=== PATIENT | female | born 1945 | race Caucasian/White ===

== ENCOUNTER → 2016-12-11 | Outpatient (REF) | payer MEDICARE, OTHER ==
[2016-12-11 13:14] LABS: ALBUMIN 3.5 GM/DL (3.2-5.2); ALBUMIN/GLOBULIN RATIO 1.06 (1.00-1.93); ALKALINE PHOSPHATASE 87 U/L (45-117); ALT/SGPT 26 U/L (12-78); ANION GAP 10 MEQ/L (8-16); AST/SGOT 15 U/L (15-37); BILIRUBIN,TOTAL 0.3 MG/DL (0.2-1.0); BLOOD UREA NITROGEN 19 MG/DL (7-18); CALCIUM LEVEL 8.6 MG/DL (8.8-10.2); CARBON DIOXIDE LEVEL 30 MEQ/L (21-32); CHLORIDE LEVEL 100 MEQ/L (98-107); CHOLESTEROL LEVEL 183 MG/DL (<200); CREATININE FOR GFR 0.97 MG/DL (0.55-1.02); GLOMERULAR FILTRATION RATE > 60.0 (>45); GLUCOSE, FASTING 174 MG/DL (80-110); POTASSIUM SERUM 4.8 MEQ/L (3.5-5.1); SODIUM LEVEL 140 MEQ/L (136-145); TOTAL PROTEIN 6.8 GM/DL (6.4-8.2); TRIGLYCERIDES LEVEL 174 MG/DL (<150)
== END ==
LOC: M SFHCPLAZ 08:06
PROVIDERS: ATTEND Nurse Practitioner Family
DX: E11.8 Type 2 diabetes mellitus with unspecified complications (principal); M35.3 Polymyalgia rheumatica; E78.2 Mixed hyperlipidemia; E55.9 Vitamin D deficiency, unspecified

== ENCOUNTER → 2017-03-16 | Outpatient (REF) | payer MEDICARE, OTHER ==
[2017-03-16 13:48] LABS: ALBUMIN 3.5 GM/DL (3.2-5.2); ALBUMIN/GLOBULIN RATIO 1.06 (1.00-1.93); BILIRUBIN,TOTAL 0.4 MG/DL (0.2-1.0); CALCIUM LEVEL 9.4 MG/DL (8.8-10.2); CREATININE FOR GFR 1.12 MG/DL (0.55-1.02); GLOMERULAR FILTRATION RATE 51.3 (>45); POTASSIUM SERUM 5.1 MEQ/L (3.5-5.1); TOTAL PROTEIN 6.8 GM/DL (6.4-8.2)
== END ==
LOC: M SFHCADAM 09:26
PROVIDERS: ATTEND Nurse Practitioner Family
DX: E11.8 Type 2 diabetes mellitus with unspecified complications (principal)

== ENCOUNTER → 2017-07-25 | Outpatient (REF) | payer MEDICARE, OTHER ==
[2017-07-25 14:35] LABS: ALBUMIN 3.5 GM/DL (3.2-5.2); ALBUMIN/GLOBULIN RATIO 1.17 (1.00-1.93); BILIRUBIN,TOTAL 0.3 MG/DL (0.2-1.0); CALCIUM LEVEL 8.8 MG/DL (8.8-10.2); CREATININE FOR GFR 1.04 MG/DL (0.55-1.02); GLOMERULAR FILTRATION RATE 55.8 (>39); POTASSIUM SERUM 4.9 MEQ/L (3.5-5.1); TOTAL PROTEIN 6.5 GM/DL (6.4-8.2)
== END ==
LOC: M SFHCADAM 07:25
PROVIDERS: ATTEND Family Medicine
DX: E11.8 Type 2 diabetes mellitus with unspecified complications (principal); E55.9 Vitamin D deficiency, unspecified

== ENCOUNTER → 2017-10-23 | Outpatient (REF) | payer MEDICARE, OTHER ==
[2017-10-23 12:35] LABS: ESTIMATED AVERAGE GLUCOSE 140 MG/DL (60-110); HEMOGLOBIN A1c 6.5 %
[2017-10-23 12:38] LABS: ALBUMIN 3.6 GM/DL (3.2-5.2); ALBUMIN/GLOBULIN RATIO 1.06 (1.00-1.93); ALKALINE PHOSPHATASE 74 U/L (45-117); ALT/SGPT 22 U/L (12-78); ANION GAP 5 MEQ/L (8-16); AST/SGOT 11 U/L (7-37); BILIRUBIN,TOTAL 0.3 MG/DL (0.2-1.0); BLOOD UREA NITROGEN 37 MG/DL (7-18); CALCIUM LEVEL 9.1 MG/DL (8.8-10.2); CARBON DIOXIDE LEVEL 32 MEQ/L (21-32); CHLORIDE LEVEL 102 MEQ/L (98-107); CHOLESTEROL LEVEL 227 MG/DL (<200); CHOLESTEROL RISK RATIO 3.783 (<5); CREATININE FOR GFR 1.33 MG/DL (0.55-1.02); GLUCOSE, FASTING 100 MG/DL (83-110); HDL CHOLESTEROL 60 MG/DL (>40); LDL CHOLESTEROL 123.2 MG/DL (<100); NON-HDL-C 167 MG/DL; POTASSIUM SERUM 5.1 MEQ/L (3.5-5.1); SODIUM LEVEL 139 MEQ/L (136-145); TRIGLYCERIDES LEVEL 219 MG/DL (<150)
== END ==
LOC: M SFHCADAM 09:05
DX: E11.8 Type 2 diabetes mellitus with unspecified complications (principal); E78.2 Mixed hyperlipidemia
CPT/HCPCS: 80053

== ENCOUNTER → 2017-10-31 | Outpatient (CLI) | payer MEDICARE, OTHER | LOC: M WHC 08:53 | DX: Z12.31 Encounter for screening mammogram for malignant neoplasm of breast (principal); N95.1 Menopausal and female climacteric states; Z80.0 Family history of malignant neoplasm of digestive organs; Z80.3 Family history of malignant neoplasm of breast; M81.0 Age-related osteoporosis without current pathological fracture | CPT/HCPCS: 77067 ==

== ENCOUNTER → 2017-11-07 | Outpatient (REF) | payer MEDICARE, OTHER ==
[2017-11-07 13:49] LABS: CREATININE FOR GFR 1.22 MG/DL (0.55-1.02); GLOMERULAR FILTRATION RATE 46.4 (>39)
[2017-11-07 13:49] LABS: BLOOD UREA NITROGEN 41 MG/DL (7-18)
== END ==
LOC: M LAB REF 12:58
DX: R94.4 Abnormal results of kidney function studies (principal)
CPT/HCPCS: 82565

== ENCOUNTER → 2018-01-01 | Outpatient (REF) | payer MEDICARE, OTHER ==
[2018-01-01 16:09] LABS: BASO # 0.1 10^3/uL (0.0-0.2); BASO % 1.2 % (0.0-1.0); EOS # 0.1 10^3/uL (0.0-0.50); EOS % 1.9 % (0.0-3.0); HEMATOCRIT 34.8 % (36.0-47.0); HEMOGLOBIN 11.2 g/dl (12.0-16.0); IMMATURE GRANULOCYTE % 0.7 % (0-3.0); LYMPH # 2.3 10^3/uL (1.5-4.5); LYMPH % 33.3 % (24.0-44.0); MEAN CORPUSCULAR HEMOGLOBIN 28.9 pg (27.0-33.0); MEAN CORPUSCULAR HGB CONC 32.2 g/dl (32.0-36.5); MEAN CORPUSCULAR VOLUME 89.7 fl (80.0-96.0); MONO # 0.7 10^3/uL (0.0-0.8); MONO % 10.7 % (0.0-5.0); NEUTROPHILS # 3.6 10^3/uL (1.8-7.7); NEUTROPHILS % 52.2 % (36.0-66.0); PLATELET COUNT, AUTOMATED 287 10^3/uL (150-450); RED BLOOD COUNT 3.88 10^6/uL (4.00-5.40); RED CELL DISTRIBUTION WIDTH 15.6 % (11.5-14.5); WHITE BLOOD COUNT 6.8 10^3/uL (4.0-10.0)
[2018-01-01 16:23] LABS: ALBUMIN 3.9 GM/DL (3.2-5.2); ALBUMIN/GLOBULIN RATIO 1.11 (1.00-1.93); ALKALINE PHOSPHATASE 81 U/L (45-117); ALT/SGPT 23 U/L (12-78); ANION GAP 5 MEQ/L (8-16); AST/SGOT 16 U/L (7-37); BILIRUBIN,TOTAL 0.4 MG/DL (0.2-1.0); BLOOD UREA NITROGEN 30 MG/DL (7-18); CALCIUM LEVEL 9.4 MG/DL (8.8-10.2); CARBON DIOXIDE LEVEL 32 MEQ/L (21-32); CHLORIDE LEVEL 100 MEQ/L (98-107); CREATININE FOR GFR 1.08 MG/DL (0.55-1.30); GLOMERULAR FILTRATION RATE 53.4 (>39); GLUCOSE, FASTING 104 MG/DL (70-100); POTASSIUM SERUM 4.8 MEQ/L (3.5-5.1); SODIUM LEVEL 137 MEQ/L (136-145); TOTAL PROTEIN 7.4 GM/DL (6.4-8.2)
[2018-01-01 16:28] LABS: ESTIMATED AVERAGE GLUCOSE 134 MG/DL (60-110); HEMOGLOBIN A1c 6.3 %
[2018-01-01 17:18] LABS: ERYTHROCYTE SEDIMENTATION RATE 55 mm/hr (0-30)
== END ==
LOC: M SFHCPLAZ 12:24
DX: R19.7 Diarrhea, unspecified (principal); E11.9 Type 2 diabetes mellitus without complications
CPT/HCPCS: 80053

== ENCOUNTER → 2018-01-02 | Outpatient (REF) | payer MEDICARE, OTHER | LOC: M SFHCPLAZ 09:36 | DX: R19.7 Diarrhea, unspecified (principal) | CPT/HCPCS: 87507 ==

== ENCOUNTER → 2018-01-17 | Outpatient (REF) | payer MEDICARE, OTHER ==
[2018-01-17 13:23] LABS: CREATININE FOR GFR 1.19 MG/DL (0.55-1.30); GLOMERULAR FILTRATION RATE 47.7 (>39)
== END ==
LOC: M LABDRWAD 12:46
DX: R94.4 Abnormal results of kidney function studies (principal)
CPT/HCPCS: 82565

== ENCOUNTER → 2018-03-14 | Outpatient (REF) | payer MEDICARE, OTHER ==
[2018-03-14 13:56] LABS: ALBUMIN 3.5 GM/DL (3.2-5.2); ALBUMIN/GLOBULIN RATIO 1.13 (1.00-1.93); ALKALINE PHOSPHATASE 77 U/L (45-117); ALT/SGPT 25 U/L (12-78); ANION GAP 6 MEQ/L (8-16); AST/SGOT 15 U/L (7-37); BILIRUBIN,TOTAL 0.4 MG/DL (0.2-1.0); BLOOD UREA NITROGEN 35 MG/DL (7-18); CALCIUM LEVEL 8.7 MG/DL (8.8-10.2); CARBON DIOXIDE LEVEL 29 MEQ/L (21-32); CHLORIDE LEVEL 104 MEQ/L (98-107); CHOLESTEROL LEVEL 173 MG/DL (<200); CREATININE FOR GFR 1.09 MG/DL (0.55-1.30); GLOMERULAR FILTRATION RATE 52.8 (>39); GLUCOSE, FASTING 189 MG/DL (70-100); HDL CHOLESTEROL 50 MG/DL (>40); LDL CHOLESTEROL 85.2 MG/DL (<100); NON-HDL-C 123 MG/DL; SODIUM LEVEL 139 MEQ/L (136-145); TOTAL PROTEIN 6.6 GM/DL (6.4-8.2); TRIGLYCERIDES LEVEL 189 MG/DL (<150)
[2018-03-14 13:58] LABS: POTASSIUM SERUM 5.3 MEQ/L (3.5-5.1)
[2018-03-14 14:31] LABS: MALB URINE SIEMENS 33.3 MG/L; MAU/CREAT RATIO 58.4 MCG/MG (0.0-30.0)
[2018-03-14 14:38] LABS: ESTIMATED AVERAGE GLUCOSE 160 MG/DL (60-110); HEMOGLOBIN A1c 7.2 %
== END ==
LOC: M SFHCADAM 07:46
DX: E11.8 Type 2 diabetes mellitus with unspecified complications (principal); E78.2 Mixed hyperlipidemia
CPT/HCPCS: 80053

== ENCOUNTER → 2018-03-26 | Day surgery (SDC) | payer MEDICARE, OTHER ==
[~2018-03-26] MED LIST: LIDOCAINE 2% INJ 100 MG/5 ML SDV (FOR ANES.) As Ordered; PROPOFOL 200 MG/20 ML VIAL As Ordered
[2018-03-26] MEDS: NS 1,000 ML IV (06:30)
== END | disposition home or self-care (01) ==
LOC: M OPP 06:41
DX: Z12.11 Encounter for screening for malignant neoplasm of colon (principal); K64.0 First degree hemorrhoids; E11.9 Type 2 diabetes mellitus without complications; I10 Essential (primary) hypertension; D64.9 Anemia, unspecified; N32.9 Bladder disorder, unspecified; M35.3 Polymyalgia rheumatica; F32.9 Major depressive disorder, single episode, unspecified; Z79.82 Long term (current) use of aspirin; Z79.84 Long term (current) use of oral hypoglycemic drugs; Z79.899 Other long term (current) drug therapy; Z88.0 Allergy status to penicillin; Z88.8 Allergy status to other drugs, medicaments and biological substances; Z78.0 Asymptomatic menopausal state; Z87.891 Personal history of nicotine dependence
CPT/HCPCS: G0121

== ENCOUNTER → 2018-04-16 | Outpatient (REF) | payer MEDICARE, OTHER ==
[2018-04-16 12:34] LABS: HEMOGLOBIN 10.7 g/dl (12.0-15.5); MEAN CORPUSCULAR HEMOGLOBIN 29.5 pg (27.0-33.0); MEAN CORPUSCULAR HGB CONC 31.5 g/dl (32.0-36.5); MEAN CORPUSCULAR VOLUME 93.7 fl (80.0-96.0); PLATELET COUNT, AUTOMATED 328 10^3/uL (150-450); RED BLOOD COUNT 3.63 10^6/uL (4.00-5.40); RED CELL DISTRIBUTION WIDTH 15.2 % (11.5-14.5)
[2018-04-16 13:06] LABS: ANION GAP 8 MEQ/L (8-16); BLOOD UREA NITROGEN 35 MG/DL (7-18); CARBON DIOXIDE LEVEL 29 MEQ/L (21-32); CHLORIDE LEVEL 103 MEQ/L (98-107); CREATININE FOR GFR 1.13 MG/DL (0.55-1.30); FERRITIN 23 NG/ML (8-252); GLOMERULAR FILTRATION RATE 50.7 (>39); GLUCOSE, FASTING 147 MG/DL (70-100); SODIUM LEVEL 140 MEQ/L (136-145)
[2018-04-16 13:09] LABS: POTASSIUM SERUM 5.2 MEQ/L (3.5-5.1)
== END ==
LOC: M SFHCADAM 08:58
DX: E87.5 Hyperkalemia (principal)
CPT/HCPCS: 82728

== ENCOUNTER 2018-04-30 19:55 | Emergency (ER) | payer MEDICARE, OTHER ==
[2018-04-30 20:45] LABS: BASO # 0.1 10^3/uL (0.0-0.2); BASO % 0.6 % (0.0-1.0); EOS # 0.2 10^3/uL (0.0-0.50); EOS % 1.4 % (0.0-3.0); HEMATOCRIT 33.6 % (36.0-47.0); HEMOGLOBIN 10.8 g/dl (12.0-15.5); IMMATURE GRANULOCYTE % 0.7 % (0-3.0); LYMPH # 2.2 10^3/uL (1.5-4.5); LYMPH % 19.8 % (24.0-44.0); MEAN CORPUSCULAR HEMOGLOBIN 29.6 pg (27.0-33.0); MEAN CORPUSCULAR HGB CONC 32.1 g/dl (32.0-36.5); MEAN CORPUSCULAR VOLUME 92.1 fl (80.0-96.0); MONO % 9.3 % (0.0-5.0); NEUTROPHILS # 7.5 10^3/uL (1.8-7.7); NEUTROPHILS % 68.2 % (36.0-66.0); PLATELET COUNT, AUTOMATED 305 10^3/uL (150-450); RED BLOOD COUNT 3.65 10^6/uL (4.00-5.40); WHITE BLOOD COUNT 11.1 10^3/uL (4.0-10.0)
[2018-04-30 20:49] LABS: INR 0.95; PROTHROMBIN TIME 12.7 SECONDS (12.1-14.4)
[2018-04-30 20:50] LABS: PARTIAL THROMBOPLASTIN TIME 36.5 SECONDS (25.4-37.6)
[2018-04-30 21:01] LABS: ANION GAP 6 MEQ/L (8-16); BLOOD UREA NITROGEN 29 MG/DL (7-18); CALCIUM LEVEL 8.9 MG/DL (8.8-10.2); CARBON DIOXIDE LEVEL 33 MEQ/L (21-32); CHLORIDE LEVEL 100 MEQ/L (98-107); CK-MB VALUE MASS 3.8 NG/ML (<3.6); CPK CREATINE PHOSPHOKINASE 172 U/L (26-192); CREATININE FOR GFR 1.38 MG/DL (0.55-1.30); GLOMERULAR FILTRATION RATE 40.1 (>39); GLUCOSE, FASTING 153 MG/DL (70-100); POTASSIUM SERUM 4.5 MEQ/L (3.5-5.1); SODIUM LEVEL 139 MEQ/L (136-145); TROPONIN I < 0.02 NG/ML (< 0.10)
[2018-04-30] MEDS: NS 500 ML IV (21:15)
[2018-04-30] MEDS ORDERED: ISOVUE-370 76% 100ML VIAL (Q9967) As Ordered (21:44)
[2018-04-30 23:22] LABS: CK-MB VALUE MASS 3.6 NG/ML (<3.6); CPK CREATINE PHOSPHOKINASE 152 U/L (26-192); MB/CK RELATIVE INDEX 2.36 (< OR =4); TROPONIN I < 0.02 NG/ML (< 0.10)
== END 2018-05-01 00:27 | disposition home or self-care (01) ==
LOC: M ED 05-01 00:27
DX: R07.89 Other chest pain (principal); K21.0 Gastro-esophageal reflux disease with esophagitis; E11.9 Type 2 diabetes mellitus without complications; I10 Essential (primary) hypertension; E78.5 Hyperlipidemia, unspecified; F32.9 Major depressive disorder, single episode, unspecified; F41.9 Anxiety disorder, unspecified; M19.90 Unspecified osteoarthritis, unspecified site; M35.3 Polymyalgia rheumatica; Z88.0 Allergy status to penicillin; Z88.1 Allergy status to other antibiotic agents; Z79.899 Other long term (current) drug therapy; Z79.82 Long term (current) use of aspirin
CPT/HCPCS: Q9967

== ENCOUNTER → 2018-05-14 | Outpatient (REF) | payer MEDICARE, OTHER ==
[2018-05-14 14:22] LABS: FERRITIN 28 NG/ML (8-252); IRON (FE) 58 UG/DL (50-170); TOTAL IRON BINDING CAPACITY 341 UG/DL (250-450)
== END ==
LOC: M LAB REF 13:23
DX: D50.9 Iron deficiency anemia, unspecified (principal)
CPT/HCPCS: 83550

== ENCOUNTER → 2018-05-23 | Outpatient (CLI) | payer MEDICARE, OTHER | LOC: M RAD 09:52 | DX: N18.3 Chronic kidney disease, stage 3 (moderate) (principal); I15.0 Renovascular hypertension; N28.1 Cyst of kidney, acquired | CPT/HCPCS: 78707 ==

== ENCOUNTER → 2018-07-23 | Outpatient (REF) | payer MEDICARE, OTHER ==
[2018-07-23 13:02] LABS: ALBUMIN 3.6 GM/DL (3.2-5.2); ALBUMIN/GLOBULIN RATIO 1.06 (1.00-1.93); ALKALINE PHOSPHATASE 80 U/L (45-117); ALT/SGPT 23 U/L (12-78); ANION GAP 5 MEQ/L (8-16); AST/SGOT 14 U/L (7-37); BILIRUBIN,TOTAL 0.4 MG/DL (0.2-1.0); BLOOD UREA NITROGEN 32 MG/DL (7-18); CALCIUM LEVEL 9.4 MG/DL (8.8-10.2); CARBON DIOXIDE LEVEL 32 MEQ/L (21-32); CHLORIDE LEVEL 100 MEQ/L (98-107); CHOLESTEROL LEVEL 187 MG/DL (<200); CREATININE FOR GFR 1.14 MG/DL (0.55-1.30); GLUCOSE, FASTING 200 MG/DL (70-100); HDL CHOLESTEROL 55 MG/DL (>40); LDL CHOLESTEROL 87 MG/DL (<100); NON-HDL-C 132 MG/DL; POTASSIUM SERUM 5.2 MEQ/L (3.5-5.1); SODIUM LEVEL 137 MEQ/L (136-145); TRIGLYCERIDES LEVEL 225 MG/DL (<150)
[2018-07-23 13:57] LABS: TOTAL 25(OH) VITAMIN D 50.3 NG/ML (30.0-100.0)
[2018-07-23 23:30] LABS: ESTIMATED AVERAGE GLUCOSE 151 MG/DL (60-110); HEMOGLOBIN A1c 6.9 %
== END ==
LOC: M SFHCADAM 08:06
DX: E11.8 Type 2 diabetes mellitus with unspecified complications (principal); E78.2 Mixed hyperlipidemia; E55.9 Vitamin D deficiency, unspecified
CPT/HCPCS: 80053

== ENCOUNTER → 2018-09-12 | Outpatient (REF) | payer MEDICARE, OTHER ==
[2018-09-12 18:23] LABS: ALBUMIN/GLOBULIN RATIO 1.18 (1.00-1.93); ALKALINE PHOSPHATASE 83 U/L (45-117); ALT/SGPT 37 U/L (12-78); ANION GAP 7 MEQ/L (8-16); AST/SGOT 20 U/L (7-37); BILIRUBIN,TOTAL 0.3 MG/DL (0.2-1.0); BLOOD UREA NITROGEN 50 MG/DL (7-18); CALCIUM LEVEL 9.5 MG/DL (8.8-10.2); CARBON DIOXIDE LEVEL 30 MEQ/L (21-32); CHLORIDE LEVEL 101 MEQ/L (98-107); CREATININE FOR GFR 1.37 MG/DL (0.55-1.30); GLOMERULAR FILTRATION RATE 40.5 (>39); GLUCOSE, FASTING 143 MG/DL (70-100); POTASSIUM SERUM 4.9 MEQ/L (3.5-5.1); SODIUM LEVEL 138 MEQ/L (136-145); TOTAL PROTEIN 7.4 GM/DL (6.4-8.2)
[2018-09-12 18:47] LABS: ESTIMATED AVERAGE GLUCOSE 160 MG/DL (60-110); HEMOGLOBIN A1c 7.2 %
== END ==
LOC: M SFHCPLAZ 14:58
DX: E11.8 Type 2 diabetes mellitus with unspecified complications (principal)
CPT/HCPCS: 80053

== ENCOUNTER → 2018-10-22 | Outpatient (CLI) | payer MEDICARE, OTHER ==
[~2018-10-22] MED LIST changes: +ASPI1TAB PO; +CO Q400C2 PO; +FOLI1TAB11; +GLIP2.5T6; +JANU100T; -LIDOCAINE 2% INJ 100 MG/5 ML SDV (FOR ANES.) As Ordered; +LORA-243; +LOSA100T8 PO; +MAGN400C2 PO; +METH2.5T48; +PRAV20TA2; +PREG25CA; -PROPOFOL 200 MG/20 ML VIAL As Ordered; +PROT1TAB2 PO; +REST0.05 OU; +VENL37.52; +VITA1CAP7 PO; +VITA500064 PO; +VITA500T PO
--- NOTE | 2018-10-22 12:26 | REP ---
Chest two views HISTORY: Hypertension Comparison: 02/10/2011 The lungs are clear. The heart is normal in size. The pulmonary vasculature is normal in appearance. Degenerative change is present in the thoracic spine. IMPRESSION: No acute disease. Electronically Signed by Mannie Pimentel MD 10/22/2018 12:18 P
== END ==
LOC: M SMT 10:51
PROVIDERS: ATTEND Nurse Practitioner Family
DX: I15.0 Renovascular hypertension (principal)
CPT/HCPCS: 71046; G0463

== ENCOUNTER → 2018-11-04 | Outpatient (CLI) | payer MEDICARE, OTHER ==
[~2018-11-04] MED LIST changes: +GASTROGRAFIN SOLUTION 30ML (Q9963) As Ordered ONE; +ISOVUE-370 76% 100ML VIAL (Q9967) As Ordered ONE
--- NOTE | 2018-11-04 11:58 | REP ---
CT ABDOMEN WITH ORAL CONTRAST WITH AND WITHOUT IV CONTRAST: TECHNIQUE: Axial noncontrast images through the abdomen followed by contrast-enhanced images through the abdomen using 100 mL Isovue 370 intravenous contrast material, with coronal and sagittal reformations. COMPARISON: CT angiogram chest 04/30/2018. Visualized lung bases demonstrate no significant abnormality on either side. The liver, spleen and right adrenal gland appear unremarkable. Left adrenal gland again demonstrates a small oval low density nodule consistent with an adenoma, unchanged since the prior exam . This measures about 14 x 11 mm. The pancreas is unremarkable as is the left kidney. Right kidney demonstrates two small cysts. The largest is inferiorly located and measures approximately 1.4 cm in maximum diameter. There is atherosclerotic calcification of the abdominal aorta without aneurysm. There is no adenopathy. There is no free air or free fluid. No bowel wall thickening is seen. There are mild degenerative changes of the spine. IMPRESSION: Stable left adrenal adenoma. Two small cysts right kidney. No other acute abnormality. Electronically Signed by Eduardo Barker MD 11/04/2018 12:59 P
== END ==
LOC: M RAD 09:26
PROVIDERS: ATTEND Nurse Practitioner Family
DX: D35.02 Benign neoplasm of left adrenal gland (principal)
CPT/HCPCS: 74170; Q9963; Q9967

== ENCOUNTER → 2018-12-03 | Outpatient (REF) | payer MEDICARE, OTHER ==
[~2018-12-03] MED LIST changes: -GASTROGRAFIN SOLUTION 30ML (Q9963) As Ordered ONE; -ISOVUE-370 76% 100ML VIAL (Q9967) As Ordered ONE
[2018-12-03 13:51] LABS: HEMOGLOBIN A1c 7.5 %
[2018-12-03 14:04] LABS: ALBUMIN 3.6 GM/DL (3.2-5.2); BILIRUBIN,TOTAL 0.3 MG/DL (0.2-1.0); CALCIUM LEVEL 8.6 MG/DL (8.8-10.2); CREATININE FOR GFR 1.16 MG/DL (0.55-1.30); FREE T4 1.11 NG/DL (0.76-1.46); POTASSIUM SERUM 5.6 MEQ/L (3.5-5.1); THYROID STIMULATING HORMONE 1.09 uIU/ML (0.358-3.740); TOTAL PROTEIN 6.8 GM/DL (6.4-8.2)
[2018-12-03 14:24] LABS: MALB URINE SIEMENS 91.2 MG/L
== END ==
LOC: M SFHCADAM 08:18
PROVIDERS: ATTEND Nurse Practitioner Family
DX: E11.8 Type 2 diabetes mellitus with unspecified complications (principal); R53.83 Other fatigue

== ENCOUNTER → 2018-12-05 | Outpatient (REF) | payer MEDICARE, OTHER ==
[2018-12-05 17:15] LABS: CALCIUM LEVEL 9.5 MG/DL (8.8-10.2); CREATININE FOR GFR 1.06 MG/DL (0.55-1.30); GLOMERULAR FILTRATION RATE 54.4 (>39); POTASSIUM SERUM 4.5 MEQ/L (3.5-5.1)
== END ==
LOC: M SFHCPLAZ 15:33
PROVIDERS: ATTEND Nurse Practitioner Family
DX: E87.5 Hyperkalemia (principal)

== ENCOUNTER → 2019-01-15 | Outpatient (CLI) | payer MEDICARE, OTHER ==
[~2019-01-15] MED LIST changes: -ASPI1TAB PO; +ASPI81TA26 PO; +D-3-50003 PO; -VITA1CAP7 PO
== END ==
LOC: M LAB 10:48
DX: R06.02 Shortness of breath (principal)

== ENCOUNTER → 2019-02-25 | Outpatient (REF) | payer MEDICARE, OTHER ==
[2019-02-25 13:10] LABS: CALCIUM LEVEL 9.1 MG/DL (8.8-10.2); CREATININE FOR GFR 1.32 MG/DL (0.55-1.30); GLOMERULAR FILTRATION RATE 42.2 (>39); POTASSIUM SERUM 4.7 MEQ/L (3.5-5.1)
== END ==
LOC: M LABDRAW1 11:42
PROVIDERS: ATTEND Internal Medicine Endocrinology, Diabetes & Metabolism
DX: E11.65 Type 2 diabetes mellitus with hyperglycemia (principal)

== ENCOUNTER → 2019-03-18 | Outpatient (REF) | payer MEDICARE, OTHER ==
[2019-03-18 11:49] LABS: CREATININE, URINE 83.4 MG/DL; MAU/CREAT RATIO 230.2 MCG/MG (0.0-30.0)
[2019-03-18 12:19] LABS: ALBUMIN 3.7 GM/DL (3.2-5.2); BILIRUBIN,TOTAL 0.3 MG/DL (0.2-1.0); CALCIUM LEVEL 9.5 MG/DL (8.8-10.2); CREATININE FOR GFR 1.18 MG/DL (0.55-1.30); GLOMERULAR FILTRATION RATE 48.1 (>39); POTASSIUM SERUM 5.3 MEQ/L (3.5-5.1); TOTAL PROTEIN 6.8 GM/DL (6.4-8.2)
[2019-03-18 13:51] LABS: HEMOGLOBIN A1c 7.7 %
== END ==
LOC: M SFHCPLAZ 08:31
PROVIDERS: ATTEND Nurse Practitioner Family
DX: R80.9 Proteinuria, unspecified (principal); E11.65 Type 2 diabetes mellitus with hyperglycemia

== ENCOUNTER → 2019-04-25 | Outpatient (REF) | payer MEDICARE, OTHER ==
[2019-04-25 10:17] LABS: CALCIUM LEVEL 8.3 MG/DL (8.8-10.2); CREATININE FOR GFR 1.3 MG/DL (0.55-1.30); GLOMERULAR FILTRATION RATE 42.9 (>39); POTASSIUM SERUM 5.3 MEQ/L (3.5-5.1)
== END ==
LOC: M SFHCPLAZ 08:46
PROVIDERS: ATTEND Nurse Practitioner Family
DX: I15.0 Renovascular hypertension (principal)

== ENCOUNTER 2019-07-31 08:22 | Emergency (ER) | payer MEDICARE, OTHER ==
[~2019-07-31] VITALS: Ht 162.6 cm; Wt 90.9 kg
[~2019-07-31 08:22] MED LIST changes: -GLIP2.5T6; +GLIP2.5T6 PO
[2019-07-31] MEDS ORDERED: ONDANSETRON 4MG/2ML VIAL (J2405) IV ONE (08:45)
[2019-07-31] MEDS ORDERED: ASPIRIN 81 MG CHEW TABLET PO ONE (08:45)
[2019-07-31] MEDS ORDERED: ISOVUE-370 76% 100ML VIAL (Q9967) As Ordered ONE (08:47)
[2019-07-31] MEDS: fentaNYL 100 MCG/2 ML INJECTION (J3010) IV PRN ×2 (08:50→09:31)
[2019-07-31 08:56] LABS: BASO # 0.1 10^3/uL (0.0-0.2); BASO % 0.4 % (0.0-1.0); EOS # 0.1 10^3/uL (0.0-0.5); EOS % 0.6 % (0.0-3.0); HEMATOCRIT 35.2 % (36.0-47.0); HEMOGLOBIN 11.2 g/dl (12.0-15.5); LYMPH # 0.8 10^3/uL (1.5-5.0); LYMPH % 5.7 % (24.0-44.0); MEAN CORPUSCULAR HEMOGLOBIN 29.3 pg (27.0-33.0); MEAN CORPUSCULAR HGB CONC 31.8 g/dl (32.0-36.5); MEAN CORPUSCULAR VOLUME 92.1 fl (80.0-96.0); MONO # 0.6 10^3/uL (0.0-0.8); MONO % 4.2 % (0.0-5.0); NEUTROPHILS # 12.1 10^3/uL (1.5-8.5); NEUTROPHILS % 88.1 % (36.0-66.0); PLATELET COUNT, AUTOMATED 320 10^3/uL (150-450); RED BLOOD COUNT 3.82 10^6/uL (4.00-5.40); WHITE BLOOD COUNT 13.7 10^3/uL (4.0-10.0)
--- NOTE | 2019-07-31 09:00 | REP ---
Portable chest x-ray: Semi-erect AP view. History: Chest pain. Comparison study: October 2018. Findings: The lungs are exposed at a slightly lesser inspiratory level. Oxygen delivery tubing and monitoring electrodes are seen. No infiltrate is seen. Pleural angles are sharp. Cardiomediastinal silhouette is unremarkable. Vascular calcifications again noted. Impression: No acute disease. Lesser level of inspiration. Electronically Signed by Mandeep Curiel MD 07/31/2019 08:51 A
[2019-07-31] MEDS ORDERED: DULO1CAP6 PO (09:23)
[2019-07-31 09:25] LABS: ALBUMIN 3.3 GM/DL (3.2-5.2); ALT/SGPT 19 U/L (12-78); BILIRUBIN,DIRECT < 0.1 MG/DL (0.0-0.2); BILIRUBIN,TOTAL 0.5 MG/DL (0.2-1.0); BLOOD UREA NITROGEN 31 MG/DL (7-18); CARBON DIOXIDE LEVEL 28 MEQ/L (21-32); CHLORIDE LEVEL 102 MEQ/L (98-107); CK-MB VALUE MASS 1.1 NG/ML (<3.6); CPK CREATINE PHOSPHOKINASE 74 U/L (26-192); CREATININE FOR GFR 1.39 MG/DL (0.55-1.30); FREE T4 1.24 NG/DL (0.76-1.46); GLOMERULAR FILTRATION RATE 39.7 (>39); GLUCOSE, FASTING 321 MG/DL (70-100); LIPASE 954 U/L (73-393); MB/CK RELATIVE INDEX 1.49 (< OR =4); NT-PRO BNP 260 PG/ML (<125); SODIUM LEVEL 136 MEQ/L (136-145); TOTAL PROTEIN 7.3 GM/DL (6.4-8.2); TROPONIN I < 0.02 NG/ML (< 0.10)
[2019-07-31] MEDS ORDERED: IPRATROPIUM 0.5MG/ALBUTEROL 2.5MG INH SOL UD 3ML (DUONEB)(J7620) NEB ONE (09:30)
[2019-07-31] MEDS ORDERED: methylPREDNISolone INJ 125 MG/2 ML VIAL (J2930) IV ONE (09:30)
[2019-07-31 09:46] LABS: INR 0.97; PARTIAL THROMBOPLASTIN TIME 34.7 SECONDS (25.0-38.4); PROTHROMBIN TIME 12.6 SECONDS (11.8-14.0)
--- NOTE | 2019-07-31 10:08 | REP ---
CT THORACIC AORTIC ANGIOGRAM: With IV contrast. HISTORY: Rule out dissection. COMPARISON STUDIES: Comparison CT angiogram April 30, 2018. CONTRAST DOSE: 75 mL of Isovue [address] technique: Helical scanning is acquired and overlapping 1.5 mm and contiguous 3 mm axial images are reformatted. In addition, maximum intensity projection and multiplanar re-formation images are generated in sagittal and coronal imaging projections. CT ANGIOGRAPHIC FINDINGS: There is good opacification of the thoracic aorta. There is no evidence of aortic aneurysm or dissection. Vascular calcification is noted. Great vessel origins are unremarkable except for some mild atherosclerotic vascular calcification. There is no CT evidence of pulmonary embolus. There is minimal discoid atelectasis in the lingular segment left upper lobe. No infiltrate is seen. No pulmonary mass lesion or significant pulmonary nodule is appreciated. Maximal intensity projection images and 3D surface rendered aortic images show atherosclerotic change but no other finding. No bony lesion is appreciated. There is mild stable thickening of the left adrenal gland unchanged. There is new pericardial thickening or pericardial fluid anteriorly and posteriorly around the heart. This is a change from April 30, 2018. Question pericarditis. IMPRESSION: There is new pericardial thickening/fluid question pericarditis. No CT evidence of thoracic aneurysm or dissection. No CT evidence of pulmonary embolus. No acute disease. Electronically Signed by Mandeep Curiel MD 07/31/2019 06:20 P
[2019-07-31 10:12] LABS: C REACTIVE PROTEIN QUANTITATIV 0.87 MG/DL (0.00-0.30)
[2019-07-31] MEDS ORDERED: COLCHICINE 0.6 MG TAB PO ONE (10:15)
[2019-07-31 10:45] LABS: ERYTHROCYTE SEDIMENTATION RATE 67 mm/hr (0-30)
[2019-07-31 13:56] LABS: CK-MB VALUE MASS 1.1 NG/ML (<3.6); CPK CREATINE PHOSPHOKINASE 47 U/L (26-192); MB/CK RELATIVE INDEX 2.34 (< OR =4); TROPONIN I < 0.02 NG/ML (< 0.10)
[2019-07-31] MEDS ORDERED: MOXI1TAB PO (14:10)
[2019-07-31] MEDS ORDERED: COLC1TAB13 PO (14:11)
[2019-07-31] MEDS ORDERED: MOXIFLOXACIN 400 MG TAB PO ONE (14:15)
[2019-07-31 14:56] VITALS: BP 131/62
--- NOTE | 2019-07-31 15:39 | ECGEPIP ---
[facility] - ED Test Date: 2019-07-31 Pat Name: LULA CEJA Department: Room: - Gender: Female Depilatory Painter: marcelino : 1945 Requested By: Darin Bazzi Order Number: [id number] Reading MD: Desire Murrell Measurements Intervals [place] Rate: 80 P: 56 MO: 144 QRS: 37 QRSD: 81 T: 58 QT: 363 QTc: 419 Interpretive Statements SINUS RHYTHM DELAYED R PROGRESSION INCREASED RATE 04/30/18 Electronically Signed on 07-31-2019 15:39:28 EDT by Desire Murrell
--- NOTE | 2019-07-31 15:40 | ECGEPIP ---
[facility] - ED Test Date: 2019-07-31 Pat Name: LULA CEJA Department: Room: - Gender: Female Waiter: : 1945 Requested By: Darin Bazzi Order Number: [id number] Reading MD: Desire Murrell Measurements Intervals [place] Rate: 81 P: 59 MS: 158 QRS: 41 QRSD: 77 T: 56 QT: 372 QTc: 433 Interpretive Statements SINUS RHYTHM WITH OCCASIONAL SUPRAVENTRICULAR PREMATURE COMPLEXES SEPTAL MYOCARDIAL INFARCTION, PROBABLY OLD baseline artifact may affect interpretation SIMILAR 07/31/19 8:32 Electronically Signed on 07-31-2019 15:39:56 EDT by Desire Murrell
--- NOTE | 2019-07-31 15:45 | ECGEPIP ---
[facility] - ED Test Date: 2019-07-31 Pat Name: LULA CEJA Department: Room: - Gender: Female Fireproof Door Maker: : 1945 Requested By: Darin Bazzi Order Number: [id number] Reading MD: Desire Murrell Measurements Intervals [place] Rate: 78 P: 50 [place]: 143 QRS: 25 QRSD: 67 T: 49 QT: 363 QTc: 413 Interpretive Statements SINUS RHYTHM SEPTAL MYOCARDIAL INFARCTION, OF INDETERMINATE AGE DECREASED ECTOPY 07/31/19 9:19 Electronically Signed on 07-31-2019 15:45:09 EDT by Desire Murrell
--- NOTE | 2019-08-01 20:45 | ED PDOC ---
Post-Departure Follow-Up andre das and dr viramontes faxed formal report of ct chest for fu Darin Phillips MD Aug 01, 2019 20:45
== END 2019-07-31 14:58 | disposition home or self-care (01) ==
LOC: M ED 08:22
DX: I31.9 Disease of pericardium, unspecified (principal); J40 Bronchitis, not specified as acute or chronic; E11.9 Type 2 diabetes mellitus without complications; I10 Essential (primary) hypertension; J45.909 Unspecified asthma, uncomplicated; E78.5 Hyperlipidemia, unspecified; F33.9 Major depressive disorder, recurrent, unspecified; F41.9 Anxiety disorder, unspecified; K21.9 Gastro-esophageal reflux disease without esophagitis; Z79.899 Other long term (current) drug therapy; Z79.84 Long term (current) use of oral hypoglycemic drugs; Z79.82 Long term (current) use of aspirin; Z88.0 Allergy status to penicillin; Z88.8 Allergy status to other drugs, medicaments and biological substances; Z87.891 Personal history of nicotine dependence
CPT/HCPCS: 36415; 71045; 71275; 80047; 80048; 80076; 82550; 82553; 83690; 83880; 84439; 84443; 84484; 85025; 85610; 85652; 85730; 86140; 86850; 86900; 86901; 93005; 93041; 94640; 94760; 96374; 96375; 96376; 99285; J2405; J2930; J3010; Q9967

== ENCOUNTER 2019-08-07 10:57 | Emergency (ER) | payer MEDICARE, OTHER ==
[~2019-08-07] VITALS: Ht 162.6 cm; Wt 92.2 kg
[~2019-08-07 10:57] MED LIST changes: +COLC1TAB13 PO; +DULO1CAP6 PO; +MOXI1TAB PO
[2019-08-07 12:17] LABS: BASO % 0.3 % (0.0-1.0); EOS % 0.3 % (0.0-3.0); HEMATOCRIT 30.6 % (36.0-47.0); HEMOGLOBIN 9.7 g/dl (12.0-15.5); LYMPH # 1.1 10^3/uL (1.5-5.0); LYMPH % 9.7 % (24.0-44.0); MEAN CORPUSCULAR HEMOGLOBIN 28.8 pg (27.0-33.0); MEAN CORPUSCULAR HGB CONC 31.7 g/dl (32.0-36.5); MEAN CORPUSCULAR VOLUME 90.8 fl (80.0-96.0); MONO # 0.7 10^3/uL (0.0-0.8); MONO % 6.6 % (0.0-5.0); NEUTROPHILS % 82.5 % (36.0-66.0); PLATELET COUNT, AUTOMATED 331 10^3/uL (150-450); RED BLOOD COUNT 3.37 10^6/uL (4.00-5.40); WHITE BLOOD COUNT 10.9 10^3/uL (4.0-10.0)
--- NOTE | 2019-08-07 12:33 | REP ---
Single view chest: 08/07/2019 Indication: Chest pain. Comparison: CT chest from 1 week earlier. Findings: Mild cardiomegaly is present. The lungs are clear. There is no pleural effusion or pneumothorax. Impression: No acute cardiopulmonary process. Electronically Signed by Jorge Mcclellan DO 08/07/2019 12:25 P
[2019-08-07 12:39] LABS: ERYTHROCYTE SEDIMENTATION RATE 73 mm/hr (0-30)
[2019-08-07 12:51] LABS: ALBUMIN 3.1 GM/DL (3.2-5.2); BILIRUBIN,DIRECT 0.1 MG/DL (0.0-0.2); BILIRUBIN,TOTAL 0.6 MG/DL (0.2-1.0); BLOOD UREA NITROGEN 34 MG/DL (7-18); C REACTIVE PROTEIN QUANTITATIV 9.01 MG/DL (0.00-0.30); CALCIUM LEVEL 9.2 MG/DL (8.8-10.2); CARBON DIOXIDE LEVEL 24 MEQ/L (21-32); CHLORIDE LEVEL 100 MEQ/L (98-107); CK-MB VALUE MASS < 1.0 NG/ML (<3.6); CPK CREATINE PHOSPHOKINASE 61 U/L (26-192); CREATININE FOR GFR 1.29 MG/DL (0.55-1.30); GLOMERULAR FILTRATION RATE 43.2 (>39); GLUCOSE, FASTING 222 MG/DL (70-100); MB/CK RELATIVE INDEX 1.64 (< OR =4); POTASSIUM SERUM 5.1 MEQ/L (3.5-5.1); SODIUM LEVEL 131 MEQ/L (136-145); TOTAL PROTEIN 6.9 GM/DL (6.4-8.2); TROPONIN I < 0.02 NG/ML (< 0.10)
[2019-08-07] MEDS ORDERED: IBUP-1114 PO (13:38)
[2019-08-07] MEDS ORDERED: PROT1TAB2 PO (13:38)
[2019-08-07 13:45] VITALS: BP 129/62
[2019-08-07] MEDS ORDERED: IBUPROFEN 800 MG TAB PO ONE (13:45)
[2019-08-07] MEDS ORDERED: COLCHICINE 0.6 MG TAB PO ONE (13:45)
[2019-08-07] MEDS ORDERED: PANTOPRAZOLE 40MG INJ (PROTONIX) (C9113) IV ONE (13:45)
--- NOTE | 2019-08-07 14:31 | ECGEPIP ---
[facility] - ED Test Date: 2019-08-07 Pat Name: LULA CEJA Department: Room: - Gender: Female Medical Office Technician: Lino RAYGOZA : 1945 Requested By: THALIA Butt Order Number: [id number] Reading MD: Desire Murrell Measurements Intervals [place] Rate: 96 P: 35 ND: 141 QRS: 43 QRSD: 69 T: 85 QT: 311 QTc: 394 Interpretive Statements SINUS RHYTHM NONSPECIFIC ST & T-WAVE ABNORMALITY INCREASED RATE 07/31/19 Electronically Signed on 08-07-2019 14:31:16 EDT by Desire Murrell
[2019-08-14] MEDS ORDERED: NOVOINJ3 (09:26)
== END 2019-08-07 14:17 | disposition home or self-care (01) ==
LOC: M ED 10:57
DX: I31.3 Pericardial effusion (noninflammatory) (principal); E11.9 Type 2 diabetes mellitus without complications; I10 Essential (primary) hypertension; K21.9 Gastro-esophageal reflux disease without esophagitis; F33.9 Major depressive disorder, recurrent, unspecified; F41.9 Anxiety disorder, unspecified; Z79.899 Other long term (current) drug therapy; Z79.84 Long term (current) use of oral hypoglycemic drugs; Z79.82 Long term (current) use of aspirin; Z88.0 Allergy status to penicillin; Z88.8 Allergy status to other drugs, medicaments and biological substances; Z87.891 Personal history of nicotine dependence
CPT/HCPCS: 36415; 71045; 80048; 80076; 82550; 82553; 83690; 84484; 85025; 85652; 86140; 93005; 93041; 94760; 96374; 99285; C9113; G0463

== ENCOUNTER 2019-08-14 09:18 | Emergency (ER) | payer MEDICARE, OTHER ==
[~2019-08-14] VITALS: Ht 162.6 cm; Wt 92.9 kg
[~2019-08-14 09:18] MED LIST changes: -FOLI1TAB11; +FOLI1TAB11 PO; +IBUP-1114 PO; -JANU100T; +JANU100T PO; -METH2.5T48; +METH2.5T48 PO; -PRAV20TA2; +PRAV20TA2 PO
[2019-08-14] MEDS ORDERED: NOVOINJ3 SQ (09:26)
[2019-08-14] MEDS ORDERED: LANTINJ4 (09:26)
--- NOTE | 2019-08-14 10:04 | REP ---
Clinical: Chest pain. Arrhythmia. Comparison: 08/07/2019. Findings: Stable cardiomegaly. Subtle linear left basilar atelectasis cannot be excluded. No focal consolidation. No obvious effusion. No pneumothorax. Impression: Stable cardiomegaly. Subtle linear left basilar atelectasis cannot be excluded. Electronically Signed by Luis A Moulton MD 08/14/2019 09:56 A
[2019-08-14] MEDS: METOPROLOL 5 MG/5 ML VIAL IV SCH ×3 (10:11→10:42)
[2019-08-14 10:22] LABS: BASO % 0.1 % (0.0-1.0); EOS % 0.1 % (0.0-3.0); HEMATOCRIT 29.3 % (36.0-47.0); HEMOGLOBIN 9.2 g/dl (12.0-15.5); LYMPH # 0.5 10^3/uL (1.5-5.0); LYMPH % 3.7 % (24.0-44.0); MEAN CORPUSCULAR HEMOGLOBIN 28.5 pg (27.0-33.0); MEAN CORPUSCULAR HGB CONC 31.4 g/dl (32.0-36.5); MEAN CORPUSCULAR VOLUME 90.7 fl (80.0-96.0); MONO # 0.4 10^3/uL (0.0-0.8); MONO % 2.8 % (0.0-5.0); NEUTROPHILS # 13.3 10^3/uL (1.5-8.5); NEUTROPHILS % 92.2 % (36.0-66.0); PLATELET COUNT, AUTOMATED 500 10^3/uL (150-450); RED BLOOD COUNT 3.23 10^6/uL (4.00-5.40); WHITE BLOOD COUNT 14.5 10^3/uL (4.0-10.0)
[2019-08-14 10:54] LABS: CPK CREATINE PHOSPHOKINASE 97 U/L (26-192); MB/CK RELATIVE INDEX 1.03 (< OR =4); TROPONIN I < 0.02 NG/ML (< 0.10)
[2019-08-14 11:02] LABS: CALCIUM LEVEL 8.4 MG/DL (8.8-10.2); CREATININE FOR GFR 1.28 MG/DL (0.55-1.30); FREE THYROXINE INDEX 3.9 % (1.3-4.8); GLOMERULAR FILTRATION RATE 43.6 (>39); MAGNESIUM LEVEL 2.1 MG/DL (1.8-2.4); POTASSIUM SERUM 5.6 MEQ/L (3.5-5.1); THYROID STIMULATING HORMONE 0.542 uIU/ML (0.358-3.740); THYROXINE (T4) 9.5 UG/DL (4.5-12.0)
[2019-08-14] MEDS ORDERED: METOPROLOL TART 25 MG TABLET PO ONE (12:00)
[2019-08-14] MEDS ORDERED: FLECAINIDE 50MG TABLET PO ONE (12:00)
[2019-08-14] MEDS ORDERED: HumaLOG INSULIN (NovoLOG) PER UNIT SC ONE (13:00)
[2019-08-14] MEDS ORDERED: SOD POLYSTYRENE SULFONATE SUSP 15 GM/60 ML UD PO ONE (16:30)
[2019-08-14] MEDS ORDERED: ATENOLOL 25 MG TAB PO ONE (17:00)
[2019-08-14 17:49] VITALS: BP 144/67
[2019-08-14] MEDS ORDERED: ATEN25TA PO (17:49)
[2019-08-14] MEDS ORDERED: FLEC50HA PO (17:49)
--- NOTE | 2019-08-14 21:39 | ECGEPIP ---
[facility] - ED Test Date: 2019-08-14 Pat Name: LULA CEJA Department: Room: - Gender: Female Accountant Auditor: marcelino : 1945 Requested By: LEVI GILMAN PA-C. Order Number: [id number] Reading MD: Oswaldo Thayer Measurements Intervals [place] Rate: 119 P: [place]: 0 QRS: 23 QRSD: 75 T: 161 QT: 284 QTc: 400 Interpretive Statements ATRIAL FLUTTER WITH RAPID VENTRICULAR RESPONSE POSSIBLE ANTERIOR MYOCARDIAL INFARCTION, PROBABLY OLD RHYTHM/RATE CHANGE COMPARED TO 08/07/19 Electronically Signed on 08-14-2019 21:39:05 EDT by Oswaldo Thayer
== END 2019-08-14 18:03 | disposition home or self-care (01) ==
LOC: M ED 09:18
DX: I48.91 Unspecified atrial fibrillation (principal); I51.7 Cardiomegaly; E87.5 Hyperkalemia; I11.9 Hypertensive heart disease without heart failure; E11.9 Type 2 diabetes mellitus without complications; K21.9 Gastro-esophageal reflux disease without esophagitis; Z79.899 Other long term (current) drug therapy; Z79.82 Long term (current) use of aspirin; Z79.4 Long term (current) use of insulin; Z88.0 Allergy status to penicillin; Z88.8 Allergy status to other drugs, medicaments and biological substances

== ENCOUNTER → 2019-08-20 | Outpatient (REF) | payer MEDICARE, OTHER ==
[~2019-08-20] MED LIST changes: +ATEN25TA PO; +ELIQ2.5T PO; +FLEC50HA PO; +GLIP-162 PO; +LANTINJ4; +NOVOINJ3 SQ; +PANT-23 PO; +PRED20TA PO; +SPIR-10 PO; +TORS10TA3 PO
== END ==
LOC: M LABDRWAD 19:10
PROVIDERS: ATTEND Internal Medicine Cardiovascular Disease
DX: I48.19 Other persistent atrial fibrillation (principal)

== ENCOUNTER → 2019-08-20 | Outpatient (CLI) | payer MEDICARE, OTHER ==
[2019-08-20 10:33] LABS: HEMATOCRIT 29.9 % (36.0-47.0); HEMOGLOBIN 9.2 g/dl (12.0-15.5); MEAN CORPUSCULAR HEMOGLOBIN 28.9 pg (27.0-33.0); MEAN CORPUSCULAR HGB CONC 30.8 g/dl (32.0-36.5); PLATELET COUNT, AUTOMATED 540 10^3/uL (150-450); RED BLOOD COUNT 3.18 10^6/uL (4.00-5.40)
[2019-08-20 11:03] LABS: ALBUMIN 2.9 GM/DL (3.2-5.2); C REACTIVE PROTEIN QUANTITATIV 0.96 MG/DL (0.00-0.30); CALCIUM LEVEL 8.6 MG/DL (8.8-10.2); CREATININE FOR GFR 1.43 MG/DL (0.55-1.30); GLOMERULAR FILTRATION RATE 38.4 (>39); PHOSPHORUS LEVEL 3.2 MG/DL (2.5-4.9); POTASSIUM SERUM 5.2 MEQ/L (3.5-5.1)
== END ==
LOC: M LAB 08:43
PROVIDERS: ATTEND Internal Medicine Cardiovascular Disease
DX: I50.32 Chronic diastolic (congestive) heart failure (principal); I32 Pericarditis in diseases classified elsewhere

== ENCOUNTER 2019-08-21 10:46 | Inpatient (IN) | payer MEDICARE, OTHER ==
[~2019-08-21] VITALS: Ht 163.8 cm; Wt 89.0 kg
[~2019-08-21 10:46] MED LIST changes: -ELIQ2.5T PO; -GLIP-162 PO; -PANT-23 PO; -PRED20TA PO; -SPIR-10 PO; -TORS10TA3 PO
[2019-08-21] MEDS ORDERED: GLUCOSE 4 GM CHEW TABLET PO PRN (11:30)
[2019-08-21] MEDS ORDERED: GLUCAGON FOR INJ 1 MG VIAL (J1610) SC PRN (11:30)
[2019-08-21] MEDS ORDERED: DEXTROSE 50% 50 ML SYRINGE IV PRN (11:30)
[2019-08-21 12:00] VITALS: BP 166/82
[2019-08-21] MEDS ORDERED: METOPROLOL TART 50 MG TAB PO SCH (12:00)
[2019-08-21 12:22] LABS: HEMATOCRIT 29.7 % (36.0-47.0); HEMOGLOBIN 9.1 g/dl (12.0-15.5); MEAN CORPUSCULAR HEMOGLOBIN 28.4 pg (27.0-33.0); MEAN CORPUSCULAR HGB CONC 30.6 g/dl (32.0-36.5); MEAN CORPUSCULAR VOLUME 92.8 fl (80.0-96.0); PLATELET COUNT, AUTOMATED 506 10^3/uL (150-450); WHITE BLOOD COUNT 15.8 10^3/uL (4.0-10.0)
[2019-08-21] MEDS ORDERED: ATEN25TA PO (12:46)
[2019-08-21] MEDS ORDERED: SPIR-10 PO (12:46)
[2019-08-21] MEDS ORDERED: TORS10TA3 PO (12:46)
[2019-08-21] MEDS ORDERED: COLC1TAB13 PO (12:46)
[2019-08-21] MEDS ORDERED: FLEC50HA PO (12:46)
[2019-08-21] MEDS ORDERED: PANT-23 PO (12:46)
[2019-08-21] MEDS ORDERED: GLIP-162 PO (12:46)
[2019-08-21] MEDS ORDERED: ELIQ2.5T PO (12:47)
[2019-08-21] MEDS ORDERED: PRED20TA PO (12:47)
[2019-08-21 12:51] LABS: ALT/SGPT 118 U/L (12-78); BILIRUBIN,TOTAL 0.6 MG/DL (0.2-1.0); BLOOD UREA NITROGEN 36 MG/DL (7-18); CALCIUM LEVEL 9.4 MG/DL (8.8-10.2); CARBON DIOXIDE LEVEL 32 MEQ/L (21-32); CHLORIDE LEVEL 100 MEQ/L (98-107); GLOMERULAR FILTRATION RATE 42.9 (>39); GLUCOSE, FASTING 257 MG/DL (70-100); NT-PRO BNP 8595 PG/ML (<125); POTASSIUM SERUM 5.3 MEQ/L (3.5-5.1); SODIUM LEVEL 136 MEQ/L (136-145); TROPONIN I < 0.02 NG/ML (< 0.10)
[2019-08-21] MEDS: HumaLOG INSULIN (NovoLOG) PER UNIT SC SCH ×3 (13:31→21:00)
[2019-08-21] MEDS ORDERED: PILL CUTTER 1 EACH XX PRN (14:15)
[2019-08-21 15:08] VITALS: BP 128/78
--- NOTE | 2019-08-21 15:39 | ECGEPIP ---
[facility] Test Date: 2019-08-21 Pat Name: LULA CEJA Department: Room: [place] [address] Gender: Female Clock Maker: GLORIA : 1945 Requested By: Edgar Ghosh Order Number: [id number] Reading MD: Pilo Hays Measurements Intervals [place] Rate: 104 P: [place]: 0 QRS: 45 QRSD: 110 T: 156 QT: 382 QTc: 503 Interpretive Statements Atrial fibrillation with rapid ventricular response Anterior NV, age indeterminate Nonspecific ST-T wave abnormalities No significant change when compared to prior tracing of 08/14/2019 Electronically Signed on 08-21-2019 15:38:46 EST by Pilo Hays
[2019-08-21 16:00] VITALS: BP 124/76
--- NOTE | 2019-08-21 17:02 | REP ---
PA and lateral chest: Comparison is 10/22/2018. Cardiac size appears enlarged and has slightly increased from the prior study. The lung gibson are clear. The neftali, mediastinum, and bony thorax are unremarkable. Impression: Cardiomegaly as an interval change. A metallic density is seen at the left film margin and may represent internal fixation of the left humerus. Electronically Signed by Eduardo Guzman MD 08/21/2019 04:53 P
[2019-08-21] MEDS: BISOPROLOL FUMARATE 5 MG TAB PO SCH (18:18)
[2019-08-21] MEDS: FUROSEMIDE 40 MG/4 ML VIAL (J1940) IV SCH (18:24)
[2019-08-21 18:25] VITALS: BP 146/72
[2019-08-21] MEDS: ONDANSETRON 4 MG TAB (S0181) PO PRN (19:12)
[2019-08-21] MEDS ORDERED: OMEPRAZOLE 20 MG CAP PO ONE (19:15)
[2019-08-21 20:00] VITALS: BP 132/63
[2019-08-21] MEDS: LOPERAMIDE 2 MG CAPLET PO PRN (20:40)
--- NOTE | 2019-08-21 21:01 | HPE ---
DATE OF ADMISSION: 08/21/2019 ADMISSION HISTORY AND PHYSICAL ATTENDING PHYSICIAN: Dr. Edgar Ghosh PRIMARY CARE PROVIDER: Tana Teague, Nurse Practitioner DIGITIZER: Dr. Chary Martinez AUTHORIZATION COORDINATOR: Dr. Anisha Max RHEUMAOLOGIST: Dr. Bossman Prajapati, [place], [place] CHIEF COMPLAINT: Profound weakness with diarrhea, shortness of breath, and ongoing dependent edema. HISTORY: This 74-year-old mother of grown children, resident of [place], is known to my cardiology practice with multiple problems including hypertensive heart disease, heart failure (diastolic dysfunction), abnormal EKG, recent onset atrial fibrillation (August 14, 2019) and percarditis/pericardial effusion (July 31, 2019). She had been started on combination prednisone and colchicine with relief of her pleuritic chest pain and followup echocardiogram August 19, 2019 showing resolution of her pericardial effusion. However, with her steroid therapy and weight gain, she had echocardiographic features of decompensation with estimated left atrial pressure of 23 mmHg, pulmonary arterial pressure of systolic 53 mmHg and dilated inferior vena cava (IVC) with reduced respiratory collapse in keeping with right heart failure. She was started on torsemide 10 mg daily with spironolactone 12.5 mg daily, and to have close office followup. In light of difficult control of her diabetes mellitus and relief of her pericardial effusion, her steroid dosage was cut in half to 20 mg daily. We had been using a combination of atenolol and flecainide for control of her heart rate in hopes of converting her to a sinus mechanism. She was initially on no more than low-dose aspirin until her pericardial effusion resolved. We only just recently started her on dose adjusted Eliquis (renal insufficiency) 2.5 mg twice a day. Her dosage of flecainide was decreased from 100 mg twice a day to 75 mg daily, skipping one dose yesterday evening, in light of increased QRS duration. This morning she contacted our office with onset of diarrhea and weakness, suspected to be triggered by her colchicine therapy. In light of her complicated situation with recent onset atrial fibrillation, decompensated heart failure, suboptimal diabetic control, chronic renal insufficiency, and now diarrhea, we directly admitted the patient to a telemetry unit for close observation and management. At this point, she denied any chest discomfort. Continued to have dyspnea and some orthopnea. With her atrial fibrillation, she is only aware of her heart action with activity. Denies actual faintness. No evidence of gastrointestinal (GI) bleeding or melena. No lateralizing neurological deficits, flank pain or blue toe syndrome. KNOWN PAST CARDIAC DISEASE/EVENTS/TESTS: February 09, 2011: EKG showed sinus rhythm at 77 beats per minute (bpm) and was within normal limits. November 05, 2018: Treadmill Cardiolite heart scan was performed because of shortness of breath and risk factors. She completed only for 4-1/2 minutes of Timothy protocol with peak heart rate 149, blood pressure 210/55, stopping with dyspnea and leg fatigue but no chest pain. She had slowly upsloping ST depression inferiorly at peak exercise only. No arrhythmia. Normal pulmonary uptake. Normal left ventricular (LV) size and hyperkinetic wall motion with left ventricular ejection fraction (LVEF) 75%. There was no reversible stress SPECT myocardial perfusion defect. January 08, 2019: Echocardiogram showed normal to borderline left ventricle hypertrophy with mild left atrial enlargement, impairment of LV diastolic function and slightly elevated left atrial pressure. Right heart chambers were also slightly dilated with pulmonary arterial pressure at that time within normal limits. Inferior vena cava was of normal size with normal collapse. She had aortic valvular sclerosis without functional abnormality with moderate mitral annular calcification and very mild insufficiency but no pericardial effusion. July 31, 2019: Chest CT angiogram was performed because of chest pain and shortness of breath showing a new pericardial effusion. August 06, 2019: Echocardiogram showed again borderline left ventricle hypertrophy with preserved systolic function, mildly dilated left atrium with estimated left atrial pressure that was significantly elevated but still normal pulmonary arterial pressure and IVC size and collapse. She had a small size, 0.9 cm over the inferolateral basilar segment of the left ventricle, without evidence of cardiac chamber compression. Clinically, however, she had elevated neck veins, dependent edema and at least a 10 mm pulsus paradoxus. Her blood pressure was also soft, so her antihypertensive therapy was discontinued and she was started on combination colchicine and prednisone 40 mg daily. August 14, 2019: Developed new onset atrial fibrillation with rapid ventricular response, started on atenolol and flecainide antiarrhythmic therapy. Not started on oral anticoagulation in light of her sizeable pericardial effusion and compensated cardiac tamponade. August 19, 2019: Echocardiogram showed resolution of her pericardial effusion with elevated mean left atrial pressure, moderate pulmonary hypertension and increased IVC size with reduced respiratory collapse. She was started on torsemide and spironolactone. CORONARY RISK FACTORS: Age, obesity, hypertension, diabetes, hypercholesterolemia, prior heavy smoking history, and family history of premature coronary artery disease. Negative for symptomatic carotid disease. OTHER PAST MEDICAL/SURGICAL HISTORY: Tonsillectomy. Excision of polyp from her larynx. Shoulder surgery. Normal vaginal deliveries. Renal insufficiency, followed by Dr. Martinez with renal nuclear scan May 23, 2018 showing moderately compromised renal function with smaller right than left kidney but symmetrical excretion bilaterally, slightly greater left than right renal perfusion. Renal ultrasound the same day showed evidence to suggest renal vascular hypertension with two simple cysts right kidney. Follows with Dr. Martinez. REVIEW OF SYSTEMS: At this point, she has been free of any fevers, chills and only slight weight loss on her diuretic therapy overnight. Wears corrective lenses. Continues to have shortness of breath but no cough or sputum production. Continues to have orthopnea. Some nausea and intermittent reflux and heartburn. Gas cramps and loose motions as mentioned above, but no GI bleeding or melena. No dysuria or hematuria. History of polymyalgia rheumatica with degenerative joint disease involving multiple joints. Glaucoma. Depression. Smoking- induced obstructive lung disease. Seasonal allergies. MEDICATIONS: Atenolol 25 mg by mouth every 12 hours, hold for heart rate less than 90 bpm, flecainide 75 mg twice a day, aspirin was discontinued yesterday, and she was started on Eliquis 2.5 mg twice a day, Protonix 40 mg daily, colchicine 0.6 mg twice a day, prednisone 20 mg daily, pravastatin 20 mg nightly, glipizide 5 mg three times a day, Januvia 100 mg daily, Lantus 26 units subcu nightly with NovoLog insulin before meals and bedtime according to sliding scale, duloxetine 60 mg daily, vitamin C 1 gram daily, methotrexate 5 mg once weekly, Tylenol arthritic strength 650 mg by mouth twice a day as needed, folic acid 1 mg daily, vitamin B12 1000 mcg daily, calcium 600 mg by mouth twice a day, Astelin nasal spray two sprays each nostril twice daily. ALLERGIES: PENICILLIN (rash). ATORVASTATIN (leg cramps). PHYSICAL EXAMINATION: Constitutional: Stocky overweight elderly lady appearing somewhat lethargic. She lay comfortably with the head of the bed elevated 45 degrees. Medium height. Vital signs: Heart rate 96 beats per minute and irregular, blood pressure 130/68 lying with the head of the bed elevated. Heart rate 18 per minute, oxygen (O2) saturation 96% on room air. Afebrile. Weight 209 pounds (unchanged from yesterday), height 64-1/2 inches, body mass index (BMI) 35.4. Eyes: Slightly pale but no icterus. No xanthelasma. ENT/mouth: Dentition in good repair. Normal palate, normal oral moisture. No central cyanosis. Neck: Trachea midline. Thyroid normal in size. Jugular veins appear to be visible 12 cm above the sternal angle. Respiratory: Increased anteroposterior chest diameter with slightly decreased chest expansion bilaterally. Good air entry over both lung gibson with a few bibasilar inspiratory rales. Slight prolongation of expiration but no audible wheeze. Cardiovascular: Apical impulse not palpable. Heart sounds were variable and slightly distant related to her chest configuration and her atrial fibrillation. No audible gallop or murmur. Carotid upstroke was normal but variable volume related to her and her arrhythmia. No bruits. Abdominal aorta and femoral arteries not palpable because of her obesity. Pedal pulses were challenging in light of her dependent edema. Continues to have 1 mm pitting three-quarters up both lower legs and 1 mm over her sacrum and lower lumbar spine. A few dilated superficial venules both lower legs. Extremities: No clubbing, peripheral cyanosis or splinter hemorrhages. Abdomen: Obese, soft, nontender, somewhat protuberant and tympanic. No hepatosplenomegaly. Rectal examination not indicated but stool will be collected for occult blood. Musculoskeletal: No obvious joint deformities. Gait appeared to be normal to the bathroom and back. Muscular strength and tone appear to be normal. Normal spine curvature. Skin: Slight pallor but no icterus or ecchymotic lesions. Neuro/psych: Bright, alert and oriented, gave a lucid history. Affect was somewhat flat or depressed. INVESTIGATIONS: Chest x-ray: PA and left lateral study reviewed independently shows cardiomegaly with CT ratio 17.3:30.4, slightly unfolded thoracic aorta with some calcification of the aortic arch. Pulmonary vasculature appeared to be slightly congested with increased interstitial markings but no obvious pleural effusion. Bony structures showed degenerative change of her thoracic spine. EKG: Reviewed independently showed underlying atrial fibrillation with slightly rapid ventricular response averaging 104 bpm. Slightly small QRS voltages but no change from yesterday when her echocardiogram showed no pericardial effusion. QRS duration is slightly shorter with a reduced dose of flecainide, now measuring 110 milliseconds instead of [address]/T-wave abnormalities, which did not appear changed from yesterday. Blood work: Hemoglobin today 9.1, unchanged with slightly reduced MCHC but normal MCV. White blood cell count was elevated at 15.8 thousand on steroid therapy. Platelet count was also slightly increased at 506,000. Slight hyperkalemia, potassium 5.3. Other electrolytes were normal. BUN was 35, which is actually down from 44 yesterday, creatinine was 1.3 which is actually improved from 1.4 yesterday. Random glucose was elevated at 257. Serum albumin was stable at 3.0. Normal total bilirubin and SGOT with slightly elevated SGPT and alkaline phosphatase. Troponin I level was negative. Her pro-BNP level was 8595. Ultrasensitive TSH August 14, 2019 was normal at 0.54 with free T4 index of 3.9. A trough flecainide level was drawn yesterday before her evening dosage and is pending. IMPRESSION/PLAN: 1. Diarrhea: Likely induced by her colchicine therapy, which has been placed on hold. Has been given Imodium and will be continued to be received after each loose motion - up to six tablets daily. Stool for occult blood is pending but stool color is yellow. 2. Heart failure (diastolic dysfunction/acute on chronic): Certainly she is not dehydrated with her new onset diarrhea. She is, in fact, quite decompensated as reflected by her elevated BNP level. She will be kept on a modest salt and fluid intake restriction and receive Lasix 40 mg every 6 hours in order to achieve a net negative fluid balance of 1500 mL daily. Her chemistry will be monitored closely along with her fluid status. Her spironolactone therapy will not be continued at this time. 3. Persistent atrial fibrillation: Ventricular response at rest is borderline controlled on her current beta reena therapy. We have elected to switch this to bisoprolol 5 mg by mouth every 6 hours, hold for heart rate less than 90 bpm. Her flecainide has been maintained at 75 mg twice a day to help with rate control, but hopefully facilitate ultimate conversion to sinus mechanism once her congested state has resolved now that her pericardial effusion has resolved. 4. Abnormal EKG: Reduced voltage, believed to be related to obesity, COPD, as well as the previous pericardial fluid. QRS duration yesterday was slightly increased because of flecainide, but has improved with reduction in flecainide dosage. Her trough flecainide level is pending at this time. Recent stress study confirmed a favorable coronary prognosis. Brooks protection against ischemia would be optimal heart rate control. Remains on Eliquis and pravastatin. Troponin I level was negative as mentioned. 5. Hypertensive heart disease (benign with heart failure). Current blood pressure would be considered adequately controlled. Chronic renal insufficiency as mentioned. We will monitor her renal function closely with her diuretic therapy. 6. Pericarditis/pericardial effusion: Pericarditis suspected to be related to her autoimmune phenomenon. Could not rule out an acute viral process. However, her pericardial inflammation and effusion have responded well to steroid therapy. Her C-reactive protein, which was 67 on August 13, 2019, was only 0.96 yesterday. 7. Mitral and aortic valve disorder (nonrheumatic): Echocardiographic studies have shown degenerative changes of both mitral and aortic valvular structures with no functional aortic abnormality but with her decompensated state, her mitral insufficiency, which was reported as being no more than very mild December 2018 and August 06, 2019, with her decompensated state, is recorded as being moderate severity August 19, 2019. Fortunately, no symptoms or signs of endocarditis. Her elevated white blood cell count is believed to be related to her steroid therapy. 8. Diabetes mellitus (insulin dependent): As mentioned, this had become poorly controlled with the introduction of steroid therapy. Her dosage was cut in half yesterday. She will continue on a low-carbohydrate diet along with her Januvia 100 mg daily, Lantus insulin 26 units subcu nightly, and sliding scale according to fingerstick regular insulin before meals and bedtime. I am cautiously optimistic her condition will improve over the course of the next few days in hospital with the above measures. This has been discussed with the patient and her daughter who appear to understand and agree. JARROD
[2019-08-21] MEDS: PRAVASTATIN 20 MG TAB PO SCH (21:53)
[2019-08-21] MEDS: FLECAINIDE 50MG TABLET PO SCH (21:53)
[2019-08-21] MEDS: APIXABAN 2.5 MG TAB (ELIQUIS) PO SCH (21:53)
[2019-08-21] MEDS: LEVEMIR (INSULIN DETEMIR) 1 UNITS/0.01ML SC SCH (21:54)
[2019-08-22] VITALS: BP 118/68
[2019-08-22] MEDS: BISOPROLOL FUMARATE 5 MG TAB PO SCH ×5 (00:24→23:48)
[2019-08-22] MEDS: FUROSEMIDE 40 MG/4 ML VIAL (J1940) IV SCH ×5 (00:25→23:47)
[2019-08-22] MEDS: LOPERAMIDE 2 MG CAPLET PO PRN ×3 (00:39→09:08)
[2019-08-22 04:00] VITALS: BP 122/72
[2019-08-22] MEDS: ONDANSETRON 4 MG TAB (S0181) PO PRN ×2 (04:10→21:17)
[2019-08-22 05:45] LABS: CHOLESTEROL RISK RATIO 2.551 (<5); MAGNESIUM LEVEL 1.5 MG/DL (1.8-2.4)
[2019-08-22 08:00] VITALS: BP 111/56
[2019-08-22] MEDS: FLECAINIDE 50MG TABLET PO SCH ×2 (09:08→20:57)
[2019-08-22] MEDS: OMEPRAZOLE 20 MG CAP PO SCH (09:09)
[2019-08-22] MEDS: ASCORBIC ACID 500 MG TAB PO SCH (09:09)
[2019-08-22] MEDS: DULoxetine 30 MG CAP (CYMBALTA) PO SCH (09:10)
[2019-08-22] MEDS: SITagliptin 50 MG TAB (JANUVIA) PO SCH (09:10)
[2019-08-22] MEDS: CYANOCOBALAMIN 500 MCG TAB PO SCH (09:11)
[2019-08-22] MEDS: FOLIC ACID 1 MG TAB PO SCH (09:11)
[2019-08-22] MEDS: APIXABAN 2.5 MG TAB (ELIQUIS) PO SCH ×2 (09:11→20:57)
[2019-08-22] MEDS: predniSONE 20 MG TAB PO SCH (09:14)
[2019-08-22] MEDS: HumaLOG INSULIN (NovoLOG) PER UNIT SC SCH ×4 (09:15→20:57)
[2019-08-22 12:00] VITALS: BP 119/61
[2019-08-22 12:47] LABS: ALBUMIN 3.1 GM/DL (3.2-5.2); CALCIUM LEVEL 9.2 MG/DL (8.8-10.2); CREATININE FOR GFR 1.4 MG/DL (0.55-1.30); GLOMERULAR FILTRATION RATE 39.4 (>39); POTASSIUM SERUM 4.4 MEQ/L (3.5-5.1)
[2019-08-22] MEDS ORDERED: MAG SULF 1GM/100ML (MAG RUN) 1 GM in IV 1 EA IV ONE (15:15)
--- NOTE | 2019-08-22 15:38 | IPN ---
CARDIOLOGY PROGRESS NOTE: DATE: 08/22/2019 AT 02:45 PM SUBJECTIVE: Patient reports she has ongoing diarrhea which has slowed down a little bit. She reports her breathing has improved, but she remains shortness of breath with low level of activity, just ambulating in the room. No chest pain or chest discomfort. No paroxysmal nocturnal dyspnea (PND) or orthopnea. She reports her leg swelling has gone down but has not resolved completely. She is occasionally aware of rapid palpitations when she does activity. No presyncope or syncope. PHYSICAL EXAMINATION: Pleasant, obese lady who appears her chronological age with no any respiratory or psychological distress. Height 64.5 inches, weight 91.8 kg, BMI 34.2. Temperature 96.9, pulse 92 (irregularly irregular), blood pressure 119/61, oxygen saturation 95% on room air. Jugular venous pulsations were too angled at the jaw with the patient sitting up at 90 degrees (at least 20 mmHg). First and second heart sounds were variable intensity. No murmurs or gallops appreciated. Carotids were normal in volume and contour. Respiratory expansion effort was fair. No crackles or wheezes. No pericardial friction rubs appreciated. Abdomen was obese, soft, nontender with normal bowel sounds. No hepatosplenomegaly or other organomegaly. Liver span difficult to assess due to abdominal obesity. Alert and oriented times three. Normal mood and affect. 2 mm of pitting edema was present at mid and distal tibia level bilaterally. No clubbing, nail bed cyanosis or splinter hemorrhages. Gross motor strength and tone were normal. No fasciculations or tremors. LABORATORY WORK: 08/22/2019 was reviewed: Sodium 136, potassium 4.4, chloride 98, CO2 31, BUN 32, creatinine 1.40. Estimated GFR 39.4, glucose 143. Magnesium 1.5, albumin 3.1. Triglycerides 199, total cholesterol 125. LDL 36, HDL 49. ASSESSMENT AND PLAN: 1. Diarrhea. Colchicine has been placed on hold. The patient reports that diarrhea is ongoing. Continue with Imodium. Her magnesium level was low and I will order some oral magnesium for her. I will order stool culture. 2. Diastolic heart failure (acute on chronic). Patient remains decompensated on examination. NYHA functional class III. She has done very well with input/outputs on IV furosemide. She was net negative 1160 mL for the time that she was in hospital 08/21/2019 and so far today she is generating a net negative fluid balance. Spironolactone is on hold. Continue IV furosemide at the current dosage. She will receive magnesium oral supplements. Continue bisoprolol. 3. Persistent atrial fibrillation. Patient continues to be in atrial fibrillation. Continue flecainide as ordered by Dr. Ghosh. Continue bisoprolol as ordered by Dr. Ghosh. Continue reduced dose Eliquis. 4. Abnormal ECG. Stable. 5. Hypertensive heart disease with heart failure. Blood pressure controlled. Management of heart failure was discussed above. Continue IV furosemide and bisoprolol. 6. Acute pericarditis with pericardial effusion. Pericardial effusion has decreased on the most recent echocardiogram. No pericardial friction rub on examination today. She is not reporting any chest pain. She has been taken off of colchicine because of diarrhea. Continue prednisone as ordered by Dr. Ghosh. 7. Nonrheumatic mitral regurgitation with mitral annular calcification and moderately-severe mitral regurgitation. Hopefully the degree of mitral regurgitation will lessen as the patient is diuresed. 8. Type 2 diabetes, uncontrolled. Continue Levemir insulin and Humalog insulin and Januvia.
[2019-08-22 16:00] VITALS: BP 136/82
[2019-08-22 20:00] VITALS: BP 106/54
[2019-08-22] MEDS: MAGNESIUM CHLORIDE 64 MG TABCR (SLO MAG) PO SCH (20:57)
[2019-08-22] MEDS: LEVEMIR (INSULIN DETEMIR) 1 UNITS/0.01ML SC SCH (20:57)
[2019-08-22] MEDS: PRAVASTATIN 20 MG TAB PO SCH (20:57)
[2019-08-23] VITALS: BP 143/72
[2019-08-23 04:00] VITALS: BP 130/62
[2019-08-23] MEDS: BISOPROLOL FUMARATE 5 MG TAB PO SCH ×4 (06:17→23:47)
[2019-08-23] MEDS: FUROSEMIDE 40 MG/4 ML VIAL (J1940) IV SCH (06:18)
[2019-08-23 06:29] LABS: CALCIUM LEVEL 8.6 MG/DL (8.8-10.2); CREATININE FOR GFR 1.76 MG/DL (0.55-1.30); GLOMERULAR FILTRATION RATE 30.2 (>39); PHOSPHORUS LEVEL 3.3 MG/DL (2.5-4.9)
[2019-08-23] MEDS: HumaLOG INSULIN (NovoLOG) PER UNIT SC SCH ×4 (07:30→20:16)
[2019-08-23 07:37] VITALS: BP 131/63
--- NOTE | 2019-08-23 09:03 | ECGEPIP ---
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
--- NOTE | 2019-08-23 09:05 | ECGEPIP ---
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
[2019-08-23] MEDS: APIXABAN 2.5 MG TAB (ELIQUIS) PO SCH ×2 (09:43→20:15)
[2019-08-23] MEDS: CYANOCOBALAMIN 500 MCG TAB PO SCH (09:44)
[2019-08-23] MEDS: DULoxetine 30 MG CAP (CYMBALTA) PO SCH (09:44)
[2019-08-23] MEDS: FOLIC ACID 1 MG TAB PO SCH (09:44)
[2019-08-23] MEDS: SITagliptin 50 MG TAB (JANUVIA) PO SCH (09:44)
[2019-08-23] MEDS: ASCORBIC ACID 500 MG TAB PO SCH (09:44)
[2019-08-23] MEDS: OMEPRAZOLE 20 MG CAP PO SCH (09:44)
[2019-08-23] MEDS: FLECAINIDE 50MG TABLET PO SCH ×2 (09:44→20:21)
[2019-08-23] MEDS: predniSONE 20 MG TAB PO SCH (09:45)
[2019-08-23] MEDS: MAGNESIUM CHLORIDE 64 MG TABCR (SLO MAG) PO SCH (09:45)
[2019-08-23] MEDS ORDERED: KCL 10MEQ/100ML SWI (KRUN) 10 MEQ in IV 1 EA IV ONE ×2 (11:00→14:00)
[2019-08-23 12:00] VITALS: BP 134/63
[2019-08-23] MEDS ORDERED: MAG SULF 1GM/100ML (MAG RUN) 1 GM in IV 1 EA IV ONE (12:00)
--- NOTE | 2019-08-23 13:28 | IPN ---
DATE OF SERVICE: 08/23/2019 Mrs. Jerica Kline was seen earlier this morning. She was sitting in a chair in the room in no acute distress and two family members were at bedside including her nurse. She stated she feels better and has been having less diarrhea. She is getting slightly stronger. She had tried to eat a little bit more earlier today. There is no report of fever or chills. She denies any chest pain or palpitations. Her pedal edema has improved significantly. She was admitted by Dr. Ghosh on 08/21/2019, she is under his service. She was admitted with a diagnostic of diarrhea related to colchicine and she has acute on chronic diastolic heart failure. She also has been having paroxysmal atrial fibrillation that has started this fall and she was recently treated for pericardial effusion with the colchicine. She has a history of hypertension, hyperlipidemia, diabetes mellitus, chronic obstructive pulmonary artery disease (COPD) and obesity. She denies any headaches. She has no nausea or vomiting. She has not been coughing. She has no focal manifestation. There is no report of bleeding. BMP done earlier today revealed some worsening kidney function and hypokalemia. PHYSICAL EXAMINATION: The patient is alert and oriented, in no acute distress, and her most recent vital signs revealed a blood pressure of 131/63 with a pulse of 83, respiration 18 and a maximum temperature is 97.6 degrees Fahrenheit with a oxygen saturation of 91-93% on room air. She has a negative fluid balance of 760 mL for 08/22/2019 and on 08/21/2019, the fluid balance was reported to be negative 1.1. The weight and change from 95 kg on admission on 08/21/2019 to 88 kg today 08/23/2019. Examination of the head: Atraumatic. Neck: Neck is supple and no jugular venous distention (JVD) appreciated. No carotid bruits. Lungs: Did not reveal any wheezing or crackles. Heart examination: Revealed a regular heart sound without gallops. I could not appreciate any murmurs. Abdomen is soft. Extremities: Revealed trace bilateral lower leg and upper edema. Neurologic examination: Grossly is negative for focal deficit. LABORATORY DATA: BMP done today revealed a sodium of 135, potassium 3.0, chloride 94, CO2 33, BUN 34, creatinine 1.70, GFR 30.2, fasting glucose 79 and calcium 8.6. Chest x-ray on admission revealed cardiomegaly. IMPRESSION: 74-year-old woman who was admitted on 08/21/2019 with diarrhea related to colchicine and also has been on prednisone for pericardial effusion which has resolved. She is on prednisone, it has been difficult to control her blood sugar and she has been retaining fluids. She is feeling better since in the hospital and based on the blood work, I am going to hold the furosemide/Lasix and we will monitor closely her BUN and creatinine. Her hypokalemia will be corrected with IV potassium. The serum magnesium is low and she will be given dose of IV magnesium. I will hold for now the by mouth magnesium because of the diarrhea. The prednisone starting tomorrow will be decreased to 10 mg by mouth daily. She is on Eliquis 2.5 mg by mouth twice a day, she will need a higher dose because of her weight and her age even the creatinine today is 1.76. I am expecting it to improve. After discussing with and her daughter, she has agreed to try physical therapy and this was ordered for her. It was a pleasure to participate the care of Mrs. Jerica Kline for her underlying for her condition, she is a very pleasant woman. I will monitor along with you over the weekend, Dr. Tamayo will we back on Sunday08/25/2019. The plan was discussed with the patient as well as her daughter present in the room and her nurse.
[2019-08-23 15:41] VITALS: BP 111/57
[2019-08-23 19:11] LABS: BILIRUBIN,TOTAL 0.7 MG/DL (0.2-1.0); CALCIUM LEVEL 8.2 MG/DL (8.8-10.2); CREATININE FOR GFR 2.51 MG/DL (0.55-1.30); GLOMERULAR FILTRATION RATE 20.1 (>39); TOTAL PROTEIN 6.4 GM/DL (6.4-8.2)
[2019-08-23 20:00] VITALS: BP 139/65
[2019-08-23] MEDS: ONDANSETRON 4 MG TAB (S0181) PO PRN (20:15)
[2019-08-23] MEDS: PRAVASTATIN 20 MG TAB PO SCH (20:15)
[2019-08-23] MEDS: LEVEMIR (INSULIN DETEMIR) 1 UNITS/0.01ML SC SCH (20:16)
[2019-08-24] VITALS (7 sets, daily range): BP systolic 118–146; BP diastolic 54–68
[2019-08-24] MEDS: LOPERAMIDE 2 MG CAPLET PO PRN (02:32)
[2019-08-24 05:46] LABS: HEMATOCRIT 30.4 % (36.0-47.0); HEMOGLOBIN 9.2 g/dl (12.0-15.5); MEAN CORPUSCULAR HGB CONC 30.3 g/dl (32.0-36.5); MEAN CORPUSCULAR VOLUME 92.4 fl (80.0-96.0); PLATELET COUNT, AUTOMATED 469 10^3/uL (150-450); RED BLOOD COUNT 3.29 10^6/uL (4.00-5.40); WHITE BLOOD COUNT 14.1 10^3/uL (4.0-10.0)
[2019-08-24 06:18] LABS: ALBUMIN 2.9 GM/DL (3.2-5.2); CALCIUM LEVEL 8.5 MG/DL (8.8-10.2); CREATININE FOR GFR 2.4 MG/DL (0.55-1.30); GLOMERULAR FILTRATION RATE 21.1 (>39); MAGNESIUM LEVEL 2.1 MG/DL (1.8-2.4); PHOSPHORUS LEVEL 3.3 MG/DL (2.5-4.9); POTASSIUM SERUM 3.5 MEQ/L (3.5-5.1)
[2019-08-24] MEDS: BISOPROLOL FUMARATE 5 MG TAB PO SCH ×4 (06:46→23:58)
[2019-08-24] MEDS: HumaLOG INSULIN (NovoLOG) PER UNIT SC SCH ×4 (07:30→20:06)
[2019-08-24] MEDS: CYANOCOBALAMIN 500 MCG TAB PO SCH (08:34)
[2019-08-24] MEDS: FOLIC ACID 1 MG TAB PO SCH (08:35)
[2019-08-24] MEDS: OMEPRAZOLE 20 MG CAP PO SCH (08:35)
[2019-08-24] MEDS: SITagliptin 50 MG TAB (JANUVIA) PO SCH (08:35)
[2019-08-24] MEDS: predniSONE 10 MG TAB PO SCH (08:35)
[2019-08-24] MEDS: DULoxetine 30 MG CAP (CYMBALTA) PO SCH (08:35)
[2019-08-24] MEDS: ASCORBIC ACID 500 MG TAB PO SCH (08:35)
[2019-08-24] MEDS: FLECAINIDE 50MG TABLET PO SCH ×2 (08:35→20:34)
[2019-08-24] MEDS: APIXABAN 2.5 MG TAB (ELIQUIS) PO SCH ×2 (08:35→20:34)
[2019-08-24] MEDS: VANCOMYCIN ORAL SOL 250MG/5ML ORAL SYRINGE PO SCH (09:20)
[2019-08-24] MEDS ORDERED: KCL 10MEQ/100ML SWI (KRUN) 10 MEQ in IV 1 EA IV ONE (12:00)
--- NOTE | 2019-08-24 12:22 | ECGEPIP ---
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
--- NOTE | 2019-08-24 12:58 | IPN ---
DATE OF PROCEDURE: 08/24/2019 Mrs. Jerica Kline was seen earlier this morning, she was in bed in no acute distress at rest and her daughter was at bedside. She is under Dr. Ghosh service and initially she was admitted with diarrhea that was thought to be related to colchicine. It turned out that the stool workup revealed enteropathogenic E-coli. She was started today on by mouth vancomycin. Mrs. Jerica Kline otherwise has been stable from a cardiac point of view. Yesterday, we discontinued the furosemide because of kidney function and today she is taking a lower dose of the of the prednisone. Her electrolytes were being corrected. She denies any chest pain, palpitations, pedal edema. She denies any dizziness. There is no orthopnea. There is no report of bleeding. She denies any abdominal pain. Last evening, she had a couple watery stools and the last one was earlier this morning. PHYSICAL EXAMINATION: The patient is alert and oriented, in no acute distress and very pleasant. Her vitals signs most recent reveal a blood pressure of 127/60 with a pulse of 69, respiration 18 and a maximum temperature is 97 degrees with Oxygen saturation of 91-94% on room air. Next examination of the head: Atraumatic. Neck is supple and no JVD appreciated. Lungs are clear bilaterally without any wheezing or crackles. Heart exam revealed irregular sound without gallops. The PMI is not displaced. There is no rub. Abdomen is soft and bowel sounds seen. Extremities revealed trace lower leg edema. Neurologic exam, negative for focal deficit. LABORATORY DATA: CBC done today 08/24/2019 revealed a WBC of 14.1, hemoglobin 9.2, hematocrit 30.4 and platelets 469,000. BMP revealed a sodium of 134, potassium 3.5, chloride 94, CO2 35, BUN 39, creatinine 2.40, GFR 21.1 fasting glucose was 123 and calcium 8.5. Serum magnesium is 2.1. Telemetry revealed normal sinus rhythm. IMPRESSION: 1. Status post decompensated congestive failure, acute on chronic and diastolic in nature. She is well compensated on current meds and will continue same. The IV furosemide was discontinued yesterday because of deterioration and acute infection and we will continue to more because she continues to have diarrhea. Will need to monitor closely her BUN and creatinine and serum potassium. The spirolactone also has been on hold. 2. Atrial fibrillation paroxysmal in nature, currently in normal sinus rhythm. She is on Apixaban for prevention of thromboembolic events, but on the low-dose. She will benefit from a higher dose and this will be discussed on tomorrow with Dr. Tamayo. She is on AV blocking agent, a beta reena and also on antiarrhythmic with Flecainide. 3. Diarrhea that was probably related to colitis but me the colchicine. She is now on the vanco starting today and I will try to get infectious disease input from Dr. Silva. 4. Electrolyte abnormalities with hypokalemia, being addressed, on supplement. 5. History of hypertension and under control. 6. History of diabetes mellitus and being addressed. 7. Valvular heart disease, she was found by echocardiogram in the past to have moderately severe mitral regurgitation. LVEF is normal. 8. Status post recent pericarditis and pericardial effusion and seen to have responded to colchicine and prednisone. 9. Acute kidney injury: Related to a combination of factors such as gastroenteritis and the diuretics. The diuretics were discontinued yesterday, 08/23/2019 and her kidney function seems to have improved slightly. She is being monitored. It was a pleasure to participate the care of Mrs. Jerica Kline for her underlying cardiac condition. The above was discussed the patient as well as her daughter. Dr. Tamayo will be seeing her tomorrow 08/25/2019.
[2019-08-24] MEDS: LEVEMIR (INSULIN DETEMIR) 1 UNITS/0.01ML SC SCH (20:33)
[2019-08-24] MEDS: PRAVASTATIN 20 MG TAB PO SCH (20:34)
[2019-08-25 04:00] VITALS: BP 118/64
[2019-08-25] MEDS: BISOPROLOL FUMARATE 5 MG TAB PO SCH ×3 (06:17→20:35)
[2019-08-25 06:18] LABS: ALBUMIN 2.8 GM/DL (3.2-5.2); CALCIUM LEVEL 8.4 MG/DL (8.8-10.2); CREATININE FOR GFR 1.92 MG/DL (0.55-1.30); GLOMERULAR FILTRATION RATE 27.3 (>39); PHOSPHORUS LEVEL 3.1 MG/DL (2.5-4.9); POTASSIUM SERUM 3.7 MEQ/L (3.5-5.1)
[2019-08-25] MEDS: HumaLOG INSULIN (NovoLOG) PER UNIT SC SCH ×4 (07:30→20:28)
[2019-08-25 08:00] VITALS: BP 118/42
[2019-08-25] MEDS: DULoxetine 30 MG CAP (CYMBALTA) PO SCH (09:15)
[2019-08-25] MEDS: SITagliptin 50 MG TAB (JANUVIA) PO SCH (09:15)
[2019-08-25] MEDS: APIXABAN 2.5 MG TAB (ELIQUIS) PO SCH ×2 (09:15→20:34)
[2019-08-25] MEDS: predniSONE 10 MG TAB PO SCH (09:15)
[2019-08-25] MEDS: FOLIC ACID 1 MG TAB PO SCH (09:15)
[2019-08-25] MEDS: OMEPRAZOLE 20 MG CAP PO SCH (09:15)
[2019-08-25] MEDS: CYANOCOBALAMIN 500 MCG TAB PO SCH (09:15)
[2019-08-25] MEDS: ASCORBIC ACID 500 MG TAB PO SCH (09:15)
[2019-08-25] MEDS: FLECAINIDE 50MG TABLET PO SCH ×2 (09:16→20:34)
[2019-08-25] MEDS: VANCOMYCIN ORAL SOL 250MG/5ML ORAL SYRINGE PO SCH ×2 (09:16→17:51)
[2019-08-25 12:00] VITALS: BP 134/63
--- NOTE | 2019-08-25 14:57 | IPN ---
CARDIOLOGY PROGRESS NOTE DATE: 08/25/2019 TIME: 2:26 p.m. SUBJECTIVE: The patient reports that she is still having loose bowel movements, but the diarrhea has slowed down considerably. She reports that the stools are soft and poorly formed. Overall, she is feeling better. She reports exertional dyspnea with walking the hallways. She is aware that she still has some leg edema, but feels it is better than what it was a few days ago at the end of last week. No chest pain or chest discomfort. PHYSICAL EXAMINATION: Jugular venous pulsations were at 15 cm. Respiratory expansion effort was good. No crackles or wheezes. First and second heart sounds normal. No S3 or murmurs appreciated. Abdomen was soft, nontender. 3-4 mm of pitting edema was present at mid-tibial level bilaterally. Temperature 97.0, pulse 67 (regular), blood pressure 134/63, oxygen saturation 96% on room air. Weight today 91 kg. She was net negative 440 mL for the 24 hours of 08/24/2019. ASSESSMENT/PLAN: 1. Diarrhea. Stool culture came back positive for clostridium difficile. She was started on vancomycin over the weekend. I will increase the dose of vancomycin to 250 mg by mouth every 6 hours times 10 days. Colchicine has been already stopped on admission. Continue Imodium as needed. 2. Diastolic heart failure (acute on chronic). NYHA functional class II. She remains decompensated on examination. I will restart torsemide 10 mg daily which is what her home dose was. Continue to place spironolactone on hold. 3. Persistent atrial fibrillation. The patient flipped back to sinus rhythm on the weekend. I will decrease flecainide back to her home dose of 50 mg every 12 hours. Continue Eliquis. 4. Abnormal ECG. Stable. 5. Hypertensive heart disease with heart failure. Blood pressure controlled. Management of diastolic heart failure as discussed above. 6. Acute pericarditis. The patient is not having any chest pain. Her most recent echocardiogram as an outpatient showed quite significant decrease in the pericardial effusion. No pericardial friction rub. I will decrease prednisone down to 5 mg daily with the hope of being able to taper it off. 7. Nonrheumatic mitral valve regurgitation with mitral annular calcification and moderately-severe mitral regurgitation. Hopefully this will improve as the heart failure becomes more compensated. 8. Type 2 diabetes. Continue Levemir insulin and Humalog insulin per sliding scale and Januvia. LABORATORY DATA: Laboratory work 08/25/2019 was reviewed: Sodium 138, potassium 3.7, chloride 98, CO2 33, BUN 39, creatinine 1.92, estimated GFR 27.3, glucose 96, albumin 2.8.
[2019-08-25 16:00] VITALS: BP 136/60
[2019-08-25] MEDS: TORSEMIDE 10 MG TABLET PO SCH (16:08)
[2019-08-25 19:28] VITALS: BP 144/65
[2019-08-25] MEDS: PRAVASTATIN 20 MG TAB PO SCH (20:34)
[2019-08-25] MEDS: FAMOTIDINE 20 MG TAB PO SCH (20:34)
[2019-08-25] MEDS: LEVEMIR (INSULIN DETEMIR) 1 UNITS/0.01ML SC SCH (20:35)
[2019-08-26] VITALS: BP 130/64
[2019-08-26] MEDS: VANCOMYCIN ORAL SOL 250MG/5ML ORAL SYRINGE PO SCH ×4 (00:11→18:28)
[2019-08-26 04:00] VITALS: BP 126/64
[2019-08-26] MEDS: HumaLOG INSULIN (NovoLOG) PER UNIT SC SCH ×4 (07:30→21:00)
[2019-08-26 08:00] VITALS: BP 159/70
[2019-08-26] MEDS ORDERED: predniSONE 5 MG TAB PO SCH (09:00)
[2019-08-26] MEDS: APIXABAN 2.5 MG TAB (ELIQUIS) PO SCH ×2 (09:13→21:50)
[2019-08-26] MEDS: DULoxetine 30 MG CAP (CYMBALTA) PO SCH (09:13)
[2019-08-26] MEDS: TORSEMIDE 10 MG TABLET PO SCH (09:13)
[2019-08-26] MEDS: CYANOCOBALAMIN 500 MCG TAB PO SCH (09:13)
[2019-08-26] MEDS: BISOPROLOL FUMARATE 5 MG TAB PO SCH ×2 (09:14→21:50)
[2019-08-26] MEDS: SITagliptin 50 MG TAB (JANUVIA) PO SCH (09:14)
[2019-08-26] MEDS: ASCORBIC ACID 500 MG TAB PO SCH (09:14)
[2019-08-26] MEDS: FOLIC ACID 1 MG TAB PO SCH (09:15)
[2019-08-26] MEDS: FLECAINIDE 50MG TABLET PO SCH ×2 (09:20→21:59)
[2019-08-26 12:00] VITALS: BP 133/63
[2019-08-26 16:00] VITALS: BP 124/60
--- NOTE | 2019-08-26 17:45 | IPN ---
DATE: 08/26/2019 at 04:30 p.m. SUBJECTIVE: The patient reports that her diarrhea has resolved but her stools remain very soft formed. She reports that she has been able to ambulate in the hallways today without any shortness of breath. She notes that she has very little edema in her legs. No chest pain or chest discomfort. No palpitations. Overall, she reports feeling well. PHYSICAL EXAMINATION: Temperature 97.2, pulse 70 (regular), respiratory rate 20, blood pressure 124/60, oxygen saturation 96% on room air. Weight today 90.6 kg. She was net negative 764 mL for the 24 hours of 08/25/2019. So far, she is generating a net negative fluid balance. Jugular venous pulsations were at 10 cm. Lungs gibson were clear. First and second heart sounds were normal. No murmurs. Abdomen was obese, soft, nontender with normal bowel sounds. 1 mm of pitting edema was present at the mid tibial level bilaterally. Laboratory work (renal panel) for 08/26/2019 has been ordered (results pending). ASSESSMENT AND PLAN: 1. Clostridium difficile diarrhea. The patient is improving and reports that she is having soft bowel movements but no longer having liquid diarrhea. Continue oral vancomycin for a total of 10 days. 2. Diastolic heart failure (acute on chronic). Improving. She is still a bit decompensated but getting better. The plan will be to continue metoprolol, torsemide at the current dosages. 3. Persistent atrial fibrillation. The patient is remaining back in sinus rhythm on flecainide 50 mg twice a day. Continue flecainide, bisoprolol, and Eliquis at the current dosages. 4. Abnormal ECG. Stable. 5. Hypertensive heart disease with heart failure. Blood pressure controlled. Continue bisoprolol and torsemide at the current dosages. 6. Acute pericarditis and pericardial effusion. The patient is remaining free of chest pain. No pericardial friction rub. I will discontinue prednisone. Continue to leave off colchicine in view of recent diarrhea. 7. Nonrheumatic mitral valve disease with moderately-severe mitral regurgitation. Stable. 8. Type 2 diabetes, uncontrolled. Continue present therapy.
[2019-08-26 20:00] VITALS: BP 152/67
[2019-08-26] MEDS: LEVEMIR (INSULIN DETEMIR) 1 UNITS/0.01ML SC SCH (21:50)
[2019-08-26] MEDS: PRAVASTATIN 20 MG TAB PO SCH (21:50)
[2019-08-26] MEDS: FAMOTIDINE 20 MG TAB PO SCH (21:50)
[2019-08-27] VITALS: BP 134/63
[2019-08-27] MEDS: VANCOMYCIN ORAL SOL 250MG/5ML ORAL SYRINGE PO SCH ×3 (00:43→12:45)
[2019-08-27 04:00] VITALS: BP 142/58
[2019-08-27 06:14] LABS: ALBUMIN 2.8 GM/DL (3.2-5.2); CALCIUM LEVEL 8.5 MG/DL (8.8-10.2); CREATININE FOR GFR 1.69 MG/DL (0.55-1.30); GLOMERULAR FILTRATION RATE 31.7 (>39); PHOSPHORUS LEVEL 3.9 MG/DL (2.5-4.9); POTASSIUM SERUM 3.7 MEQ/L (3.5-5.1)
[2019-08-27] MEDS: HumaLOG INSULIN (NovoLOG) PER UNIT SC SCH ×2 (07:30→12:46)
[2019-08-27 08:00] VITALS: BP 156/68
[2019-08-27 09:13] VITALS: BP 156/68
[2019-08-27] MEDS: DULoxetine 30 MG CAP (CYMBALTA) PO SCH (09:13)
[2019-08-27] MEDS: BISOPROLOL FUMARATE 5 MG TAB PO SCH (09:13)
[2019-08-27] MEDS: FOLIC ACID 1 MG TAB PO SCH (09:13)
[2019-08-27] MEDS: CYANOCOBALAMIN 500 MCG TAB PO SCH (09:14)
[2019-08-27] MEDS: APIXABAN 2.5 MG TAB (ELIQUIS) PO SCH (09:14)
[2019-08-27] MEDS: SITagliptin 50 MG TAB (JANUVIA) PO SCH (09:14)
[2019-08-27] MEDS: FLECAINIDE 50MG TABLET PO SCH (09:14)
[2019-08-27] MEDS: ASCORBIC ACID 500 MG TAB PO SCH (09:14)
[2019-08-27] MEDS: TORSEMIDE 10 MG TABLET PO SCH (09:25)
[2019-08-27 12:00] VITALS: BP 156/60
[2019-08-27] MEDS ORDERED: FAMO20TA PO (16:31)
[2019-08-27] MEDS ORDERED: BISO5TAB9 PO (16:31)
[2019-08-27] MEDS ORDERED: FIRV50SO PO (16:31)
--- NOTE | 2019-08-27 18:25 | DSES ---
DATE OF ADMISSION: 08/21/2019 DATE OF DISCHARGE: 08/27/2019 CLINICAL SUMMARY AND COURSE IN HOSPITAL: Jerica Kline is a 74-year-old woman who was hospitalized by Dr. Ghosh 08/21/2019 from our office because of profound weakness and diarrhea, shortness of breath, and ongoing peripheral edema. She had acute on chronic diastolic heart failure. She has had recent onset of persistent atrial fibrillation for which she was in atrial fibrillation with rapid ventricular response despite recent addition of flecainide. She has got a history of abnormal ECG, uncontrolled type 2 diabetes, obesity, hypertensive heart disease, chronic diastolic heart failure, recent acute pericarditis with pericardial effusion for which she has been on a course of colchicine and mitral annular calcification with moderately severe mitral regurgitation on most recent echocardiogram Doppler. Please refer to Dr. Ghosh' complete history and physical examination on admission for additional details. She has also got chronic kidney disease, COPD, and obesity. She was taken off of colchicine because of diarrhea. She was on a course of prednisone which was tapered off while she was in hospital. She eventually converted to sinus rhythm with continuation of flecainide at higher dose of 75 mg twice a day. Following conversion to sinus rhythm, she was subsequently decreased back to her usual home dose of flecainide 50 mg every 12 hours. She was switched by Dr. Ghosh from atenolol to bisoprolol. She is continued on apixaban with dosage adjusted for chronic kidney disease. She received a course of IV furosemide and was subsequently switched over to her usual dose of torsemide 10 mg daily. Spironolactone was held while she was in the hospital. Stool culture came back positive for C. difficile and she was placed on a 10 day course of oral vancomycin. She diuresed well. She was kept on insulin and Januvia for her diabetes. At the time of discharge she appeared compensated. Her vital signs were stable. FINAL DIAGNOSES: 1. Clostridium difficile diarrhea. 2. Acute on chronic diastolic heart failure, now chronic. 3. Persistent atrial fibrillation. Back to sinus rhythm on flecainide. 4. Abnormal ECG. Stable. 5. Hypertensive heart disease with congestive heart failure. Compensated. Blood pressure controlled. 6. Recent acute pericarditis and pericardial effusion. Resolved. Patient is now off prednisone and colchicine. 7. Nonrheumatic mitral valve disease (mitral annular calcification) with moderate-severe mitral regurgitation. Stable. 8. Type 2 diabetes. Uncontrolled. 9. Followup. The patient has an appointment to see Dr. Ghosh on 09/03/2019. DISCHARGE MEDICATIONS: - Eliquis 2.5 mg twice a day - aspirin 1000 mg daily - vitamin D 5000 units daily - vitamin B12 5000 mcg daily - Restasis 1 drop both eyes twice a day - duloxetine 60 mg daily - flecainide 50 mg twice a day - folic acid 1 mg daily - glipizide 5 mg twice a day - NovoLog flex pen per sliding scale - Lantus SoloStar insulin 26 units at bedtime - methotrexate 12.5 mg once a week on Tuesdays - pravastatin 20 mg daily - Januvia 100 mg daily - spironolactone 12.5 mg daily - torsemide 10 mg daily as needed for weight above 203 pounds - bisoprolol 7.5 mg twice a day - famotidine 40 mg at bedtime - vancomycin 125 mg by mouth every 6 hours times 8 days Of note is that the patient has been taken off of pantoprazole because she is on vancomycin and she has been taken off colchicine and prednisone. She has been taken off of atenolol because of a switch to bisoprolol. Total time for this discharge preparation including speaking with the patient, reviewing the patient's chart and preparing the discharge summary and discharge orders and this portion of the discharge summary was 35 minutes (discharge level 1). [facility]
== END 2019-08-27 18:05 | disposition home or self-care (01) | DRG 371 ==
LOC: M PCU 11:46
PROVIDERS: ADMIT Internal Medicine Cardiovascular Disease; ATTEND Internal Medicine Cardiovascular Disease
DX: A04.72 Enterocolitis due to Clostridium difficile, not specified as recurrent (principal); I50.33 Acute on chronic diastolic (congestive) heart failure; I32 Pericarditis in diseases classified elsewhere; I13.0 Hypertensive heart and chronic kidney disease with heart failure and stage 1 through stage 4 chronic kidney disease, or unspecified chronic kidney disease; I48.19 Other persistent atrial fibrillation; N17.9 Acute kidney failure, unspecified; R53.1 Weakness; I35.1 Nonrheumatic aortic (valve) insufficiency; E11.65 Type 2 diabetes mellitus with hyperglycemia; A04.4 Other intestinal Escherichia coli infections; I34.0 Nonrheumatic mitral (valve) insufficiency; J44.9 Chronic obstructive pulmonary disease, unspecified; E11.22 Type 2 diabetes mellitus with diabetic chronic kidney disease; E66.9 Obesity, unspecified; N18.9 Chronic kidney disease, unspecified; T50.4X5A Adverse effect of drugs affecting uric acid metabolism, initial encounter; Z79.01 Long term (current) use of anticoagulants; Z79.52 Long term (current) use of systemic steroids; Z79.899 Other long term (current) drug therapy; Z79.4 Long term (current) use of insulin; Z88.0 Allergy status to penicillin; Z88.8 Allergy status to other drugs, medicaments and biological substances; Z68.35 Body mass index [BMI] 35.0-35.9, adult

== ENCOUNTER → 2019-09-02 | Outpatient (REF) | payer MEDICARE, OTHER ==
[~2019-09-02] MED LIST changes: +BISO5TAB9 PO; +ELIQ2.5T PO; +FAMO20TA PO; +FIRV50SO PO; +GLIP-162 PO; +PANT-23 PO; +PRED20TA PO; +SPIR-10 PO; +TORS10TA3 PO
[2019-09-02 20:41] LABS: ALBUMIN 3.1 GM/DL (3.2-5.2); CALCIUM LEVEL 9.1 MG/DL (8.8-10.2); CREATININE FOR GFR 1.75 MG/DL (0.55-1.30); GLOMERULAR FILTRATION RATE 30.4 (>39); PHOSPHORUS LEVEL 4.7 MG/DL (2.5-4.9); POTASSIUM SERUM 6.3 MEQ/L (3.5-5.1)
== END ==
LOC: M LABDRWAD 19:15
PROVIDERS: ATTEND Internal Medicine Cardiovascular Disease
DX: I50.33 Acute on chronic diastolic (congestive) heart failure (principal)
CPT/HCPCS: 36415; 80069; 83735; 83880; 90682; 99496; G0008; G0463

== ENCOUNTER → 2019-09-03 | Outpatient (CLI) | payer MEDICARE, OTHER ==
[2019-09-03 10:14] LABS: ALBUMIN 2.9 GM/DL (3.2-5.2); CALCIUM LEVEL 8.9 MG/DL (8.8-10.2); CREATININE FOR GFR 1.6 MG/DL (0.55-1.30); GLOMERULAR FILTRATION RATE 33.7 (>39); POTASSIUM SERUM 4.6 MEQ/L (3.5-5.1)
== END ==
LOC: M LAB 09:20
PROVIDERS: ATTEND Internal Medicine Cardiovascular Disease
DX: N19 Unspecified kidney failure (principal); E87.5 Hyperkalemia

== ENCOUNTER → 2019-09-16 | Outpatient (CLI) | payer MEDICARE, OTHER ==
[2019-09-16 12:59] LABS: ALBUMIN 2.9 GM/DL (3.2-5.2); CALCIUM LEVEL 9.8 MG/DL (8.8-10.2); CREATININE FOR GFR 1.87 MG/DL (0.55-1.30); GLOMERULAR FILTRATION RATE 28.2 (>39); PHOSPHORUS LEVEL 6.9 MG/DL (2.5-4.9); POTASSIUM SERUM 5.6 MEQ/L (3.5-5.1)
== END ==
LOC: M LAB 10:58
PROVIDERS: ATTEND Internal Medicine Cardiovascular Disease
DX: I50.32 Chronic diastolic (congestive) heart failure (principal); I11.0 Hypertensive heart disease with heart failure; N19 Unspecified kidney failure

== ENCOUNTER → 2019-10-24 | Outpatient (REF) | payer MEDICARE, OTHER ==
[~2019-10-24] MED LIST changes: +BISO5TAB14 PO; -BISO5TAB9 PO
[2019-10-24 14:44] LABS: FERRITIN 78 NG/ML (8-252); IRON (FE) 31 UG/DL (50-170); PERCENT SATURATION 8.6 % (13.2-45.0); TOTAL IRON BINDING CAPACITY 361 UG/DL (250-450)
[2019-10-24 16:44] LABS: VITAMIN B12 LEVEL 1537 PG/ML
[2019-10-24 16:46] LABS: FOLATE > 24.0 NG/ML
== END ==
LOC: M LAB REF 14:08
PROVIDERS: ATTEND Internal Medicine Nephrology
DX: D50.9 Iron deficiency anemia, unspecified (principal); N18.3 Chronic kidney disease, stage 3 (moderate); E83.42 Hypomagnesemia; I50.32 Chronic diastolic (congestive) heart failure

== ENCOUNTER → 2019-10-24 | Outpatient (REF) | payer MEDICARE, OTHER ==
[2019-10-24 14:48] LABS: ALBUMIN 3.6 GM/DL (3.2-5.2); CALCIUM LEVEL 9.3 MG/DL (8.8-10.2); CREATININE FOR GFR 1.18 MG/DL (0.55-1.30); GLOMERULAR FILTRATION RATE 47.9 (>39); PHOSPHORUS LEVEL 5.5 MG/DL (2.5-4.9); POTASSIUM SERUM 4.9 MEQ/L (3.5-5.1)
== END ==
LOC: M LAB REF 14:07
PROVIDERS: ATTEND Internal Medicine Cardiovascular Disease
DX: I50.32 Chronic diastolic (congestive) heart failure (principal)

== ENCOUNTER → 2020-03-17 | Outpatient (CLI) | payer MEDICARE, OTHER ==
[~2020-03-17] MED LIST changes: +VITA-243 PO; -VITA500T PO
[2020-03-17 16:55] LABS: VITAMIN B12 LEVEL 1447 PG/ML
[2020-03-17 16:56] LABS: FOLATE > 24.0 NG/ML
[2020-03-23 10:07] LABS: VITAMIN B6,PYRIDOXAL PHOSPHATE 14.8 ug/L (2.0-32.8); VITAMIN E(ALPHA TOCOPHEROL) 14.3 mg/L (9.0-29.0)
== END ==
LOC: M WUC 11:25
PROVIDERS: ATTEND Psychiatry & Neurology Neurology
DX: E03.9 Hypothyroidism, unspecified (principal); E53.9 Vitamin B deficiency, unspecified

== ENCOUNTER → 2020-04-16 | Outpatient (REF) | payer MEDICARE, OTHER ==
[2020-04-16 17:00] LABS: HEMATOCRIT 36.7 % (36.0-47.0); HEMOGLOBIN 11.8 g/dl (12.0-15.5); MEAN CORPUSCULAR HGB CONC 32.2 g/dl (32.0-36.5); MEAN CORPUSCULAR VOLUME 93.4 fl (80.0-96.0); PLATELET COUNT, AUTOMATED 342 10^3/uL (150-450); RED BLOOD COUNT 3.93 10^6/uL (4.00-5.40); WHITE BLOOD COUNT 7.6 10^3/uL (4.0-10.0)
[2020-04-16 17:03] LABS: ALBUMIN 3.7 GM/DL (3.2-5.2); BILIRUBIN,TOTAL 0.4 MG/DL (0.2-1.0); CALCIUM LEVEL 9.4 MG/DL (8.8-10.2); CREATININE FOR GFR 1.46 MG/DL (0.55-1.30); GLOMERULAR FILTRATION RATE 37.5 (>39); MAGNESIUM LEVEL 2.3 MG/DL (1.8-2.4); POTASSIUM SERUM 4.6 MEQ/L (3.5-5.1)
== END ==
LOC: M LABDRWAD 04-15 16:41
PROVIDERS: ATTEND Internal Medicine Cardiovascular Disease
DX: I50.32 Chronic diastolic (congestive) heart failure (principal)

== ENCOUNTER → 2020-06-03 | Outpatient (CLI) | payer MEDICARE, OTHER ==
[2020-06-03 18:53] LABS: CALCIUM LEVEL 9.4 MG/DL (8.8-10.2); CREATININE FOR GFR 1.35 MG/DL (0.55-1.30); GLOMERULAR FILTRATION RATE 40.9 (>39); POTASSIUM SERUM 5.1 MEQ/L (3.5-5.1)
== END ==
LOC: M WUC 14:01
PROVIDERS: ATTEND Internal Medicine Endocrinology, Diabetes & Metabolism
DX: N18.3 Chronic kidney disease, stage 3 (moderate) (principal)

== ENCOUNTER → 2020-07-24 | Outpatient (CLI) | payer MEDICARE, OTHER ==
[2020-07-24 12:58] LABS: BASO # 0.1 10^3/uL (0.0-0.2); BASO % 1.2 % (0.0-1.0); EOS # 0.1 10^3/uL (0.0-0.5); EOS % 2.1 % (0.0-3.0); HEMATOCRIT 36.9 % (36.0-47.0); HEMOGLOBIN 11.3 g/dl (12.0-15.5); LYMPH # 1.6 10^3/uL (1.5-5.0); LYMPH % 23.7 % (24.0-44.0); MEAN CORPUSCULAR HEMOGLOBIN 28.5 pg (27.0-33.0); MEAN CORPUSCULAR HGB CONC 30.6 g/dl (32.0-36.5); MEAN CORPUSCULAR VOLUME 92.9 fl (80.0-96.0); MONO # 0.6 10^3/uL (0.0-0.8); MONO % 8.5 % (0.0-5.0); NEUTROPHILS # 4.3 10^3/uL (1.5-8.5); NEUTROPHILS % 63.6 % (36.0-66.0); PLATELET COUNT, AUTOMATED 308 10^3/uL (150-450); RED BLOOD COUNT 3.97 10^6/uL (4.00-5.40); WHITE BLOOD COUNT 6.8 10^3/uL (4.0-10.0)
[2020-07-24 13:30] LABS: ALBUMIN 3.5 GM/DL (3.2-5.2); CALCIUM LEVEL 8.9 MG/DL (8.8-10.2); CREATININE FOR GFR 1.33 MG/DL (0.55-1.30); GLOMERULAR FILTRATION RATE 41.6 (>39); POTASSIUM SERUM 4.8 MEQ/L (3.5-5.1)
== END ==
LOC: M WUC 10:58
PROVIDERS: ATTEND Internal Medicine Cardiovascular Disease
DX: I48.0 Paroxysmal atrial fibrillation (principal); I11.0 Hypertensive heart disease with heart failure; I50.32 Chronic diastolic (congestive) heart failure

== ENCOUNTER → 2020-10-01 | Outpatient (REF) | payer MEDICARE, OTHER ==
[~2020-10-01] MED LIST changes: +COLC0.6T47 PO; -COLC1TAB13 PO
[2020-10-01 13:27] LABS: HEMOGLOBIN A1c 6.2 %
[2020-10-01 13:47] LABS: CHOLESTEROL RISK RATIO 3.685 (<5)
== END ==
LOC: M SFHCADAM 08:40
PROVIDERS: ATTEND Family Medicine
DX: E11.8 Type 2 diabetes mellitus with unspecified complications (principal); E78.2 Mixed hyperlipidemia

== ENCOUNTER → 2020-11-03 | Outpatient (CLI) | payer MEDICARE, OTHER ==
[~2020-11-03] MED LIST changes: +AMMO12LO TOP; +D31000TA2 PO; +FERR32TA PO; +SITA50TAB PO; +TRET0.0212 TOP; +TYLE650T38 PO
== END ==
LOC: M LABSMTC 13:14
PROVIDERS: ATTEND Family Medicine
DX: Z20.822 Contact with and (suspected) exposure to COVID-19 (principal)

== ENCOUNTER 2020-11-05 10:22 | Emergency (ER) | payer MEDICARE, OTHER ==
[~2020-11-05 10:22] MED LIST changes: -AMMO12LO TOP; -D31000TA2 PO; -FERR32TA PO; -SITA50TAB PO; -TRET0.0212 TOP; -TYLE650T38 PO
--- OUTSIDE RECORDS SUMMARY | 2020-11-05 10:29 | CCD ---
Author Author [facility] Sy[facility] ems Organization [facility] ems Address Unknown Phone Unavailable Care Team Providers Care Plant Biology Professor Name Role Phone Tana Teague Unavailable PROBLEMS Type Condition ICD9-CM Code [id number] Code Onset Dates Condition S tatus SNOMED Code Notes Problem Other seborrheic keratosis L82.1 Active 09373 8000 Problem Melanocytic nevus of right upper extremity D22.61 Active 447693935 Problem Melanocytic nevi of trunk D22.5 Active 118616 002 scattered nevi, no changes noted Problem Generalized osteoarthrosis, involving multiple sites M15.9 Active 514346421 Problem Melanocytic nevi of lower extremity or hip, left D 22.72 Active 005635679 Problem 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 Active 25 6832450 Problem Menopausal and female climacteric states N95.1 Active 198620554 Problem Other allergic rhinitis J30.89 Active 67052405 Problem Mixed hyperlipidemia E78.2 Active 653980924 Problem Intention tremor G25.2 Active 22858648 Problem Type II or unspecified type diabetes mellitus without mention of complication, not stated as uncontrolled E11.9 Active 14037060 Problem Diabetes mellitus with multiple complications E11.8 Active 99120213 Problem Diabetic polyneuropathy associated with type 2 d iabetes mellitus E11.42 Active 64229641 Problem Stage 3 chronic kidney disease N18.3 Active 4 15585442 Problem Polymyalgia rheumatica M35.3 Active 24644644 Problem Renovascular hypertension I15.0 Active 075346 005 Problem Encounter for immunization Z23 Active 41680 8001 Problem Microalbuminuria R80.9 Active 877373980 Problem Pericardial effusion I31.3 Active 813051935 Problem Essential hypertension I10 Active 91440191 Problem Chronic diastolic (congestive) heart failure I50.3 2 Active 168637540 Problem Anxiety state F41.1 Active 823177893 Problem Vitamin D deficiency E55.9 Active 04768156 Problem Chronic diastolic heart failure I50.32 Active 172779646 Problem Hypertensive heart disease with heart failure I11.0 Active 2332857 Problem Other chronic pain G89.29 Active 17239211 Problem Atrial fibrillation, unspecified type I48.91 Ac tive 16668485 ALLERGIES Allergen (clinical drug ingredient) Drug/Non Drug Allergy do cumented on EMR Reaction Allergy Type Onset Date Status Victoza Nausea/Vomiting Drug Allergy Active Penicillin (For Allergies Use Only) rash Drug Allerg y Active terbinafine Terbinafine pruritis Drug Allergy Active Bydureon lumps Drug Allergy Active Pravastatin leg pains - mild Drug Allergy Activ e Ozempic nausea Drug Allergy Active metformin Metformin HCl([facility] Code:[address]-76) diarrhea Drug Brent rgy Active atorvastatin Lipitor(ND Code:[address]-33) myalgias Drug Allergy Active Lamisil itch Drug Allergy Active rosuvastatin Crestor(ND Code:[address]-20) leg pains - severe Drug Allergy Active ENCOUNTERS from 1945 to 2020-09-18 Encounter Location Date Provider Diagnosis [address] [address] Sep, 020 [facility] IMMUNIZATIONS Vaccine Route Administration Date Status Influenza (High Dose 65 & up) IM Intramuscular Sep 19, 2016 A dministered Influenza (High Dose 65 & up) IM Intramuscular Jul 01, 2015 A dministered Pneumococcal Adult 0.5mL (Pneumovax 23) Unknown Jul 01, 2015 Pending Pneumococcal 0.5mL (Prevnar 13) IM Intramuscular March 21, 2017 Administered Influenza (6mo & up) Fluzone IM Intramuscular Jun 26, 2014 Ad ministered Influenza (6mo & up) Fluzone IM Intramuscular Aug 19, 2013 Ad ministered Influenza (High Dose 65 & up) IM Intramuscular Jul 26, 2017 A dministered Influenza (6mo & up) Fluzone IM Intramuscular Aug 07, 2012 Ad ministered Influenza (18 yrs & older) Flublok IM Intramuscular Jul 26, 2018 Administered Influenza (6mo & up) Fluzone IM Intramuscular Aug 08, 2011 Ad ministered Influenza (18 yrs & older) Flublok IM Intramuscular Sep 02, 2019 Administered Influenza (6mo & up) Fluzone IM Intramuscular Aug 16, 2010 Ad ministered SOCIAL HISTORY Tobacco Use: Social History Observation Description Date Details (start date - stop date) Never Smoker Sex Assigned At : Social History Observation Description Sex Assigned At Unknown Education: Question Answer Notes Level of Education: Not Finished College Audit Question Answer Notes Total Score: 0 Interpretation: Alcohol Education Language: Question Answer Notes Languages spoken: Australian Gnosticist: Question Answer Notes Gnosticist 06 Tenriism Sexual Hx: Question Answer Notes Had sex in the last 12 months (vaginal, oral, or anal)? No Drug and Alcohol Question Answer Notes Total Score: 0 Interpretation: No problems reported Alcohol Screening: Question Answer Notes Did you have a drink containing alcohol in the past year? No Points 0 Interpretation Negative BMI Care Goal Follow-Up Question Answer Notes Above Normal BMI Follow-Up Giving encouragement to exercise Tobacco Use: Question Answer Notes Are you a: never smoker REASON FOR REFERRAL No Information VITAL SIGNS No information MEDICATIONS Medication SIG (Take, Route, Frequency, Duration) Notes Start Da te End Date Status Duloxetine HCl 60 MG 1 capsule Orally Once a day for 90 Active Pravastatin Sodium 20 MG 1 tablet Orally Once a day for 90 Active GlipiZIDE ER 5 MG 1 tablet with food Orally twice daily for 90 d ay(s) Oct, Active Diprolene AF 0.05 % 1 application to affected ar ea Externally to hands Once a day for 30 days Active Januvia 50 MG 1 tablet Orally Once a day for 90 day(s) Oct, Active PROCEDURES No Information RESULTS No Results REASON FOR VISIT TRANSFER OF CARE MEDICAL (GENERAL) HISTORY Type Description Date Medical History hyperlipidemia Medical History morbid obesity Medical History type II diabetes Medical History COPD Medical History menopause Medical History incontinence Medical History Arthritis Medical History glaucoma Medical History depression/anxiety Medical History allergic rhinitis Medical History vitamin D deficiency Medical History Hx of toxoplasmosis Medical History Polymyalgia rheumatica Medical History chronic kidney disease stage 3 - nephrol ogy Medical History HTN - neg NST 10/2018, Dr Ghosh Medical History Hypertensive heart disease w ith chronic diastolic CHF 0 echo 12/31 - Dr Ghosh Surgical History tonsillectomy Surgical History vocal cord polyps Surgical History colonoscopy - [facility] 7-04,11-, 04/01 Surgical History carpal tunnel release R & L 1-05 Surgical History vaginal polyps Surgical History L arm fx repair 02/22 Hospitalization History C-Diff 08/21/19-08/27/19 Goals Section No Information Health Concerns No Information MEDICAL EQUIPMENT No Information MENTAL STATUS No Information FUNCTIONAL STATUS No Information ASSESSMENTS No Information PLAN OF TREATMENT Medication Medication Name Sig Start Date Stop Date Pravastatin Sodium 20 MG 1 tablet Orally Once a day for 90 Duloxetine HCl 60 MG 1 capsule Orally Once a day for 90 Next Appt Details Provider Name:Elaine Parker, 2020-10-20 02:30:00 PM, [address], [place], [address], Insurance Providers Payer Name Payer Address Payer Phone Insured Name Patient Relati onship to Insured Coverage Start Date Coverage End Date [facility] [address] [facility] [phone] [phone] LULA KLINE MEDICARE Part A and B [address] [facility] [phone] [phone] LULA KLINE
--- OUTSIDE RECORDS SUMMARY | 2020-11-05 10:29 | CCD ---
Continuity of Care Document (CCD) Created on: 09/23/2020 Jerica Kline External Reference #: [id number] : 1945 Sex: Female Author Jerica Chauhan M.D. Organization Unknown Address [address] [place] [address] Phone [phone] Care Team Providers Care Ic Designer Custom Name Role Phone Tana Teague AUTM [phone] Desire Carreno MD AUTM Problems Active Problems Provider Date Essential tremor Dominga Hoffman M.D. Onset: 03/17/2020 Low back pain Dominga Hoffman M.D. 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 Onset: 0 Neurogenic claudication Dominga Hoffman M.D. Onset: 0 Type 2 diabetes mellitus with diabetic polyneuropathy Dominga Hoffman M.D. Onset: 04/22/2020 Social History Type Date Description Comments Sex Unknown Tobacco Use Start: Unknown End: Unknown Patient is a former smoker Allergies, Adverse Reactions, Alerts Active Allergies Reaction Severity Comments Date Penicillin V 03/17/2020 Medications Active Medications SIG Qnty Indications Ordering Provide r Date Primidone 50mg Tablets 1 p o bid. 180omayra Hoffman M.D. 03/24/2020 Alprazolam 0.5mg Tablets 1 tab by mouth half an hour before mri scan. may repeat once if needed. 2omayra Hoffman M.D. 03/17/2020 Immunizations Description No Information Available Vital Signs Date Vital Result Comment 03/17/2020 8:49am BP Systolic 120 mmHg BP Diastolic 60 mmHg Heart Rate 64 /min Respiratory Rate 14 /min Height 64 inches 5'4" Weight 208.00 lb BMI (Body Mass Index) 35.7 kg/m2 [place] Body Weight 120 lb Results Test Acquired Date Facility Test Result H/L Range Note Renal Profile 07/24/2020 [facility] Glucose, Fasting 160 mg/dL High 70-100 Blood Urea Nitrogen 39 mg/dL High 7-18 Creatinine For GFR 1.33 mg/dL High 0.55-1.30 Glomerular Filtration Rate 41.6 Normal >39 1 Sodium Level 137 mEq/L Normal 136-145 Potassium Serum 4.8 mEq/L Normal 3.5-5.1 Chloride Level 98 mEq/L Normal 98-107 Carbon Dioxide Level 32 mEq/L Normal 21-32 Anion Gap 7 mEq/L Low 8-16 Calcium Level 8.9 mg/dL Normal 8.8-10.2 Phosphorus Level 4.0 mg/dL Normal 2.5-4.9 Albumin 3.5 GM/DL Normal 3.2-5.2 Laboratory test finding 07/24/2020 [facility] NT-Pro BNP 260 pg/mL High <125 Complete Blood Count 04/16/2020 [facility] White Blood Count 7.6 10 Normal 4.0-10.0 Red Blood Count 3.93 10 Low 4.00-5.40 Hemoglobin 11.8 g/dL Low 12.0-15.5 Hematocrit 36.7 % Normal 36.0-47.0 Mean Corpuscular Volume 93.4 fl Normal 80.0-96.0 Mean Corpuscular Hemoglobin 30.0 pg Normal 27.0-33.0 Mean Corpuscular HGB Conc 32.2 g/dL Normal 32.0-36.5 Red Cell Distribution Width 14.2 % Normal 11.5-14.5 Platelet Count, Automated 342 10 Normal 150-450 Nucleated Red Blood Cell % 0.0 % Normal 0-0 Comprehensive Metabolic Profil 04/16/2020 [facility] Glucose, Fasting 147 mg/dL High 70-100 Blood Urea Nitrogen 46 mg/dL High 7-18 Creatinine For GFR 1.46 mg/dL High 0.55-1.30 Glomerular Filtration Rate 37.5 Low >39 2 Sodium Level 136 mEq/L Normal 136-145 Potassium Serum 4.6 mEq/L Normal 3.5-5.1 Chloride Level 100 mEq/L Normal 98-107 Carbon Dioxide Level 29 mEq/L Normal 21-32 Anion Gap 7 mEq/L Low 8-16 Calcium Level 9.4 mg/dL Normal 8.8-10.2 Ast/Sgot 17 U/L Normal 7-37 Alt/SGPT 24 U/L Normal 12-78 Alkaline Phosphatase 101 U/L Normal 45-117 Bilirubin,Total 0.4 mg/dL Normal 0.2-1.0 Total Protein 7.0 GM/DL Normal 6.4-8.2 Albumin 3.7 GM/DL Normal 3.2-5.2 Albumin/Globulin Ratio 1.1 Low 1.2-2.2 Laboratory test finding 04/16/2020 [facility] Magnesium Level 2.3 mg/dL Normal 1.8-2.4 NT-Pro BNP 476 pg/mL High <125 1 Units are mL/min/1.73 m2 Chronic Kidney Disease Staging per NKF: Stage I & II GFR >=60 Normal to Mildly Decreased Stage III GFR 30-59 Moderately Decreased Stage IV GFR 15-29 Severely Decreased Stage V GFR <15 Very Little GFR Left ESRD GFR <15 on LAC[employer]ER 2 Units are mL/min/1.73 m2 Chronic Kidney Disease Staging per NKF: Stage I & II GFR >=60 Normal to Mildly Decreased Stage III GFR 30-59 Moderately Decreased Stage IV GFR 15-29 Severely Decreased Stage V GFR <15 Very Little GFR Left ESRD GFR <15 on LACQUER [employer]ER Procedures Date Code Description Status 03/29/2020 78953 Nerve Conduction 11-12 Studies C ompleted 03/29/2020 40307 Needle Electromyography Complete , Five Or More Muscles Studied Completed 03/29/2020 64450 Needle Electromyography Complete , Five Or More Muscles Studied Completed Medical Devices Description No Information Available Encounters Type Date Location Provider Dx Diagnosis Office Visit 04/22/2020 1:30p Main office - [place] Ivette Oneill G25.0 Essential tremor G31.84 Mild cognitive impairment, s o stated M54.5 Low back pain M48.062 Spinal stenosis, lumbar laith on with neurogenic claudication E11.42 Type 2 diabetes mellitus wit h diabetic polyneuropathy Assessments Date Code Description Provider 09/23/2020 G25.0 Essential tremor Sushma Oneill 09/23/2020 G31.84 Mild cognitive impairment, so st ated Dominga Hoffman M.D. 09/23/2020 M54.5 Low back pain Dominga Hoffman M.D. 09/23/2020 M48.062 Spinal stenosis, lumbar region w ith neurogenic claudication Dominga Hoffman M.D. 09/23/2020 E11.42 Type 2 diabetes mellitus with di abetic polyneuropathy Dominga Hoffman M.D. 04/22/2020 G25.0 Essential tremor Sushma Oneill 04/22/2020 G31.84 Mild cognitive impairment, so st ated Dominga Hoffman M.D. 04/22/2020 M54.5 Low back pain Dominga Hoffman M.D. 04/22/2020 M48.062 Spinal stenosis, lumbar region w ith neurogenic claudication Dominga Hoffman M.D. 04/22/2020 E11.42 Type 2 diabetes mellitus with di abetic polyneuropathy Dominga Hoffman M.D. 03/29/2020 G60.9 Hereditary and idiopathic neurop athy, unspecified Dominga Hoffman M.D. 03/29/2020 M54.16 Radiculopathy, lumbar region Gennaro Hoffman M.D. Plan of Treatment No Information Available Functional Status Description No Information Available Mental Status Description No Information Available Referrals Refer to Reason for Referral Status Appt Date Tino Coello M.D. SEVERE LUMBAR SPINE STENOSIS - [facility] PEND ING Created [address] [place] [address], [place] [address] [phone]
--- OUTSIDE RECORDS SUMMARY | 2020-11-05 10:29 | CCD ---
Author Author [facility] ems Organization [facility] ems Address Unknown Phone Unavailable Care Team Providers Care Environmental Services Coordinator Name Role Phone Elaine Parker Unavailable PROBLEMS Type Condition ICD9-CM Code [id number] Code Onset Dates Condition S tatus SNOMED Code Notes Problem Other seborrheic keratosis L82.1 Active 93225 8000 Problem Melanocytic nevus of right upper extremity D22.61 Active 114708789 Problem Melanocytic nevi of trunk D22.5 Active 535264 002 scattered nevi, no changes noted Problem Generalized osteoarthrosis, involving multiple sites M15.9 Active 549337962 Problem Melanocytic nevi of lower extremity or hip, left D 22.72 Active 078313884 Problem 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 Active 25 6183513 Problem Menopausal and female climacteric states N95.1 Active 209767340 Problem Other allergic rhinitis J30.89 Active 04258688 Problem Mixed hyperlipidemia E78.2 Active 414847651 Problem Intention tremor G25.2 Active 85475812 Problem Type II or unspecified type diabetes mellitus without mention of complication, not stated as uncontrolled E11.9 Active 51643953 Problem Diabetes mellitus with multiple complications E11.8 Active 01314309 Problem Diabetic polyneuropathy associated with type 2 d iabetes mellitus E11.42 Active 57496820 Problem Stage 3 chronic kidney disease N18.3 Active 4 37019784 Problem Polymyalgia rheumatica M35.3 Active 49888871 Problem Renovascular hypertension I15.0 Active 698743 005 Problem Encounter for immunization Z23 Active 48993 8001 Problem Microalbuminuria R80.9 Active 299315579 Problem Pericardial effusion I31.3 Active 288083973 Problem Essential hypertension I10 Active 48818469 Problem Chronic diastolic (congestive) heart failure I50.3 2 Active 165155833 Problem Anxiety state F41.1 Active 656812576 Problem Vitamin D deficiency E55.9 Active 03222626 Problem Chronic diastolic heart failure I50.32 Active 638315902 Problem Hypertensive heart disease with heart failure I11.0 Active 9981616 Problem Other chronic pain G89.29 Active 45216015 Problem Atrial fibrillation, unspecified type I48.91 Ac tive 29797156 ALLERGIES Allergen (clinical drug ingredient) Drug/Non Drug Allergy do cumented on EMR Reaction Allergy Type Onset Date Status Victoza Nausea/Vomiting Drug Allergy Active Penicillin (For Allergies Use Only) rash Drug Allerg y Active terbinafine Terbinafine pruritis Drug Allergy Active Bydureon lumps Drug Allergy Active Pravastatin leg pains - mild Drug Allergy Activ e Ozempic nausea Drug Allergy Active metformin Metformin HCl([facility] Code:[address]-38) diarrhea Drug Brent rgy Active atorvastatin Lipitor(ND Code:[address]-59) myalgias Drug Allergy Active Lamisil itch Drug Allergy Active rosuvastatin Crestor(ND Code:[address]-78) leg pains - severe Drug Allergy Active ENCOUNTERS from 1945 to 2020-09-23 Encounter Location Date Provider Diagnosis [facility] [address] [place] [address] Sep, 20 Elaine Terry-Tartell Diabetes mellitus with multiple complica tions E11.8 and Mixed hyperlipidemia E78.2 IMMUNIZATIONS Vaccine Route Administration Date Status Pneumococcal 0.5mL (Prevnar 13) IM Intramuscular March 21, 2017 Administered Influenza (High Dose 65 & up) IM Intramuscular Sep 19, 2016 A dministered Influenza (High Dose 65 & up) IM Intramuscular Jul 01, 2015 A dministered Influenza (6mo & up) Fluzone IM Intramuscular Jun 26, 2014 Ad ministered Pneumococcal Adult 0.5mL (Pneumovax 23) Unknown Jul 01, 2015 Pending Influenza (6mo & up) Fluzone IM Intramuscular [...] Education Language: Question Answer Notes Languages spoken: Turkmen Amish: Question Answer Notes Amish 06 Jainism Sexual Hx: Question Answer Notes Had sex [...] Information RESULTS No Results REASON FOR VISIT No Information MEDICAL (GENERAL) HISTORY Type Description Date Medical [...] cord polyps Surgical History colonoscopy - [facility] 7-,08-23, 04/01 Surgical History carpal tunnel release R & L 1-05 Surgical History vaginal polyps Surgical History L arm fx repair 02/22 Hospitalization History C-Diff 08/21/19-08/27/19 Goals Section No Information Health Concerns No Information MEDICAL EQUIPMENT No Information MENTAL STATUS No Information FUNCTIONAL STATUS No Information ASSESSMENTS Encounter Date Diagnosis Assessment Notes Treatment Notes Treatm ent Clinical Notes Sep, Diabetes mellitus with multiple complications (I CD-10 - E11.8) Sep, Mixed hyperlipidemia (ICD-10 - E78.2) PLAN OF TREATMENT Medication Medication Name Sig Start Date Stop Date Pravastatin Sodium 20 MG 1 tablet Orally Once a day for 90 Duloxetine HCl 60 MG 1 capsule Orally Once a day for 90 Future Test Test Name Order Date LIPID PANEL (CARDIAC RISK) 20200917 HEMOGLOBIN A1c [id number] Next Appt Details Provider Name:Elaine Parker, 2020-10-20 02:30:00 PM, [address], [place], [address], Insurance Providers Payer Name Payer Address Payer Phone Insured Name Patient Relati onship to Insured Coverage Start Date Coverage End Date [facility] [address] [id number] [facility] [address] LULA KLINE MEDICARE Part A and B [address] [facility] [id number] [phone] LULA KLINE
--- OUTSIDE RECORDS SUMMARY | 2020-11-05 10:29 | CCD | Continuity of Care Document ---
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 Name Role Phone Fabiola Whaley Unavailable Unavailable Allergies, Adverse Reactions, Alerts Substance Reaction Status Criticality Penicillins Active No Information Penicillins Active No Information Medications Medication Instructions Dosage Effective Dates (start - stop) Sta tus Comments methotrexate sodium 2.5 mg tablet TAKE 3 TABLETS BY [facility] ONCE A WEEK AFTER SUPPER IN THE EVENING - Active folic acid 1 mg tablet take 1 tablet by oral route every day 1 MG - Active ferrous sulfate 325 mg (65 mg iron) tablet take 1 Tabl et by Oral route once every other day - Active Eliquis 2.5 mg tablet take 1 tablet by oral route 2 times every day 2.5 MG - Active duloxetine 60 mg capsule,delayed release take 1 capsul e by oral route every day 60 MG - Active torsemide 10 mg tablet take 1 tablet by oral route every day if weight greater than 180 lbs - Active flecainide 50 mg tablet take 1 tablet by oral route every 12 hours 50 MG - Active pravastatin 10 mg tablet take 1 tablet by oral route every day 10 MG - Active Novolin R Regular U-100 Insulin 100 unit/mL injection solution if sugar greater than 200 - Active Lantus Solostar U-100 Insulin 100 unit/mL (3 mL) subcu taneous pen inject by subcutaneous route as per insulin protocol 0.00 - Activ e Januvia 50 mg tablet take 1 tablet by oral route every day 50 MG - Active glipizide ER 5 mg tablet, extended release 24 hr take 1 tablet by oral route 2 times every day with breakfast 5 MG - Active Vitamin B-12 500 mcg tablet - Active Tylenol Arthritis Pain 650 mg tablet,extended release take 2 tablet by oral route 2 times every day as needed 1300 MG - Active Calcium 600 600 mg calcium (1,500 mg) tablet take 1 by Oral route 2 times every day 1 - Active Vitamin D3 5,000 unit tablet take 1 by Oral route once 1 - Active Methotrexate Sodium 2.5 MG Oral Tablet TAKE 3 TABLETS BY MOUTH ONCE A WEEK AFTER SUPPER IN THE EVENING - No Longer Active bisoprolol 5 mg-hydrochlorothiazide 6.25 mg tablet elijah e 1 tablet by oral route every day 1.00 tablet - No Longer Active OTC SUPPLEMENTS HEMP AMIE - No Longer Active Problems Condition Type Effective Dates (start - stop) Clinical S tatus Comments Polymyalgia rheumatica Diagnosis interpretation (observable entity) 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 Diagnosis inter pretation (observable entity) Polymyalgia rheumatica Diagnosis interpretation (observable entity) Polyosteoarthritis, unspecified Diagnosis interpretation (observ able entity) Other longterm (current) drug therapy Diagnosis inter pretation (observable entity) Abnormal results of kidney function studies Diagnosis interpretation (observable entity) Polymyalgia rheumatica Diagnosis interpretation (observable entity) Other longterm drug therapy Diagnosis interpretation (observable e ntity) Abnormal renal function test Diagnosis interpretation (observable e ntity) Polymyalgia rheumatica Diagnosis interpretation (observable entity) Other longterm drug therapy Diagnosis interpretation (observable e ntity) Polymyalgia rheumatica Diagnosis interpretation (observable entity) 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 Diagnosis inter pretation (observable entity) Polymyalgia rheumatica Diagnosis interpretation (observable entity) 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 Diagnosis interpretation (observable e ntity) Cervicalgia Diagnosis interpretation (observable entity) Polymyalgia rheumatica Diagnosis interpretation (observable entity) Other longterm drug therapy Diagnosis interpretation (observable e ntity) Polymyalgia rheumatica Diagnosis interpretation (observable entity) 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 Diagnosis interpretation (observable e ntity) Fatigue Diagnosis interpretation (observable entity) Polymyalgia rheumatica Diagnosis interpretation (observable entity) Other longterm drug therapy Diagnosis interpretation (observable e ntity) Polymyalgia rheumatica Diagnosis interpretation (observable entity) 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 Diagnosis interpretation (observable e ntity) Polymyalgia rheumatica Diagnosis interpretation (observable entity) 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 Diagnosis interpretation (observable e ntity) Generalized osteoarthritis Diagnosis interpretation (observable ent ity) Abnormal renal function test Diagnosis interpretation (observable e ntity) Polymyalgia rheumatica Diagnosis interpretation (observable entity) Other longterm drug therapy Diagnosis interpretation (observable e ntity) Abnormal renal function test Diagnosis interpretation (observable e ntity) Polymyalgia rheumatica Diagnosis interpretation (observable entity) Other longterm drug therapy Diagnosis interpretation (observable e ntity) Pain in joint of rt foot Diagnosis interpretation (observable entit y) Polymyalgia rheumatica Diagnosis interpretation (observable entity) Other longterm drug therapy Diagnosis interpretation (observable e ntity) Polymyalgia rheumatica Diagnosis interpretation (observable entity) 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 Diagnosis interpretation (observable e ntity) Pain in left hand Diagnosis interpretation (observable entity) Pain in right hand Diagnosis interpretation (observable entity) Pain in rt hip Diagnosis interpretation (observable entity) Pain in lt hip Diagnosis interpretation (observable entity) Polymyalgia rheumatica Diagnosis interpretation (observable entity) 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 Diagnosis interpretation (observable e ntity) Generalized osteoarthritis Diagnosis interpretation (observable ent ity) Polymyalgia rheumatica Diagnosis interpretation (observable entity) 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 Diagnosis interpretation (observable e ntity) Generalized osteoarthritis Diagnosis interpretation (observable ent ity) Polymyalgia rheumatica Diagnosis interpretation (observable entity) Other longterm drug therapy Diagnosis interpretation (observable e ntity) Generalized osteoarthritis Diagnosis interpretation (observable ent ity) Polymyalgia rheumatica Diagnosis interpretation (observable entity) Generalized osteoarthritis Diagnosis interpretation (observable ent ity) 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 The mapped diagnosis code was Diabetes Mellitus Type 2, Uncomplicated, 250.00, added by Margaret Dave, with responsible provider Margaret BUITRAGO. Onset date 04/22/2012. Degenerative joint disease involving multiple joints Problem (finding) - Active Mapped from [facility] Chronic Cond itions table on 12/22/2014 by the ICD9 to SNOMED Bulk Mapping Utility. The mapped diagnosis code was Osteoarthritis - multiple sites, 715.09, added by Margaret Dave, with responsible provider Margaret BUITRAGO. Onset date 04/22/2012. Colon Polyps Problem (finding) Active Glaucoma Problem (finding) Active High Blood Pressure Problem (finding) Active High Cholesterol Problem (finding) Active Pneumonia Problem (finding) Active Anemia Problem (finding) Active Procedures Procedure Date ROUTINE VENIPUNCTURE COMPLETE CBC W/AUTO DIFF WBC TRANSFERASE (AST) (SGOT) ALANINE AMINO (ALT) (SGPT) ASSAY OF SERUM ALBUMIN ASSAY OF CREATININE C-REACTIVE PROTEIN RBC SED RATE, AUTOMATED OFFICE/OUTPATIENT VISIT, EST Results Test Name Date and Time Measure Units Reference Range Abnormal Flag St atus Comments Panel Description: CBC Final WBC 11:20:00 7.5 10*3/uL 3.7-10.1 Final RBC 11:20:00 4.22 10*6/uL 3.50-5.50 Final HGB 11:20:00 12.2 g/dL 12.0-16.0 Final HCT 11:20:00 38.4 % 36.0-48.0 Final MCV 11:20:00 91.0 fL 80.0-100.0 Final MCH 11:20:00 28.8 pg 26.0-34.0 Final MCHC 11:20:00 31.7 g/dL 31.0-37.0 Final RDW 11:20:00 14.6 % 10.0-15.0 Final PLATELETS 11:20:00 316 10*3/uL 150-500 Final MPV 11:20:00 6.2 fL 6.0-10.0 Final GRIS# 11:20:00 5.09 10*3/uL 2.10-8.00 Final LYM# 11:20:00 1.54 10*3/uL 1.00-5.00 Final MONO# 11:20:00 0.71 10*3/uL 0.10-1.00 Final EOS# 11:20:00 0.1 10*3/uL 0.0-0.5 Final BASO# 11:20:00 0.1 10*3/uL 0.0-0.2 Final GRIS% 11:20:00 67.6 % 50.0-80.0 Final LYM% 11:20:00 20.5 % 25.0-50.0 L Final MONO% 11:20:00 9.5 % 2.0-10.0 Final EOS% 11:20:00 1.6 % 0.0-5.0 Final BASO% 11:20:00 0.9 % 0.0-4.0 Final Panel Description: ESR Final ESR 11:20:00 51 mm/Hr 0-20 H Final Panel Description: ALBUMIN Final ALB 11:20:00 3.7 g/dL 3.4-4.4 Final Panel Description: ALT Final ALT 11:20:00 25 U/L 30-65 L Final Panel Description: AST Final AST 11:20:00 13 U/L 15-37 L Final Panel Description: CREATININE Final CREATININE 11:20:00 1.4 mg/dL 0.6-1.2 H Final eGFR Non- 11:20:00 36.9 mL/min/1.73m Final eGFR 11:20:00 44.7 mL/min/1.73 Final Panel Description: CRP Final CRP 11:20:00 0.4 mg/dL 0.0-0.5 Final Advance Directives Directive Yes / No Effective Date File Name No Information Encounters Encounter Description Practice Location Reason(s) For Visit Diagnose s Date Provider Providers Copied on Encounter OFFICE/OUTPATIENT VISIT, EST [facility], [address] [place], [place], [id number], [place] tel:[phone] [facility] Polymyalgia Rheumatica (chief complaint) Polymyalgia rheumaticaOther longterm (current) drug therapy Didi Hicks. [address] [place], [place], [id number], [place]. tel:[phone] Specialist: Chary Martinez MD, [address], [place], [address]. tel:[phone]: Anisha Max, [address] [facility] [address], [place], [address]. tel:[phone]: Edgar Ghosh MD, [facility] [address] [facility] [address], [place], [address]. tel:[phone] Provider: Dominga Hoffman MD, [address] [place], [place], [id number]. tel:[phone] Provider: Tana Teague NP, [address] [place], [place], [id number]. tel:[phone] [facility], [address] [place] [address], [id number], [place] tel:[phone] [facility] No Information Mtajoshuadouglas Nuñez. [address] [place], [place], [id number], [place]. tel:[phone] [facility], [address] [place] [address], [id number], [place] tel:[phone] [facility] Polymyalgia rheumaticaPolyosteoarthritis, unspecifiedOther longterm (current) drug therapyAbnormal results of kidney function studies Mta lakeisha Nuñez. [address] [place] [address], [id number], [place]. tel:[phone] Specialist: Chary Martinez MD, [address], [place], [address]. tel:[phone]: Anisha Max, [address] [facility] [address], [place], [address]. tel:[phone]: Edgar Ghosh MD, [facility] [address] [place] [address], [address]. tel:[phone] Provider: Dominga Hoffman MD, [address] [place], [place], [id number]. tel:[phone] Provider: Tana Teague NP, [address] [facility], [place], [place], [id number]. tel:[phone] [facility], [address] [place] [address], [id number], [place] tel:[phone] [facility] Polymyalgia rheumaticaOther longterm drug therapyAbnormal renal function test Geronimo Wick. [address] [place] [address], [id number], [place]. tel:[phone] Specialist: Chary Martinez MD, [place] [address] [place], [address]. tel:[phone]: Anisha Max, [address], [address]. tel:[phone]: Edgar Ghosh MD, [facility] [address], [address]. tel:[phone] Provider: Tana Teague NP, [address] [facility], [place], [place], [id number]. tel:[phone] [facility], [address] [place] [address], [id number], [place] tel:[phone] [facility] Polymyalgia rheumaticaOther longterm drug therapy Geronimo Wick. [address] [place] [address], [id number], [place]. tel:[phone] Specialist: [place], [address] [place] [address], [place], [address]. tel:[phone]: Anisha Max, [address] [place] [address], [address]. tel:[phone]: Edgar Ghosh MD, [facility] [address], [address]. tel:[phone] Provider: Tana Teague EPIDEMIOLOGIST, [address] [place] [address], [id number]. 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 [address] [place] [address], [id number], [place]. tel:[phone] Specialist: Chary Martinez MD, [place] [address] [place], [address]. tel:[phone]: Anisha Max, [address] [place] [address], [address]. tel:[phone]: Edgar Ghosh MD, [facility] [address], [address]. tel:[phone] Provider: Tana Teague NP, [address] [place] [address], [id number]. tel:[phone] [facility], [address] [place] [address], [id number], [place] tel:[phone] [facility] Polymyalgia rheumaticaOther longterm drug therapyCervicalgia Rylie Wick. [address] [place] [address], [id number], [place]. tel:[phone] Specialist: Chary Martinez MD, [place] [address] [place], [address]. tel:[phone]: Anisha Max, [address], [address]. tel:[phone] Provider: Tana Teague NP, [address] [place] [address], [place], [place], [id number]. tel:[phone] [facility], [address] [place] [address], [id number], [place] tel:[phone] [facility] Polymyalgia rheumaticaOther longterm drug therapy Geronimo Wick. [address] [place] [address], [id number], [place]. tel:[phone] Specialist: Chary Martinez MD, [address], [place], [address]. tel:[phone]: Anisha Max, [address] [place] [address], [address]. tel:[phone] Provider: Tana Teague NP, [address] [place] [address], [place], [place], [id number]. tel:[phone] [facility], [address] [place] [address], [id number], [place] tel:[phone] [facility] Polymyalgia rheumatica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Fatigue Geornimo Wick. [address] [place] [address], [id number], [place]. tel:[phone] Specialist: Chary Martinez MD, [address], [place], [address]. tel:[phone] Provider: Tana Teague NP, [address] [place] [address], [id number]. tel:[phone] [facility], [address] [place] [address], [id number], [place] tel:[phone] [facility] Polymyalgia rheumaticaOther longterm drug therapy Geronimo Wick. [address] [place] [address], [id number], [place]. tel:[phone] Referring Provider: Tana Teague EPIDEMIOLOGIST, [address] [place] [address], [place], [place], [id number]. tel:[phone] [facility], [address] [place] [address], [id number], [place] tel:[phone] [facility] Polymyalgia rheumaticaOther longterm drug therapy Geronimo Wick. [address] [place] [address], [id number], [place]. tel:[phone] Referring Provider: Tana Teague NP, [address] [place] [address], [place], [place], [id number]. tel:[phone] [facility], [address] [place] [address], [id number], [place] tel:[phone] [facility] Polymyalgia rheumaticaOther longterm drug therapyGeneralized osteoarthritis Connie Hicks. [address] [place] [address], [id number], [place]. tel:[phone] Referring Provider: Tana Teague NP, [address] [place] [address], [place], [place], [id number]. tel:[phone] [facility], [address] [place] [address], [id number], [place] tel:[phone] [facility] Abnormal renal function test Geronimo Wick. [address] [place] [address], [id number], [place]. 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 [address] [place] [address], [id number], [place]. tel:[phone] Referring Provider: Tana Teague EPIDEMIOLOGIST, [address] [place] [address], [place], [place], [id number]. tel:[phone] [facility], [address] [place] [address], [id number], [place] tel:[phone] [facility] Abnormal renal function test Geronimo Delano. [address] [place] [address], [id number], [place]. tel:[phone] [facility], [address] [place] [address], [id number], [place] tel:[phone] [facility] Polymyalgia rheumatica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Pain in joint of rt foot Geronimo Delano. [address] [place] [address], [id number], [place]. tel:[phone] Referring Provider: Tana Teague EPIDEMIOLOGIST, [address] [place] [address], [place], [place], [id number]. 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 [address] [place] [address], [id number], [place]. tel:[phone] Referring Provider: Tana Teague EPIDEMIOLOGIST, [address] [place] [address], [place], [place], [id number]. tel:[phone] [facility], [address] [place] [address], [id number], [place] tel:[phone] [facility] Polymyalgia rheumatica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Pain in left handPain in right handPain in rt hipPain in lt hip Geronimo Delano. [address] [place] [address], [id number], [place]. tel:[phone] Referring Provider: Tana Teague EPIDEMIOLOGIST, [address] [place] [address], [place], [place], [id number]. tel:[phone] [facility], [address] [place] [address], [id number], [place] tel:[phone] [facility] Polymyalgia rheumatica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Generalized osteoarthritis No Information Referring Provider: Tana Teague NP, [address] [place] [address], [id number]. tel:[phone] [facility], [address] [place] [address], [id number], [place] tel:[phone] [facility] Polymyalgia rheumaticaOther longterm drug therapyGeneralized osteoarthritis No Information Referring Provider: Tana Teague EPIDEMIOLOGIST, [address] [place] [address], [place], [place], [id number]. tel:[phone] [facility], [address] [place] [address], [id number], [place] tel:[phone] [facility] Polymyalgia rheumatica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Generalized osteoarthritis Feliciano Kaufman. [address] [place] [address], [id number], [place]. tel:[phone] Referring Provider: Tana Teague NP, [address] [place] [address], [place], [place], [id number]. tel:[phone] [facility], [address] [place] [address], [id number], [place] tel:[phone] [facility] Polymyalgia rheumaticaGeneralized osteoarthritis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 Feliciano Kaufman. [address] [place] [address], [id number], [place]. tel:[phone] Referring Provider: Tana Teague NP, [address] [place] [address], [place], [place], [id number]. tel:[phone] [facility], [address] [place] [address], [id number], [place] tel:[phone] [facility] Polymyalgia rheumatica No Information Referring Provider: Tana Teague NP, [address] [place] [address], [place], [place], [id number]. tel:[phone] [facility], [address] [place] [address], [id number], [place] tel:[phone] [facility] Polymyalgia rheumaticaGeneralized osteoarthritis No Information Ref erring Provider: Tana Teague NP, [address] [place] [address], [place], [place], [id number]. tel:[phone] [facility], [address] [place] [address], [id number], [place] tel:[phone] [facility] No Information Maame Robles. Yolande S Jordin Reynoso, [place], [place], [id number], [place]. tel:[phone] Referring Provider: Tana Teague NP, [address] [place] [address], [id number]. tel:[phone] [facility], [address] [place] [address], [id number], [place] tel:[phone] [facility] No Information No Information Referring Provider: Tana Teague NP, [address] [place] [address], [id number]. tel:[phone] Family History Family Member Type Diagnosis Age At Onset No Information Immunizations Vaccine Date Status Comments Flucelvax administered Note: approx ; Source: Other Provider Influenza, injectable, MDCK, preservativ e free, 0.5 mL dosage, Flucelvax Quad administered Source: Other Provid er Influenza, injectable, quadrivalent, spl it virus, 18 years or older Afluria Quad administered Note: approx ; Sourc e: Other Provider Influenza, injectable, trivalent, split virus, 4 years and older, Fluvirin administered Note: Invalid docume nted admin date was . ; Source: Other Provider pneumo (2 yrs or older) (PPV23) administered Source: New Immunization Record Payers Payer name Insurance type Covered constitution party ID Authorization(s ) Medicare MB [id number] [facility] [id number] Social History Type Description Quantity Date Captured Comments Alcohol Use Details No Caffeine Use Details coffee 2 cups per day Tobacco Use Status Never smoked tobacco Smoking Status Never smoker Non-Smoking Tobacco Use Details : No Details Available : No Details Available Sex Female Vital Signs Date / Time: Height Weight BMI Pulse Rate Blood Pressure Temperatu re Respiratory Rate Body Surface Area Head Circumference BMI percentile Pulse Ox In haled Ox 11:00 AM 63.00 in 212.00 lbs 37.55 kg/meter(2) 150/6 0 mm[Hg] Chief Complaint And Reason For Visit From encounter dated '10/25/2020 11:00'. Polymyalgia Rheumatica (chief complaint). Description: The pain severity is 0/10 . Patient is experiencing generalized morning stiffness for 15 Minutes. Patien t denies having abdominal pain, infection, loss of appetite, fever, temporal hea dache, rash, oral ulcers (mouth sores), weight loss, shortness of breath, jaw cl audication and scalp tenderness. Reason For Referral Reason For Referral No Information Plan Of Treatment Date Type Action Status Referral Referred To: Michelle DE JESUS, Chary [address] [place] [address] [place], [phone] Ordered: Referrals: Chary Martinez MD. Evaluate and treat ordered Referral Ordered: *CERVICAL SPINE X-RAY, 4 VIEWS ordered Referral Ordered: *FOOT X-RAY, 2 VIEWS Right foot ordered Referral Ordered: *HAND X-RAY, 2 VIEWS Right hand ordered Referral Ordered: *HIP, XRAY BILATERAL PELVIS, 5 VIEW hip ordered Referral Ordered: *HAND X-RAY, 2 VIEWS Left hand ordered Appointment Jerica Kline BOOKED History Of Present Illness Encounter Date Complaint History Of Present I llness Polymyalgia Rheumatica The pain severity is 0/10. Patient is experiencing generalized morning stiffness for 15 Minutes. Patient denies having abdominal pain, infection, loss of appetite, fever, temporal headache, rash, oral ulcers (mouth sores), weight loss, shortness of breath, jaw claudication and scalp tenderness. Functional Status Date Functional Assessment No Information Medications Administered Medication Instructions Dosage Effective Dates (start - stop) Sta tus Comments No Information Instructions Date Instruction Additional Informati on Reviewed importance of compl iance/adherence to medications prescribed Diet: avoid alcohol Avoid live vaccines Discussed / Reviewed Labs call if symptoms worsen maintain adequate water intake every day Weight reduction urged. Risks/benefits of medications reviewed Avoid sun and use high SPF sunblock Labs ordered to check disease activity. Labs ordered to check blood counts, liver and kidney functions to monitor safety of medication. Reviewed importance of compl iance/adherence to medications prescribed Diet: avoid alcohol Avoid live vaccines Weight reduction urged. Risks/benefits of medications reviewed Avoid sun and use high SPF sunblock Discussed importance of hold ing DMARDs/ biologics if patient develops an infection and to notify the treating physician Labs ordered to check disease activity. Labs ordered to check blood counts, liver and kidney functions to monitor safety of medication. Discussed / Reviewed Labs call if symptoms worsen maintain adequate water intake every day Risks/benefits of medications reviewed Avoid sun and use high SPF sunblock Discussed importance of hold ing DMARDs/ biologics if patient develops an infection and to notify the treating physician Labs ordered to check disease activity. Labs ordered to check blood counts, liver and kidney functions to monitor safety of medication. Discussed / Reviewed Labs call if symptoms worsen maintain adequate water intake every day Reviewed importance of compl iance/adherence to medications prescribed Avoid live vaccines Weight reduction urged. call if symptoms worsen maintain adequate water intake every day Reviewed importance of compl iance/adherence to medications prescribed Diet: avoid alcohol Avoid live vaccines Weight reduction urged. Risks/benefits of medications reviewed Avoid sun and use high SPF sunblock Discussed importance of hold ing DMARDs/ biologics if patient develops an infection and to notify the treating physician Labs ordered to check disease activity. Labs ordered to check blood counts, liver and kidney functions to monitor safety of medication. Discussed / Reviewed Labs Reviewed importance of compl iance/adherence to medications prescribed Diet: avoid alcohol Avoid live vaccines Weight reduction urged. Risks/benefits of medications reviewed Avoid sun and use high SPF sunblock Discussed importance of hold ing DMARDs/ biologics if patient develops an infection and to notify the treating physician Recommended further diagnost ic tests ordered to clarify diagnostic and treatment plan. Labs ordered to check disease activity. Labs ordered to check blood counts, liver and kidney functions to monitor safety of medication. Discussed / Reviewed Labs call if symptoms worsen maintain adequate water intake every day Discussed importance of hold ing DMARDs/ biologics if patient develops an infection and to notify the treating physician Labs ordered to check disease activity. Labs ordered to check blood counts, liver and kidney functions to monitor safety of medication. Discussed / Reviewed Labs call if symptoms worsen maintain adequate water intake every day Reviewed importance of compl iance/adherence to medications prescribed Diet: avoid alcohol Avoid live vaccines Weight reduction urged. Risks/benefits of medications reviewed Avoid sun and use high SPF sunblock Reviewed importance of compl iance/adherence to medications prescribed Diet: avoid alcohol Avoid live vaccines Weight reduction urged. Risks/benefits of medications reviewed Avoid sun and use high SPF sunblock Discussed importance of hold ing DMARDs/ biologics if patient develops an infection and to notify the treating physician Labs ordered to check disease activity. Labs ordered to check blood counts, liver and kidney functions to monitor safety of medication. Discussed / Reviewed Labs call if symptoms worsen maintain adequate water intake every day Diet: avoid alcohol Avoid live vaccines Weight reduction urged. Risks/benefits of medications reviewed Discussed importance of hold ing DMARDs/ biologics if patient develops an infection and to notify the treating physician Labs ordered to check disease activity. Labs ordered to check blood counts, liver and kidney functions to monitor safety of medication. Discussed / Reviewed Labs call if symptoms worsen maintain adequate water intake every day Reviewed importance of compl iance/adherence to medications prescribed Diet: avoid alcohol Avoid live vaccines Risks/benefits of medications reviewed Discussed importance of hold ing DMARDs/ biologics if patient develops an infection and to notify the treating physician Labs ordered to check disease activity. Discussed / Reviewed Labs Patient plan printed and given along wit h recommendations call if symptoms worsen maintain adequate water intake every day Labs ordered to check blood counts, liver and kidney functions to monitor safety of medication. Discussed / Reviewed Labs Patient plan printed and given along wit h recommendations call if symptoms worsen maintain adequate water intake every day Reviewed importance of compl iance/adherence to medications prescribed Diet: avoid alcohol Avoid live vaccines Risks/benefits of medications reviewed Discussed importance of hold ing DMARDs/ biologics if patient develops an infection and to notify the treating physician Labs ordered to check disease activity. Reviewed importance of compl iance/adherence to medications prescribed Diet: avoid alcohol Avoid live vaccines Weight reduction urged. Risks/benefits of medications reviewed Labs ordered to check disease activity. Labs ordered to check blood counts, liver and kidney functions to monitor safety of medication. Discussed / Reviewed Labs Patient plan printed and given along wit h recommendations call if symptoms worsen maintain adequate water intake every day Risks/benefits of medications reviewed Labs ordered to check disease activity. Labs ordered to check blood counts, liver and kidney functions to monitor safety of medication. Patient plan printed and given along wit h recommendations continue same medication plan call if symptoms worsen finish up prednisone and stop Risks/benefits of medications reviewed Labs ordered to check disease activity. Labs ordered to check blood counts, liver and kidney functions to monitor safety of medication. Discussed / Reviewed Labs Patient plan printed and given along wit h recommendations call if symptoms worsen lower prednisone to 3mg day. Risks/benefits of medications reviewed Labs ordered to check disease activity. Labs ordered to check blood counts, liver and kidney functions to monitor safety of medication. Discussed / Reviewed Labs call if symptoms worsen Risks/benefits of medications reviewed Diet: Instructed on appropriate calcium and vitamin D intake. Labs ordered to check disease activity. Call if symptoms return Labs ordered to check blood counts, liver and kidney functions to monitor safety of medication. Discussed / Reviewed Labs call if symptoms worsen Risks/benefits of medications reviewed reduce prednisone to 5mg daily. Labs ordered to check disease activity. Call if symptoms return Patient plan printed and given along wit h recommendations Educated regarding diagnosis and treatme nt options. Discussed / Reviewed Labs Patient plan printed and given along wit h recommendations call if symptoms worsen prednisone 5mg after bfast and dinner. [employer] handout provided and discussed on Polymyalgia Rheumatica Risks/benefits of medications reviewed Physical Examination Exam Findings Details Head/Face Normal Skull - Normal. Hair and scalp - Normal. Eyes Normal Conjunctiva - Right: Normal, Left: Normal. Neck Exam Normal Inspection - Normal. Respiratory Normal Auscultation - Na l. Effort - Normal. Extremity Normal No edema. Musculoskeletal Normal Shoulders - No tende rness, swelling, effusion, or limitation to range of motion. Elbows - No tenderness, swelling, effusion, or limitation to range of motion. Musculoskeletal * Gait - full weight b earing, no assistive device. Knee - Left: crepitus, Right: crepitus. Psychiatric Normal Orientation - [place] ed to time, place, person & situation. Appropriate mood and affect. Cardiovascular Normal Heart rate - Regular rate. Rhythm - Regular. Murmurs - None. General Exam Comments Patient is wearing a mask. Joint Exam (detail) Comments Moderate osteoarthri tic changes noted over the hands bilaterally. No tenderness to palpation over the temples bilaterally. No tenderness to palpation proximal muscles of the upper or lower extremities. 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
--- OUTSIDE RECORDS SUMMARY | 2020-11-05 10:29 | CCD | Continuity of Care Document ---
Author Jerica Chauhan M.D. Organization Unknown Address [address] [place] [id number] Phone [phone] Care Team Providers Care Profile Trimmer Name Role Phone Tana Teague AUTM [phone] Desire Carreno MD AUTM Problems Active Problems [...] lb BMI (Body Mass Index) 35.7 kg/m2 [place] Body Weight 120 lb Results Test Acquired Date Facility Test Result H/L Range Note Renal Profile 07/24/2020 [facility] Glucose, Fasting 160 mg/dL High 70-100 Blood [...] GM/DL Normal 3.2-5.2 Laboratory test finding 07/24/2020 [facility] NT-Pro BNP 260 pg/mL High <125 Complete Blood Count 04/16/2020 [facility] White Blood Count 7.6 10 Normal 4.0-10.0 [...] % Normal 0-0 Comprehensive Metabolic Profil 04/16/2020 [facility] Glucose, Fasting 147 mg/dL High 70-100 Blood [...] 1.1 Low 1.2-2.2 Laboratory test finding 04/16/2020 [facility] Magnesium Level 2.3 mg/dL Normal 1.8-2.4 NT-Pro BNP 476 pg/mL High <125 1 Units are mL/min/1.73 m2 Chronic Kidney Disease Staging per NKF: Stage I & II GFR >=60 Normal to Mildly Decreased Stage III GFR 30-59 Moderately Decreased Stage IV GFR 15-29 Severely Decreased Stage V GFR <15 Very Little GFR Left ESRD GFR <15 on HEEL BUILDER MACHINE 2 Units are mL/min/1.73 m2 Chronic Kidney Disease Staging per NKF: Stage I & II GFR >=60 Normal to Mildly Decreased Stage III GFR 30-59 Moderately Decreased Stage IV GFR 15-29 Severely Decreased Stage V GFR <15 Very Little GFR Left ESRD GFR <15 on HEEL BUILDER MACHINE Procedures Description No Information Available Medical Devices Description No Information Available Encounters Type Date Location Provider Dx Diagnosis Office Visit 09/23/2020 12:45p Main office - Ivette Wong G25.0 Essential tremor G31.84 Mild cognitive impairment, s o stated M54.5 Low back pain M48.062 Spinal stenosis, lumbar 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 Plan of Treatment No Information Available Functional Status Description No Information Available Mental Status Description No Information Available Referrals Description No Information Available
--- OUTSIDE RECORDS SUMMARY | 2020-11-05 10:29 | CCD ---
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 [employer] Name Role Phone AlexiamuraliElaine Unavailable PROBLEMS Type Condition ICD9-CM Code [id number] Code Onset Dates Condition S tatus SNOMED Code Notes Problem Other seborrheic keratosis L82.1 Active 34069 8000 Problem Melanocytic nevus of right upper extremity D22.61 Active 410323664 Problem Melanocytic nevi of trunk D22.5 Active 628408 002 scattered nevi, no changes noted Problem Generalized osteoarthrosis, involving multiple sites M15.9 Active 559390541 Problem Melanocytic nevi of lower extremity or hip, left D 22.72 Active 960397043 Problem 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 Active 25 1511126 Problem Menopausal and female climacteric states N95.1 Active 289911753 Problem Other allergic rhinitis J30.89 Active 26172845 Problem Mixed hyperlipidemia E78.2 Active 484129896 Problem Intention tremor G25.2 Active 32967316 Problem Type II or unspecified type diabetes mellitus without mention of complication, not stated as uncontrolled E11.9 Active 58966459 Problem Diabetes mellitus with multiple complications E11.8 Active 08097056 Problem Diabetic polyneuropathy associated with type 2 d iabetes mellitus E11.42 Active 88821738 Problem Stage 3 chronic kidney disease N18.3 Active 4 63284992 Problem Polymyalgia rheumatica M35.3 Active 83295527 Problem Renovascular hypertension I15.0 Active 921207 005 Problem Encounter for immunization Z23 Active 67530 8001 Problem Microalbuminuria R80.9 Active 047391550 Problem Pericardial effusion I31.3 Active 357987983 Problem Essential hypertension I10 Active 13359340 Problem Chronic diastolic (congestive) heart failure I50.3 2 Active 895842491 Problem Anxiety state F41.1 Active 890624908 Problem Vitamin D deficiency E55.9 Active 32479669 Problem Chronic diastolic heart failure I50.32 Active 744038863 Problem Hypertensive heart disease with heart failure I11.0 Active 7745331 Problem Other chronic pain G89.29 Active 11755233 Problem Atrial fibrillation, unspecified type I48.91 Ac tive 92784992 ALLERGIES Allergen (clinical drug ingredient) Drug/Non Drug Allergy do cumented on EMR Reaction Allergy Type Onset Date Status Victoza Nausea/Vomiting Drug Allergy Active Penicillin (For Allergies Use Only) rash Drug Allerg y Active terbinafine Terbinafine pruritis Drug Allergy Active Bydureon lumps Drug Allergy Active Pravastatin leg pains - mild Drug Allergy Activ e Ozempic nausea Drug Allergy Active metformin Metformin HCl([facility] Code:[address]-00) diarrhea Drug Brent rgy Active atorvastatin Lipitor(ND Code:[address]-53) myalgias Drug Allergy Active Lamisil itch Drug Allergy Active rosuvastatin Crestor(ND Code:[address]-12) leg pains - severe Drug Allergy Active ENCOUNTERS from 1945 to 2020-10-22 Encounter Location Date Provider Diagnosis [facility] [address] [place] [address] Oct, 21 Elaine Mariegan-Tartell IMMUNIZATIONS Vaccine Route Administration Date Status Influenza [...] Date Details (start date - stop date) Former Smoker Sex Assigned At : Social History Observation Description Sex Assigned At Unknown Education: Question Answer Notes Level of Education: Not Finished College Audit Question Answer Notes Total Score: 0 Interpretation: Alcohol Education Language: Question Answer Notes Languages spoken: Polish Scientology: Question Answer Notes Scientology 06 Roman [employer] Sexual Hx: Question Answer Notes Had sex [...] Use: Question Answer Notes Are you a: former smoker quit 1996; 2 ppd for 15 years, 1 ppd for 15 years How long has it been since you last smoked? > 10 years REASON FOR REFERRAL No Information VITAL SIGNS No information MEDICATIONS Medication SIG (Take, Route, Frequency, Duration) Notes Start Da te End Date Status Lantus SoloStar 100 UNIT/ML as directed Subcutaneous Active Folic Acid 1 MG 1 tablet Orally Once a day for 30 day(s) Active Duloxetine HCl 60 MG 1 capsule Orally Once a day for 90 Active GlipiZIDE ER 5 MG 1 tablet with food Orally twice daily for 90 d ay(s) Oct, Active Januvia 50 MG as directed Orally Act franklin Flecainide Acetate 50 MG as directed Orally Active Torsemide 10 MG 1 tablet Orally Once a day for 30 day(s) Active Methotrexate 2.5 MG as directed Orally 3 tabs on sunday Active Ammonium Lactate 12 % 1 application Externally Twice a day Active NovoLog 100 UNIT/ML as directed Subcutaneous Active Ferrous Gluconate 324 (38 Fe) MG 1 tablet with water o r juice between meals Orally Once a day for 30 day(s) Active Eliquis 2.5 MG as directed Orally Ac tive Januvia 50 MG 1 tablet Orally Once a day for 90 day(s) Oct, Active Pravastatin Sodium 20 MG 1 tablet Orally Once a day for 90 Active Diprolene AF 0.05 % 1 application to affected ar ea Externally to hands Once a day for 30 days Active PROCEDURES No Information RESULTS No Results REASON FOR VISIT No Information MEDICAL (GENERAL) HISTORY Type Description Date Medical History hyperlipidemia Medical History morbid obesity Medical History type II diabetes, follows with Dr. Max Medical History COPD Medical History menopause Medical History incontinence Medical History Arthritis Medical History glaucoma Medical History depression/anxiety Medical History allergic rhinitis Medical History vitamin D deficiency Medical History Hx of toxoplasmosis Medical History Polymyalgia rheumatica Medical History chronic kidney disease stage 3 - nephrol ogy (Aliyah Salas) Medical History HTN - neg NST 10/2018, [...] Information ASSESSMENTS No Information PLAN OF TREATMENT No Information Insurance Providers Payer Name Payer Address Payer Phone Insured Name Patient Relati onship to Insured Coverage Start Date Coverage End Date MEDICARE Part A and B [address] [facility] [phone] LULA KLINE [facility] [address] [id number] [facility] [phone] LULA KLINE
--- OUTSIDE RECORDS SUMMARY | 2020-11-05 10:29 | CCD | Continuity of Care Document ---
Author Author Jerica NARANJO MD Organization Unknown Address [address] [place] [address], [address] [address] Phone [phone] Care Team Providers Care Sec Reporting Consultant Name Role Phone Tana Teague IFTIKHAR AUTM [phone] Edgar Ghosh MD AUTM [phone] Aliyah Millan DOORPERSON OR LUGGAGE PORTER AUTM [phone] Problems Active Problems Provider Date Adrenal adenoma Onset: 08/01/2018 Anxiety state Onset: 09/24/2015 Diabetes mellitus Onset: 06/20/2016 Polyneuropathy due to diabetes mellitus Onset: 06/20/2016 Patient encounter status Onset: 07/26/20 18 Essential hypertension Onset: 09/24/2015 Mixed hyperlipidemia Onset: 09/24/2015 Allergic rhinitis Onset: 09/24/2015 Chronic kidney disease stage 3 Onset: Diabetes mellitus Onset: 09/24/2015 Vitamin D deficiency Onset: 09/24/2015 Pure hypercholesterolemia Onset: 019 Type II diabetes mellitus uncontrolled Anisha Naranjo MD O nset: 01/27/2019 Type 2 diabetes mellitus Anisha Naranjo MD Onset: 01/28/20 19 Social History Type Date Description Comments Sex Unknown Cigarette Use Former Cigarette Smoker 2 Packs Daily quit 22 years ago ETOH Use Never used alcohol Tobacco Use Start: Unknown Patient has never smoked Smoking Status Reviewed: 05/24/20 Patient has never smoked Allergies, Adverse Reactions, Alerts Active Allergies Reaction Severity Comments Date Lamisil 01/22/2019 Lipitor 01/22/2019 Terbinafine 01/22/2019 Penicillin 01/22/2019 Victoza 01/22/2019 Crestor 01/22/2019 Metformin 01/22/2019 Bydureon 01/22/2019 Ozempic 01/22/2019 Medications Active Medications SIG Qnty Indications Ordering Provide r Date Careone Unifine Pentips Plus Pen [place] [id number] 32G X 4 mm Misc use as directed 4 times daily C katherine Naranjo MD 08/26/2020 Glipizide ER 5mg Tablets ER 24HR Take 1 Tablet By Mouth Twice Daily . DO Not Exceed 2 Per 24 Hours 180tabs Anisha Naranjo MD 04/11/2020 Insulin Aspart Flexpen 100Unit/ML Solution Pen-Inject Use as Directed 6 Units AT Breakfast, 8 Units AT Lunch And 10 Units AT Dinner. Maximum Daily Dose 24 Units/Day 15units E11.65 Augie Roach NP 03/18/2020 Januvia 50mg Tablets Take 1 Tablet By Mouth Once Daily . DO Not Exceed 1 Per 24 Hours 90tabs Anisha Naranjo MD 09/09/2019 Novolog Flexpen 100U nit/ML Solution Pen-Inject use as directed 6 units at breakfast 8 u nits at lunch and 10 units at dinner. 15ml E11.65 Shantal Roach NP 08/08/2019 Lantus Solostar 100U nit/ML Solution Pen-Inject inject 20 units subq at bedtime , 15ml E11.65 Anisha Naranjo MD 08/08/2019 Primidone 50mg Tablets 1 PO b id Unknown KP Ferrous Sulfate 325(65Fe) mg Ta blets 1 po every other day Unknown Torsemide 10mg Tablets 1 po every other day Unknown Flecainide Acetate 50mg Tablets Take 1 one daily Unknown Bisoprolol Fumarate 5mg Tablets take 1 ans 1/2 po bid Unknown Eliquis 2.5mg Tablets 1 by mouth twice a day Unknown Duloxetine HCL 60mg Caps DR Part 1 po qd Unknown Vitamin D3 125mcg (5000 Ut) Capsul es 1 by mouth every day Unknown Vitamin B12 1000mcg Tablets ER 1 by mouth every day Unknown Folic Acid 1mg Tablets 1 po q d Unknown Azelastine HCL (Nasal) 0.1% Soluti on 2 sprays each nostril Unknown Pravastatin Sodium 20mg Tablets 1 po qd Unknown Methotrexate 2.5mg Tablets 4 po every sunday Unknown Immunizations Description No Information Available Vital Signs Date Vital Result Comment 08/26/2020 11:29am BP Systolic 128 mmHg BP Diastolic 70 mmHg Heart Rate 61 /min Body Temperature 97.1 F Height 63.5 inches 5'3.50" Weight 214.50 lb BMI (Body Mass Index) 37.4 kg/m2 O2 % BldC Oximetry 96 % 05/24/2020 10:45am BP Systolic 136 mmHg BP Diastolic 74 mmHg Heart Rate 60 /min Height 63.5 inches 5'3.50" Weight 211.50 lb BMI (Body Mass Index) 36.9 kg/m2 O2 % BldC Oximetry 97 % Results Test Acquired Date Facility Test Result H/L Range Note Laboratory test finding 08/26/2020 In House Glucose 99 Hemoglobin A1c 6.2 CBC With Differential 07/24/2020 [facility] [address] [place] [address] [phone])- - White Blood Count 6.8 10 Normal 4.0-10.0 Red Blood Count 3.97 10 Low 4.00-5.40 Hemoglobin 11.3 g/dL Low 12.0-15.5 Hematocrit 36.9 % Normal 36.0-47.0 Mean Corpuscular Volume 92.9 fl Normal 80.0-96.0 Mean Corpuscular Hemoglobin 28.5 pg Normal 27.0-33.0 Mean Corpuscular HGB Conc 30.6 g/dL Low 32.0-36.5 Red Cell Distribution Width 14.1 % Normal 11.5-14.5 Platelet Count, Automated 308 10 Normal 150-450 Neutrophils % 63.6 % Normal 36.0-66.0 Lymph % 23.7 % Low 24.0-44.0 [place] % 8.5 % High 0.0-5.0 Eos % 2.1 % Normal 0.0-3.0 Baso % 1.2 % High 0.0-1.0 Immature Granulocyte % 0.9 % Normal 0-3.0 Nucleated Red Blood Cell % 0.0 % Normal 0-0 Neutrophils # 4.3 10 Normal 1.5-8.5 Lymph # 1.6 10 Normal 1.5-5.0 [place] # 0.6 10 Normal 0.0-0.8 Eos # 0.1 10 Normal 0.0-0.5 Baso # 0.1 10 Normal 0.0-0.2 Renal Profile 07/24/2020 [facility] [address] [place] [address] [phone] - Glucose, Fasting 160 mg/dL High 70-100 Blood [...] GM/DL Normal 3.2-5.2 Laboratory test finding 07/24/2020 [facility] [address] [place] [address] (315)- - NT-Pro BNP 260 pg/mL High <125 Basic Metabolic Profile 06/03/2020 [facility] [address] [place] [address] (315)- - Glucose, Fasting 151 mg/dL High 70-100 Blood Urea Nitrogen 38 mg/dL High 7-18 Creatinine For GFR 1.35 mg/dL High 0.55-1.30 Glomerular Filtration Rate 40.9 Normal >39 2 Sodium Level 137 mEq/L Normal 136-145 Potassium Serum 5.1 mEq/L Normal 3.5-5.1 Chloride Level 100 mEq/L Normal 98-107 Carbon Dioxide Level 37 mEq/L High 21-32 Anion Gap 0 mEq/L Low 8-16 Calcium Level 9.4 mg/dL Normal 8.8-10.2 Laboratory test finding 05/24/2020 In House Hemoglobin A1c 6.2 Glucose 113 Complete Blood Count 04/16/2020 [facility] entr [address] [place] [address] (315)- - White Blood Count 7.6 10 Normal 4.0-10.0 [...] % Normal 0-0 Comprehensive Metabolic Profil 04/16/2020 [facility] [address] [place] [address] (315)- - Glucose, Fasting 147 mg/dL High 70-100 Blood Urea Nitrogen 46 mg/dL High 7-18 Creatinine For GFR 1.46 mg/dL High 0.55-1.30 Glomerular Filtration Rate 37.5 Low >39 3 Sodium Level 136 mEq/L Normal 136-145 Potassium [...] 1.1 Low 1.2-2.2 Laboratory test finding 04/16/2020 [facility] [address] [place] [address] [phone])- - Magnesium Level 2.3 mg/dL Normal 1.8-2.4 NT-Pro BNP 476 pg/mL High <125 1 Units are mL/min/1.73 m2 Chronic Kidney Disease Staging per NKF: Stage I & II GFR >=60 Normal to Mildly Decreased Stage III GFR 30-59 Moderately Decreased Stage IV GFR 15-29 Severely Decreased Stage V GFR <15 Very Little GFR Left ESRD GFR <15 on OUTSEWER 2 Units are mL/min/1.73 m2 Chronic Kidney Disease Staging per NKF: Stage I & II GFR >=60 Normal to Mildly Decreased Stage III GFR 30-59 Moderately Decreased Stage IV GFR 15-29 Severely Decreased Stage V GFR <15 Very Little GFR Left ESRD GFR <15 on OUTSEWER 3 Units are mL/min/1.73 m2 Chronic Kidney Disease Staging per NKF: Stage I & II GFR >=60 Normal to Mildly Decreased Stage III GFR 30-59 Moderately Decreased Stage IV GFR 15-29 Severely Decreased Stage V GFR <15 Very Little GFR Left ESRD GFR <15 on OUTSEWER Procedures Date Code Description Status 08/26/2020 51437 Amb Glucose Monitoring Interpret ation And Report Completed 05/24/2020 23810 Amb Glucose Monitoring Interpret ation And Report Completed 01/20/2020 [id number] Diabetic Foot Exam Completed Medical Devices Description No Information Available Encounters Type Date Location Provider Dx Diagnosis Office Visit 08/26/2020 11:30a DR. Anisha Naranjo MD E 11.65 Type 2 diabetes mellitus with hyperglycemia N18.30 Chronic kidney disease, stag e 3 unspecified Z01.89 Encounter for other specifie d special examinations Office Visit 05/24/2020 10:30a DR. Anisha Naranjo MD E 11.65 Type 2 diabetes mellitus with hyperglycemia N18.3 Chronic kidney disease, stag e 3 (moderate) Z01.89 Encounter for other specifie d special examinations Assessments Date Code Description Provider 08/26/2020 E11.65 Type 2 diabetes mellitus with hy perglycemia Anisha Naranjo MD 08/26/2020 N18.30 Chronic kidney disease, stage 3 unspecified Anisha Naranjo MD 08/26/2020 Z01.89 Encounter for other specified sp ecial examinations Anisha Naranjo MD 05/24/2020 E11.65 Type 2 diabetes mellitus with hy perglycemia Anisha Naranjo MD 05/24/2020 N18.3 Chronic kidney disease, stage 3 (moderate) Anisha Naranjo MD 05/24/2020 Z01.89 Encounter for other specified sp ecial examinations Anisha Naranjo MD Plan of Treatment Future Appointment(s):* 12/28/2020 11:15 am - Anisha Naranjo MD at DR. Anisha Naranjo 08/26/2020 - Anisha Naranjo MD* E11.65 Type 2 diabetes mellitus with hyperglycemia* Comments:* 08/26/2020: in office A1c= 6.2%BS= 99prior (6.2%, 6% 7.2%, 7.8% 7.5%, 6.9%) Today, patient reports she has been feeling well. She check blood sugar 4x daily. Has some lows (which she can feel) and she has been taking her SSI and long acting insulin as prescribed. She has been careful about avoiding carbohydrates in her diet.Freestyle Neri reviewed.In target range 84%Low 1%High 14%Day-to-day data shows overall consistent blood sugars but some lows after dinner and highs mid-day. Current medication: Januvia 50 mg daily, Glipizide ER 5 mg 1 tab by mouth BID current insulin: Lantus 20 u qhs, Novolog- breakfast-4 L: 3-4, Dinner 3-4 Recommendations:- Patient reports she is switching locations within [facility], will need lipid panel drawn at next lab draw as one has not been done this year-No changes to medication regimen at this time-She is advised to be better about taking insulin at dinnertime and do not overtreat at bedtime. RTO 4 months arthritis and cards notes reviewed- ESR= 56. on blood thinner , elevated BNP ,can not use SGLT-2 due to low gfr. * Follow up:* 4 months lab- jany/cbf * N18.30 Chronic kidney disease, stage 3 unspecified* Comments:* Nephrology notes reviewed 04/202012/25/2019- Scr= 1.26, GFR= 42 07/24/2020: BUN 38, Cr 1.35, GFR 40GFR appears to be stable, somewhat improved from prior. Will c ontinue to follow. * Z01.89 Encounter for other specified special examinations* Comments:* Foot Exam performed 01/20/2020 . Normal light touch and monofilament testing and vibration. * All * New Medication:* Careone Unifine Pentips Plus Pen [place] [id number] 32 G X 4 mm - use as directed 4 times daily Functional Status Description No Information Available Mental Status Description No Information Available Referrals Description No Information Available
--- OUTSIDE RECORDS SUMMARY | 2020-11-05 10:31 | CCD ---
Author Author [facility] Organization [facility] Address Unknown Phone Unavailable Care Team Providers Care [facility] Program Director Name Role Phone Shireen FLORES MD Unavailable Unavailable Shireen FLORES MD Unavailable Unavailable Shireen FLORES MD Unavailable Unavailable Shireen FLORES MD Unavailable Unavailable Shireen FLORES MD Unavailable Unavailable Shireen FLORES MD Unavailable Unavailable Shireen FLORES MD Unavailable Unavailable Shireen FLORES MD Unavailable Unavailable Shireen FLORES MD Unavailable Unavailable Shireen FLORES MD Unavailable Unavailable Shireen FLORES MD Unavailable Unavailable Shireen FLORES MD Unavailable Unavailable Shireen FLORES MD Unavailable Unavailable Shireen FLORES MD Unavailable Unavailable Shireen FLORES MD Unavailable Unavailable Shireen FLORES MD Unavailable Unavailable Shireen FLORES MD Unavailable Unavailable Shireen FLORES MD Unavailable Unavailable Shireen FLORES MD Unavailable Unavailable Shireen FLORES MD Unavailable Unavailable Shireen FLORES MD Unavailable Unavailable Shireen FLORES MD Unavailable Unavailable Shireen FLORES MD Unavailable Unavailable Shireen FLORES MD Unavailable Unavailable Shireen FLORES MD Unavailable Unavailable Shireen FLORES MD Unavailable Unavailable Shireen FLORES MD Unavailable Unavailable Shireen FLORES MD Unavailable Unavailable Shireen FLORES MD Unavailable Unavailable Shireen FLORES MD Unavailable Unavailable Shireen FLORES MD Unavailable Unavailable Shireen FLORES MD Unavailable Unavailable Shireen FLORES MD Unavailable Unavailable Shireen FLORES MD Unavailable Unavailable Shireen FLORES MD Unavailable Unavailable FLORESShireen Cole MD Unavailable Unavailable FLORESShireen Cole MD Unavailable Unavailable FLORES, Shireen COLLADO MD Unavailable Unavailable FLORES, Shireen COLLADO MD Unavailable Unavailable FLORES, E TOBIAS DE JESUS Unavailable Unavailable FLORES, E TOBIAS DE JESUS Unavailable Unavailable FLORES, Shireen COLLADO MD Unavailable Unavailable FLORES, Shireen COLLADO MD Unavailable Unavailable FLORES, Shireen COLLADO MD Unavailable Unavailable FLORES, Shireen COLLADO MD Unavailable Unavailable FLORES, Shireen COLLADO MD Unavailable Unavailable FLORES, Shireen COLLADO MD Unavailable Unavailable FLORES, Shireen COLLADO MD Unavailable Unavailable FLORES, Shireen COLLADO MD Unavailable Unavailable FLORES, Shireen COLLADO MD Unavailable Unavailable FLORES, Shireen COLLADO MD Unavailable Unavailable FLORES, Shireen COLLADO MD Unavailable Unavailable FLORES, Shireen COLLADO MD Unavailable Unavailable FLORES, Shireen COLLADO MD Unavailable Unavailable FLORES, Shireen COLLADO MD Unavailable Unavailable FLORES, E TOBIAS DE JESUS Unavailable Unavailable FLORES, E TOBIAS DE JESUS Unavailable Unavailable COOK, B MAIA ASTROPHYSICS PROFESSOR Unavailable Unavailable COOK, B MAIA ASTROPHYSICS PROFESSOR Unavailable Unavailable COOK, B MAIA ASTROPHYSICS PROFESSOR Unavailable Unavailable COOK, B MAIA ASTROPHYSICS PROFESSOR Unavailable Unavailable COOK, B MAIA ASTROPHYSICS PROFESSOR Unavailable Unavailable COOK, B MAIA ASTROPHYSICS PROFESSOR Unavailable Unavailable COOK, B MAIA ASTROPHYSICS PROFESSOR Unavailable Unavailable COOK, B MAIA ASTROPHYSICS PROFESSOR Unavailable Unavailable COOK, B MAIA ASTROPHYSICS PROFESSOR Unavailable Unavailable COOK, B MAIA ASTROPHYSICS PROFESSOR Unavailable Unavailable COOK, B MAIA ASTROPHYSICS PROFESSOR Unavailable Unavailable COOK, B MAIA ASTROPHYSICS PROFESSOR Unavailable Unavailable COOK, B MAIA ASTROPHYSICS PROFESSOR Unavailable Unavailable COOK, B MAIA ASTROPHYSICS PROFESSOR Unavailable Unavailable COOK, B MAIA ASTROPHYSICS PROFESSOR Unavailable Unavailable COOK, B MAIA ASTROPHYSICS PROFESSOR Unavailable Unavailable COOK, B MAIA ASTROPHYSICS PROFESSOR Unavailable Unavailable COOK, B MAIA ASTROPHYSICS PROFESSOR Unavailable Unavailable COOK, B MAIA ASTROPHYSICS PROFESSOR Unavailable Unavailable COOK, B MAIA ASTROPHYSICS PROFESSOR Unavailable Unavailable COOK, B MAIA ASTROPHYSICS PROFESSOR Unavailable Unavailable COOK, B MAIA ASTROPHYSICS PROFESSOR Unavailable Unavailable COOK, B MAIA ASTROPHYSICS PROFESSOR Unavailable Unavailable COOK, B MAIA ASTROPHYSICS PROFESSOR Unavailable Unavailable COOK, B MAIA ASTROPHYSICS PROFESSOR Unavailable Unavailable COOK, B MAIA ASTROPHYSICS PROFESSOR Unavailable Unavailable COOK, B MAIA ASTROPHYSICS PROFESSOR Unavailable Unavailable COOK, B MAIA ASTROPHYSICS PROFESSOR Unavailable Unavailable COOK, B MAIA ASTROPHYSICS PROFESSOR Unavailable Unavailable COOK, B MAIA ASTROPHYSICS PROFESSOR Unavailable Unavailable COOK, B MAIA ASTROPHYSICS PROFESSOR Unavailable Unavailable COOK, B MAIA ASTROPHYSICS PROFESSOR Unavailable Unavailable COOK, B MAIA ASTROPHYSICS PROFESSOR Unavailable Unavailable COOK, B MAIA ASTROPHYSICS PROFESSOR Unavailable Unavailable COOK, B MAIA ASTROPHYSICS PROFESSOR Unavailable Unavailable COOK, B MAIA ASTROPHYSICS PROFESSOR Unavailable Unavailable COOK, B MAIA ASTROPHYSICS PROFESSOR Unavailable Unavailable COOK, B AMIA ASTROPHYSICS PROFESSOR Unavailable Unavailable COOK, B MAIA ASTROPHYSICS PROFESSOR Unavailable Unavailable COOK, B MAIA ASTROPHYSICS PROFESSOR Unavailable Unavailable COOK, B MAIA ASTROPHYSICS PROFESSOR Unavailable Unavailable COOK, B MAIA ASTROPHYSICS PROFESSOR Unavailable Unavailable COOK, B MAIA ASTROPHYSICS PROFESSOR Unavailable Unavailable COOK, B MAIA ASTROPHYSICS PROFESSOR Unavailable Unavailable COOK, B MAIA ASTROPHYSICS PROFESSOR Unavailable Unavailable COOK, B MAIA ASTROPHYSICS PROFESSOR Unavailable Unavailable COOK, B MAIA ASTROPHYSICS PROFESSOR Unavailable Unavailable COOK, B MAIA ASTROPHYSICS PROFESSOR Unavailable Unavailable COOK, B MAIA ASTROPHYSICS PROFESSOR Unavailable Unavailable COOK, B MAIA ASTROPHYSICS PROFESSOR Unavailable Unavailable COOK, B MAIA ASTROPHYSICS PROFESSOR Unavailable Unavailable COOK, B MAIA ASTROPHYSICS PROFESSOR Unavailable Unavailable COOK, B MAIA ASTROPHYSICS PROFESSOR Unavailable Unavailable COOK, B MAIA ASTROPHYSICS PROFESSOR Unavailable Unavailable COOK, B MAIA ASTROPHYSICS PROFESSOR Unavailable Unavailable COOK, B MAIA ASTROPHYSICS PROFESSOR Unavailable Unavailable COOK, B MAIA ASTROPHYSICS PROFESSOR Unavailable Unavailable COOK, B MAIA ASTROPHYSICS PROFESSOR Unavailable Unavailable COOK, B MAIA ASTROPHYSICS PROFESSOR Unavailable Unavailable COOK, B MAIA ASTROPHYSICS PROFESSOR Unavailable Unavailable COOK, B MAIA ASTROPHYSICS PROFESSOR Unavailable Unavailable COOK, B MAIA ASTROPHYSICS PROFESSOR Unavailable Unavailable COOK, B MAIA ASTROPHYSICS PROFESSOR Unavailable Unavailable COOK, B MAIA ASTROPHYSICS PROFESSOR Unavailable Unavailable TEAGUE, H MARIANA ASTROPHYSICS PROFESSOR Unavailable Unavailable TEAGUE, H MARIANA ASTROPHYSICS PROFESSOR Unavailable Unavailable TEAGUE, H MARIANA ASTROPHYSICS PROFESSOR Unavailable Unavailable TEAGUE, H MARIANA ASTROPHYSICS PROFESSOR Unavailable Unavailable TEAGUE, H MARIANA ASTROPHYSICS PROFESSOR Unavailable Unavailable TEAGUE, H MARIANA ASTROPHYSICS PROFESSOR Unavailable Unavailable TEAGUE, H MARIANA ASTROPHYSICS PROFESSOR Unavailable Unavailable TEAGUE, H MARIANA ASTROPHYSICS PROFESSOR Unavailable Unavailable TEAGUE, H MARIANA ASTROPHYSICS PROFESSOR Unavailable Unavailable TEAGUE, H MARIANA ASTROPHYSICS PROFESSOR Unavailable Unavailable TEAGUE, H MARIANA ASTROPHYSICS PROFESSOR Unavailable Unavailable TEAGUE, H MARIANA ASTROPHYSICS PROFESSOR Unavailable Unavailable TEAGUE, H MARIANA ASTROPHYSICS PROFESSOR Unavailable Unavailable TEAGUE, H MARIANA ASTROPHYSICS PROFESSOR Unavailable Unavailable TEAGUE, H MARIANA ASTROPHYSICS PROFESSOR Unavailable Unavailable TEAGUE, H MARIANA ASTROPHYSICS PROFESSOR Unavailable Unavailable TEAGUE, H MARIANA ASTROPHYSICS PROFESSOR Unavailable Unavailable TEAGUE, H MARIANA ASTROPHYSICS PROFESSOR Unavailable Unavailable TEAGUE, H MARIANA ASTROPHYSICS PROFESSOR Unavailable Unavailable TEAGUE, H MARIANA ASTROPHYSICS PROFESSOR Unavailable Unavailable TEAGUE, H MARIANA ASTROPHYSICS PROFESSOR Unavailable Unavailable TEAGUE, H MARIANA ASTROPHYSICS PROFESSOR Unavailable Unavailable TEAGUE, H MARIANA ASTROPHYSICS PROFESSOR Unavailable Unavailable TEAGUE, H MARIANA ASTROPHYSICS PROFESSOR Unavailable Unavailable TEAGUE, H MARIANA ASTROPHYSICS PROFESSOR Unavailable Unavailable TEAGUE, H MARIANA ASTROPHYSICS PROFESSOR Unavailable Unavailable TEAGUE, H MARIANA ASTROPHYSICS PROFESSOR Unavailable Unavailable TEAGUE, H MARIANA ASTROPHYSICS PROFESSOR Unavailable Unavailable TEAGUE, H MARIANA ASTROPHYSICS PROFESSOR Unavailable Unavailable TEAGUE, H MARIANA ASTROPHYSICS PROFESSOR Unavailable Unavailable TEAGUE, H MARIANA ASTROPHYSICS PROFESSOR Unavailable Unavailable TEGAUE, H MARIANA ASTROPHYSICS PROFESSOR Unavailable Unavailable TEAGUE, H MARIANA ASTROPHYSICS PROFESSOR Unavailable Unavailable TEAGUE, H MARIANA ASTROPHYSICS PROFESSOR Unavailable Unavailable TEAGUE, H MARIANA ASTROPHYSICS PROFESSOR Unavailable Unavailable TEAGUE, H MARIANA ASTROPHYSICS PROFESSOR Unavailable Unavailable TEAGUE, H MARIANA ASTROPHYSICS PROFESSOR Unavailable Unavailable TEAGUE, H MARIANA ASTROPHYSICS PROFESSOR Unavailable Unavailable TEAGUE, H MARIANA ASTROPHYSICS PROFESSOR Unavailable Unavailable TEAGUE, H MARIANA ASTROPHYSICS PROFESSOR Unavailable Unavailable TEAGUE, H MARIANA ASTROPHYSICS PROFESSOR Unavailable Unavailable TEAGUE, H MARIANA ASTROPHYSICS PROFESSOR Unavailable Unavailable TEAGUE, H MARIANA ASTROPHYSICS PROFESSOR Unavailable Unavailable TEAGUE, H MARIANA ASTROPHYSICS PROFESSOR Unavailable Unavailable TEAGUE, H MARIANA ASTROPHYSICS PROFESSOR Unavailable Unavailable TEAGUE, H MARIANA ASTROPHYSICS PROFESSOR Unavailable Unavailable TEAGUE, H MARIANA ASTROPHYSICS PROFESSOR Unavailable Unavailable TEAGUE, H MARIANA ASTROPHYSICS PROFESSOR Unavailable Unavailable TEAGUE, H MARIANA ASTROPHYSICS PROFESSOR Unavailable Unavailable TEAGUE, H MARIANA ASTROPHYSICS PROFESSOR Unavailable Unavailable TEAGUE, H MARIANA ASTROPHYSICS PROFESSOR Unavailable Unavailable TEAGUE, H MARIANA ASTROPHYSICS PROFESSOR Unavailable Unavailable TEAGUE, H MARIANA ASTROPHYSICS PROFESSOR Unavailable Unavailable TEAGUE, H MARIANA ASTROPHYSICS PROFESSOR Unavailable Unavailable TEAGUE, H MARIANA ASTROPHYSICS PROFESSOR Unavailable Unavailable Rob, Mariela Rawls ASTROPHYSICS PROFESSOR-C Unavailable Unavailabl e Rob, Mariela Wongnifer ASTROPHYSICS PROFESSOR-C Unavailable Unavailabl e Rob, Mariela Oseifer ASTROPHYSICS PROFESSOR-C Unavailable Unavailabl e Rob, Mariela Wongnifer ASTROPHYSICS PROFESSOR-C Unavailable Unavailabl e Rob, Mariela Oseifer ASTROPHYSICS PROFESSOR-C Unavailable Unavailabl e Rob, Mariela Oseifer ASTROPHYSICS PROFESSOR-C Unavailable Unavailabl e Rob, Mariela Rawls ASTROPHYSICS PROFESSOR-C Unavailable Unavailabl e Rob, Mariela Oseifer ASTROPHYSICS PROFESSOR-C Unavailable Unavailabl e Rob, Mariela Oseifer ASTROPHYSICS PROFESSOR-C Unavailable Unavailabl e Rob, Mariela Wongnifer ASTROPHYSICS PROFESSOR-C Unavailable Unavailabl e Rob, Mariela Oseifer ASTROPHYSICS PROFESSOR-C Unavailable Unavailabl e Rob, Mariela Wongnifer ASTROPHYSICS PROFESSOR-C Unavailable Unavailabl e Rob, Mariela Sinai ASTROPHYSICS PROFESSOR-C Unavailable Unavailabl e Rob, Mariela Sinai ASTROPHYSICS PROFESSOR-C Unavailable Unavailabl e Rob, Mariela Sinai ASTROPHYSICS PROFESSOR-C Unavailable Unavailabl e Rob, Mariela Sinai ASTROPHYSICS PROFESSOR-C Unavailable Unavailabl e Rob, Mariela Wongnifer ASTROPHYSICS PROFESSOR-C Unavailable Unavailabl e Rob, Mariela Wongnifer ASTROPHYSICS PROFESSOR-C Unavailable Unavailabl e Rob, Mariela Sinai ASTROPHYSICS PROFESSOR-C Unavailable Unavailabl e Rob, Mariela Oseifer ASTROPHYSICS PROFESSOR-C Unavailable Unavailabl e Rob, Marielaana WongSinai ASTROPHYSICS PROFESSOR-C Unavailable Unavailabl e Rob, Mariela Sinai ASTROPHYSICS PROFESSOR-C Unavailable Unavailabl e Rob, Mariela Sinai ASTROPHYSICS PROFESSOR-C Unavailable Unavailabl e Rob, Mariela Sinai ASTROPHYSICS PROFESSOR-C Unavailable Unavailabl e Rob, Mariela Sinai ASTROPHYSICS PROFESSOR-C Unavailable Unavailabl e Rob, Mariela Sinai ASTROPHYSICS PROFESSOR-C Unavailable Unavailabl e Rob, Mariela Sinai ASTROPHYSICS PROFESSOR-C Unavailable Unavailabl e Rob, Mariela Sinai ASTROPHYSICS PROFESSOR-C Unavailable Unavailabl e Rob, Mariela Sinai ASTROPHYSICS PROFESSOR-C Unavailable Unavailabl e Rob, Mariela Sinai ASTROPHYSICS PROFESSOR-C Unavailable Unavailabl e Rob, Mariela Sinai ASTROPHYSICS PROFESSOR-C Unavailable Unavailabl e Rob, Mariela Sinai ASTROPHYSICS PROFESSOR-C Unavailable Unavailabl e Rob, Mariela Sinai ASTROPHYSICS PROFESSOR-C Unavailable Unavailabl e Rob, Mariela Sinai ASTROPHYSICS PROFESSOR-C Unavailable Unavailabl e Rob, Mariela Sinai ASTROPHYSICS PROFESSOR-C Unavailable Unavailabl e Rob, Mariela Sinai ASTROPHYSICS PROFESSOR-C Unavailable Unavailabl e Rob, Mariela Sinai ASTROPHYSICS PROFESSOR-C Unavailable Unavailabl e Rob, Mariela Sinai ASTROPHYSICS PROFESSOR-C Unavailable Unavailabl e Rob, Mariela Sinai ASTROPHYSICS PROFESSOR-C Unavailable Unavailabl e Rob, Mariela Sinai ASTROPHYSICS PROFESSOR-C Unavailable Unavailabl e Rob, Mariela Sinai ASTROPHYSICS PROFESSOR-C Unavailable Unavailabl e Rob, Mariela Sinai ASTROPHYSICS PROFESSOR-C Unavailable Unavailabl e Rob, Mariela Sinai ASTROPHYSICS PROFESSOR-C Unavailable Unavailabl e Rob, Mariela Sinai ASTROPHYSICS PROFESSOR-C Unavailable Unavailabl e Rob, Mariela Sinai ASTROPHYSICS PROFESSOR-C Unavailable Unavailabl e Rob, Mariela Sinai ASTROPHYSICS PROFESSOR-C Unavailable Unavailabl e Al Pete Prater MD Unavailable Unavailable Pete Olivera MD Unavailable Unavailable Pete Olivera MD Unavailable Unavailable Pete Olivera MD Unavailable Unavailable Pete Olivera MD Unavailable Unavailable Pete Olivera MD Unavailable Unavailable Pete Olivera MD Unavailable Unavailable Pete Olivera MD Unavailable Unavailable Pete Olivera MD Unavailable Unavailable Pete Olivera MD Unavailable Unavailable Al Mudamgha, A Ali MD Unavailable Unavailable Al Mudamgha, A Ali MD Unavailable Unavailable Al Mudamgha, A Ali MD Unavailable Unavailable Al Mudamgha, A Ali MD Unavailable Unavailable Al Mudamgha, A Ali MD Unavailable Unavailable Al Mudamgha, A Ali MD Unavailable Unavailable Al Mudamgha, A Ali MD Unavailable Unavailable Al Mudamgha, A Ali MD Unavailable Unavailable Al Mudamgha, A Ali MD Unavailable Unavailable Al Mudamgha, A Ali MD Unavailable Unavailable Al Mudamgha, A Ali MD Unavailable Unavailable Al Mudamgha, A Ali MD Unavailable Unavailable Al Mudamgha, A Ali MD Unavailable Unavailable Al Mudamgha, A Ali MD Unavailable Unavailable Al Mudamgha, A Ali MD Unavailable Unavailable Al Mudamgha, A Ali MD Unavailable Unavailable Al Mudamgha, A Ali MD Unavailable Unavailable Al Mudamgha, A Ali MD Unavailable Unavailable Al Mudamgha, A Ali MD Unavailable Unavailable Al Mudamgha, A Ali MD Unavailable Unavailable Al Mudamgha, A Ali MD Unavailable Unavailable Al Mudamgha, A Ali MD Unavailable Unavailable Al Mudamgha, A Ali MD Unavailable Unavailable Al Mudamgha, A Ali MD Unavailable Unavailable Al Mudamgha, A Ali MD Unavailable Unavailable Al Mudamgha, A Ali MD Unavailable Unavailable Al Mudamgha, A Ali MD Unavailable Unavailable Al Mudamgha, A Ali MD Unavailable Unavailable Al Mudamgha, A Ali MD Unavailable Unavailable Al Mudamgha, A Ali MD Unavailable Unavailable Al Mudamgha, A Ali MD Unavailable Unavailable Al Mudamgha, A Ali MD Unavailable Unavailable Al Mudamgha, A Ali MD Unavailable Unavailable Al Mudamgha, A Ali MD Unavailable Unavailable Al Mudamgha, A Ali MD Unavailable Unavailable Al Mudamgha, A Ali MD Unavailable Unavailable Al Mudamgha, A Ali MD Unavailable Unavailable Al Mudamgha, A Ali MD Unavailable Unavailable Al Mudamgha, A Ali MD Unavailable Unavailable Al Mudamgha, A Ali MD Unavailable Unavailable Al Mudamgha, A Ali MD Unavailable Unavailable Al Mudamgha, A Ali MD Unavailable Unavailable Al Mudamgha, A Ali MD Unavailable Unavailable Al Mudamgha, A Ali MD Unavailable Unavailable Al Mudamgha, A Ali MD Unavailable Unavailable Al Mudamgha, A Ali MD Unavailable Unavailable Al Mudamgha, A Ali MD Unavailable Unavailable Al Mudamgha, Pete Hoffman MD Unavailable Unavailable Al Mudamgha, Pete Hoffman MD Unavailable Unavailable Al Mudamgha, Pete Hoffman MD Unavailable Unavailable Al Mudamgha, Pete Hoffman MD Unavailable Unavailable Al Mudamgha, Pete Hoffman MD Unavailable Unavailable Al Mudamgha, Pete Hoffman MD Unavailable Unavailable Al Mudamgha, Pete Hoffman MD Unavailable Unavailable Al Mudamgha, Pete Hoffman MD Unavailable Unavailable Al Mudamgha, Pete Hoffman MD Unavailable Unavailable Al Mudamgha, Pete Hoffman MD Unavailable Unavailable Al Mudamgha, Pete Hoffman MD Unavailable Unavailable Al Mudamgha, Pete Hoffman MD Unavailable Unavailable Al Mudamgha, Pete Hoffman MD Unavailable Unavailable Al Mudamgha, Pete Hoffman MD Unavailable Unavailable Al Mudamgha, Pete Hoffman MD Unavailable Unavailable Al Mudamgha, Pete Hoffman MD Unavailable Unavailable Al Mudamgha, Pete Hoffman MD Unavailable Unavailable Al Mudamgha, Pete Hoffman MD Unavailable Unavailable Al Mudamgha, Pete Hoffman MD Unavailable Unavailable Al Mudamgha, Pete Hoffman MD Unavailable Unavailable Al Mudamgha, Pete Hoffman MD Unavailable Unavailable Al Mudamgha, Pete Hoffman MD Unavailable Unavailable Al Mudamgha, Pete Hoffman MD Unavailable Unavailable Ruiz Gomez, Pete Valencia MD, FACS Unavailable Unavailable Ruiz Gomez, Pete Valencia MD, FACS Unavailable Unavailable Ruiz Gomez, Pete Valencia MD, FACS Unavailable Unavailable Ruiz Gomez, Pete Valencia MD, FACS Unavailable Unavailable Ruiz Gomez, Pete Valencia MD, FACS Unavailable Unavailable Ruiz Gomez, Pete Valencia MD, FACS Unavailable Unavailable Ruiz Gomez, Pete Valencia MD, FACS Unavailable Unavailable Ruiz Gomez, Pete Valencia MD, FACS Unavailable Unavailable Ruiz Gomez, Pete Valencia MD, FACS Unavailable Unavailable Ruiz Gomez, Pete Valencia MD, FACS Unavailable Unavailable Ruiz Gomez, Pete Valencia MD, FACS Unavailable Unavailable Ruiz Gomez, Pete Valencia MD, FACS Unavailable Unavailable Ruiz Gomez, Pete Valencia MD, FACS Unavailable Unavailable Ruiz Gomez, Pete Valencia MD, FACS Unavailable Unavailable Ruiz Gomez, Pete Valencia MD, FACS Unavailable Unavailable Ruiz Gomez, Pete Valencia MD, FACS Unavailable Unavailable Ruiz Gomez, Pete Valencia MD, FACS Unavailable Unavailable Ruiz Gomez, Pete Valencia MD, FACS Unavailable Unavailable Ruiz Gomez, Pete Valencia MD, FACS Unavailable Unavailable Ruiz Gomez, Pete Valencia MD, FACS Unavailable Unavailable Ruiz Gomez, Pete Valencia MD, FACS Unavailable Unavailable Ruiz Gomez, Pete Valencia MD, FACS Unavailable Unavailable Ruiz Gomez, Pete Valencia MD, FACS Unavailable Unavailable Ruiz Gomez, Pete Valencia MD, FACS Unavailable Unavailable Ruiz Gomez, Pete Valencia MD, FACS Unavailable Unavailable Sara Gomez, Pete Valencia MD, FACS Unavailable Unavailable Sara Gomez, Pete Valencia MD, FACS Unavailable Unavailable Sara Gomez, Pete Valencia MD, FACS Unavailable Unavailable Sara Gomez, Pete Valencia MD, FACS Unavailable Unavailable Sara Gomez, Pete Valencia MD, FACS Unavailable Unavailable Sara Gomez, Pete Valencia MD, FACS Unavailable Unavailable Sara Gomez, Pete Valencia MD, FACS Unavailable Unavailable Sara Gomez, Pete Valencia MD, FACS Unavailable Unavailable Sara Gomez, Pete Valencia MD, FACS Unavailable Unavailable RYBINSKI, FELICIA PA Unavailable Unavailable RYBINSKI, FELICIA PA Unavailable Unavailable RYBINSKI, FELICIA PA Unavailable Unavailable RYBINSKI, FELICIA PA Unavailable Unavailable RYBINSKI, FELICIA PA Unavailable Unavailable RYBINSKI, FELICIA PA Unavailable Unavailable RYBINSKI, FELICIA PA Unavailable Unavailable RYBINSKI, FELICIA PA Unavailable Unavailable RYBINSKI, FELICIA PA Unavailable Unavailable RYBINSKI, FELICIA PA Unavailable Unavailable RYBINSKI, FELICIA PA Unavailable Unavailable RYBINSKI, FELICIA PA Unavailable Unavailable RYBINSKI, FELICIA PA Unavailable Unavailable RYBINSKI, FELICIA PA Unavailable Unavailable RYBINSKI, FELICIA PA Unavailable Unavailable RYBINSKI, FELICIA PA Unavailable Unavailable RYBINSKI, FELICIA PA Unavailable Unavailable RYBINSKI, FELICIA PA Unavailable Unavailable RYBINSKI, FELICIA PA Unavailable Unavailable RYBINSKI, FELICIA PA Unavailable Unavailable RYBINSKI, FELICIA PA Unavailable Unavailable RYBINSKI, FELICIA PA Unavailable Unavailable RYBINSKI, FELICIA PA Unavailable Unavailable RYBINSKI, FELICAI PA Unavailable Unavailable RYBINSKI, FELICIA PA Unavailable Unavailable RYBINSKI, FELICIA PA Unavailable Unavailable RYBINSKI, FELICIA PA Unavailable Unavailable RYBINSKI, FELICIA PA Unavailable Unavailable RYBINSKI, FELICIA PA Unavailable Unavailable RYBINSKI, FELICIA PA Unavailable Unavailable RYBINSKI, FELICIA PA Unavailable Unavailable RYBINSKI, FELICIA PA Unavailable Unavailable RYBINSKI, FELICIA PA Unavailable Unavailable RYBINSKI, FELICIA PA Unavailable Unavailable RYBINSKI, FELICIA PA Unavailable Unavailable RYBINSKI, FELICIA PA Unavailable Unavailable RYBINSKI, FELICIA PA Unavailable Unavailable RYBINSKI, FELICIA PA Unavailable Unavailable RYBINSKI, FELICIA PA Unavailable Unavailable RYBINSKI, FELICIA PA Unavailable Unavailable RYBINSKI, FELICIA PA Unavailable Unavailable RYBINSKI, FELICIA PA Unavailable Unavailable RYBINSKI, FELICIA PA Unavailable Unavailable RYBINSKI, FELICIA PA Unavailable Unavailable RYBINSKI, FELICIA PA Unavailable Unavailable RYBINSKI, FELICIA PA Unavailable Unavailable RYBINSKI, FELICIA PA Unavailable Unavailable RYBINSKI, FELICIA PA Unavailable Unavailable RYBINSKI, FELICIA PA Unavailable Unavailable RYBINSKI, FELICIA PA Unavailable Unavailable RYBINSKI, FELICIA PA Unavailable Unavailable RYBINSKI, FELICIA PA Unavailable Unavailable RYBINSKI, FELICIA PA Unavailable Unavailable Fish, B Anisha DE JESUS Unavailable Unavailable Fish, Doyle Lancaster MD Unavailable Unavailable Fish, Doyle Lancaster MD Unavailable Unavailable Fish, Doyle Lancaster MD Unavailable Unavailable Fish, Doyle Lancaster MD Unavailable Unavailable Fish, Doyle Lancaster MD Unavailable Unavailable Fish, Doyle Lancaster MD Unavailable Unavailable Fish, Doyle Lancaster MD Unavailable Unavailable Fish, Doyle Lancaster MD Unavailable Unavailable Fish, Doyle Lancaster MD Unavailable Unavailable Fish, Doyle Lancaster MD Unavailable Unavailable Fish, Doyle Lancaster MD Unavailable Unavailable Fish, Doyle Lancaster MD Unavailable Unavailable Fish, Doyle Lancaster MD Unavailable Unavailable Fish, Doyle Lancaster MD Unavailable Unavailable FishDoyle MD Unavailable Unavailable FishDoyle MD Unavailable Unavailable FishDoyle MD Unavailable Unavailable FishDoyle MD Unavailable Unavailable Fish, Doyle Lancaster MD Unavailable Unavailable Fish, Doyle Lancaster MD Unavailable Unavailable Fish, Doyle Lancaster MD Unavailable Unavailable Fish, Doyle Lancaster MD Unavailable Unavailable Fish, Doyle Lancaster MD Unavailable Unavailable Fish, Doyle Lancaster MD Unavailable Unavailable FishDoyle MD Unavailable Unavailable Fish, Doyle Lancaster MD Unavailable Unavailable Fish, Doyle Lancaster MD Unavailable Unavailable Fish, Doyle Lancaster MD Unavailable Unavailable Fish, Doyle Lancaster MD Unavailable Unavailable Fish, Doyel Lancaster MD Unavailable Unavailable FishDoyle MD Unavailable Unavailable FishDoyle MD Unavailable Unavailable FishDoyle MD Unavailable Unavailable FishDoyle MD Unavailable Unavailable Fish, Doyle Lancaster MD Unavailable Unavailable Fish, Doyle Lancaster MD Unavailable Unavailable Fish, Doyle Lancaster MD Unavailable Unavailable Fish, Doyle Lancaster MD Unavailable Unavailable Fish, Doyle Lancaster MD Unavailable Unavailable Fish, Doyle Lancaster MD Unavailable Unavailable Fish, Doyle Lancaster MD Unavailable Unavailable Fish, Doyle Lancaster MD Unavailable Unavailable Fish, Doyle Lancaster MD Unavailable Unavailable Fish, Doyle Lancaster MD Unavailable Unavailable Fish, Doyle Lancaster MD Unavailable Unavailable Fish, Doyle Lancaster MD Unavailable Unavailable FishDoyle MD Unavailable Unavailable FishDoyle MD Unavailable Unavailable Fish, Doyle Lancaster MD Unavailable Unavailable Fish, Doyle Lancaster MD Unavailable Unavailable Fish, Doyle Lancaster MD Unavailable Unavailable Fish, Doyle Lancaster MD Unavailable Unavailable Fish, Doyle Lancaster MD Unavailable Unavailable Fish, Doyle Lancaster MD Unavailable Unavailable Fish, Doyle Lancaster MD Unavailable Unavailable Fish, Doyle Lancaster MD Unavailable Unavailable Fish, Doyle Lancaster MD Unavailable Unavailable Fish, Doyle Lancaster MD Unavailable Unavailable Fish, Doyle Lancaster MD Unavailable Unavailable Fish, Doyle Lancaster MD Unavailable Unavailable Fish, Doyle Lancaster MD Unavailable Unavailable Fish, Doyle Lancaster MD Unavailable Unavailable Fish, Doyle Lancaster MD Unavailable Unavailable MtanoJoaquin cole MD Unavailable Unavailable MtanosJoaquin MD Unavailable Unavailable MtanosJoaquin MD Unavailable Unavailable MtanosJoaquin MD Unavailable Unavailable MtanoJoaquin cole MD Unavailable Unavailable MtanoJoaquin cole MD Unavailable Unavailable MtanoJoaquin cole MD Unavailable Unavailable MtanoJoaquin cole MD Unavailable Unavailable MtanoJoaquin cole MD Unavailable Unavailable MtanoJoaquin cole MD Unavailable Unavailable MtanoJoaquin cole MD Unavailable Unavailable MtanoJoaquin cole MD Unavailable Unavailable MtanoJoaquin cole MD Unavailable Unavailable MtanoJoaquin cole MD Unavailable Unavailable MtanoJoaquin cole MD Unavailable Unavailable MtanoJoaquin cole MD Unavailable Unavailable MtaJoaquin suazo MD Unavailable Unavailable MtaJoaquin suazo MD Unavailable Unavailable MtaJoaquin suazo MD Unavailable Unavailable MtaJoaquin suazo MD Unavailable Unavailable MtaJoaquin suazo MD Unavailable Unavailable MtaJoaquin suazo MD Unavailable Unavailable MtaJoaquin suazo MD Unavailable Unavailable MtaJoaquin suazo MD Unavailable Unavailable MtaJoaquin suazo MD Unavailable Unavailable MtaJoaquin suazo MD Unavailable Unavailable MtanoJoaquin cole MD Unavailable Unavailable MtanoJoaquin cole MD Unavailable Unavailable MtanoJoaquin cole MD Unavailable Unavailable MtanoJoaquin cole MD Unavailable Unavailable MtanoJoaquin cole MD Unavailable Unavailable MtanoJoaquin cole MD Unavailable Unavailable MtanosJoaquin MD Unavailable Unavailable MtanoJoaquin cole MD Unavailable Unavailable MtanosJoaquin MD Unavailable Unavailable MtanosJoaquin MD Unavailable Unavailable MtanosJoaquin MD Unavailable Unavailable MtanoJoaquin cole MD Unavailable Unavailable MtanoJoaquin cole MD Unavailable Unavailable MtanoJoaquin cole MD Unavailable Unavailable MtanoJoaquin cole MD Unavailable Unavailable MtanoJoaquin cole MD Unavailable Unavailable MtanoJoaquin cole MD Unavailable Unavailable MtanosJoaquin MD Unavailable Unavailable MtanosJoaquin MD Unavailable Unavailable MtanosJoaquin MD Unavailable Unavailable MtanosJoaquin MD Unavailable Unavailable MtanosJoaquin MD Unavailable Unavailable MtanosJoaquin MD Unavailable Unavailable MtanosJoaquin MD Unavailable Unavailable MtanosJoaquin MD Unavailable Unavailable MtanosJoaquin MD Unavailable Unavailable MtanosJoaquin MD Unavailable Unavailable MtanosJoaquin MD Unavailable Unavailable MtanosJoaquin MD Unavailable Unavailable MtanosJoaquin MD Unavailable Unavailable MtanosJoaquin MD Unavailable Unavailable MtanosJoaquin MD Unavailable Unavailable MtanosJoaquin MD Unavailable Unavailable MtanosJoaquin MD Unavailable Unavailable MtanosJoaquin MD Unavailable Unavailable MtanosJoaquin MD Unavailable Unavailable MtanosJoaquin MD Unavailable Unavailable MtanosJoaquin MD Unavailable Unavailable MtanosJoaquin MD Unavailable Unavailable MtanosJoaquin MD Unavailable Unavailable MtanosJoaquin MD Unavailable Unavailable MtanosJoaquin MD Unavailable Unavailable MtanosJoaquin MD Unavailable Unavailable MtanoJoaquin cole MD Unavailable Unavailable MtanoJoaquin cole MD Unavailable Unavailable MtanosJoaquin MD Unavailable Unavailable MtanosJoaquin MD Unavailable Unavailable MtanosJoaquin MD Unavailable Unavailable MtanosJoaquin MD Unavailable Unavailable MtanosJoaquin MD Unavailable Unavailable MtanosJoaquin MD Unavailable Unavailable MtanosJoaquin MD Unavailable Unavailable MtanosJoaquin MD Unavailable Unavailable MtanosJoaquin MD Unavailable Unavailable MtanosJoaquin MD Unavailable Unavailable MtanosJoaquin MD Unavailable Unavailable MtanosJoaquin MD Unavailable Unavailable MtanosJoaquin MD Unavailable Unavailable MtanoJoaquin cole MD Unavailable Unavailable MtanoJoaquin cole MD Unavailable Unavailable MtanosJoaquin MD Unavailable Unavailable MtanosJoaquin MD Unavailable Unavailable MtanosJoaquin MD Unavailable Unavailable MtanosJoaquin MD Unavailable Unavailable MtanosJoaquin MD Unavailable Unavailable MtanosJoaquin MD Unavailable Unavailable MtanosJoaquin MD Unavailable Unavailable MtanosJoaquin MD Unavailable Unavailable MtanosJoaquin MD Unavailable Unavailable MtanosJoaquin MD Unavailable Unavailable MtanosJoaquin MD Unavailable Unavailable MtanosJoaquin MD Unavailable Unavailable MtanosJoaquin MD Unavailable Unavailable RING, K FLETCHER PA Unavailable Unavailable RING, K FLETCHER PA Unavailable Unavailable RING, K FLETCHER PA Unavailable Unavailable RING, K FLETCHER PA Unavailable Unavailable RING, K FLETCHER PA Unavailable Unavailable RING, K FLETCHER PA Unavailable Unavailable RING, K FLETCHER PA Unavailable Unavailable RING, K FLETCHER PA Unavailable Unavailable RING, K FLETCHER PA Unavailable Unavailable RING, K FLETCHER PA Unavailable Unavailable RING, K FLETCHER PA Unavailable Unavailable RING, K FLETCHER PA Unavailable Unavailable RING, K FLETCHER PA Unavailable Unavailable RING, K FLETCHER PA Unavailable Unavailable RING, K FLETCHER PA Unavailable Unavailable RING, K FLETCHER PA Unavailable Unavailable RING, K FLETCHER PA Unavailable Unavailable RING, K FLETCHER PA Unavailable Unavailable RING, K FLETCHER PA Unavailable Unavailable RING, K FLETCHER PA Unavailable Unavailable AliDominga MD Unavailable Unavailable Ali, Dominga DE JESUS Unavailable Unavailable Ali, Dominga DE JESUS Unavailable Unavailable Ali, Dominga DE JESUS Unavailable Unavailable Ali, Dominga DE JESUS Unavailable Unavailable Ali, Dominga DE JESUS Unavailable Unavailable Ali, Dominga DE JESUS Unavailable Unavailable Ali, Dominga DE JESUS Unavailable Unavailable Ali, Dominga DE JESUS Unavailable Unavailable Ali, Dominga DE JESUS Unavailable Unavailable Ali, Dominga DE JESUS Unavailable Unavailable Ali, Dominga DE JESUS Unavailable Unavailable Ali, Dominga DE JESUS Unavailable Unavailable Ali, Dominga DE JESUS Unavailable Unavailable Ali, Dominga DE JESUS Unavailable Unavailable Ali, Dominga DE JESUS Unavailable Unavailable Ali, Dominga DE JESUS Unavailable Unavailable Ali, Dominga DE JESUS Unavailable Unavailable Ali, Dominga DE JESUS Unavailable Unavailable Ali, Dominag DE JESUS Unavailable Unavailable Ali, Dominga DE JESUS Unavailable Unavailable Ali, Dominga DE JESUS Unavailable Unavailable Ali, Dominga DE JESUS Unavailable Unavailable Ali, Dominga DE JESUS Unavailable Unavailable Ali, Dominga DE JESUS Unavailable Unavailable Ali, Dominga DE JESUS Unavailable Unavailable Ali, Dominga DE JESUS Unavailable Unavailable Ali, Dominga DE JESUS Unavailable Unavailable Ali, Dominga DE JESUS Unavailable Unavailable AliDominga MD Unavailable Unavailable Ali, Dominga DE JESUS Unavailable Unavailable AliDominga MD Unavailable Unavailable AliDominga MD Unavailable Unavailable AliDominga MD Unavailable Unavailable AliDominga MD Unavailable Unavailable AliDominga MD Unavailable Unavailable AliDominga MD Unavailable Unavailable AliDominga MD Unavailable Unavailable AliDominga MD Unavailable Unavailable AliDominga MD Unavailable Unavailable AliDominga MD Unavailable Unavailable AliDominga MD Unavailable Unavailable AliDominga MD Unavailable Unavailable AliDominga MD Unavailable Unavailable AliDominga MD Unavailable Unavailable AliDominga MD Unavailable Unavailable Ali, Dominga DE JESUS Unavailable Unavailable Ali, Dominga DE JESUS Unavailable Unavailable AliDominga MD Unavailable Unavailable Nowata Dianne, A Fabiola PA Unavailable Unavailable Nowata Dianne, A Fabiola PA Unavailable Unavailable Nowata Dianne, A Fabiola PA Unavailable Unavailable Nowata Dianne, A Fabiola PA Unavailable Unavailable Nowata Dianne, A Fabiola PA Unavailable Unavailable Nowata Dianne, A Fabiola PA Unavailable Unavailable Nowata Dianne, A Fabiola PA Unavailable Unavailable Nowata Dianne, A Fabiola PA Unavailable Unavailable Nowata Dianne, A Fabiola PA Unavailable Unavailable Nowata Dianne, A Fabiola PA Unavailable Unavailable Nowata Dianne, A Fabiola PA Unavailable Unavailable Nowata Dianne, A Fabiola PA Unavailable Unavailable Nowata Dianne, A Fabiola PA Unavailable Unavailable Nowata Dianne, A Fabiola PA Unavailable Unavailable Nowata Dianne, A Fabiola PA Unavailable Unavailable Nowata Dianne, A Fabiola PA Unavailable Unavailable Nowata Dianne, A Fabiola PA Unavailable Unavailable Nowata Dianne, A Fabiola PA Unavailable Unavailable Nowata Dianne, A Fabiola PA Unavailable Unavailable Nowata Dianne, A Fabiola PA Unavailable Unavailable Nowata Dianne, A Fabiola PA Unavailable Unavailable Nowata Dianne, A Fabiola PA Unavailable Unavailable Nowata Dianne, A Fabiola PA Unavailable Unavailable Nowata Dianne, A Fabiola PA Unavailable Unavailable Nowata Dianne, A Fabiola PA Unavailable Unavailable Nowata Dianne, A Fabiola PA Unavailable Unavailable Nowata Dianne, A Fabiola PA Unavailable Unavailable Nowata Dianne, A Fabiola PA Unavailable Unavailable Nowata Dianne, A Fabiola PA Unavailable Unavailable Nowata Dianne, A Fabiola PA Unavailable Unavailable Nowata Dianne, A Fabiola PA Unavailable Unavailable Nowata Dianne, A Fabiola PA Unavailable Unavailable Nowata Dianne, A Fabiola PA Unavailable Unavailable Nowata Dianne, A Fabiola PA Unavailable Unavailable Nowata Dianne, A Fabiola PA Unavailable Unavailable Nowata Dianne, A Fabiola PA Unavailable Unavailable Nowata Dianne, A Fabiola PA Unavailable Unavailable Nowata Dianne, A Fabiola PA Unavailable Unavailable Nowata Dianne, A Fabiola PA Unavailable Unavailable Nowata Dianne, A Fabiola PA Unavailable Unavailable Nowata Dianne, A Fabiola PA Unavailable Unavailable Nowata Dianne, A Fabiola PA Unavailable Unavailable Nowata Dianne, A Fabiola PA Unavailable Unavailable Nowata Dianne, A Fabiola PA Unavailable Unavailable Nowata Dianne, A Fabiola PA Unavailable Unavailable Nowata Dianne, A Fabiola PA Unavailable Unavailable Nowata Dianne, A Fabiola PA Unavailable Unavailable Nowata Dianne, A Fabiola PA Unavailable Unavailable Machovec, B Tonja PA-C Unavailable Unavailable Machovec, B Tonja PA-C Unavailable Unavailable Machovec, B Tonja PA-C Unavailable Unavailable Machovec, B Tonja PA-C Unavailable Unavailable Machovec, B Tonja PA-C Unavailable Unavailable Machovec, B Tonja PA-C Unavailable Unavailable Machovec, B Tonja PA-C Unavailable Unavailable Machovec, B Tonja PA-C Unavailable Unavailable Machovec, B Tonja PA-C Unavailable Unavailable Machovec, B Tonja PA-C Unavailable Unavailable Machovec, B Tonja PA-C Unavailable Unavailable Machovec, B Tonja PA-C Unavailable Unavailable Machovec, B Tonja PA-C Unavailable Unavailable Machovec, B Tonja PA-C Unavailable Unavailable Machovec, B Tonja PA-C Unavailable Unavailable Machovec, B Tonja PA-C Unavailable Unavailable Machovec, B Tonja PA-C Unavailable Unavailable Machovec, B Tonja PA-C Unavailable Unavailable Machovec, B Tonja PA-C Unavailable Unavailable Machovec, B Tonja PA-C Unavailable Unavailable Machovec, B Tonja PA-C Unavailable Unavailable Machovec, B Tonja PA-C Unavailable Unavailable Machovec, B Tonja PA-C Unavailable Unavailable Machovec, B Tonja PA-C Unavailable Unavailable Machovec, B Tonja PA-C Unavailable Unavailable Machovec, B Tonja PA-C Unavailable Unavailable Machovec, B Tonja PA-C Unavailable Unavailable Machovec, B Tonja PA-C Unavailable Unavailable Machovec, B Tonja PA-C Unavailable Unavailable Machovec, B Tonja PA-C Unavailable Unavailable Machovec, B Tonja PA-C Unavailable Unavailable Machovec, B Tonja PA-C Unavailable Unavailable Machovec, B Tonja PA-C Unavailable Unavailable Machovec, B Tonja PA-C Unavailable Unavailable Machovec, B Tonja PA-C Unavailable Unavailable Machovec, B Tonja PA-C Unavailable Unavailable Machovec, B Tonja PA-C Unavailable Unavailable Machovec, B Tonja PA-C Unavailable Unavailable Machovec, B Tonja PA-C Unavailable Unavailable Machovec, B Tonja PA-C Unavailable Unavailable Machovec, B Tonja PA-C Unavailable Unavailable Machovec, B Tonja PA-C Unavailable Unavailable Machovec, B Tonja PA-C Unavailable Unavailable Machovec, B Tonja PA-C Unavailable Unavailable Machovec, B Tonja PA-C Unavailable Unavailable Machovec, B Tonja PA-C Unavailable Unavailable Machovec, B Tonja PA-C Unavailable Unavailable Machovec, B Tonja PA-C Unavailable Unavailable Machovec, B Tonja PA-C Unavailable Unavailable Machovec, B Tonja PA-C Unavailable Unavailable Machovec, B Tonja PA-C Unavailable Unavailable Indira, M Sarahi PA Unavailable Unavailable Indira, M Sarahi PA Unavailable Unavailable Indira, M Sarahi PA Unavailable Unavailable Indira, M Sarahi PA Unavailable Unavailable Indira, M Sarahi PA Unavailable Unavailable Indira, M Sarahi PA Unavailable Unavailable Indira, M Sarahi PA Unavailable Unavailable Indira, M Sarahi PA Unavailable Unavailable Indira, M Sarahi PA Unavailable Unavailable Indira, M Sarahi PA Unavailable Unavailable Indira, M Sarahi PA Unavailable Unavailable Indira, M Sarahi PA Unavailable Unavailable Indira, M Sarahi PA Unavailable Unavailable Indira, M Sarahi PA Unavailable Unavailable Indira, M Sarahi PA Unavailable Unavailable Indira, M Sarahi PA Unavailable Unavailable Indira, M Sarahi PA Unavailable Unavailable Indira, M Sarahi PA Unavailable Unavailable Indira, M Sarahi PA Unavailable Unavailable Indira, M Sarahi PA Unavailable Unavailable Indira, M Sarahi PA Unavailable Unavailable Indira, M Sarahi PA Unavailable Unavailable Indira, M Sarahi PA Unavailable Unavailable Indira, M Sarahi PA Unavailable Unavailable Indira, M Sarahi PA Unavailable Unavailable Indira, M Sarahi PA Unavailable Unavailable Indira, M Sarahi PA Unavailable Unavailable Indira, M Sarahi PA Unavailable Unavailable Indira, M Sarahi PA Unavailable Unavailable Indira, M Sarahi PA Unavailable Unavailable Indira, M Sarahi PA Unavailable Unavailable Indira, M Sarahi PA Unavailable Unavailable Indira, M Sarahi PA Unavailable Unavailable Indira, M Sarahi PA Unavailable Unavailable Indira, M Sarahi PA Unavailable Unavailable Indira, M Sarahi PA Unavailable Unavailable Indira, M Sarahi PA Unavailable Unavailable Indira, M Sarahi PA Unavailable Unavailable Indira, M Sarahi PA Unavailable Unavailable Indira, M Sarahi PA Unavailable Unavailable Indira, M Sarahi PA Unavailable Unavailable Indira, M Sarahi PA Unavailable Unavailable Indira, M Sarahi PA Unavailable Unavailable Indira, M Sarahi PA Unavailable Unavailable Re-disclosure Warning The records that you are about to access may contain information from federally-assisted alcohol or drug abuse programs. If such information is present, then the following federally mandated warning applies: This information has been disclosed to you from records protected by federal confidentiality rules (42 CFR part 2). The federal rules prohibit you from making any further disclosure of this information unless further disclosure is expressly permitted by the written consent of the person to whom it pertains or as otherwise permitted by 42 CFR part 2. A general authorization for the release of medical or other information is NOT sufficient for this purpose. The Federal rules restrict any use of the information to criminally investigate or prosecute any alcohol or drug abuse patient.The records that you are about to access may contain highly sensitive health information, the redisclosure of which is protected by Article 27-F of the [facility] Public Health law. If you continue you may have access to information: Regarding HIV / AIDS; Provided by facilities licensed or operated by the [facility] Office of Mental Health; or Provided by the [facility] Office for People With Developmental Disabilities. If such information is present, then the following [facility] mandated warning applies: This information has been disclosed to you from confidential records which are protected by state law. State law prohibits you from making any further disclosure of this information without the specific written consent of the person to whom it pertains, or as otherwise permitted by law. Any unauthorized further disclosure in violation of state law may result in a fine or penitentiary sentence or both. A general authorization for the release of medical or other information is NOT sufficient authorization for further disc losure. Family History Family Member Name Family Member Gender Family Member Status Date o f Status Description Data Source(s) Unknown Female Problem [facility] ([facility]) Unknown Male Problem [facility] Unknown Female Problem [facility] ([facility]) Unknown Female Problem [facility] ([facility]) Unknown Unknown Problem [facility] Encounters Encounter Providers Location Date Indications Data Source(s ) Outpatient Attender: Sarahi DIOR 11/03/2020 12:00:[address] 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 Polymyalgia rheumatica [place] [address] [address] 10/20/2020 12:00:00 AM EST [facility] [place] [address] [address] 10/20/2020 12:00:00 AM EST eCW1 ([facility]) Office Visit Attender: Dominga Hoffman MD Main office - [place] 09/23/2020 11:45:00 AM EST [facility] ([facility] ) [place] [address] [address] 09/17/2020 12:00:00 AM EST eCW1 ([facility]) [place] [address] [address] 09/14/2020 12:00:00 AM EST eCW1 ([facility]) Attender: [facility]30[facility] 03:33:00 PM EST - 08/30/2020 03:33:00 PM EST [facility] ( [facility]) Outpatient Attender: Anisha Max MD Physical Therapy 08/26 10:30:00 AM EST [facility] ([facility] ) Outpatient Attender: TOBIAS FLORES MD Main Office 07/27/2020 11:15:00 AM EDT MED[facility] ([facility]) Outpatient<td ID="encounterTypeDescripti onID0">10 Month Follow-Up</td><td>Erik Moody MD, FACS</td><td>Erik Moody MD [facility]</td><td>07/02/2020</td><td>8:32AM</td><td>9:26AM</td><td><content ID="encounterDiagnosisID0-0">Borderline Glaucoma Anatomical Narrow Angle Both Eyes</content>, <content ID="encounterDiagnosisID0-1">Cataract Senile Cortical Bilateral</content>, <content ID="encounterDiagnosisID0-2">Cataract Senile Nuclear</content>, <content ID="encounterDiagnosisID0-3">Diabetes Mellitus Type 2 - Uncomplicated, Controlled</content>, <content ID="encounterDiagnosisID0- 4">Assessment of Taking Medication For Diabetes Long-term Use of Insulin</content>, <content ID="encounterDiagnosisID0-5">Adhesions of Iris Posterior Synechiae</content></td> Attender: Erik Gomez MD, FACS Erik Moody MD [facility] 07/02/2020 08:32:00 AM EDT - 07/02/2020 09:26:00 AM ED T Adhesions of Iris Posterior SynechiaeAssessment of Taking Medication For Diabetes Long-term Use of InsulinCataract Senile Cortical BilateralDiabetes Mellitus Type 2 - Uncomplicated, ControlledCataract Senile NuclearBorderline Glaucoma Anatomical Narrow Angle Both Eyes [facility] (Erik Gomez MD [facility]) Adhesions of Iris Posterior Synechiae Assessment of Taking Medication For Diab etes Long-term Use of Insulin Cataract Senile Cortical Bilateral Diabetes Mellitus Type 2 - Uncomplicated , Controlled Cataract Senile Nuclear Borderline Glaucoma Anatomical Narrow An gle Both Eyes OutpatientOFFICE/OUTPATIENT VISIT, EST Attender: Joaquin gómez MD [facility] 06/23/2020 10:00:00 AM EDT - 06/23/2020 10:00:00 AM ED T Abnormal results of kidney function studiesOther exterminator helper (current) drug therapyPolyosteoarthritis, unspecifiedPolymyalgia rheumatica [facility]) Abnormal results of kidney function stud ies Other fdc (current) drug therapy Polyosteoarthritis, unspecified Polymyalgia rheumatica Attender: FELICIA DIOR [facility] 06/22/2020 08:40:00 AM EDT - 06/22/2020 08:40:00 AM EDT [facility] Attender: FELICIA DIOR [facility] 06/14/2020 10:57:00 AM EDT - 06/14/2020 10:57:00 AM EDT [facility] Outpatient Attender: Anisha Max MD Physical Therapy 05/24 10:30:00 AM EDT MED[facility] ([facility]) Outpatient Attender: Sarahi Jacobson PAReferrer: Dominga Hoffman MD [id number] 04/30/2020 12:00:00 AM EDT - 04/30/2020 12:14:09 PM EDT Pain in right hip [facility] Pain in right hip Outpatient Referrer: Sarahi Jacobson PA 04/30/2020 12 :00:00 AM EDT Low back pain [facility] Low back pain Outpatient Referrer: Sarahi Jacobson PA 04/30/2020 12 :00:00 AM EDT Low back pain [facility] Low back pain Outpatient Referrer: Sarahi Jacobson PA 04/30/2020 12 :00:00 AM EDT Pain in right hip [facility] Pain in right hip Outpatient Attender: Dominga Hoffman MD Main office - [place] 04/22/2020 01:30:00 PM EDT [facility] ([facility]) Outpatient Attender: TOBIAS FLORES MD Main Office 04/15/2020 10:00:00 AM EDT [facility] ([facility]) Attender: Sinai HARRISON [facility] 03/18/2020 01:08:00 PM EDT - 03/18/2020 01:08:00 PM EDT [facility] ( [facility]) Attender: FELICIA DIOR [facility] 03/02/2020 03:46:00 PM EDT - 03/02/2020 03:46:00 PM EDT [facility] ( [facility]) Attender: Tonja Briceño PA-C [facility] 02/26/2020 04:39:00 PM EDT - 02/26/2020 04:39:00 PM EDT [facility] ( [facility]) Attender: FELICIA DIOR [facility] 02/24/2020 04:21:00 PM EDT - 02/24/2020 04:21:00 PM EDT [facility] ( [facility]) OutpatientOFFICE/OUTPATIENT VISIT, EST Attender: FELICIA DIOR [facility] 02/23/2020 10:40:00 AM EDT - 02/23/2020 10:40:00 AM ED T Abnormal renal function testOther fdc drug therapyPolymyalgia rheumatica [facility] ([facility]) Abnormal renal function test 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 exterminator helper drug 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 Polymyalgia rheumatica Outpatient Attender: MAIA KO NP Physical Therapy 01/20/2020 1 0:45:00 AM EDT [facility] ([facility] ) Outpatient Attender: FLETCHER Vela Primary 01/10/2020 09:45:00 AM EDT MED[facility] ([facility]) Outpatient Attender: TOBIAS FLORES MD Main Office 12/29/2019 12:15:00 PM EDT MED[facility] ([facility]) OutpatientOFFICE/OUTPATIENT VISIT, EST Attender: FELICIA DIOR [facility] 11/25/2019 10:40:00 AM EST - 11/25/2019 10:40:00 AM ES T Other exterminator helper drug therapyPolymyalgia rheumatica [facility] ([facility]) Other exterminator helper drug therapy Polymyalgia rheumatica Outpatient Attender: TOBIAS FLORES MD Main Office 10/28/2019 11:15:00 AM EST MEDENT ([facility]) Outpatient<td ID="encounterTypeDescripti onID1">7 Month Follow-Up</td><td>Erik Moody MD, FACS</td><td>Erik Moody MD [facility]</td><td>10/21/2019</td><td>9:15AM</td><td>10:17AM</td><td><content ID="encounterDiagnosisID1-0">Cataract Senile Cortical</content>, <content ID="encounterDiagnosisID1-1">Cataract Senile Nuclear</content>, <content ID="encounterDiagnosisID1-2">Diabetes Mellitus Type 2 - Uncomplicated, Controlled</content>, <content ID="encounterDiagnosisID1-3">Borderline Glaucoma Anatomical Narrow Angle Both Eyes</content>, <content ID="encounterDiagnosisID 1-4">Taking Medication For Diabetes Long-term Use of Insulin</content></td> Attender: Erik Gomez MD, FACS Erik Moody MD [facility] 10/21/2019 09:15:0 0 AM EST - 10/21/2019 10:17:00 AM EST Taking Medication For Diabetes Long-term Use of InsulinTaking Medication For Diabetes Long-term Use of InsulinCataract Senile CorticalCataract Senile CorticalBorderline Glaucoma Anatomical Narrow Angle Both EyesDiabetes Mellitus Type 2 - Uncomplicated, ControlledCataract Senile NuclearBorderline Glaucoma Anatomical Narrow Angle Both EyesDiabetes Mellitus Type 2 - Uncomplicated, ControlledCataract Senile Nuclear GINI (Erik Gomez MD [facility]) Taking Medication For Diabetes Long-term Use of Insulin Taking Medication For Diabetes Long-term Use of Insulin Cataract Senile Cortical Cataract Senile Cortical Borderline Glaucoma Anatomical Narrow An gle Both Eyes Diabetes Mellitus Type 2 - Uncomplicated , Controlled Cataract Senile Nuclear Borderline Glaucoma Anatomical Narrow An gle Both Eyes Diabetes Mellitus Type 2 - Uncomplicated , Controlled Cataract Senile Nuclear Outpatient Attender: Anisha Max MD Physical Therapy 10/17 01:00:00 PM EST MEDENT ([facility]) [facility] [address] [place] [address], [facility] [id number] 10/16/2019 12:00:00 AM EST eCW1 ([facility]) OutpatientOFFICE/OUTPATIENT VISIT, EST Attender: Sinai Torres ASTROPHYSICS PROFESSORRoniC [facility] 09/23/2019 09:40:00 AM EST - 09/23/2019 09:40:00 AM EST Other exterminator helper (current) drug therapyPolymyalgia rheu matica [facility] ([facility]) Other fdc (current) drug therapy Polymyalgia rheumatica Outpatient Attender: TOBIAS FLORES MD Main Office 09/17/2019 09:30:00 AM EST MEDENT ([facility]) [facility] [address] [facility] [address] 09/16/2019 12:00:00 AM EST eCW1 ([facility]) Outpatient Attender: Yasmin Olivera MDAdmitter: Yasmin Borjas MD [email or web address] 09/09/2019 04:53:09 PM EST [facility] Outpatient Attender: MAIA KO NP Physical Therapy 09/09/2019 0 9:45:00 AM EST MEDENT ([facility]) [facility] [address] [place] [phone] 09/09/2019 12:00:00 AM EST eCW1 ([facility]) Outpatient Attender: Yasmin Olivera MDReferrer: MARIANA TEAGUE NP [email or web address] 09/03/2019 02:00:38 PM EST - 09/03/2019 03:06:55 PM EST [facility] Immunizations Vaccine Date Status Description Data Source(s) Influenza, injectable, MDCK, preservative free, dylan valent 09/14/2020 12:00:00 AM EST completed Flucelvax [facility] ([facility]) Note: approx ; Source: Other Provider INFLUENZA VACCINE QUADRIVALENT 2019- (65 YR UP)/MF59 C.1/PF 08/25/2020 12:00:00 AM EST completed [facility] Influenza, injectable, MDCK, preservative free, dylan valent 09/15/2019 12:00:00 AM EST completed Influenza, injectable, MDCK, preservative free, 0.5 mL dosage, Flucelvax Quad [facility] ([facility]) Source: Other Provider Medications Medication Brand Name Start Date Product Form Dose Route Admi nistrative Instructions Pharmacy Instructions Status Indications Reaction Description Data Source(s) Methotrexate 2.5 MG Oral Tablet methotrexate sodium 2. 5 mg tablet methotrexate sodium 2.5 mg tablet 10/25/2020 12:00:00 AM EST active TAKE 3 TABLETS BY MOUTH ONCE A WEEK AFTER SUPPER IN THE EVENING [facility] ([facility]) Methotrexate 2.5 MG Oral Tablet Methotrexate Sodium 2. 5 MG Oral Tablet Methotrexate Sodium 2.5 MG Oral Tablet 08/30/2020 12:00:00 AM EST completed TAKE 3 TABLETS BY MOUTH ONCE A W ANVIK AFTER SUPPER IN THE EVENING [facility] ([facility]) Careone Unifine Pentips Plus Pen Saragosa [id number] 08/26 12:00:00 AM EST active MEDENT ([facility]) . UNIT 08/25/2020 12:00:00 AM EST Injectable 1 DIRECTED DIRECTED SOLD: 08/25/2020 [facility] Bisoprolol Fumarate 5 MG Oral Tablet Bisoprolol Fumarate 5 M G Oral Tablet 07/02/2020 12:00:00 AM EDT 1 active bisoprolol fumarate 5 MG Oral Tablet GINI (Erik Gomez MD [facility]) Primidone 50 MG Oral Tablet Primidone 50 MG Oral Tablet 06/15 12:00:00 AM EDT 1 active primidone 50 MG O ral Tablet GINI (Erik Gomez MD [facility]) Methotrexate 2.5 MG Oral Tablet methotrexate sodium 2. 5 mg tablet methotrexate sodium 2.5 mg tablet 06/23/2020 12:00:00 AM EDT active TAKE 3 TABLETS BY MOUTH ONCE A WEEK AFTER SUPPER IN THE EVENING [facility] ([facility]) Folic Acid 1 MG Oral Tablet folic acid 1 mg tablet folic aci d 1 mg tablet 06/23/2020 12:00:00 AM EDT 1.00 {tbl} ORAL active take 1 tablet by oral route every day [facility] ([facility]) gabapentin 300 MG Oral Capsule Gabapentin 300 MG Oral Capsule (NEURONTIN) Gabapentin 300 MG Oral Capsule (NEURONTIN) 04/30/2020 12:00:00 AM EDT 300 mg Oral active Take 1 capsule by mo [facility] every evening [facility] Fluorouracil 50 MG/ML Topical Cream Fluorouracil 5 % E xternal Cream (EFUDEX) Fluorouracil 5 % External Cream (EFUDEX) 04/28/2020 12:00:00 AM EDT active APPLY TO NOSE SPARINGLY TWICE DA JENNIFER FOR 2 WEEKS [facility] duloxetine 60 MG Delayed Release Oral Ca psule DULoxetine HCl 60 MG Oral Capsule Delayed Release Particles (CYMBALTA) DULoxetine HCl 60 MG Oral Capsule Delaye d Release Particles (CYMBALTA) 04/26/2020 12:00:00 AM EDT 60 mg Oral active Take 60 mg by mouth daily [facility] Primidone 50 MG Oral Tablet Primidone 50 MG Oral Table t (MYSOLINE) Primidone 50 MG Oral Tablet (MYSOLINE) 04/14/2020 12:00:00 AM EDT Oral active Take by mouth [facility] Bisoprolol Fumarate 5 MG Oral Tablet Bis oprolol Fumarate 5 MG Oral Tablet (ZEBETA) Bisoprolol Fumarate 5 MG Oral Tablet (ZEBETA) 04/14/20 12:00:00 AM EDT Oral active Take by mouth [facility] Flecainide Acetate 50 MG Oral Tablet Flecainide Acetate 10/2019 12:00:00 AM EDT ORAL active [facility] ([facility] Bisoprolol Fumarate 5 MG Oral Tablet Bisoprolol Fumarate 10/2019 12:00:00 AM EDT ORAL active [facility] ([facility]) Primidone 50 MG Oral Tablet Primidone 04/14/2020 12:00:00 AM EDT ORAL active [facility] ([facility]) 24 HR Glipizide 5 MG Extended Release Oral Tablet Glipizide ER 04/11/2020 12:00:00 AM EDT active M EDENT ([facility] sitagliptin 50 MG Oral Tablet [Januvia] Januvia 50 MG Oral Tablet Januvia 50 MG Oral Tablet 04/11/2020 12:00:00 AM EDT active TAKE 1 TABLET BY MOUTH ONCE DAILY . DO NOT EXCEED 1 PER 24 HOURS [facility] Clindamycin 150 MG Oral Capsule CLINDAMYCIN HCL 03/31/2020 12:00 :00 AM EDT capsule 42 TAKE TWO CAPSULES BY MOUTH EVERY 8 HOURS UNTIL GONE TAKE TWO CAPSULES BY MOUTH EVERY 8 HOURS UNTIL GONE SOLD: 03/31/2020 [facility] Primidone 50 MG Oral Tablet Primidone 03/29/2020 12:00:00 AM EDT ORAL completed [facility] ([facility] Flecainide Acetate 50 MG Oral Tablet Fle cainide Acetate 50 MG Oral Tablet (TAMBOCOR) Flecainide Acetate 50 MG Oral Tablet (TAMBOCOR) 2019 12:00:00 AM EDT active TAKE 1 & 1 2 (ONE & ONE HALF) TABLETS BY MOUTH TWICE DAILY [facility] Primidone 50 MG Oral Tablet Primidone 03/24/2020 12:00:00 AM EDT ORAL active MEDENT ([facility]) Methotrexate 2.5 MG Oral Tablet methotrexate sodium 2. 5 mg tablet methotrexate sodium 2.5 mg tablet 03/18/2020 12:00:00 AM EDT completed TAKE 3 TABLETS BY MOUTH ONCE A WEEK AFTER SUPPER IN THE EVENING [facility] ([facility]) Dose decreased by nephrology 03/02/2020 JR 3 ML Insulin, Aspart, Human 100 UNT/ML Pen Injector Insulin Aspart Flexpen 03/18/2020 12:00:00 AM EDT active MEDENT ([facility]) 3 ML Insulin, Aspart, Human 100 UNT/ML P en Injector Insulin Aspart FlexPen 100 UNIT/ML Subcutaneous Solution Pen-injector Insulin Aspart FlexPen 100 UNIT/ML Subcutaneous Solution Pen-injector 03/18/2020 12:00:00 AM EDT active USE DIRECTED 6 UNITS SUBQ AT BREAKFAST 8 UNITS SUBQ AT LUNCH AND 10 UNITS AT DINNER. MAX OF 24 UNITS PER DAY [facility] 3 ML Insulin Glargine 100 UNT/ML Pen Inj joe [Lantus] Lantus SoloStar 100 UNIT/ML Subcutaneous Solution Pen-injector Lantus SoloStar 100 UNIT/ML Subcutaneous Solution Pen-injector 03/18/2020 12:00:00 AM EDT active INJECT 20 UNITS SUBCUTANEOUSLY AT BEDTIM E . DO NOT EXCEED 20 PER 24 HOURS [facility] Methotrexate 2.5 MG Oral Tablet Methotrexate Sodium 2. 5 MG Oral Tablet Methotrexate Sodium 2.5 MG Oral Tablet 03/18/2020 12:00:00 AM EDT active TAKE 3 TABLETS BY MOUTH ONCE A W ANVIK AFTER SUPPER IN THE EVENING [facility] Alprazolam 0.5 MG Oral Tablet Alprazolam 03/17/2020 12:00:00 AM EDT ORAL active MED[facility] ([facility]) Methotrexate 2.5 MG Oral Tablet methotrexate sodium 2. 5 mg tablet methotrexate sodium 2.5 mg tablet 03/02/2020 12:00:00 AM EDT completed TAKE 3 TABLETS BY MOUTH ONCE A WEEK AFTER SUPPER IN THE EVENING [facility] ([facility]) Dose decreased by nephrology 03/02/2020 JR Methotrexate 2.5 MG Oral Tablet methotrexate sodium 2. 5 mg tablet methotrexate sodium 2.5 mg tablet 02/23/2020 12:00:00 AM EDT completed TAKE 4 TABLETS BY MOUTH ONCE A WEEK AFTER SUPPER IN THE EVENING [facility] ([facility]) Folic Acid 1 MG Oral Tablet Folic Acid 1 MG Oral Table t (FOLVITE) Folic Acid 1 MG Oral Tablet (FOLVITE) 02/20/2020 12:00:00 AM EDT 1 mg Oral active Take 1 mg by mouth daily [facility] ReliOn Pen [place] 31G X 8 [id number] 01/19/2020 12:00:00 AM EDT active USE DIRECTED [address] [facility] 100 mg 01/10/2020 12:00:00 AM EDT capsule 28 TAKE ONE CAPSULE BY MOUTH TWICE A DAY FOR 14 DAYS TAKE ONE CAPSULE BY MOUTH TWICE A DAY FOR 14 DAYS SOLD : 01/10/2020 [facility] 90 mcg/actuation 01/10/2020 12:00:00 AM EDT HFA aerosol inha ler 8 INHALE TWO PUFFS BY MOUTH EVERY 4 TO 6 HOURS NEEDED FOR COUGH INHALE TWO PUFFS BY MOUTH EVERY 4 TO 6 HOURS NEEDED FOR COUGH SOLD: 01/10/2020 [facility] Doxycycline Monohydrate 100 MG Oral Capsule Doxycycline Nance hydrate 01/10/2020 12:00:00 AM EDT ORAL active M EDENT ([facility]) 200 ACTUAT Albuterol 0.09 MG/ACTUAT Metered Dose Inhaler [Pr oAir] Proair HFA 01/10/2020 12:00:00 AM EDT ORAL active MEDENT ([facility]) Flecainide Acetate 50 MG Oral Tablet Flecainide Acetate 12:00:00 AM EDT completed MEDENT ([facility]) Ascorbic Acid 500 MG Extended Release Oral Capsule Vitamin C ER 12/28/2019 12:00:00 AM EDT ORAL active M EDENT ([facility]) Folic Acid 1 MG Oral Tablet folic acid 1 mg tablet folic aci d 1 mg tablet 11/25/2019 12:00:00 AM EST 1.00 {tbl} ORAL completed take 1 tablet by oral route every day [facility] ([facility]) Methotrexate 2.5 MG Oral Tablet methotrexate sodium 2. 5 mg tablet methotrexate sodium 2.5 mg tablet 11/25/2019 12:00:00 AM EST completed TAKE 5 TABLETS BY MOUTH ONCE A WEEK AFTER SUPPER IN THE EVENING [facility] ([facility]) Folic Acid 1 MG Oral Tablet folic acid 1 mg tablet folic aci d 1 mg tablet 11/25/2019 12:00:00 AM EST 1.00 {tbl} ORAL completed take 1 tablet by oral route every day [facility] ([facility]) Methotrexate 2.5 MG Oral Tablet methotrexate sodium 2. 5 mg tablet methotrexate sodium 2.5 mg tablet 11/25/2019 12:00:00 AM EST completed TAKE 4 TABLETS BY MOUTH ONCE A WEEK AFTER SUPPER IN THE EVENING [facility] ([facility]) ferrous sulfate 325 MG Oral Tablet ferrous sulfate 325 mg (65 mg iron) tablet ferrous sulfate 325 mg (65 mg iron) tablet 11/25/2019 12:00:00 AM EST completed take 1 Tablet by Oral route once every other day [facility] ([facility]) ferrous sulfate 325 MG Oral Tablet Iron 325 (65 Fe) MG Oral Tablet Iron 325 (65 Fe) MG Oral Tablet 10/27/2019 12:00:00 AM EST Oral active Take by [facility] ferrous sulfate 325 MG Oral Tablet Iron 10/27/2019 12:00:00 AM EST ORAL active [facility] ([facility] Insulin, Aspart, Human 100 UNT/ML Inject able Solution [NovoLog] NovoLOG 100 UNIT/ML Subcutaneous Solution NovoLOG 100 UNIT/ML Subcutaneous Solution 10/21/2019 12:00:00 AM EST active insulin aspart, human 100 UNT/ML Injectable Solution [NovoLog] GINI (Erik Gomez MD [facility]) 3 ML Insulin Glargine 100 UNT/ML Pen Inj joe [Lantus] Lantus SoloStar 100 UNIT/ML Subcutaneous Solution Pen-injector Lantus SoloStar 100 UNIT/ML Subcutaneous Solution Pen-injector 10/21/2019 12:00:00 AM EST 1 active 3 ML insulin glargine 100 UNT/ML Pen Inj joe [Lantus] GINI (Erik Gomez MD [facility]) Flecainide Acetate 50 MG Oral Tablet Flecainide Acetate 50 M G Oral Tablet 10/21/2019 12:00:00 AM EST 1 active flecainide acetate 50 MG Oral Tablet GINI (Erik Gomez MD [facility]) Vitamin B 12 1 MG Oral Capsule B-12 1000 MCG Oral Caps ule B-12 1000 MCG Oral Capsule 10/21/2019 12:00:00 AM EST 1 active vitamin B12 1 MG Oral Capsule GINI (Erik Gomez MD [facility]) Vitamin C 1000 mg Oral Tablet Vitamin C 1000 mg Oral Tablet 10/21/2019 12:00:00 AM EST 1 active Vitamin C AV Vazquez (Erik Gomez MD [facility]) apixaban 2.5 MG Oral Tablet [Eliquis] Eliquis 2.5 MG O ral Tablet Eliquis 2.5 MG Oral Tablet 10/21/2019 12:00:00 AM EST 1 active apixaban 2.5 MG Oral Tablet [Eliquis] GINI (Erik Gomez MD [facility]) Bisoprolol Fumarate 5 MG Oral Tablet Bisoprolol Fumarate 5 M G Oral Tablet 10/21/2019 12:00:00 AM EST 1 aborted bisoprolol fumarate 5 MG Oral Tablet GINI (Erik Gomez MD [facility]) torsemide 10 MG Oral Tablet Torsemide 10 MG Oral Table t (DEMADEX) Torsemide 10 MG Oral Tablet (DEMADEX) 10/21/2019 12:00:00 AM EST Oral active Take by [facility] torsemide 10 MG Oral Tablet Torsemide 10/21/2019 12:00:00 AM EST ORAL active [facility] ([facility]) duloxetine 60 MG Delayed Release Oral Ca psule DULoxetine HCl 60 MG Oral Capsule Delayed Release Particles DULoxetine HCl 60 MG Oral Capsule Delaye d Release Particles 10/21/2019 12:00:00 AM EST 1 active duloxetine 60 MG Delayed Release Oral Capsule GINI (Erik Gomez MD [facility]) torsemide 10 MG Oral Tablet Torsemide 10 MG Oral Table t Torsemide 10 MG Oral Tablet 10/21/2019 12:00:00 AM EST active torsemide 10 MG Oral Tablet GINI (Erik Gomez MD [facility]) Azelastine HCl 0.1% Nasal Solution Azelastine HCl 0.1% Nasal Solution 10/21/2019 12:00:00 AM EST 1 active azelastine hydrochloride 0.137 MG/ACTUAT Metered Dose Nasal [place] GINI (Erik Gomez MD [facility]) sitagliptin 50 MG Oral Tablet [Januvia] Januvia 50 MG Januvi a 50 MG 10/16/2019 12:00:00 AM EST 1.0 {tablet} active Ja adam 50 MG eCW1 ([facility]) 24 HR Glipizide 5 MG Extended Release Oral Tablet Glip iZIDE ER 5 MG GlipiZIDE ER 5 MG 10/16/2019 12:00:00 AM EST 1.0 {tablet_with_food} active GlipiZIDE ER 5 MG eCW1 ([facility]) sitagliptin 50 MG Oral Tablet [Januvia] Januvia 50 MG Januvi a 50 MG 10/16/2019 12:00:00 AM EST 1.0 {tablet} active Ja adam 50 MG eCW1 ([facility]) sitagliptin 50 MG Oral Tablet [Januvia] Januvia 50 MG Januvi a 50 MG 10/16/2019 12:00:00 AM EST active 1 tablet eCW1 ([facility]) sitagliptin 50 MG Oral Tablet [Januvia] Januvia 50 MG Januvi a 50 MG 10/16/2019 12:00:00 AM EST 1.0 {tablet} active Ja adam 50 MG eCW1 ([facility]) 24 HR Glipizide 5 MG Extended Release Oral Tablet Glip iZIDE ER 5 MG GlipiZIDE ER 5 MG 10/16/2019 12:00:00 AM EST 1.0 {tablet_with_food} active GlipiZIDE ER 5 MG eCW1 ([facility]) sitagliptin 50 MG Oral Tablet [Januvia] Januvia 50 MG Januvi a 50 MG 10/16/2019 12:00:00 AM EST 1.0 {tablet} active Ja adam 50 MG eCW1 ([facility]) 24 HR Glipizide 5 MG Extended Release Oral Tablet Glip iZIDE ER 5 MG GlipiZIDE ER 5 MG 10/16/2019 12:00:00 AM EST 1.0 {tablet_with_food} active GlipiZIDE ER 5 MG eCW1 ([facility]) 24 HR Glipizide 5 MG Extended Release Oral Tablet Glip iZIDE ER 5 MG GlipiZIDE ER 5 MG 10/16/2019 12:00:00 AM EST 1.0 {tablet_with_food} active GlipiZIDE ER 5 MG eCW1 ([facility]) 24 HR Glipizide 5 MG Extended Release Oral Tablet Glip iZIDE ER 5 MG GlipiZIDE ER 5 MG 10/16/2019 12:00:00 AM EST active 1 tablet with food eCW1 ([facility]) ammonium lactate 120 MG/ML Topical Cream Ammonium Lactate 12 % External Cream (AMLACTIN) Ammonium Lactate 12 % External Cream (AMLACTIN) 2018 12:00:00 AM EST active APPLY TO FEET [facility] Methotrexate 2.5 MG Oral Tablet methotrexate sodium 2. 5 mg tablet methotrexate sodium 2.5 mg tablet 09/23/2019 12:00:00 AM EST completed TAKE 5 TABLETS BY MOUTH ONCE A WEEK AFTER SUPPER IN THE EVENING [facility] ([facility]) Pen Saragosa 5/16" 09/18/2019 12:00:00 AM EST active MEDENT ([facility]) Flecainide Acetate 50 MG Oral Tablet Flecainide Acetate 01/2019 12:00:00 AM EST ORAL completed MEDENT ([facility]) Flecainide Acetate 50 MG Oral Tablet Flecainide Acetate 12/2018 12:00:00 AM EST ORAL completed [facility] ([facility]) torsemide 10 MG Oral Tablet Torsemide 09/09/2019 12:00:00 AM EST ORAL completed [facility] ([facility]) sitagliptin 50 MG Oral Tablet [Januvia] Januvia 09/09/2019 12:00:0 0 AM EST active [facility] ([facility]) Flecainide Acetate 50 MG Oral Tablet Flecainide Acetate 12:00:00 AM EST ORAL completed [facility] ([facility]) Prednisone 5 MG Oral Tablet Prednisone 09/02/2019 12:00:00 AM EST ORAL completed [facility] ([facility]) Spironolactone 25 MG Oral Tablet Spironolactone 08/20/2019 12:00:00 A M EST ORAL completed [facility] ([facility]) torsemide 10 MG Oral Tablet Torsemide 08/20/2019 12:00:00 AM EST ORAL completed [facility] ([facility]) Acetylcarnitine 400 MG / Thioctic Acid 200 MG Oral Cap ambrose Acetyl L- Carnitine/Alpha Lipoic Acid 08/07/2019 12:00:00 AM EDT completed MED[facility] ([facility]) Ascorbic Acid 1000 MG Oral Tablet Vitamin C 08/07/2019 12:00:00 AM EDT ORAL completed [facility] ([facility]) Methotrexate 2.5 MG Oral Tablet methotrexate sodium 2. 5 mg tablet methotrexate sodium 2.5 mg tablet 06/23/2019 12:00:00 AM EDT completed TAKE 5 TABLETS BY MOUTH ONCE A WEEK AFTER SUPPER IN THE EVENING [facility] ([facility]) PLEASE NOTE DOSE folic acid 1 mg tablet Folic Acid 1 MG Oral Tablet 12/30/2018 12:00 :00 AM EDT 1.00 {tbl} ORAL completed take 1 tablet by or al route every day [facility] ([facility]) Quinoa Kale & Hemp Oral Liquid Quinoa Kale & Hemp Oral Liqui d 08/15/2018 12:00:00 AM EDT 1 aborted Quino[employer] Kale [employer] Hemp GINI (Erik Gomez MD [facility]) Cyclosporine 0.5 MG/ML Ophthalmic Suspension [Restasis ] Restasis 0.05% OP EMUL Restasis 0.05% OP EMUL 07/31/2014 12:00:00 AM EDT aborted cyclosporine 0.5 MG/ML Ophthalmic Suspension [Restasis] GINI (Erik Gomez MD [facility]) 24 HR venlafaxine 75 MG Extended Release Oral Capsule [Effexor] Effexor XR 75 MG OR CP24 Effexor XR 75 MG OR CP24 07/31/2014 12:00:00 AM EDT 1 aborted 24 HR venlafaxine 75 MG Extended Release Oral Capsule [Effexor] GINI (Erik Gomez MD [facility]) Hydrochlorothiazide 12.5 MG / Losartan P otassium 100 MG Oral Tablet Losartan Potassium-HCTZ 100-12.5 MG OR TABS Losartan Potassium-HCTZ 100-12.5 MG OR TABS 07/31/2014 12:00:00 AM EDT 1 aborted hydrochlorothiazide 12.5 MG / losartan potassium 100 MG Oral Tablet GINI (Erik Gomez MD [facility]) ChoiceFul Multivitamin OR CAPS ChoiceFul Multivitamin OR CAP S 07/31/2014 12:00:00 AM EDT aborted ChoiceF ul Multivitamin GINI (Erik Gomez MD [facility]) [facility] Vitamin D3 1000 UNIT OR CAPS [facility] Vitamin D3 1000 UNIT OR CAPS 07/31/2014 12:00:00 AM EDT 2 aborted [facility] Vit irby D3 GINI (Erik Gomez MD [facility]) aspirin 81 mg Tab ASPIRIN completed take 1 tablet (81MG) by oral route every day [facility] ([facility]) OTC SUPPLEMENTS OTC SUPPLEMENTS completed HEMP OIL [facility] ([facility]) 24 HR venlafaxine 37.5 MG Extended Relea se Oral Tablet venlafaxine ER 37.5 mg 24 hr Tab venlafaxine ER 37.5 mg 24 hr Tab 1.00 {tbl} ORAL completed take 1 tablet (37.5MG) by oral route every day in the morning at the same time each day with food [facility] ([facility]) OTC SUPPLEMENTS OTC SUPPLEMENTS completed HEMP AMIE [facility] ([facility]) Hydrochlorothiazide 12.5 MG / Losartan P otassium 100 MG Oral Tablet losartan 100 mg-hydrochlorothiazide 12.5 mg tablet losartan 100 mg-hydrochlorothiazide 12.5 mg tablet 1.00 {tbl} ORAL completed take 1 tablet by oral route every day [facility] ([facility]) Bisoprolol Fumarate 5 MG / Hydrochloroth iazide 6.25 MG Oral Tablet bisoprolol 5 mg-hydrochlorothiazide 6.25 mg tablet bisoprolol 5 mg-hydrochlorothiazide 6.25 mg tablet 1.00 {tbl} ORAL completed take 1 tablet by oral route every day [facility] ([facility]) Insurance Providers Payer name Policy type / Coverage type Policy ID Covered republican ID Covered republican's relationship to hernandez Policy Hernandez Plan Information MEDICARE [id number] SP [id number] UMR [facility] [id number] SP [id number] MEDICARE C [id number] S [id number] UMR O [id number] S [id number] UMR [facility] [id number] SP [id number] UMR U [id number] Self [id number] MEDICARE A [id number] Self [id number] [employer] [place] Other 0 Self 0 Medicare Part B [facility] Other 0 Se lf 0 UMR U [id number] Self [id number] UMR [facility] [id number] SP [id number] [employer] [place] Other 0 Self 0 Medicare Part B [facility] Other 0 Se lf 0 UMR [id number] Geri [id number] MEDICARE [id number] Geri [id number] D91 UMR [id number] Geri [id number] UMR [id number] Geri [id number] UMR [id number] MEDICARE [id number] Umr (pr) Medigap Part B [id number] Self [id number] Medicare [place] Primary [id number] Self [id number] [place] (pr) Medigap Part B [id number] Self [id number] ANSI-Commercial [id number] ANSI-Commercial [id number] ANSI-Medicare Part B [id number] ANSI-Commercial [id number] ANSI-Medicare Part B [id number] ANSI-Commercial [id number] ANSI-Commercial [id number]-[id number] ANSI-Medicare Part B [id number] ANSI-Commercial [id number] ANSI-Commercial [id number] ANSI-Medicare Part B [id number] ANSI-Commercial [id number] ANSI-Commercial q21xyo9c-[id number]-c1jv-[id number] ANSI-Medicare Part B [id number] ANSI-Commercial [id number]-[id number] [id number] ANSI-Medicare Part B [id number] ANSI-Commercial [id number]-[id number]-[id number]-[id number] ANSI-Commercial [id number] Umr (pr) Medigap Part B [id number] Self [id number] Medicare [facility] Medicare Primary [id number] Self [id number] Umr Medigap Part B [id number] Self [id number] Medicare (Part B) Medicare Primary [id number] Self [id number] ANSI-Commercial [id number] ANSI-Commercial [id number]-[id number] ANSI-Medicare Part B [id number] Medicare Dme Medigap Part B [id number] Self [id number] Medicare Medicare Primary [id number] Self 1 [id number] [facility] Commercial [id number] Self [id number] ANSI-Medicare Part B [id number] ANSI-Commercial [id number]-6t7c-5m0g-[id number] ANSI-Commercial [id number]-[id number] ANSI-Commercial [id number]-[id number]-[id number] ANSI-Commercial [id number]-578m-lqlsifx99e0z [id number] ANSI-Medicare Part B [id number] [facility] Part B [id number] Self [id number] Medicare (Part B) Medicare Primary [id number] Self [id number] ANSI-Commercial [id number] [id number]-[id number] ANSI-Commercial [id number]-[id number] ANSI-Medicare Part B [id number] [facility] Part B [id number] Self [id number] Medicare (Part B) Medicare Primary [id number] Self [id number] ANSI-Medicare Part B [id number] ANSI-Commercial [id number] ANSI-Commercial [id number]-[id number] ANSI-Medicare Part B [id number] ANSI-Commercial [id number]-[id number] ANSI-Commercial [id number]-[id number] ANSI-Medicare Part B [id number] ANSI-Commercial [id number] ANSI-Commercial [id number]-04cy-ss582c3r85cv [id number]-[id number]-39bf-[id number] ANSI-Commercial [id number] ANSI-Medicare Part B [id number] ANSI-Commercial [id number] [id number] Medicare Medicare Primary [id number] Self 1 [id number] ANSI-Commercial [id number] ANSI-Medicare Part B [id number] ANSI-Commercial [id number] ANSI-Commercial [id number] ANSI-Commercial [id number] ANSI-Medicare Part B [id number] ANSI-Commercial [id number] ANSI-Medicare Part B [id number] ANSI-Commercial [id number]-[id number] [id number] ANSI-Medicare Part B [id number] ANSI-Commercial [id number] ANSI-Commercial [id number] MEDICARE [id number] A [facility] Part B [id number] Self [id number] Medicare Natl Gov't [employer]i Medicare Primary [id number] Self [id number] ANSI-Medicare Part B [id number] ANSI-Commercial [id number] ANSI-Commercial [id number] Medicare Part B [facility] Other 0 Se lf 0 MEDICARE C [id number] S [id number] A [facility] C [id number] S [id number] [facility] [id number] SP [id number] [facility] [id number] SP [id number] [facility] [id number] SP [id number] MEDICARE [id number] SP [id number] A [employer] Medigap Part B [id number] Self [id number] Medicare [place]l Gov't [employer] Medicare Primary [id number] Self [id number] [place] Medigap Part B [id number] Self [id number] Medicare [place] Gov[employer] Medicare Primary [id number] Self [id number] [place] Medigap Part B Self Medicare [place]l Gov't [employer] Medicare Primary Self [employer] [id number] SP [id number] [place] (pr) Medigap Part B [place] Self [employer] PPO O [id number] S [id number] Problems, Conditions, and Diagnoses Code Display Name Description Problem Type Effective Dates Data Source(s) 364.71 Adhesions of Iris Posterior Synechiae Ad hesions of Iris Posterior Synechiae Problem 07/02/2020 12:00:00 AM EDT GINI (Isidro ludmila Gomez MD [facility]) 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 Problem 04/22/2020 12:00:00 AM EDT MED ENT ([facility], ) 215148180 Neurogenic claudication Neurogenic claudication Proble m 04/22/2020 12:00:00 AM EDT MEDENT ([facility], ) 386339483 Mild cognitive disorder Mild cognitive disorder Proble m 03/17/2020 12:00:00 AM EDT MEDENT ([facility] ) 397537943 Spondylolysis Spondylolysis Problem 03/17/2020 12:00:00 AM EDT MEDENT ([facility] ) [id number] Low back pain Low back pain Problem 03/17/2020 12:00:00 AM EDT MEDENT ([facility]) [id number] Essential tremor Essential tremor Problem 03/17/2020 12 :00:00 AM EDT MEDENT ([facility]) 39202788 Disorder of pericardium Disorder of pericardium Proble m 10/28/2019 12:00:00 AM EST MEDENT ([facility]) [id number] Long-term current use of insulin (situat ion) Taking Medication For Diabetes Long-term Use of Insulin Problem 10/21/2019 12:00:00 AM EST GINI (Erik Gomez MD [facility]) 870929822 Long-term current use of insulin (situat ion) Taking Medication For Diabetes Long-term Use of Insulin Problem 10/21/2019 12:00:00 AM EST GINI (Erik Gomez MD [facility]) M54.16 Radiculopathy, lumbar region Radiculopathy, lumbar reg ion Diagnosis 04/30/2020 11:37:46 AM [facility] M47.816 Spondylosis without myelopathy or radicu lopathy, lumbar region Spondylosis without myelopathy or radiculopathy, lumbar region Diagnosis 04/30/2020 11:37:46 AM [facility] M54.5 Low back pain Low back pain Diagnosis 04/30/2020 11:37:46 AM [facility] M25.552 Pain in left hip Pain in left hip Diagnosis 04/30/2020 11 :37:46 AM [facility] M25.551 Pain in right hip Pain in right hip Diagnosis 04/30 11:37:46 AM [facility] Surgeries/Procedures Procedure Description Date Indications Data Source(s) OFFICE/OUTPATIENT VISIT, EST 10/25/2020 12:00:00 AM EST - 10/25/2020 12:00:00 AM EST [facility] ([facility]) RBC SED RATE, AUTOMATED 10/25/2020 12:00 :00 AM EST - 10/25/2020 12:00:00 AM EST [facility] ([facility]) C-REACTIVE PROTEIN 10/25/2020 12:00:00 AM EST - 2020 12:00:00 AM EST [facility] ([facility]) ASSAY OF CREATININE 10/25/2020 12:00:00 AM EST - 10/25 12:00:00 AM EST [facility] ([facility]) ASSAY OF SERUM ALBUMIN 10/25/2020 12:00: 00 AM EST - 10/25/2020 12:00:00 AM EST [facility] ([facility]) ALANINE AMINO (ALT) (SGPT) 10/25/2020 12 :00:00 AM EST - 10/25/2020 12:00:00 AM EST [facility] ([facility]) TRANSFERASE (AST) (SGOT) 10/25/2020 12:0 0:00 AM EST - 10/25/2020 12:00:00 AM EST [facility] ([facility]) COMPLETE CBC W/AUTO DIFF WBC 10/25/2020 12:00:00 AM EST - 10/25/2020 12:00:00 AM EST [facility] ([facility]) ROUTINE VENIPUNCTURE 10/25/2020 12:00:00 AM EST - 10/25/2020 12:00:00 AM EST [facility] ([facility]) Amb Glucose Monitoring Interpretation And Report 08/26 12:00:00 AM EST MEDENT ([facility] ) ECG ROUTINE ECG W/LEAST 12 LDS W/I&R 07/27/2020 12:00: 00 AM EDT MEDENT ([facility]) Surgical / procedural history Polyps in Throat - 1976, Broken arm repaired - 2012, Skin Cancer removed from forehead 04/2020, Surgical / procedural history Polyps in Throat - 1976, Broken arm repaired - 2012, Skin Cancer removed from forehead 04/2020, 07/02/2020 12:00:00 AM EDT GINI (Isidro Gomez MD [facility]) Intermediate Eye Exam Established Patient Intermediate Eye Exam Established Patient 07/02/2020 12:00:00 AM DUSTINT GINI (Isidro Gomez MD [facility]) OFFICE/OUTPATIENT VISIT, EST 06/23/2020 12:00:00 AM EDT - 06/23/2020 12:00:00 AM EDT [facility] ([facility]) ASSAY OF SERUM ALBUMIN 06/23/2020 12:00: 00 AM EDT - 06/23/2020 12:00:00 AM EDT [facility] ([facility]) ALANINE AMINO (ALT) (SGPT) 06/23/2020 12 :00:00 AM EDT - 06/23/2020 12:00:00 AM EDT [facility] ([facility]) TRANSFERASE (AST) (SGOT) 06/23/2020 12:0 0:00 AM EDT - 06/23/2020 12:00:00 AM EDT [facility] ([facility]) ASSAY OF CREATININE 06/23/2020 12:00:00 AM EDT - 06/23 12:00:00 AM EDT [facility] ([facility]) C-REACTIVE PROTEIN 06/23/2020 12:00:00 AM EDT - 2019 12:00:00 AM EDT [facility] ([facility]) RBC SED RATE, AUTOMATED 06/23/2020 12:00 :00 AM EDT - 06/23/2020 12:00:00 AM EDT [facility] ([facility]) COMPLETE CBC W/AUTO DIFF WBC 06/23/2020 12:00:00 AM EDT - 06/23/2020 12:00:00 AM EDT [facility] ([facility]) ROUTINE VENIPUNCTURE 06/23/2020 12:00:00 AM EDT - 06/23/2020 12:00:00 AM EDT [facility] ([facility]) Amb Glucose Monitoring Interpretation And Report 05/24 12:00:00 AM EDT MEDENT ([facility]) ECG ROUTINE ECG W/LEAST 12 LDS W/I&R 04/15/2020 12:00: 00 AM EDT MEDENT ([facility]) Needle electromyography, each extremity, with related paraspinal areas, when performed, done with nerve conduction, amplitude and latency/velocity study; complete, five or more muscles studied, innervated by three or more nerves or four or more spinal levels (list separately in addition to the code for primary procedure). 03/29/2020 12:00:00 AM EDT MEDEN T ([facility]) Needle electromyography, each extremity, with related paraspinal areas, when performed, done with nerve conduction, amplitude and latency/velocity study; complete, five or more muscles studied, innervated by three or more nerves or four or more spinal levels (list separately in addition to the code for primary procedure). 03/29/2020 12:00:00 AM EDT MEDEN T ([facility], ) Nerve Conduction 11-12 Studies 03/29/2020 12:00:00 AM EDT MEDENT ([facility] ) MRI BRAIN BRAIN STEM W/O CONTRAST MATERIAL 03/19/2020 12:00:00 AM EDT MEDENT ([facility] ) MRI BRAIN BRAIN STEM W/O CONTRAST MATERIAL 03/19/2020 12:00:00 AM EDT MEDENT ([facility] ) MRI SPINAL CANAL LUMBAR W/O CONTRAST MATERIAL 03/19/20 20 12:00:00 AM EDT MEDENT ([facility] ) MRI SPINAL CANAL LUMBAR W/O CONTRAST MATERIAL 03/19/20 12:00:00 AM EDT MEDENT ([facility] ) OFFICE/OUTPATIENT VISIT, EST 02/23/2020 12:00:00 AM EDT - 02/23/2020 12:00:00 AM EDT [facility] ([facility]) ALANINE AMINO (ALT) (SGPT) 02/23/2020 12 :00:00 AM EDT - 02/23/2020 12:00:00 AM EDT [facility] ([facility]) TRANSFERASE (AST) (SGOT) 02/23/2020 12:0 0:00 AM EDT - 02/23/2020 12:00:00 AM EDT [facility] ([facility]) ASSAY OF CREATININE 02/23/2020 12:00:00 AM EDT - 02/22 12:00:00 AM EDT [facility] ([facility]) C-REACTIVE PROTEIN 02/23/2020 12:00:00 AM EDT - 2019 12:00:00 AM EDT [facility] ([facility]) RBC SED RATE, AUTOMATED 02/23/2020 12:00 :00 AM EDT - 02/23/2020 12:00:00 AM EDT [facility] ([facility]) COMPLETE CBC W/AUTO DIFF WBC 02/23/2020 12:00:00 AM EDT - 02/23/2020 12:00:00 AM EDT [facility] ([facility]) ROUTINE VENIPUNCTURE 02/23/2020 12:00:00 AM EDT - 02/23/2020 12:00:00 AM EDT [facility] ([facility]) Diabetic Foot Exam 01/20/2020 12:00:00 AM EDT MEDENT ([facility] ) ECHO TTHRC R-T 2D W/WOM-MODE COMPL SPEC&COLR DOP 12/22 12:00:00 AM EDT MEDENT ([facility]) OFFICE/OUTPATIENT VISIT, EST 11/25/2019 12:00:00 AM EST - 11/25/2019 12:00:00 AM EST [facility] ([facility]) TRANSFERASE (AST) (SGOT) 11/25/2019 12:0 0:00 AM EST - 11/25/2019 12:00:00 AM EST [facility] ([facility]) ALANINE AMINO (ALT) (SGPT) 11/25/2019 12 :00:00 AM EST - 11/25/2019 12:00:00 AM EST [facility] ([facility]) ASSAY OF SERUM ALBUMIN 11/25/2019 12:00: 00 AM EST - 11/25/2019 12:00:00 AM EST [facility] ([facility]) ASSAY OF CREATININE 11/25/2019 12:00:00 AM EST - 11/25 12:00:00 AM EST [facility] ([facility]) C-REACTIVE PROTEIN 11/25/2019 12:00:00 AM EST - 2019 12:00:00 AM EST [facility] ([facility]) RBC SED RATE, AUTOMATED 11/25/2019 12:00 :00 AM EST - 11/25/2019 12:00:00 AM EST [facility] ([facility]) COMPLETE CBC W/AUTO DIFF WBC 11/25/2019 12:00:00 AM EST - 11/25/2019 12:00:00 AM EST [facility] ([facility]) ROUTINE VENIPUNCTURE 11/25/2019 12:00:00 AM EST - 11/25/2019 12:00:00 AM EST [facility] ([facility]) ECG ROUTINE ECG W/LEAST 12 LDS W/I&R 10/28/2019 12:00: 00 AM EST MEDENT ([facility]) Comprehensive eye exam established patient Comprehensi ve eye exam established patient 10/21/2019 12:00:00 AM EST GINI (Isidro ludmila Gomez MD [facility]) Reported medical history Polymyalgia Rh eumatica Dx: 05/30, Stage 1 kidney failure Reported medical history Polymyalgia Rh eumatica Dx: 05/30, Stage 1 kidney failure 10/21/2019 12:00:00 AM EST GINI (Isidro Gomez MD [facility]) History of diabetes mellitus Dx: 1998, FBS: doesn't check regularly, A1C: 7.2 in June 2018 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 History of diabetes mellitus Dx: 1998, FBS: doesn't check regularly, A1C: 7.2 in June 2018 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 10/21/2019 12:00:00 AM EST GINI (Erik choudhary MD [facility]) History of the retina was normal 03/20/2019 History of the retina was normal 03/20/2019 10/21/2019 12:00:00 AM EST GINI (Isidro Gomez MD [facility]) Comprehensive eye exam established patient Comprehensi ve eye exam established patient 10/21/2019 12:00:00 AM EST GINI (Isidro Gomez MD [facility]) OFFICE/OUTPATIENT VISIT, EST 09/23/2019 12:00:00 AM EST - 09/23/2019 12:00:00 AM EST [facility] ([facility]) TRANSFERASE (AST) (SGOT) 09/23/2019 12:0 0:00 AM EST - 09/23/2019 12:00:00 AM EST [facility] ([facility]) ASSAY OF SERUM ALBUMIN 09/23/2019 12:00: 00 AM EST - 09/23/2019 12:00:00 AM EST [facility] ([facility]) ASSAY OF CREATININE 09/23/2019 12:00:00 AM EST - 09/23 12:00:00 AM EST [facility] ([facility]) RBC SED RATE, AUTOMATED 09/23/2019 12:00 :00 AM EST - 09/23/2019 12:00:00 AM EST [facility] ([facility]) COMPLETE CBC W/AUTO DIFF WBC 09/23/2019 12:00:00 AM EST - 09/23/2019 12:00:00 AM EST [facility] ([facility]) ROUTINE VENIPUNCTURE 09/23/2019 12:00:00 AM EST - 09/23/2019 12:00:00 AM EST [facility] ([facility]) ECHO TTHRC R-T 2D W/WOM-MODE COMPL SPEC&COLR DOP 09/19 12:00:00 AM EST MEDENT ([facility]) ECG ROUTINE ECG W/LEAST 12 LDS W/I&R 09/17/2019 12:00: 00 AM EST MEDENT ([facility]) DESTROY BENIGN/PREMLG LESION 09/09/2019 12:00:00 AM ES T eCW1 ([facility]) DESTROY LESIONS, 2-14 09/09/2019 12:00:00 AM EST eCW1 ([facility]) Results ID Date Data Source [id number] 10/25/2020 11:20:00 AM EST [facility] ([facility]) Name Value Range Interpretation Code Description Data Bobbi rce(s) Supporting Document(s) 0.4 mg/dL 0.0-0.5 CRP Next[facility] ([facility]) ID Date Data Source [id number] 10/25/2020 11:20:00 AM EST [facility] ([facility]) Name Value Range Interpretation Code Description Data Bobbi rce(s) Supporting Document(s) 1.4 mg/dL 0.6-1.2 Above high normal CREATININE [facility] ([facility]) 44.7 mL/min/1.73 eGFR [place] Next[facility] ([facility]) 36.9 mL/min/1.73m eGFR Non- A merican Next[facility] ([facility]) ID Date Data Source [id number] 10/25/2020 11:20:00 AM EST [facility] ([facility]) Name Value Range Interpretation Code Description Data Bobbi rce(s) Supporting Document(s) 13 U/L 15-37 Below low normal AST Next[facility] ([facility]) ID Date Data Source [id number] 10/25/2020 11:20:00 AM EST [facility] ([facility]) Name Value Range Interpretation Code Description Data Bobbi rce(s) Supporting Document(s) 25 U/L 30-65 Below low normal ALT [facility] ([facility]) ID Date Data Source [id number] 10/25/2020 11:20:00 AM EST [facility] ([facility]) Name Value Range Interpretation Code Description Data Bobbi rce(s) Supporting Document(s) 3.7 g/dL 3.4-4.4 ALB [facility] ([facility]) ID Date Data Source [id number] 10/25/2020 11:20:00 AM EST [facility] ([facility]) Name Value Range Interpretation Code Description Data Bobbi rce(s) Supporting Document(s) 51 mm/Hr 0-20 Above high normal ESR [facility] ([facility]) ID Date Data Source [id number] 10/25/2020 11:20:00 AM EST [facility] ([facility]) Name Value Range Interpretation Code Description Data Bobbi rce(s) Supporting Document(s) 7.5 10*3/uL 3.7-10.1 WBC [facility] ([facility]) 4.22 10*6/uL 3.50-5.50 RBC [facility] ([facility]) 12.2 g/dL 12.0-16.0 HGB [facility] ([facility]) 38.4 % 36.0-48.0 HCT [facility] ([facility]) 28.8 pg 26.0-34.0 MCH [facility] ([facility]) 91.0 fL 80.0-100.0 MCV [facility] ([facility]) 31.7 g/dL 31.0-37.0 MCHC [facility] ([facility]) 14.6 % 10.0-15.0 RDW [facility] ([facility]) 5.09 10*3/uL 2.10-8.00 GRIS# [facility] ([facility]) 6.2 fL 6.0-10.0 MPV [facility] ([facility]) 316 10*3/uL 150-500 PLATELETS [facility] ([facility]) 0.71 10*3/uL 0.10-1.00 MONO# [facility] ([facility]) 0.1 10*3/uL 0.0-0.5 EOS# [facility] ([facility]) 1.54 10*3/uL 1.00-5.00 LYM# [facility] ([facility]) 67.6 % 50.0-80.0 GRIS% [facility] ([facility]) 0.1 10*3/uL 0.0-0.2 BASO# [facility] ([facility]) 20.5 % 25.0-50.0 Below low normal LYM% [facility] ([facility] 1.6 % 0.0-5.0 EOS% [facility] 9.5 % 2.0-10.0 MONO% [facility] ([facility]) 0.9 % 0.0-4.0 BASO% [facility] ([facility] ID Date Data Source [id number] 10/01/2020 12:00:00 AM [facility] Aliyah Nataliemandiejames [facility] Patient Name: LULA [id number] Date of : 1945[place] [address] Date of Exam: 10/01/2020#: Fax: [phone] EXAM: US RETROPERITONEAL, COMPLETE(RENAL/AORTA)CLINICAL INFORMATION: Frequent urination.Realtime sonographic evaluation of the kidneys is performed.The kidneys are normal in size and echo texture, right kidney measuring 9.8x 4.7 x 4.8 cm and left kidney 11.5 x 4.8 x 4.1 cm. There is nohydronephrosis bilaterally. There is a cyst in the mid-aspect of the rightkidney 1.1 cm in maximum diameter.Urinary bladder measures 6.8 x 3.7 x 5.7 cm for a total volume of 74 cc.No definite mass or calculus is seen. Ureteral jets could not bevisualized with Doppler color evaluation. There is no post void residualin the urinary bladder after voiding.IMPRESSION:No hydronephrosis. Right renal cyst 1.1 cm in diameter. Urinary bladderis grossly unremarkable.Accredited by the [employer] in General Ultrasound.GRECIA Acharya/Catalino you for referring LULA CEJA to our office. Electronically Signed - TOO HUTCHINSON MD 10/01/20 14:36 Name Value Range Interpretation Code Description Data Bobbi rce(s) Supporting Document(s) ID Date Data Source [id number] 08/26/2020 11:41:00 AM EST [facility] ([facility]) Name Value Range Interpretation Code Description Data Bobbi rce(s) Supporting Document(s) Hemoglobin A1c/Hemoglobin.total in Blood 6.2 [facility] ([facility]) Glucose [Mass/volume] in Serum or Plasma 99 [facility] ([facility]) ID Date Data Source [id number] 07/24/2020 10:58:00 AM EDT [facility] ([facility]) Name Value Range Interpretation Code Description Data Bobbi rce(s) Supporting Document(s) Natriuretic peptide.B prohormone N-Terminal [Mass/volu me] in Serum or Plasma 260 pg/mL [facility] ([facility]) ID Date Data Source [id number] 07/24/2020 10:58:00 AM EDT [facility] ([facility]) Name Value Range Interpretation Code Description Data Bobbi rce(s) Supporting Document(s) Glucose, Fasting 160 mg/dL 70-100 [facility] ([facility]) Glomerular Filtration Rate 41.6 [facility] ([facility]) <content>Units are mL/min/1.73 m2</content>
<content></content>
<content>Chronic Kidney Disease Staging per NKF:</content>
<content></content>
<content>Stage I & II GFR >=60 Normal to Mildly Decreased</content>
<content>Stage III GFR 30- 59 Moderately Decreased</content>
<content>Stage IV GFR 15-29 Severely Decreased</content>
<content>Stage V GFR <15 Very Little GFR Left</content>
<content>ESRD GFR <15 on COOK CHEF</content>
<content></content> Creatinine For GFR 1.33 mg/dL 0.55-1.30 [facility] ([facility], ) Blood Urea Nitrogen 39 mg/dL 7-18 [facility] ([facility], ) Sodium Level 137 meq/L 136-145 [facility] ([facility], ) Potassium Serum 4.8 meq/L 3.5-5.1 [facility] ([facility], ) Anion Gap 7 meq/L 8-16 [facility] ([facility], ) Chloride Level 98 meq/L 98-107 [facility] ([facility], ) Carbon Dioxide Level 32 meq/L 21-32 [facility] ([facility], ) Calcium Level 8.9 mg/dL 8.8-10.2 [facility] ([facility], ) Phosphorus Level 4.0 mg/dL 2.5-4.9 [facility] ([facility], ) Albumin 3.5 GM/DL 3.2-5.2 [facility] ([facility], ) ID Date Data Source [id number] 07/24/2020 10:58:00 AM EDT [facility] ([facility] ) Name Value Range Interpretation Code Description Data Bobbi rce(s) Supporting Document(s) Natriuretic peptide.B prohormone N-Terminal [Mass/volu me] in Serum or Plasma 260 pg/mL [facility] ([facility] ) ID Date Data Source [id number] 07/24/2020 10:58:00 AM EDT [facility] ([facility] ) Name Value Range Interpretation Code Description Data Bobbi rce(s) Supporting Document(s) Glucose, Fasting 160 mg/dL 70-100 [facility] ([facility]) Blood Urea Nitrogen 39 mg/dL 7-18 [facility] Creatinine For GFR 1.33 mg/dL 0.55-1.30 [facility] ([facility]) Potassium Serum 4.8 meq/L 3.5-5.1 [facility] ([facility]) Glomerular Filtration Rate 41.6 MED ENT ([facility]) <content>Units are mL/min/1.73 m2</content>
<content></content>
<content>Chronic Kidney Disease Staging per NKF:</content>
<content></content>
<content>Stage I & II GFR >=60 Normal to Mildly Decreased</content>
<content>Stage III GFR 30- 59 Moderately Decreased</content>
<content>Stage IV GFR 15-29 Severely Decreased</content>
<content>Stage V GFR <15 Very Little GFR Left</content>
<content>ESRD GFR <15 on COOK CHEF</content>
<content></content> Sodium Level 137 meq/L 136-145 [facility] Anion Gap 7 meq/L 8-16 [facility] Carbon Dioxide Level 32 meq/L 21-32 [facility] ([facility]) Chloride Level 98 meq/L 98-107 [facility] Calcium Level 8.9 mg/dL 8.8-10.2 [facility] ([facility]) Albumin 3.5 GM/DL 3.2-5.2 [facility] ([facility]) Phosphorus Level 4.0 mg/dL 2.5-4.9 [facility] ([facility]) ID Date Data Source [id number] 07/24/2020 10:58:00 AM EDT [facility] ([facility]) Name Value Range Interpretation Code Description Data Bobbi rce(s) Supporting Document(s) Red Blood Count 3.97 10 4.00-5.40 [facility] ([facility]) White Blood Count 6.8 10 4.0-10.0 [facility] ([facility]) Hemoglobin 11.3 g/dL 12.0-15.5 [facility] Mean Corpuscular Hemoglobin 28.5 pg 27.0-33.0 [facility] ([facility]) Mean Corpuscular Volume 92.9 fl 80.0-96.0 M EDENT ([facility]) Hematocrit 36.9 % 36.0-47.0 [facility] ([facility]) Platelet Count, Automated 308 10 150-450 [facility] ([facility]) Mean Corpuscular HGB Conc 30.6 g/dL 32.0-36.5 [facility] ([facility]) Red Cell Distribution Width 14.1 % 11.5-14.5 [facility] ([facility]) Neutrophils % 63.6 % 36.0-66.0 [facility] ([facility]) Nance % 8.5 % 0.0-5.0 [facility] Lymph % 23.7 % 24.0-44.0 [facility] Eos % 2.1 % 0.0-3.0 [facility] ([facility] Baso % 1.2 % 0.0-1.0 [facility] Immature Granulocyte % 0.9 % 0-3.0 [facility] ([facility]) Nucleated Red Blood Cell % 0.0 % 0-0 MED ENT ([facility]) Neutrophils # 4.3 10 1.5-8.5 [facility] ([facility]) Lymph # 1.6 10 1.5-5.0 [facility] Nance # 0.6 10 0.0-0.8 [facility] Eos # 0.1 10 0.0-0.5 [facility] Baso # 0.1 10 0.0-0.2 [facility] ID Date Data Source [id number] 07/24/2020 10:58:00 AM EDT [facility] ([facility]) Name Value Range Interpretation Code Description Data Bobbi rce(s) Supporting Document(s) Natriuretic peptide.B prohormone N-Terminal [Mass/volu me] in Serum or Plasma 260 pg/mL [facility] ([facility]) ID Date Data Source [id number] 07/24/2020 10:58:00 AM EDT [facility] ([facility]) Name Value Range Interpretation Code Description Data Bobbi rce(s) Supporting Document(s) Glucose, Fasting 160 mg/dL 70-100 [facility] ([facility]) Blood Urea Nitrogen 39 mg/dL 7-18 [facility] ([facility]) Creatinine For GFR 1.33 mg/dL 0.55-1.30 [facility] ([facility]) Glomerular Filtration Rate 41.6 MED E[facility] ([facility]) <content>Units are mL/min/1.73 m2</content>
<content></content>
<content>Chronic Kidney Disease Staging per NKF:</content>
<content></content>
<content>Stage I & II GFR >=60 Normal to Mildly Decreased</content>
<content>Stage III GFR 30- 59 Moderately Decreased</content>
<content>Stage IV GFR 15-29 Severely Decreased</content>
<content>Stage V GFR <15 Very Little GFR Left</content>
<content>ESRD GFR <15 on COOK CHEF</content>
<content></content> Sodium Level 137 meq/L 136-145 [facility] ([facility]) Potassium Serum 4.8 meq/L 3.5-5.1 [facility] ([facility]) Chloride Level 98 meq/L 98-107 [facility] ([facility]) Carbon Dioxide Level 32 meq/L 21-32 [facility] ([facility]) Anion Gap 7 meq/L 8-16 [facility] Calcium Level 8.9 mg/dL 8.8-10.2 [facility] ([facility]) Phosphorus Level 4.0 mg/dL 2.5-4.9 [facility] ([facility]) Albumin 3.5 GM/DL 3.2-5.2 [facility] ([facility] [place]) ID Date Data Source [id number] 06/23/2020 10:07:00 AM EDT [facility] ([facility]) Name Value Range Interpretation Code Description Data Bobbi rce(s) Supporting Document(s) <0.2 0.0-0.5 CRP [facility] ([facility]) ID Date Data Source [id number] 06/23/2020 10:07:00 AM EDT [facility] ([facility]) Name Value Range Interpretation Code Description Data Bobbi rce(s) Supporting Document(s) 1.4 mg/dL 0.6-1.2 Above high normal CREATININE [facility] ([facility]) 36.9 mL/min/1.73m eGFR [facility] ([facility]) ID Date Data Source [id number] 06/23/2020 10:07:00 AM EDT [facility] ([facility]) Name Value Range Interpretation Code Description Data Bobbi rce(s) Supporting Document(s) 21 U/L 15-37 AST [facility] ([facility]) ID Date Data Source [id number] 06/23/2020 10:07:00 AM EDT [facility] ([facility]) Name Value Range Interpretation Code Description Data Bobbi rce(s) Supporting Document(s) 22 U/L 30-65 Below low normal ALT [facility]) ID Date Data Source [id number] 06/23/2020 10:07:00 AM EDT [facility] ([facility]) Name Value Range Interpretation Code Description Data Bobbi rce(s) Supporting Document(s) 3.8 g/dL 3.4-4.4 ALB [facility] ([facility]) ID Date Data Source [id number] 06/23/2020 10:07:00 AM EDT [facility] ([facility]) Name Value Range Interpretation Code Description Data Bobbi rce(s) Supporting Document(s) 56 mm/Hr 0-20 Above high normal ESR [facility] ([facility]) ID Date Data Source [id number] 06/23/2020 10:07:00 AM EDT [facility] ([facility]) Name Value Range Interpretation Code Description Data Bobbi rce(s) Supporting Document(s) 7.3 10*3/uL 3.7-10.1 WBC [facility] ([facility]) 12.5 g/dL 12.0-16.0 HGB [facility] 38.8 % 36.0-48.0 HCT [facility] ([facility] 4.23 10*6/uL 3.50-5.50 RBC [facility] 32.3 g/dL 31.0-37.0 MCHC [facility] ([facility]) 29.6 pg 26.0-34.0 MCH [facility] ([facility]) 91.7 fL 80.0-100.0 MCV [facility] ([facility]) 6.8 fL 6.0-10.0 MPV [facility] ([facility]) 311 10*3/uL 150-500 PLATELETS [facility] ([facility]) 14.1 % 10.0-15.0 RDW [facility]) 1.37 10*3/uL 1.00-5.00 LYM# [facility] ([facility] 5.04 10*3/uL 2.10-8.00 GRIS# [facility] ([facility]) 0.1 10*3/uL 0.0-0.5 EOS# [facility] ([facility]) 68.8 % 50.0-80.0 GRIS% [facility] 0.1 10*3/uL 0.0-0.2 BASO# [facility] ([facility]) 0.71 10*3/uL 0.10-1.00 MONO# [facility] ([facility] 1.6 % 0.0-5.0 EOS% [facility] 18.7 % 25.0-50.0 Below low normal LYM% [facility] ([facility]) 9.7 % 2.0-10.0 MONO% [facility] 1.2 % 0.0-4.0 BASO% [facility] ([facility]) ID Date Data Source [id number] 06/03/2020 02:04:00 PM EDT [facility] ([facility]) Name Value Range Interpretation Code Description Data Bobbi rce(s) Supporting Document(s) Glucose, Fasting 151 mg/dL 70-100 [facility] ([facility]) Creatinine For GFR 1.35 mg/dL 0.55-1.30 [facility] ([facility]) Blood Urea Nitrogen 38 mg/dL 7-18 [facility] ([facility]) Glomerular Filtration Rate 40.9 MED ENT ([facility]) <content>Units are mL/min/1.73 m2</content>
<content></content>
<content>Chronic Kidney Disease Staging per NKF:</content>
<content></content>
<content>Stage I & II GFR >=60 Normal to Mildly Decreased</content>
<content>Stage III GFR 30- 59 Moderately Decreased</content>
<content>Stage IV GFR 15-29 Severely Decreased</content>
<content>Stage V GFR <15 Very Little GFR Left</content>
<content>ESRD GFR <15 on COOK CHEF</content>
<content></content> Potassium Serum 5.1 meq/L 3.5-5.1 [facility] ([facility]) Sodium Level 137 meq/L 136-145 [facility] ([facility]) Carbon Dioxide Level 37 meq/L 21-32 [facility] ([facility]) Anion Gap 0 meq/L 8-16 [facility]) Chloride Level 100 meq/L 98-107 [facility] ([facility]) Calcium Level 9.4 mg/dL 8.8-10.2 [facility] ID Date Data Source [id number] 06/03/2020 09:37:00 AM EDT [facility] ([facility]) Name Value Range Interpretation Code Description Data Bobbi rce(s) Supporting Document(s) Glucose 151 70-100 [facility] ([facility]) Blood Urea Nitrogen 38 7-18 [facility] ([facility]) Potassium 5.1 3.5-5.1 [facility] ([facility]) Sodium 137 136-145 [facility] ([facility]) Creatinine 1.35 0.55-1.30 [facility] ([facility]) Carbon Dioxide 37 21-32 [facility] ([facility]) Chloride 100 98-107 [facility] ([facility]) Calcium 9.4 8.2-9.6 [facility] ([facility]) Glomerular filtration rate/1.73 sq M.pre dicted [Volume Rate/Area] in Serum or Plasma by Creatinine-based formula (MDRD) 40.9 [facility] ([facility]) ID Date Data Source [id number] 05/24/2020 10:45:00 AM EDT [facility] ([facility]) Name Value Range Interpretation Code Description Data Bobbi rce(s) Supporting Document(s) Hemoglobin A1c/Hemoglobin.total in Blood 6.2 [facility] ([facility]) Glucose [Mass/volume] in Serum or Plasma 113 [facility] ([facility]) ID Date Data Source [id number] 05/14/2020 03:29:00 PM EDT [facility] ([facility]) Name Value Range Interpretation Code Description Data Bobbi rce(s) Supporting Document(s) Magnesium Level 2.05 [facility] ([facility]) ID Date Data Source [id number] 05/14/2020 03:29:00 PM EDT [facility] ([facility]) Name Value Range Interpretation Code Description Data Bobbi rce(s) Supporting Document(s) White Blood Count 6.9 [facility] ([facility]) Platelets 376 [facility] ([facility]) Red Blood Count 3.97 [facility] ([facility] [place]) Hemoglobin 12.2 [facility] ([facility]) Hematocrit 35.9 [facility] ([facility]) ID Date Data Source [id number] 05/14/2020 03:29:00 PM EDT [facility] Name Value Range Interpretation Code Description Data Bobbi rce(s) Supporting Document(s) Glomerular filtration rate/1.73 sq M.pre dicted [Volume Rate/Area] in Serum or Plasma by Creatinine-based formula (MDRD) 47 [facility] ([facility] [place]) Blood Urea Nitrogen 36.3 [facility] ([facility]) Glucose 155 [facility] [place] Creatinine 1.13 [facility] ([facility]) Potassium 4.76 [facility] ([facility] [place] Chloride 98.0 [facility] ([facility] [place] Sodium 137.3 [facility] ([facility] [place] Calcium 9.98 [facility] ([facility] [place] Phosphorus 3.75 [facility] ([facility] [place]) Carbon Dioxide 30.3 [facility] ([facility]) Albumin 4.3 [facility] ([facility] [place] ID Date Data Source [id number] 05/10/2020 08:54:26 AM EDT [facility] XR PELVIS 3 VIEWS [id number] RESULTInter preted by:Ketan Tobin MDPelvis 3 viewsINDICATION: Low back painFINDINGS: Frontal view of the pelvis was obtained along with slight oblique views of the pelvis. There are no prior films for comparison. Examination shows no acute fracture or dislocation. There is mild arthritic change involving hip joints and SI joints. The bones appear to be normally mineralized. There is spur formation involving the greater trochanters.IMPRESSION: No acute osseous abnormality. Mild arthritic changes as described. If patient's symptoms persist, MRI examination may help to further evaluate.This document has been electronically signed by Ketan Tobin MD on 05/10/2020 8:52 AM Name Value Range Interpretation Code Description Data Bobbi rce(s) Supporting Document(s) ID Date Data Source [id number] 05/06/2020 09:33:52 AM EDT [facility] XR SPINE LUMBAR 4-MORE VIEWS [id number] RESULTInterpreted by:Dwayne Hernandez MDHONORHE[facility] SPINECLINICAL STATEMENT: Low back pain.TECHNIQUE: AP, lateral, and flexion-extension views of the lumbar spine. COMPARISON: NoneFINDINGS:No acute fracture or subluxation is identified. There is grade 1 anterolisthesis at L4-L5 measuring 2 mm, stable on flexion extension views.Otherwise, normal vertebral body heights and alignment are maintained. Mild degenerative disc space narrowing and moderate facet arthropathy is noted at L4-L5 and L5-S1.Otherwise, normal intervertebral disc spaces are preserved.IMPRESSION:Grade 1 anterolisthesis at L4-L5, stable on flexion extension views.Mild degenerative disc disease and moderate facet arthropathy at L4-L5 and L5-S1.This document has been electronically signed by Dwayne Hernandez MD on 05/06/2020 9:31 AM Name Value Range Interpretation Code Description Data Bobbi rce(s) Supporting Document(s) ID Date Data Source [id number] 04/30/2020 04:30:17 PM EDT [facility] Name Value Range Interpretation Code Description Data [facility] rce(s) Supporting Document(s) Progress Note [facility] RQERDl1aGvEYDwLy27/NQFkfAVNag0XzIThkOOp4CFqoYXWzD4OzBHC2bX7bVJF4ALpLRnVgMtMoEbV1 lbm [file] [facility]+Fb988Rtc+36bt4pc2fFefxLxWRPA/gXdXw/GKMCKAxmB0gTiDoiQklOrhyvMoBn7bsXnR8/G2C0w [file] ICAgICAgICAgICAgICAgICAgICAgICAgICAgICAgICAgICAgICAgICAgICAgICAgICAgICAgICAgICAg ICAgICAgICAgICAgICAgICAgICAgICAgICAgICANCi AgICAgICAgICAgICAgICAgICAgICAgICAgICAgICAgICAgICAgICAgICAgICAgICAgICAgICAgICAgIC AgICAgICAgICAgICAgICAgICAgICAgICAgICAgICAgICAgICAgICANCiAgICAgICAgICAgICAgICAgIC AgICAgICAgICAgICAgICAgICAgICAgICAgICAgICAg ICAgICAgICAgICAgICAgICAgICAgICAgICAgICAgICAgICAgICAgICAgICAgICAgICANCiAgICAgICAg ICAgICAgICAgICAgICAgICAgICAgICAgICAgICAgICAgICAgICAgICAgICAgICAgICAgICAgICAgICAg ICAgICAgICAgICAgICAgICAgICAgICAgICAgICAgIC ANCiAgICAgICAgICAgICAgICAgICAgICAgICAgICAgICAgICAgICAgICAgICAgICAgICAgICAgICAgIC AgICAgICAgICAgICAgICAgICAgICAgICAgICAgICAgICAgICAgICAgICANCiAgICAgICAgICAgICAgIC AgICAgICAgICAgICAgICAgICAgICAgICAgICAgICAg ICAgICAgICAgICAgICAgICAgICAgICAgICAgICAgICAgICAgICAgICAgICAgICAgICAgICANCiAgICAg ICAgICAgICAgICAgICAgICAgICAgICAgICAgICAgICAgICAgICAgICAgICAgICAgICAgICAgICAgICAg ICAgICAgICAgICAgICAgICAgICAgICAgICAgICAgIC AgICANCiAgICAgICAgICAgICAgICAgICAgICAgICAgICAgICAgICAgICAgICAgICAgICAgICAgICAgIC AgICAgICAgICAgICAgICAgICAgICAgICAgICAgICAgICAgICAgICAgICAgICANCiAgICAgICAgICAgIC AgICAgICAgICAgICAgICAgICAgICAgICAgICAgICAg ICAgICAgICAgICAgICAgICAgICAgICAgICAgICAgICAgICAgICAgICAgICAgICAgICAgICAgICANCiAg ICAgICAgICAgICAgICAgICAgICAgICAgICAgICAgICAgICAgICAgICAgICAgICAgICAgICAgICAgICAg ICAgICAgICAgICAgICAgICAgICAgICAgICAgICAgIC AgICAgICANCjw/oINlM5pzgQFweqF9C3zxXp9JTy5EYG7wq0YoUOMpOVpjpuDgTofITxXjXSGkZmyDXp j6ZGyzTH2PyEObO9NaU2YeAZhmZL0ISZTxLVEdhDZiIHFeEOZoOaB2OQLvNEoxOV5KuWObVZqcIOEeUG IgNyAwIFIgOSAwIFIgMTEgMCBSIDEzIDAgUiBdDQog WN3Pi2SjxOD8LWi+Hn5ZFP3wh1SlLLxvGEIpCX1oja0ADGtYKgFjB9HdlrE4KXK3VQUhFo7JGIMbPEXp zHXyTSBeJMJMYbWcE4ZepC69AHOWAl0+TVoqlrXcSldNTsT1QFLki8QfYZt4FJ6KXBDuODs1wTWxEIYv H2Fgo5PcQn02YBQjLrqgOyBluSwpUJ4fKMQfvOZwLR osKISuITVoFd9lDe1qTGOjZLAfSwAyALJVAA3VWIGzKVNmnUYyYTJvIPXOFZ6ODKzpTNG7ADGlxqLwfT UlCHimDS5BOMZoxxRzNgswBVYJDBu+Lz0IGG2uh4XpHOt8FGZjIV6asn8FBZsFRiUeZ4R1tJEqA7Q1NQ cwTz4RWQUqBAQoVbBvJKMWAJlyKP3AMR7mbbF6WF5U tGTmQGMeAFXcmPAaISj8E94euCAxNCyuXW7PVVG+Kimberlee+Yg6ETBWzJKQoHZQtDoHuXGREWgEeQ5OsC2RN b8KhK6DhXN80cXsmkxDsBKplAC3IAX1rXUQkJWPFPP1MlYPfeY8qhiSjDVDzYCZCRxMxI29yaPGdFGJl JFP8CPSrMr9MAMYeR5JxsyEriVhluuHeNTNnGVUBEV 3SSItrmhWnsCVyhXriSS76bYlqBH2HVl6PNkPlMP3rpc1XlYGeLc8PDSK7LK7QCQNrTWWxJHLdSWY1CN LsGdYmSMqkEFCoYSDtROI3LOIwXNPpDF8VTdWhHEYuNfG5UDReIWDmSLSkah1DAYVaGXAtPFT5PqJcAF WeILKfIZwcUOBsETVhSSI2OSTqDYNdDN4LSaObMHIe GIUrTAHzXKPyAYHpeu0MNBAtKMGuHcU3JQAlLVSuUWVhQBpvNNHjJAZ3IiEeLBJzHMWwXB6RFwNdQZOe BFE9ITZlTFThFRXmvw5KSEWlGSZqKDH3DIOjJVHkQNXrVLcrOFCoBSU4Msn1QJZoEVVlND0ZZnQbCCFl VSBzMZYpCYMuCOFbck9JJXSiHDRuSeJfSyWcADNnAB MkNUzxGJEfRVSdNFJ2ZYJhCPPoML0BXeOsHTAcFTSwYYIbVMXpWCIwwr2PWYLxUQEtUGAgIUWjKVGzWP QoNVeeFULxUVZ8MxWgXTTzEPYsAT8AMyYtXUWsMWD3DKYpAMUiNGPfsu5BXOSmAHEcEcT2LDRbRSUcDJ MzLKlnISKxFUQ6AzA1IOAzBMTmYL6IJmUeCFMgVQF9 RaAeMSBsULEiap0ORHGeUCHrUDQ1LMRyWGUuGEOtLHolCOKcDDF6EVf2ZTHiLHIkIT9IPhPrCOGrQzl0 OYplHTJfEJSpit8MFZBlTAUkPYP9YHRlKEWpKIWmFHzcLPFmRQZ8IQh9PWFkJLByMA2PIdOcSBOpUmPe OkrrDXPpNKAlbv0NBEAdRXZyCMYhZkHmIADcOAOwJH mzPCFwDEAbKAW6CSVbBLHuKG1WIuKvNFVaYjAkRyIfMOHgWIHxle3ISESkTNCnDBX2WCMhDPBvIORoSC coFLPySXR0EGq8XYIkLUGlZL2RCxXbNEGyWrEgHZIhJHPrWPAwzy9DUWIhDBOeQbT1HSKhQXXiIQGnYX rySRQiPWU8XID3GGPyFQQuYB2NCwNlHXMtMxQ2IInv RVXhLAMmux8PSOIzBUUoAdw5ATExHCNgWTKrEQimUCHnYOE1OrWlGKUlLTUzNP2BQhLmPIUsXmi1HLcr XHYnDRQdno4NJHNrMXIaCQk1OLOhCNOgGGEqWBviOVSaOUK6KSB6XHKhIRZyZY4MScBqPMpcOCYPBcc9 ZDntK7s3OSW3JQ1YW4Gtf2ZtSYOcQGCCEXcfRL7cre YbKDEuNh2ZV8nULuhdPsVhGQNvGfWhXZL6XvGwHRW8Fih3PVKpMVh1NsBmHR4iUWPdTZOdPPOoVlCqJr FhDLDjEXubIUi1UIL3Lmz1EvX3MeUoOV9ULy8KWbI8OCB2xHCnYh0IWhosUuJBGjDxVD0XIRf= ID Date Data Source [id number] 04/16/2020 09:53:00 AM EDT [facility] ([facility] ) Name Value Range Interpretation Code Description Data Bobbi rce(s) Supporting Document(s) Natriuretic peptide.B prohormone N-Terminal [Mass/volu me] in Serum or Plasma 476 pg/mL [facility] ([facility]) Magnesium [Mass/volume] in Serum or Plasma 2.3 mg/dL 1.8-2.4 [facility] ([facility], ) ID Date Data Source [id number] 04/16/2020 09:53:00 AM EDT [facility] ([facility]) Name Value Range Interpretation Code Description Data Bobbi rce(s) Supporting Document(s) Blood Urea Nitrogen 46 mg/dL 7-18 [facility] ([facility], ) Glucose, Fasting 147 mg/dL 70-100 [facility] ([facility], ) Creatinine For GFR 1.46 mg/dL 0.55-1.30 [facility] ([facility], ) Sodium Level 136 meq/L 136-145 [facility] ([facility], ) Potassium Serum 4.6 meq/L 3.5-5.1 [facility] ([facility]) Glomerular Filtration Rate 37.5 MED [facility] ([facility]) <content>Units are mL/min/1.73 m2</content>
<content></content>
<content>Chronic Kidney Disease Staging per NKF:</content>
<content></content>
<content>Stage I & II GFR >=60 Normal to Mildly Decreased</content>
<content>Stage III GFR 30- 59 Moderately Decreased</content>
<content>Stage IV GFR 15-29 Severely Decreased</content>
<content>Stage V GFR <15 Very Little GFR Left</content>
<content>ESRD GFR <15 on COOK CHEF</content>
<content></content> Chloride Level 100 meq/L 98-107 [facility] ([facility], ) Anion Gap 7 meq/L 8-16 [facility] ([facility]) Carbon Dioxide Level 29 meq/L 21-32 [facility] ([facility]) Ast/Sgot 17 U/L 7-37 [facility] ([facility]) Alt/SGPT 24 U/L 12-78 [facility] ([facility]) Calcium Level 9.4 mg/dL 8.8-10.2 [facility] ([facility]) Bilirubin,Total 0.4 mg/dL 0.2-1.0 [facility] ([facility]) Alkaline Phosphatase 101 U/L 45-117 [facility] ([facility]) Albumin 3.7 GM/DL 3.2-5.2 [facility] ([facility]) Total Protein 7.0 GM/DL 6.4-8.2 [facility] ([facility]) Albumin/Globulin Ratio 1.1 1.2-2.2 [facility] ([facility]) ID Date Data Source [id number] 04/16/2020 09:53:00 AM EDT [facility] ([facility]) Name Value Range Interpretation Code Description Data Bobbi rce(s) Supporting Document(s) White Blood Count 7.6 10 4.0-10.0 [facility] ([facility], ) Hemoglobin 11.8 g/dL 12.0-15.5 [facility] ([facility], ) Hematocrit 36.7 % 36.0-47.0 [facility] ([facility], ) Red Blood Count 3.93 10 4.00-5.40 [facility] ([facility], ) Mean Corpuscular HGB Conc 32.2 g/dL 32.0-36.5 [facility] Neurology, ) Mean Corpuscular Hemoglobin 30.0 pg 27.0-33.0 MEDENT ([facility], ) Mean Corpuscular Volume 93.4 fl 80.0-96.0 M EDENT ([facility] Neurology, ) Red Cell Distribution Width 14.2 % 11.5-14.5 MEDENT ([facility], ) Nucleated Red Blood Cell % 0.0 % 0-0 MED ENT ([facility], ) Platelet Count, Automated 342 10 150-450 [facility] ([facility], ) ID Date Data Source [id number] 04/16/2020 09:53:00 AM EDT [facility] ([facility]) Name Value Range Interpretation Code Description Data Bobbi rce(s) Supporting Document(s) Magnesium [Mass/volume] in Serum or Plasma 2.3 mg/dL 1.8-2.4 [facility] ) Natriuretic peptide.B prohormone N-Terminal [Mass/volu me] in Serum or Plasma 476 pg/mL [facility] ([facility]) ID Date Data Source [id number] 04/16/2020 09:53:00 AM EDT [facility] ([facility] ) Name Value Range Interpretation Code Description Data Bobbi rce(s) Supporting Document(s) Glucose, Fasting 147 mg/dL 70-100 [facility] ([facility]) Blood Urea Nitrogen 46 mg/dL 7-18 MED[facility] ([facility]) Sodium Level 136 meq/L 136-145 [facility] ([facility]) Glomerular Filtration Rate 37.5 MED ENT ([facility]) <content>Units are mL/min/1.73 m2</content>
<content></content>
<content>Chronic Kidney Disease Staging per NKF:</content>
<content></content>
<content>Stage I & II GFR >=60 Normal to Mildly Decreased</content>
<content>Stage III GFR 30- 59 Moderately Decreased</content>
<content>Stage IV GFR 15-29 Severely Decreased</content>
<content>Stage V GFR <15 Very Little GFR Left</content>
<content>ESRD GFR <15 on COOK CHEF</content>
<content></content> Creatinine For GFR 1.46 mg/dL 0.55-1.30 [facility] ([facility]) Carbon Dioxide Level 29 meq/L 21-32 [facility]) Chloride Level 100 meq/L 98-107 [facility] ([facility]) Potassium Serum 4.6 meq/L 3.5-5.1 [facility] ([facility]) Anion Gap 7 meq/L 8-16 [facility]) Calcium Level 9.4 mg/dL 8.8-10.2 [facility] ([facility]) Ast/Sgot 17 U/L 7-37 [facility] ([facility]) Bilirubin,Total 0.4 mg/dL 0.2-1.0 [facility] ([facility]) Alt/SGPT 24 U/L 12-78 [facility] ([facility]) Alkaline Phosphatase 101 U/L 45-117 [facility]) Albumin/Globulin Ratio 1.1 1.2-2.2 [facility] ([facility]) Total Protein 7.0 GM/DL 6.4-8.2 [facility] ([facility]) Albumin 3.7 GM/DL 3.2-5.2 [facility] ([facility]) ID Date Data Source [id number] 04/16/2020 09:53:00 AM EDT [facility] ([facility]) Name Value Range Interpretation Code Description Data Bobbi rce(s) Supporting Document(s) Red Blood Count 3.93 10 4.00-5.40 [facility] ([facility]) White Blood Count 7.6 10 4.0-10.0 [facility] ([facility]) Hemoglobin 11.8 g/dL 12.0-15.5 [facility] ([facility]) Mean Corpuscular Volume 93.4 fl 80.0-96.0 M EDENT ([facility]) Hematocrit 36.7 % 36.0-47.0 MED[facility] ([facility]) Mean Corpuscular Hemoglobin 30.0 pg 27.0-33.0 [facility] ([facility]) Platelet Count, Automated 342 10 150-450 [facility] ([facility]) Mean Corpuscular HGB Conc 32.2 g/dL 32.0-36.5 [facility] ([facility]) Red Cell Distribution Width 14.2 % 11.5-14.5 [facility] ([facility]) Nucleated Red Blood Cell % 0.0 % 0-0 MED ENT ([facility]) ID Date Data Source [id number] 04/15/2020 10:36:00 AM EDT [facility] ([facility]) Name Value Range Interpretation Code Description Data Bobbi rce(s) Supporting Document(s) Magnesium [Mass/volume] in Serum or Plasma 2.3 mg/dL 1.8-2.4 [facility] ([facility]) ID Date Data Source [id number] 04/15/2020 10:36:00 AM EDT [facility] ([facility]) Name Value Range Interpretation Code Description Data Bobbi rce(s) Supporting Document(s) White Blood Count 7.6 10 4.0-10.0 [facility] ([facility]) Hemoglobin 11.8 g/dL 12.0-15.5 [facility] ([facility]) Red Blood Count 3.93 10 4.00-5.40 [facility] ([facility]) Hematocrit 36.7 % 36.0-47.0 [facility] ([facility]) Mean Corpuscular Hemoglobin 30.0 pg 27.0-33.0 [facility] ([facility]) Mean Corpuscular Volume 93.4 fl 80.0-96.0 M EDENT ([facility]) Mean Corpuscular HGB Conc 32.2 g/dL 32.0-36.5 [facility] ([facility]) Nucleated Red Blood Cell % 0.0 % 0-0 MED ENT ([facility]) Platelet Count, Automated 342 10 150-450 [facility] ([facility]) Red Cell Distribution Width 14.2 % 11.5-14.5 [facility] ([facility]) ID Date Data Source [id number] 04/15/2020 10:36:00 AM EDT [facility] ([facility]) Name Value Range Interpretation Code Description Data Bobbi rce(s) Supporting Document(s) Natriuretic peptide.B prohormone N-Terminal [Mass/volu me] in Serum or Plasma 476 pg/mL [facility] ([facility]) ID Date Data Source [id number] 04/15/2020 10:36:00 AM EDT [facility] ([facility]) Name Value Range Interpretation Code Description Data Bobbi rce(s) Supporting Document(s) Blood Urea Nitrogen 46 mg/dL 7-18 [facility] ([facility]) Glucose, Fasting 147 mg/dL 70-100 [facility] Creatinine For GFR 1.46 mg/dL 0.55-1.30 [facility] ([facility]) Glomerular Filtration Rate 37.5 MED ENT ([facility]) <content>Units are mL/min/1.73 m2</content>
<content></content>
<content>Chronic Kidney Disease Staging per NKF:</content>
<content></content>
<content>Stage I & II GFR >=60 Normal to Mildly Decreased</content>
<content>Stage III GFR 30- 59 Moderately Decreased</content>
<content>Stage IV GFR 15-29 Severely Decreased</content>
<content>Stage V GFR <15 Very Little GFR Left</content>
<content>ESRD GFR <15 on COOK CHEF</content>
<content></content> Potassium Serum 4.6 meq/L 3.5-5.1 [facility] ([facility]) Sodium Level 136 meq/L 136-145 [facility] ([facility]) Carbon Dioxide Level 29 meq/L 21-32 [facility] ([facility]) Chloride Level 100 meq/L 98-107 [facility]) Calcium Level 9.4 mg/dL 8.8-10.2 [facility] ([facility]) Anion Gap 7 meq/L 8-16 [facility] Ast/Sgot 17 U/L 7-37 [facility] Alkaline Phosphatase 101 U/L 45-117 [facility] ([facility]) Bilirubin,Total 0.4 mg/dL 0.2-1.0 [facility] ([facility]) Alt/SGPT 24 U/L 12-78 [facility] Total Protein 7.0 GM/DL 6.4-8.2 [facility] ([facility]) Albumin 3.7 GM/DL 3.2-5.2 [facility] ([facility] Albumin/Globulin Ratio 1.1 1.2-2.2 [facility] ([facility]) ID Date Data Source [id number] 03/17/2020 11:27:00 AM EDT [facility] ([facility], ) Name Value Range Interpretation Code Description Data Bobbi rce(s) Supporting Document(s) Pyridoxine [Mass/volume] in Serum or Plasma 14.8 ug/L 2.0-32.8 [facility], ) Specimen Comment: Test(s) 899000-Jdlqngs E(Alpha Tocopherol); 407967- Specimen Comment: Vitamin E(Gamma Tocopherol); 412606-Capvlos B6; 983843- Specimen Comment: Vit. B1, Whole Blood Specimen Comment: was developed and its performance characteristics Specimen Comment: determined by [facility]. It has not been cleared or approved Specimen Comment: by the Food and Drug Administration. Thiamine [Mass/volume] in Blood 146.0 nmol/L 66.5-200.0 [facility] ([facility], ) Performed at: [address] [id number] [address] [employer] Room Attendant: Manju Hernandez MD, Phone: [phone] ID Date Data Source [id number] 03/17/2020 11:27:00 AM EDT MED[facility] ([facility], ) Name Value Range Interpretation Code Description Data Bobbi rce(s) Supporting Document(s) Vitamin E(Alpha Tocopherol) 14.3 mg/L 9.0-29.0 [facility] ([facility], ) Vitamin E(Gamma Tocopherol) 2.0 mg/L 0.5-4.9 [facility] ([facility], ) Reference intervals for alpha and gamma- tocopherol determined from National Health and Nutrition Examination Survey, 4065-4465. Individuals with alpha-tocopherol levels less than 5.0 mg/L are considered vitamin E deficient. ID Date Data Source [id number] 03/17/2020 11:27:00 AM EDT [facility] ([facility], ) Name Value Range Interpretation Code Description Data Bobbi rce(s) Supporting Document(s) Folate Laboratory test result [facility] ([facility], ) FOLATE NORMAL RANGE NORMAL GREATER THAN 5.4 NG/ML INDETERMINATE 3.4-5.4 NG/ML DEFICIENT LESS THAN 3.4 NG/ML Vitamin B12 Level 1447 pg/mL MED[facility] ([facility], ) VITAMIN B12 NORMAL RANGE NORMAL 247 - 911 PG/ML INDETERMINATE 211 - 246 PG/ML DEFICIENT LESS THAN 211 PG/ML ID Date Data Source [id number] 03/17/2020 11:27:00 AM EDT MED[facility] ([facility], ) Name Value Range Interpretation Code Description Data Bobbi rce(s) Supporting Document(s) Thyrotropin [Units/volume] in Serum or Plasma 1.070 uIU/ML 0.358-3.74 0 [facility] ([facility], ) ID Date Data Source [id number] 03/17/2020 10:20:00 AM EDT [facility] ([facility]) Name Value Range Interpretation Code Description Data Bobbi rce(s) Supporting Document(s) Thyroid Stimulating Hormone 1.070 ME DENT ([facility]) ID Date Data Source [id number] 02/23/2020 11:01:00 AM EDT [facility] ([facility]) Name Value Range Interpretation Code Description Data Bobbi rce(s) Supporting Document(s) <0.2 0.0-1.0 CRP [facility] ID Date Data Source [id number] 02/23/2020 11:01:00 AM EDT [facility] ([facility]) Name Value Range Interpretation Code Description Data Bobbi rce(s) Supporting Document(s) 1.5 mg/dL 0.6-1.2 Above high normal CREATININE [facility] ([facility]) 34.1 mL/min/1.73m eGFR [facility] ([facility]) ID Date Data Source [id number] 02/23/2020 11:01:00 AM EDT [facility] ([facility]) Name Value Range Interpretation Code Description Data Bobbi rce(s) Supporting Document(s) 17 U/L 15-37 AST [facility] ([facility]) ID Date Data Source [id number] 02/23/2020 11:01:00 AM EDT [facility] ([facility]) Name Value Range Interpretation Code Description Data Bobbi rce(s) Supporting Document(s) 20 U/L 30-65 Below low normal ALT [facility] ([facility]) ID Date Data Source [id number] 02/23/2020 11:01:00 AM EDT [facility] ([facility]) Name Value Range Interpretation Code Description Data Bobbi rce(s) Supporting Document(s) 44 mm/Hr 0-20 Above high normal ESR [facility] ([facility]) ID Date Data Source [id number] 02/23/2020 11:01:00 AM EDT [facility] ([facility]) Name Value Range Interpretation Code Description Data Bobbi rce(s) Supporting Document(s) 9.0 10*3/uL 3.7-10.1 WBC [facility] ([facility]) 12.3 g/dL 12.0-16.0 HGB [facility] ([facility]) 4.20 10*6/uL 3.50-5.50 RBC [facility] 38.7 % 36.0-48.0 HCT [facility] ([facility]) 29.3 pg 26.0-34.0 MCH [facility] 92.1 fL 80.0-100.0 MCV [facility] ([facility]) 16.3 % 10.0-15.0 Above high normal RDW [facility] ([facility]) 31.9 g/dL 31.0-37.0 MCHC [facility] ([facility]) 6.7 fL 6.0-10.0 MPV [facility] ([facility]) 318 10*3/uL 150-500 PLATELETS [facility] ([facility]) 6.09 10*3/uL 2.10-8.00 GRIS# [facility] ([facility]) 1.72 10*3/uL 1.00-5.00 LYM# [facility] ([facility]) 0.98 10*3/uL 0.10-1.00 MONO# [facility] ([facility]) 0.1 10*3/uL 0.0-0.5 EOS# [facility] ([facility]) 0.1 10*3/uL 0.0-0.2 BASO# [facility] ([facility]) 19.1 % 25.0-50.0 Below low normal LYM% [facility] ([facility] 67.6 % 50.0-80.0 GRIS% [facility] ([facility] 1.3 % 0.0-5.0 EOS% [facility] ([facility] 10.9 % 2.0-10.0 Above high normal MONO% [facility] ([facility]) 1.0 % 0.0-4.0 BASO% [facility] ([facility]) ID Date Data Source [id number] 01/20/2020 10:56:00 AM EDT [facility] ([facility]) Name Value Range Interpretation Code Description Data Bobbi rce(s) Supporting Document(s) Hemoglobin A1c/Hemoglobin.total in Blood 6.0 [facility] ([facility]) Glucose [Mass/volume] in Serum or Plasma 95 [facility] ([facility]) ID Date Data Source [id number] 12/25/2019 08:47:00 AM EDT [facility] ([facility]) Name Value Range Interpretation Code Description Data Bobbi rce(s) Supporting Document(s) Magnesium Level 1.99 [facility] ([facility]) ID Date Data Source [id number] 12/25/2019 08:47:00 AM EDT [facility] ([facility]) Name Value Range Interpretation Code Description Data Bobbi rce(s) Supporting Document(s) Hemoglobin 11.4 12.0-16.0 [facility] ([facility] Red Blood Count 4.00 4.00-5.40 [facility] ([facility]) White Blood Count 6.7 4.0-10.0 [facility] ([facility]) Platelets 407 172-450 [facility] ([facility] Hematocrit 35.5 36.0-47.0 [facility] ([facility]) ID Date Data Source [id number] 12/25/2019 08:47:00 AM EDT [facility] ([facility]) Name Value Range Interpretation Code Description Data Bobbi rce(s) Supporting Document(s) Glucose 85 70-100 [facility] Sodium 137.3 136-146 [facility] ([facility] Glomerular filtration rate/1.73 sq M.pre dicted [Volume Rate/Area] in Serum or Plasma by Creatinine-based formula (MDRD) 42 [facility] ([facility]) Blood Urea Nitrogen 41.9 7-25 [facility] ([facility]) Creatinine 1.26 0.6-1.5 [facility] ([facility]) Chloride 100.9 98-110 [facility] Potassium 4.69 3.5-5.3 [facility] ([facility] Carbon Dioxide 30.0 20-32 [facility] ([facility] Albumin 4.3 3.5-4.7 [facility] ([facility] Phosphorus 4.88 [facility] ([facility]) Calcium 9.78 8.4-10.4 [facility] ([facility] ID Date Data Source [id number] 11/25/2019 10:48:00 AM EST [facility] ([facility]) Name Value Range Interpretation Code Description Data Bobbi rce(s) Supporting Document(s) 0.2 mg/dL 0.0-1.0 CRP [facility] ID Date Data Source [id number] 11/25/2019 10:48:00 AM EST [facility] ([facility]) Name Value Range Interpretation Code Description Data Bobbi rce(s) Supporting Document(s) 1.4 mg/dL 0.6-1.2 Above high normal CREATININE [facility] ([facility]) 37.0 mL/min/1.73m eGFR [facility] ([facility]) ID Date Data Source [id number] 11/25/2019 10:48:00 AM EST [facility] ([facility]) Name Value Range Interpretation Code Description Data Bobbi rce(s) Supporting Document(s) 17 U/L 15-37 AST [facility] ([facility]) ID Date Data Source [id number] 11/25/2019 10:48:00 AM EST [facility] ([facility]) Name Value Range Interpretation Code Description Data Bobbi rce(s) Supporting Document(s) 17 U/L 30-65 Below low normal ALT [facility] ([facility]) ID Date Data Source [id number] 11/25/2019 10:48:00 AM EST [facility] ([facility]) Name Value Range Interpretation Code Description Data Bobbi rce(s) Supporting Document(s) 3.4 g/dL 3.4-4.4 ALB [facility] ID Date Data Source [id number] 11/25/2019 10:48:00 AM EST [facility] ([facility]) Name Value Range Interpretation Code Description Data Bobbi rce(s) Supporting Document(s) 36 mm/Hr 0-20 Above high normal ESR [facility] ([facility]) ID Date Data Source [id number] 11/25/2019 10:48:00 AM EST [facility] ([facility]) Name Value Range Interpretation Code Description Data Bobbi rce(s) Supporting Document(s) 7.9 10*3/uL 3.7-10.1 WBC [facility] ([facility]) 4.02 10*6/uL 3.50-5.50 RBC [facility] ([facility]) 11.0 g/dL 12.0-16.0 Below low normal HGB [facility] ([facility]) 35.6 % 36.0-48.0 Below low normal HCT [facility] ([facility]) 88.6 fL 80.0-100.0 MCV [facility] ([facility]) 30.8 g/dL 31.0-37.0 Below low normal MCHC [facility] ([facility]) 27.3 pg 26.0-34.0 MCH [facility] ([facility]) 17.7 % 10.0-15.0 Above high normal RDW [facility] ([facility]) 6.2 fL 6.0-10.0 MPV [facility] ([facility] 292 10*3/uL 150-500 PLATELETS [facility] ([facility]) 5.34 10*3/uL 2.10-8.00 GRIS# [facility] ([facility]) 1.47 10*3/uL 1.00-5.00 LYM# [facility] ([facility]) 0.88 10*3/uL 0.10-1.00 MONO# [facility] ([facility]) 0.1 10*3/uL 0.0-0.5 EOS# [facility] ([facility]) 67.9 % 50.0-80.0 GRIS% [facility] ([facility] 18.6 % 25.0-50.0 Below low normal LYM% [facility] ([facility]) 0.1 10*3/uL 0.0-0.2 BASO# [facility] ([facility]) 1.6 % 0.0-5.0 EOS% [facility] ([facility]) 11.2 % 2.0-10.0 Above high normal MONO% [facility] ([facility]) 0.6 % 0.0-4.0 BASO% [facility] ([facility] ID Date Data Source [id number] 10/24/2019 12:47:00 PM EST [facility] ([facility]) Name Value Range Interpretation Code Description Data Bobbi rce(s) Supporting Document(s) White Blood Count 8.1 [facility] ([facility]) Red Blood Count 3.74 [facility] ([facility]) Hematocrit 31.2 [facility] ([facility]) Platelets 395 [facility] Hemoglobin 9.8 [facility] ([facility]) ID Date Data Source [id number] 10/24/2019 09:38:00 AM EST [facility] ([facility]) Name Value Range Interpretation Code Description Data Bobbi rce(s) Supporting Document(s) Natriuretic peptide.B prohormone N-Terminal [Mass/volu me] in Serum or Plasma 1449 pg/mL [facility] ([facility]) ID Date Data Source [id number] 10/24/2019 09:38:00 AM EST [facility] ([facility]) Name Value Range Interpretation Code Description Data Bobbi rce(s) Supporting Document(s) Creatinine For GFR 1.18 mg/dL 0.55-1.30 [facility] ([facility]) Glucose, Fasting 118 mg/dL 70-100 [facility] ([facility]) Blood Urea Nitrogen 29 mg/dL 7-18 [facility] ([facility]) Potassium Serum 4.9 meq/L 3.5-5.1 [facility] ([facility]) Sodium Level 140 meq/L 136-145 [facility] ([facility]) Glomerular Filtration Rate 47.9 MED ENT ([facility]) <content>Units are mL/min/1.73 m2</content>
<content></content>
<content>Chronic Kidney Disease Staging per NKF:</content>
<content></content>
<content>Stage I & II GFR >=60 Normal to Mildly Decreased</content>
<content>Stage III GFR 30- 59 Moderately Decreased</content>
<content>Stage IV GFR 15-29 Severely Decreased</content>
<content>Stage V GFR <15 Very Little GFR Left</content>
<content>ESRD GFR <15 on COOK CHEF</content>
<content></content> Anion Gap 9 meq/L 8-16 [facility] ([facility] Carbon Dioxide Level 31 meq/L 21-32 [facility] ( [facility]) Chloride Level 100 meq/L 98-107 [facility]) Albumin 3.6 GM/DL 3.2-5.2 [facility] ([facility]) Calcium Level 9.3 mg/dL 8.8-10.2 [facility] ([facility]) Phosphorus Level 5.5 mg/dL 2.5-4.9 [facility] ([facility]) ID Date Data Source [id number] 10/24/2019 09:38:00 AM EST [facility] ([facility]) Name Value Range Interpretation Code Description Data Bobbi rce(s) Supporting Document(s) Natriuretic peptide.B prohormone N-Terminal [Mass/volu me] in Serum or Plasma 1449 pg/mL [facility] ([facility]) ID Date Data Source [id number] 10/24/2019 09:38:00 AM EST [facility] ([facility]) Name Value Range Interpretation Code Description Data Bobbi rce(s) Supporting Document(s) Glucose, Fasting 118 mg/dL 70-100 [facility] ([facility]) Glomerular Filtration Rate 47.9 MED ENT ([facility]) <content>Units are mL/min/1.73 m2</content>
<content></content>
<content>Chronic Kidney Disease Staging per NKF:</content>
<content></content>
<content>Stage I & II GFR >=60 Normal to Mildly Decreased</content>
<content>Stage III GFR 30- 59 Moderately Decreased</content>
<content>Stage IV GFR 15-29 Severely Decreased</content>
<content>Stage V GFR <15 Very Little GFR Left</content>
<content>ESRD GFR <15 on COOK CHEF</content>
<content></content> Blood Urea Nitrogen 29 mg/dL 7-18 [facility] ([facility]) Creatinine For GFR 1.18 mg/dL 0.55-1.30 [facility] ([facility]) Sodium Level 140 meq/L 136-145 [facility] ([facility]) Chloride Level 100 meq/L 98-107 [facility] ([facility]) Potassium Serum 4.9 meq/L 3.5-5.1 [facility] ([facility]) Carbon Dioxide Level 31 meq/L 21-32 [facility] ([facility]) Calcium Level 9.3 mg/dL 8.8-10.2 [facility] ([facility]) Anion Gap 9 meq/L 8-16 [facility] ([facility]) Albumin 3.6 GM/DL 3.2-5.2 [facility] Phosphorus Level 5.5 mg/dL 2.5-4.9 [facility] ([facility]) ID Date Data Source [id number] 10/17/2019 02:31:00 PM EST [facility] ([facility] [facility]) Name Value Range Interpretation Code Description Data Bobbi rce(s) Supporting Document(s) Hemoglobin A1c/Hemoglobin.total in Blood 7.2 MEDENT ([facility]) Glucose [Mass/volume] in Serum or Plasma 194 MEDENT ([facility]) ID Date Data Source [id number] 10/03/2019 04:01:00 PM EST MEDENT ([facility]) Name Value Range Interpretation Code Description Data Bobbi rce(s) Supporting Document(s) Red Blood Count 3.66 MEDENT ([facility]) White Blood Count 10.1 [facility] ([facility]) Hematocrit 30.7 MEDENT ([facility]) Platelets 573 MEDENT ([facility]) Hemoglobin 9.5 MED[facility] ([facility]) ID Date Data Source [id number] 10/03/2019 04:01:00 PM EST MEDENT ([facility]) Name Value Range Interpretation Code Description Data Bobbi rce(s) Supporting Document(s) Glucose 119 [facility] ([facility] Creatinine 1.50 [facility]) Blood Urea Nitrogen 37.2 MEDENT ([facility]) Glomerular filtration rate/1.73 sq M.pre dicted [Volume Rate/Area] in Serum or Plasma by Creatinine-based formula (MDRD) 34 [facility] ([facility]) Sodium 138.5 [facility] ([facility] Carbon Dioxide 31.2 MEDENT ([facility]) Potassium 4.81 [facility] ([facility]) Chloride 97.9 [facility] ([facility] Phosphorus 4.56 MEDENT ([facility]) Calcium 9.11 MEDENT ([facility]) Albumin 4.1 MEDENT ([facility]) ID Date Data Source [id number] 09/23/2019 10:16:00 AM EST Next[facility] ([facility]) Name Value Range Interpretation Code Description Data Bobbi rce(s) Supporting Document(s) 29.5 mL/min/1.73m eGFR [facility] ([facility]) 1.7 mg/dL 0.6-1.2 Above high normal CREATININE [facility] ([facility]) ID Date Data Source [id number] 09/23/2019 10:16:00 AM EST [facility] ([facility]) Name Value Range Interpretation Code Description Data Bobbi rce(s) Supporting Document(s) 15 U/L 15-37 AST [facility] ID Date Data Source [id number] 09/23/2019 10:16:00 AM EST [facility] ([facility]) Name Value Range Interpretation Code Description Data Bobbi rce(s) Supporting Document(s) 3.2 g/dL 3.4-4.4 Below low normal ALB [facility] ([facility]) ID Date Data Source [id number] 09/23/2019 10:16:00 AM EST [facility] ([facility]) Name Value Range Interpretation Code Description Data Bobbi rce(s) Supporting Document(s) 48 mm/Hr 0-20 Above high normal ESR [facility] ([facility]) ID Date Data Source [id number] 09/23/2019 10:16:00 AM EST [facility] ([facility]) Name Value Range Interpretation Code Description Data Bobbi rce(s) Supporting Document(s) 13.4 10*3/uL 3.7-10.1 Above high normal WBC [facility] en ([facility]) 10.0 g/dL 12.0-16.0 Below low normal HGB [facility] ([facility]) 32.2 % 36.0-48.0 Below low normal HCT [facility] ([facility]) 3.64 10*6/uL 3.50-5.50 RBC [facility] ([facility]) 88.4 fL 80.0-100.0 MCV [facility] ([facility]) 27.3 pg 26.0-34.0 MCH [facility] ([facility]) 30.9 g/dL 31.0-37.0 Below low normal MCHC [facility] ([facility]) 498 10*3/uL 150-500 PLATELETS Next[facility] ([facility]) 16.7 % 10.0-15.0 Above high normal RDW [facility] ([facility]) 5.7 fL 6.0-10.0 Below low normal MPV [facility] ([facility]) 1.01 10*3/uL 0.10-1.00 Above high normal MONO# NextG en ([facility]) 10.50 10*3/uL 2.10-8.00 Above high normal GRIS# Next Gen ([facility]) 1.72 10*3/uL 1.00-5.00 LYM# [facility] ([facility]) 0.1 10*3/uL 0.0-0.5 EOS# [facility] ([facility]) 78.1 % 50.0-80.0 GRIS% [facility] 0.1 10*3/uL 0.0-0.2 BASO# [facility] ([facility]) 0.8 % 0.0-4.0 BASO% [facility] 0.7 % 0.0-5.0 EOS% [facility] 12.8 % 25.0-50.0 Below low normal LYM% [facility] ([facility]) 7.6 % 2.0-10.0 MONO% [facility] ID Date Data Source [id number] 09/16/2019 11:11:00 AM EST [facility] ([facility]) Name Value Range Interpretation Code Description Data Bobbi rce(s) Supporting Document(s) Blood Urea Nitrogen 47 mg/dL 7-18 MEDENT ([facility]) Glucose, Fasting 143 mg/dL 70-100 [facility] ([facility]) Creatinine For GFR 1.87 mg/dL 0.55-1.30 MEDENT ([facility]) Glomerular Filtration Rate 28.2 MED ENT ([facility]) <content>Units are mL/min/1.73 m2</content>
<content></content>
<content>Chronic Kidney Disease Staging per NKF:</content>
<content></content>
<content>Stage I & II GFR >=60 Normal to Mildly Decreased</content>
<content>Stage III GFR 30-59 Moderately Decreased</content>
<content>Stage IV GFR 15-29 Severely Decreased</content>
<content>Stage V GFR <15 Very Little GFR Left</content>
<content>ESRD GFR <15 on COOK CHEF</content>
<content></content> Potassium Serum 5.6 meq/L 3.5-5.1 MED[facility] ([facility]) Sodium Level 135 meq/L 136-145 MED[facility] ([facility]) Chloride Level 94 meq/L 98-107 [facility] ([facility] Calcium Level 9.8 mg/dL 8.8-10.2 [facility] ([facility]) Anion Gap 8 meq/L 8-16 [facility] ([facility] Carbon Dioxide Level 33 meq/L 21-32 [facility] ([facility]) Albumin 2.9 GM/DL 3.2-5.2 [facility] ([facility] Phosphorus Level 6.9 mg/dL 2.5-4.9 [facility] ([facility]) Procedure Social History Code Duration Value Status Description Data Source(s ) Caffeine Use Details 10/25/2020 12:00:00 AM EST coffee, 2 cups comp leted coffee, 2 cups Next[facility] ([facility]) 10/25/2020 12:00:00 AM EST Never smoked tobacco comple carlos alberto Never smoked tobacco [facility] ([facility]) Smoking 10/25/2020 12:00:00 AM EST Never smoker completed Never s moker [facility] ([facility]) Smoking 10/20/2020 12:00:00 AM EST Former Smoker completed Former Smoker eCW1 ([facility]) Smoking 10/20/2020 12:00:00 AM EST Former Smoker completed Former Smoker eCW1 ([facility]) Smoking 07/02/2020 09:28:45 AM EDT Ex-smoker (finding) complet ed Ex-smoker (finding) GINI (Erik Gomez MD [facility]) Smoking 05/24/2020 12:00:00 AM EDT Patient has never smoked co mpleted Patient has never smoked MEDENT ([facility]) Alcohol intake 04/30/2020 12:00:00 AM EDT Lifetime non-drinker (finding) completed Lifetime non-drinker (finding) [facility] Smoking 04/30/2020 12:00:00 AM EDT Never smoker completed Never s [facility] Caffeine Use Details 11/25/2019 12:00:00 AM EST coffee, 2 cups comp leted coffee, 2 cups [facility] ([facility]) Smoking 10/21/2019 03:48:54 PM EST Ex-smoker (finding) complet ed Ex-smoker (finding) GINI (Erik Gomez MD [facility]) Vital Signs ID Date Data Source [id number] Name Value Range Interpretation Code Description Data Source(s) Body mass index (BMI) [Ratio] 37.55 kg/m2 Overweight 37.55 kg/m2 [facility] ([facility]) Diastolic blood pressure 60 mm[Hg] 60 mm[Hg] [facility] ([facility]) Systolic blood pressure 150 mm[Hg] 150 mm[Hg] N extGen ([facility]) Body weight 96.162 kg 96.162 kg Next[facility] ([facility]) Body height 160.02 cm 160.02 cm NextGen ([facility]) Diastolic blood pressure 76 mm[Hg] 76 mm[Hg] eCW1 ([facility]) Systolic blood pressure 142 mm[Hg] 142 mm[Hg] e CW1 ([facility]) Body temperature 96.1 [degF] 96.1 [degF] eCW1 ( [facility]) Respiratory rate 18 /min 18 /min eCW1 ([facility]) Heart rate 90 /min 90 /min eCW1 ([facility]) Body mass index (BMI) [Ratio] 36.56 kg/m2 36.56 kg/m2 W1 ([facility]) Body height 64 [in_i] 64 [in_i] eCW1 ([facility]) Body weight 213 [lb_av] 213 [lb_av] eCW1 ([facility]) Oxygen saturation in Arterial blood by Pulse oximetry 96 % 96 % MEDENT ([facility] Body mass index (BMI) [Ratio] 37.4 kg/m2 37.4 k g/m2 MEDENT ([facility] ) Body weight 214.50 [lb_av] 214.50 [lb_av] MEDEN T ([facility]) Body height 63.5 [in_i] 63.5 [in_i] MEDENT ([facility]) 5'3.50" Body temperature 97.1 [degF] 97.1 [degF] MEDENT ([facility] Heart rate 61 /min 61 /min MEDENT ([facility]) Diastolic blood pressure 70 mm[Hg] 70 mm[Hg] MEDENT ([facility]) Systolic blood pressure 128 mm[Hg] 128 mm[Hg] M EDENT ([facility] ) Diastolic blood pressure--sitting 48 mm[Hg] 48 mm[Hg] MEDENT ([facility]) large cuff, [place] Systolic blood pressure--sitting 139 mm[Hg] 139 mm[Hg] MEDENT ([facility]) large cuff, [place] Respiratory rate 16 /min 16 /min MEDENT ( [facility]) Heart rate 64 /min 64 /min MEDENT ([facility]) regular with occasional irregularity Body mass index (BMI) [Ratio] 35.8 kg/m2 35.8 k g/m2 MEDENT ([facility]) Body height 64.5 [in_i] 64.5 [in_i] MEDENT ([facility]) 5'4.50" Body weight 212.00 [lb_av] 212.00 [lb_av] MEDEN T ([facility]) Diastolic blood pressure--supine 42 mm[Hg] 42 mm[Hg] MEDENT ([facility]) Systolic blood pressure--supine 142 mm[Hg] 142 mm[Hg] MEDENT ([facility]) Body mass index (BMI) [Ratio] 37.20 kg/m2 Overweight 37.20 kg/m2 Next[facility] ([facility]) Diastolic blood pressure 76 mm[Hg] 76 mm[Hg] Next[facility] ([facility]) Systolic blood pressure 128 mm[Hg] 128 mm[Hg] N extGen ([facility]) Body weight 95.254 kg 95.254 kg [facility] ([facility] Body height 160.02 cm 160.02 cm [facility] ([facility]) Oxygen saturation in Arterial blood by Pulse oximetry 97 % 97 % MEDENT ([facility]) Body mass index (BMI) [Ratio] 36.9 kg/m2 36.9 k g/m2 MEDENT ([facility]) Body weight 211.50 [lb_av] 211.50 [lb_av] MEDEN T ([facility]) Body height 63.5 [in_i] 63.5 [in_i] MEDENT ([facility]) 5'3.50" Heart rate 60 /min 60 /min MEDENT ([facility] ) Diastolic blood pressure 74 mm[Hg] 74 mm[Hg] MEDENT ([facility] ) Systolic blood pressure 136 mm[Hg] 136 mm[Hg] M EDENT ([facility] ) Oxygen saturation in Arterial blood by Pulse oximetry --post exerci se 95 % 95 % MEDENT ([facility]) Oxygen saturation in Arterial blood by Pulse oximetry 95 % 95 % MEDENT ([facility]) Diastolic blood pressure--supine 64 mm[Hg] 64 mm[Hg] MEDENT ([facility]) Systolic blood pressure--supine 140 mm[Hg] 140 mm[Hg] MEDENT ([facility]) Diastolic blood pressure--sitting 58 mm[Hg] 58 mm[Hg] MEDENT ([facility]) large cuff, Ra Systolic blood pressure--sitting 138 mm[Hg] 138 mm[Hg] MEDENT ([facility]) large cuff, Ra Respiratory rate 16 /min 16 /min MEDENT ( [facility]) Heart rate 56 /min 56 /min MEDENT ([facility]) regular Body mass index (BMI) [Ratio] 35.7 kg/m2 35.7 k g/m2 MEDENT ([facility]) Body height 64.5 [in_i] 64.5 [in_i] MEDENT ([facility]) 5'4.50" Body weight 211.00 [lb_av] 211.00 [lb_av] MEDEN T ([facility]) [place] body weight 120 [lb_av] 120 [lb_av] MEDEN T ([facility] ) Body mass index (BMI) [Ratio] 35.7 kg/m2 35.7 k g/m2 MEDENT ([facility] ) Body weight 208.00 [lb_av] 208.00 [lb_av] MEDEN T ([facility] ) Body height 64 [in_i] 64 [in_i] MEDENT ([facility] ) 5'4" Respiratory rate 14 /min 14 /min MEDENT ( [facility] ) Heart rate 64 /min 64 /min MEDENT ([facility] ) Diastolic blood pressure 60 mm[Hg] 60 mm[Hg] MEDENT ([facility] ) Systolic blood pressure 120 mm[Hg] 120 mm[Hg] M EDENT ([facility] ) Body mass index (BMI) [Ratio] 36.31 kg/m2 Overweight 36.31 kg/m2 Next[facility] ([facility]) Diastolic blood pressure 72 mm[Hg] 72 mm[Hg] Next[facility] ([facility]) Systolic blood pressure 124 mm[Hg] 124 mm[Hg] N extGen ([facility]) Body weight 92.986 kg 92.986 kg [facility] ([facility] Body height 160.02 cm 160.02 cm [facility] ([facility]) Body mass index (BMI) [Ratio] 33.8 kg/m2 33.8 k g/m2 MEDENT ([facility]) Body height 64.5 [in_i] 64.5 [in_i] MEDENT ([facility]) 5'4.50" Body weight 200.00 [lb_av] 200.00 [lb_av] MEDEN T ([facility], [facility]) Body temperature 97.9 [degF] 97.9 [degF] MEDENT ([facility], [facility]) Oxygen saturation in Arterial blood by Pulse oximetry 99 % 99 % [facility] ([facility], [facility]) Respiratory rate 16 /min 16 /min [facility] ( [facility], [facility]) Heart rate 67 /min 67 /min [facility], [facility]) Diastolic blood pressure 80 mm[Hg] 80 mm[Hg] MEDENT ([facility], [facility]) Systolic blood pressure 137 mm[Hg] 137 mm[Hg] M EDENT ([facility], [facility]) Diastolic blood pressure--supine 48 mm[Hg] 48 mm[Hg] MEDENT ([facility]) Systolic blood pressure--supine 132 mm[Hg] 132 mm[Hg] MED[facility] ([facility]) Diastolic blood pressure--sitting 46 mm[Hg] 46 mm[Hg] MEDENT ([facility]) large cuff, Ra Systolic blood pressure--sitting 129 mm[Hg] 129 mm[Hg] MEDENT ([facility]) large cuff, Ra Respiratory rate 16 /min 16 /min [facility] ( [facility]) Heart rate 62 /min 62 /min [facility] ([facility]) regular Body mass index (BMI) [Ratio] 33.8 kg/m2 33.8 k g/m2 MED[facility] ([facility]) Body height 64.5 [in_i] 64.5 [in_i] MEDENT ([facility] [employer]) 5'4.50" Body weight 200.00 [lb_av] 200.00 [lb_av] MEDEN T ([facility]) Body mass index (BMI) [Ratio] 35.43 kg/m2 Overweight 35.43 kg/m2 [facility] ([facility]) Diastolic blood pressure 72 mm[Hg] 72 mm[Hg] [facility] ([facility]) Systolic blood pressure 146 mm[Hg] 146 mm[Hg] N extGen ([facility]) Body weight 90.718 kg 90.718 kg [facility] ([facility] Body height 160.02 cm 160.02 cm [facility] ([facility]) Diastolic blood pressure--supine 52 mm[Hg] 52 mm[Hg] MEDENT ([facility]) Systolic blood pressure--supine 136 mm[Hg] 136 mm[Hg] MED[facility] ([facility]) Diastolic blood pressure--sitting 50 mm[Hg] 50 mm[Hg] MEDENT ([facility]) Medium cuff, Ra; 118/50 [place] Systolic blood pressure--sitting 123 mm[Hg] 123 mm[Hg] MEDENT ([facility]) Medium cuff, Ra; 118/50 [place] Respiratory rate 18 /min 18 /min MEDENT ( [facility]) Heart rate 64 /min 64 /min [facility] ([facility]) regular Body mass index (BMI) [Ratio] 32.6 kg/m2 32.6 k g/m2 MED[facility] ([facility]) Body height 64.5 [in_i] 64.5 [in_i] MEDENT ([facility] [employer] [facility]) 5'4.50" Body weight 193.00 [lb_av] 193.00 [lb_av] MEDEN T ([facility]) Oxygen saturation in Arterial blood by Pulse oximetry 94 % 94 % MEDENT ([facility]) Body mass index (BMI) [Ratio] 34.2 kg/m2 34.2 k g/m2 MED[facility] ([facility]) Body weight 196.12 [lb_av] 196.12 [lb_av] MEDEN T ([facility]) Body height 63.5 [in_i] 63.5 [in_i] MEDENT ([facility]) 5'3.50" Heart rate 71 /min 71 /min MED[facility] ([facility]) Diastolic blood pressure 60 mm[Hg] 60 mm[Hg] MED[facility] ([facility]) Systolic blood pressure 130 mm[Hg] 130 mm[Hg] M EDENT ([facility]) Body mass index (BMI) [Ratio] 34.37 kg/m2 Overweight 34.37 kg/m2 [facility] ([facility]) Diastolic blood pressure 72 mm[Hg] 72 mm[Hg] [facility] ([facility]) Systolic blood pressure 122 mm[Hg] 122 mm[Hg] N extGen ([facility]) Body weight 87.997 kg 87.997 kg [facility] ([facility]) Body height 160.02 cm 160.02 cm [facility] ([facility] Diastolic blood pressure--supine 56 mm[Hg] 56 mm[Hg] MEDENT ([facility]) Systolic blood pressure--supine 125 mm[Hg] 125 mm[Hg] MEDENT ([facility]) Diastolic blood pressure--sitting 50 mm[Hg] 50 mm[Hg] MEDENT ([facility]) Medium cuff, Ra Systolic blood pressure--sitting 112 mm[Hg] 112 mm[Hg] MEDENT ([facility]) Medium cuff, Ra Respiratory rate 16 /min 16 /min MED[facility] ( [facility]) Heart rate 60 /min 60 /min [facility] ([facility]) regular Body mass index (BMI) [Ratio] 31.9 kg/m2 31.9 k g/m2 MEDENT ([facility]) Body height 64.5 [in_i] 64.5 [in_i] MEDENT ([facility]) 5'4.50" Body weight 189.00 [lb_av] 189.00 [lb_av] [facility]EN T ([facility] Oxygen saturation in Arterial blood by Pulse oximetry 93 % 93 % [facility] ([facility]) Body mass index (BMI) [Ratio] 35.6 kg/m2 35.6 k g/m2 [facility] ([facility]) Body weight 204.00 [lb_av] 204.00 [lb_av] MEDEN T ([facility]) Body height 63.5 [in_i] 63.5 [in_i] MEDENT ([facility]) 5'3.50" Heart rate 75 /min 75 /min [facility] ([facility]) Diastolic blood pressure 60 mm[Hg] 60 mm[Hg] MED[facility] ([facility]) Systolic blood pressure 124 mm[Hg] 124 mm[Hg] M EDENT ([facility]) ID Date Data Source [id number] 09/27/2020 03:49:51 PM [facility] Name Value Range Interpretation Code Description Data Source(s) WEIGHT RECORDED 210 lb 210 lb [facility] Body height Measured 64 in 64 in [facility] WEIGHT RECORDED 210 lb 210 lb [facility] Body height Measured 64 in 64 in [facility] Patient Treatment Plan of Care Planned Activity Planned Date Details Description Data Source (s) Methotrexate 2.5 MG Oral Tablet 10/25/2020 12:00:00 AM [facility] Methotrexate 2.5 MG Oral Tablet 08/30/2020 12:00:00 AM [facility] Folic Acid 1 MG Oral Tablet 06/23/2020 12:00:00 AM [facility] Methotrexate 2.5 MG Oral Tablet 06/23/2020 12:00:00 AM [facility] ([facility]) gabapentin 300 MG Oral Capsule 04/30/2020 12:00:00 AM [facility] Fluorouracil 50 MG/ML Topical Cream 04/28/2020 12:00:00 AM [facility] duloxetine 60 MG Delayed Release Oral Capsule 04/26/2020 12:00:00 A M [facility] Primidone 50 MG Oral Tablet 04/14/2020 12:00:00 AM [facility] Bisoprolol Fumarate 5 MG Oral Tablet 04/14/2020 12:00:00 AM [facility] sitagliptin 50 MG Oral Tablet [Januvia] 04/11/2020 12:00:00 AM [facility] Flecainide Acetate 50 MG Oral Tablet 03/25/2020 12:00:00 AM [facility] 3 ML Insulin, Aspart, Human 100 UNT/ML Pen Injector 03/18/20 12:00:00 AM [facility] 3 ML Insulin Glargine 100 UNT/ML Pen Injector [Lantus] 03/18/2020 12:00:00 AM [facility]spital Methotrexate 2.5 MG Oral Tablet 03/18/2020 12:00:00 AM [facility] Methotrexate 2.5 MG Oral Tablet 03/18/2020 12:00:00 AM [facility] ([facility]) Methotrexate 2.5 MG Oral Tablet 03/02/2020 12:00:00 AM [facility] ([facility]) Methotrexate 2.5 MG Oral Tablet 02/23/2020 12:00:00 AM [facility] ([facility]) Folic Acid 1 MG Oral Tablet 02/20/2020 12:00:00 AM [facility] ReliOn Pen [place] 31G X 8 MM 01/19/2020 12:00:00 AM [facility] ferrous sulfate 325 MG Oral Tablet 11/25/2019 12:00:00 AM [facility] ([facility]) Methotrexate 2.5 MG Oral Tablet 11/25/2019 12:00:00 AM [facility] ([facility]) Methotrexate 2.5 MG Oral Tablet 11/25/2019 12:00:00 AM [facility] ([facility]) Folic Acid 1 MG Oral Tablet 11/25/2019 12:00:00 AM [facility] ([facility]) Folic Acid 1 MG Oral Tablet 11/25/2019 12:00:00 AM [facility] ([facility]) ferrous sulfate 325 MG Oral Tablet 10/27/2019 12:00:[address] [facility] torsemide 10 MG Oral Tablet 10/21/2019 12:00:[address] [facility] sitagliptin 50 MG Oral Tablet [Januvia] 10/16/2019 12:00:00 AM EST [facility] ([facility]) 24 HR Glipizide 5 MG Extended Release Oral Tablet 10/16/2019 12: 00:00 AM EST [facility]1 ([facility]) ammonium lactate 120 MG/ML Topical Cream 10/07/2019 12:00:00 AM EST [facility] Methotrexate 2.5 MG Oral Tablet 09/23/2019 12:00:00 AM EST [facility] ([facility]) Methotrexate 2.5 MG Oral Tablet 06/23/2019 12:00:00 AM EDT [facility] ([facility]) folic acid 1 mg tablet 12/30/2018 12:00:00 AM EDT [facility] ([facility]) OTC SUPPLEMENTS [facility] ([facility] Bisoprolol Fumarate 5 MG / Hydrochlorothiazide 6.25 MG Oral Tablet [facility] ([facility]) OTC SUPPLEMENTS [facility] ([facility] aspirin 81 mg Tab [facility] ([facility] 24 HR venlafaxine 37.5 MG Extended Release Oral Tablet [facility] ([facility]) Hydrochlorothiazide 12.5 MG / Losartan Potassium 100 MG Oral Tablet [facility] ([facility])
[2020-11-05 11:17] LABS: HEMATOCRIT 39.2 % (36.0-47.0); HEMOGLOBIN 12.1 g/dl (12.0-15.5); MEAN CORPUSCULAR HEMOGLOBIN 28.4 pg (27.0-33.0); MEAN CORPUSCULAR HGB CONC 30.9 g/dl (32.0-36.5); PLATELET COUNT, AUTOMATED 252 10^3/uL (150-450); RED BLOOD COUNT 4.26 10^6/uL (4.00-5.40); WHITE BLOOD COUNT 4.9 10^3/uL (4.0-10.0)
[2020-11-05] MEDS ORDERED: NS 1,000 ML IV SCH (11:43)
[2020-11-05] MEDS ORDERED: ALBUTEROL 90 MCG/ACT 8GM HFA INHALER INH PRN (11:45)
[2020-11-05] MEDS ORDERED: ALBUTEROL SULFATE 2.5 MG/0.5 ML INH NEB SOLN INH PRN (11:45)
[2020-11-05] MEDS ORDERED: EPINEPHrine INJ 1 MG/ML 1ML AMP IM PRN (11:45)
[2020-11-05] MEDS ORDERED: methylPREDNISolone 125MG 2ML VIAL IV PRN (11:45)
[2020-11-05] MEDS ORDERED: diphenhydrAMINE 50MG/ML VIAL (J1200) IV PRN (11:45)
[2020-11-05] MEDS ORDERED: BAMLANIVIMAB 700 MG in NS 250 ML IV ONE (11:45)
[2020-11-05 11:48] LABS: ACETAMINOPHEN LEVEL < 2.0 UG/ML (10.0-30.0); ALBUMIN 3.6 GM/DL (3.2-5.2); ALT/SGPT 39 U/L (12-78); BILIRUBIN,DIRECT < 0.1 MG/DL (0.0-0.2); BILIRUBIN,TOTAL 0.3 MG/DL (0.2-1.0); BLOOD UREA NITROGEN 35 MG/DL (7-18); CALCIUM LEVEL 8.7 MG/DL (8.8-10.2); CARBON DIOXIDE LEVEL 32 MEQ/L (21-32); CHLORIDE LEVEL 98 MEQ/L (98-107); CREATININE FOR GFR 1.53 MG/DL (0.55-1.30); ETHYL ALCOHOL (ETHANOL) < 0.003 % (0.000-0.010); GLOMERULAR FILTRATION RATE 35.4 (>39); GLUCOSE, FASTING 262 MG/DL (70-100); POTASSIUM SERUM 4.4 MEQ/L (3.5-5.1); SALICYLATE LEVEL < 1.7 MG/DL (5.0-30.0); SODIUM LEVEL 137 MEQ/L (136-145); TOTAL PROTEIN 6.8 GM/DL (6.4-8.2)
[2020-11-05] MEDS ORDERED: TRET0.0212 TOP (11:50)
[2020-11-05] MEDS ORDERED: AMMO12LO TOP (11:50)
[2020-11-05] MEDS ORDERED: SITA50TAB PO (11:50)
[2020-11-05] MEDS ORDERED: FERR32TA PO (11:50)
[2020-11-05] MEDS ORDERED: TYLE650T38 PO (11:50)
[2020-11-05] MEDS ORDERED: D31000TA2 PO (11:50)
[2020-11-05 14:10] VITALS: BP 138/66
== END 2020-11-05 14:15 | disposition home or self-care (01) ==
LOC: M ED 10:22
DX: U07.1 COVID-19 (principal); E11.9 Type 2 diabetes mellitus without complications; I12.9 Hypertensive chronic kidney disease with stage 1 through stage 4 chronic kidney disease, or unspecified chronic kidney disease; J44.9 Chronic obstructive pulmonary disease, unspecified; N18.30 Chronic kidney disease, stage 3 unspecified; I50.9 Heart failure, unspecified; E78.5 Hyperlipidemia, unspecified; Z79.899 Other long term (current) drug therapy; Z79.4 Long term (current) use of insulin; Z79.01 Long term (current) use of anticoagulants; Z88.0 Allergy status to penicillin; Z88.8 Allergy status to other drugs, medicaments and biological substances; Z87.891 Personal history of nicotine dependence
CPT/HCPCS: 36415; 80048; 80076; 84443; 85027; 99284; G0480; M0239

== ENCOUNTER 2020-11-05 14:23 | Outpatient (CLI) | payer MEDICARE, OTHER ==
--- NOTE | 2020-11-05 14:00 | HPEPDOC ---
[facility] Medical History & Physical Date of Admission Nov 05, 2020 Date of Service: Nov 05, 2020 History and Physical CHIEF COMPLAINT: COVID-19 HISTORY OF PRESENT ILLNESS: 75 year old female for monoclonal antibody infusion for +COVID-19, diagnosed 11/01/20. Currently notes mild SOB, fatigue, malaise. Denies chest pain, abdominal pain, YOUNG, N/V/D. PAST MEDICAL HISTORY: #HLD #obesity #DMII #COPD #glaucoma #anxiety/depression #PMR #CKDIII #HTN #HFpEF #hx toxoplasmosis ALLERGIES: Please see below. REVIEW OF SYSTEMS: Negative except as per HPI. HOME MEDICATIONS: Please see below. PHYSICAL EXAMINATION: VITAL SIGNS: See below General: NAD, sitting comfortably in chair, elderly HEENT: NC/AT, EOMI Lungs: CTA B/L Heart: +S1S2, RRR Abd: soft, NT, +BS, obese Ext: trace edema LABORATORY DATA: See below. MICROBIOLOGY: Please see below. A/P: 75 yo female sent by PCP for monoclonal antibody infusion for COVID-19 with PMHx COPD, HFpEF, HTN, DM, COPD, CKD, PMR. #COVID-19 - sent by PCP for treatment with monoclonal antibody infusion therapy - follow up as o/p after treatment with PCP Home Medications Scheduled Acetaminophen (Tylenol 8 Hour) 650 Mg Tablet.er, 650 MG PO QHS Apixaban (Eliquis) 2.5 Mg Tablet, 2.5 MG PO BID Ascorbic Acid (Vitamin C) 500 Mg Tab, 1,000 MG PO DAILY Cholecalciferol (Vitamin D3) (Vitamin D3) 1,000 Unit Tablet, 5,000 UNITS PO DAILY Cyanocobalamin (Vitamin B-12) (Vitamin B-12) 5,000 Mcg Tab, 5,000 MCG PO DAILY Cyclosporine (Restasis) 0.05 % Emu, 1 DROP OU BID Duloxetine Hcl (Duloxetine HCl) 60 Mg Capsule.dr, 60 MG PO DAILY Ferrous Gluconate (Ferrous Gluconate) 324 Mg Tablet, 324 MG PO Q2D Flecainide Acetate (Flecainide Acetate) 50 Mg Tablet, 50 MG PO BID Folic Acid (Folic Acid) 1 Mg Tab, 1 MG PO DAILY Glipizide (Glipizide Xl) 5 Mg Tab.er.24, 5 MG PO BID Insulin Aspart (Novolog Flexpen) 100 Unit/1 Ml Insuln.pen, 1 DOSE SQ ACHS PER SLIDING SCALE Insulin Glargine,Hum.rec.anlog (Lantus Solostar) 100 Unit/1 Ml Insuln.pen, 20 UNITS QHS Methotrexate Sodium (Methotrexate) 2.5 Mg Tab, 7.5 MG PO QWEEK SUNDAY Pravastatin Sodium (Pravastatin Sodium) 20 Mg Tab, 20 MG PO QHS Sitagliptin (Januvia) 50 Mg Tablet, 50 MG PO DAILY Torsemide (Torsemide) 10 Mg Tablet, 10 MG PO Q2D Tretinoin (Tretinoin) 15 Gm Gel..gram., 1 DOSE TOP Q2D APPLY TO NOSE Scheduled PRN Ammonium Lactate (Ammonium Lactate) 12% Lotion, 1 DOSE TOP BID PRN for DRY SKIN APPLY TO FEET Allergies Coded Allergies: Penicillins (Verified Allergy, Intermediate, RASH, 07/31/19) terbinafine (Verified Allergy, Intermediate, RASH, 07/31/19) A-FIB/CHADSVASC A-FIB History Current/History of A-Fib/PAF?: No CARA VALENTINO MD Nov 05, 2020 14:00
[~2020-11-05 14:23] MED LIST changes: +ALBUTEROL 90 MCG/ACT 8GM HFA INHALER INH PRN; +ALBUTEROL SULFATE 2.5 MG/0.5 ML INH NEB SOLN INH PRN; +AMMO12LO TOP; +BAMLANIVIMAB 700 MG in NS 250 ML IV ONE; +D31000TA2 PO; +EPINEPHrine INJ 1 MG/ML 1ML AMP IM PRN; +FERR32TA PO; +NS 1,000 ML IV SCH; +SITA50TAB PO; +TRET0.0212 TOP; +TYLE650T38 PO; +diphenhydrAMINE 50MG/ML VIAL (J1200) IV PRN; +methylPREDNISolone 125MG 2ML VIAL IV PRN
[2020-11-05 14:30] VITALS: BP 153/69
[2020-11-05 15:34] VITALS: BP 169/73
[2020-11-05 16:04] VITALS: BP 151/68
[2020-11-05 17:04] VITALS: BP 180/80
== END 2020-11-05 17:35 ==
LOC: M OPCLI4 14:23 → M 4MAIN 14:23 → M OPCLI4 17:35
PROVIDERS: ATTEND Internal Medicine
DX: U07.1 COVID-19 (principal); Z88.0 Allergy status to penicillin; Z88.8 Allergy status to other drugs, medicaments and biological substances

== ENCOUNTER → 2020-12-23 | Outpatient (REF) | payer MEDICARE, OTHER ==
[~2020-12-23] MED LIST changes: -ALBUTEROL 90 MCG/ACT 8GM HFA INHALER INH PRN; -ALBUTEROL SULFATE 2.5 MG/0.5 ML INH NEB SOLN INH PRN; -BAMLANIVIMAB 700 MG in NS 250 ML IV ONE; -EPINEPHrine INJ 1 MG/ML 1ML AMP IM PRN; -NS 1,000 ML IV SCH; -diphenhydrAMINE 50MG/ML VIAL (J1200) IV PRN; -methylPREDNISolone 125MG 2ML VIAL IV PRN
[2020-12-23 12:54] LABS: BASO # 0.1 10^3/uL (0.0-0.2); BASO % 0.9 % (0.0-1.0); EOS # 0.1 10^3/uL (0.0-0.5); EOS % 1.9 % (0.0-3.0); LYMPH # 1.4 10^3/uL (1.5-5.0); LYMPH % 20.8 % (24.0-44.0); MEAN CORPUSCULAR HEMOGLOBIN 28.6 pg (27.0-33.0); MEAN CORPUSCULAR HGB CONC 31.6 g/dl (32.0-36.5); MEAN CORPUSCULAR VOLUME 90.7 fl (80.0-96.0); MONO # 0.6 10^3/uL (0.0-0.8); NEUTROPHILS # 4.5 10^3/uL (1.5-8.5); PLATELET COUNT, AUTOMATED 325 10^3/uL (150-450); RED BLOOD COUNT 4.19 10^6/uL (4.00-5.40); WHITE BLOOD COUNT 6.8 10^3/uL (4.0-10.0)
[2020-12-23 13:36] LABS: ALBUMIN 3.8 GM/DL (3.2-5.2); BILIRUBIN,TOTAL 0.5 MG/DL (0.2-1.0); CALCIUM LEVEL 9.2 MG/DL (8.8-10.2); CREATININE FOR GFR 1.18 MG/DL (0.55-1.30); GLOMERULAR FILTRATION RATE 47.8 (>39); POTASSIUM SERUM 5.2 MEQ/L (3.5-5.1)
== END ==
LOC: M LABDRWAD 12:21
PROVIDERS: ATTEND Internal Medicine Cardiovascular Disease
DX: I48.0 Paroxysmal atrial fibrillation (principal); I34.0 Nonrheumatic mitral (valve) insufficiency; I11.0 Hypertensive heart disease with heart failure; R94.31 Abnormal electrocardiogram [ECG] [EKG]; I50.32 Chronic diastolic (congestive) heart failure

== ENCOUNTER → 2020-12-24 | Outpatient (REF) | payer MEDICARE, OTHER ==
[2020-12-24 18:54] LABS: APPEARANCE, URINE CLEAR (CLEAR); BACTERIA, URINE AUTO NEGATIVE (NEGATIVE); BILIRUBIN, URINE AUTO NEGATIVE (NEGATIVE); BLOOD, URINE BLOOD NEGATIVE (NEGATIVE); COLOR, URINE YELLOW (YELLOW); GLUCOSE, URINE (UA) AUTO NEGATIVE (NEGATIVE); KETONE, URINE AUTO NEGATIVE (NEGATIVE); LEUKOCYTE ESTERASE, URINE AUTO NEGATIVE (NEGATIVE); NITRITE, URINE AUTO NEGATIVE (NEGATIVE); PROTEIN, URINE AUTO 1+ mg/dL (NEGATIVE); RBC, URINE AUTO 0 /HPF (0-3); SPECIFIC GRAVITY URINE AUTO 1.017 (1.002-1.035); SQUAMOUS EPITHELIAL CELL UR AU 2 /HPF (0-6); UROBILINOGEN, URINE AUTO 0.2 mg/dL (0.0-2.0); WBC, URINE AUTO 2 /HPF (0-3)
== END ==
LOC: M LAB REF 16:27
PROVIDERS: ATTEND Obstetrics & Gynecology
DX: R35.1 Nocturia (principal)

== ENCOUNTER → 2021-01-19 | Outpatient (CLI) | payer MEDICARE, OTHER ==
--- NOTE | 2021-01-20 15:45 | SLEEPHOME ---
DATE: 01/19/2021 ORDERED BY: Dr. Edgar Ghosh Diagnostic home sleep testing was performed due to concern for the obstructive sleep apnea syndrome. For testing, a nocturnal T3 respiratory monitoring device was used. Continuous record was made of pulse, oxygen saturation, air flow, chest and abdominal strain, and body position. There was 9 hours and 59 minutes of data reviewed. There was 8 hours and 21 minutes marked as time in bed. During the interval marked time in bed there were 100 respiratory events identified of 10 seconds in duration or greater for an apnea-hypopnea index of 12. The events were primarily obstructive. Baseline pulse rate is 62. Pulse rate ranged 36-77. Baseline saturation was 90%. Saturations fell as low as 77%, and the oxygen desaturation index was 10.9 per hour. Testing was performed in both the supine and nonsupine positions. IMPRESSION: Abnormal home sleep testing with repetitive respiratory events and oxygen desaturations to 77% with a respiratory event index of 12 is consistent with the obstructive sleep apnea syndrome. RECOMMENDATION: The patient should be encouraged to undergo formal sleep evaluation.
== END ==
LOC: M SLEEP HO 09:44
PROVIDERS: ATTEND Internal Medicine Cardiovascular Disease
DX: I27.20 Pulmonary hypertension, unspecified (principal)

== ENCOUNTER → 2021-01-26 | Outpatient (REF) | payer MEDICARE, OTHER ==
[2021-01-26 21:09] LABS: CALCIUM LEVEL 9.4 MG/DL (8.8-10.2); CREATININE FOR GFR 1.21 MG/DL (0.55-1.30); GLOMERULAR FILTRATION RATE 46.4 (>39); POTASSIUM SERUM 5.3 MEQ/L (3.5-5.1)
== END ==
LOC: M LABDRWAD 16:36
PROVIDERS: ATTEND Physician Assistant
DX: I11.0 Hypertensive heart disease with heart failure (principal)

== ENCOUNTER → 2021-02-11 | Outpatient (REF) | payer MEDICARE, OTHER ==
[2021-02-11 14:06] LABS: ALBUMIN 3.8 GM/DL (3.2-5.2); CALCIUM LEVEL 9.8 MG/DL (8.8-10.2); CREATININE FOR GFR 1.18 MG/DL (0.55-1.30); GLOMERULAR FILTRATION RATE 47.8 (>39); PHOSPHORUS LEVEL 4.3 MG/DL (2.5-4.9); POTASSIUM SERUM 5.3 MEQ/L (3.5-5.1)
== END ==
LOC: M LABDRWAD 12:45
PROVIDERS: ATTEND Physician Assistant
DX: I50.32 Chronic diastolic (congestive) heart failure (principal); I11.0 Hypertensive heart disease with heart failure
CPT/HCPCS: 36415; 80069; 83880; G0463

== ENCOUNTER → 2021-03-25 | Outpatient (REF) | payer MEDICARE, OTHER ==
[2021-03-25 14:39] LABS: ALBUMIN 3.6 GM/DL (3.2-5.2); CALCIUM LEVEL 8.8 MG/DL (8.8-10.2); CREATININE FOR GFR 1.31 MG/DL (0.55-1.30); GLOMERULAR FILTRATION RATE 42.4 (>39); PHOSPHORUS LEVEL 4.6 MG/DL (2.5-4.9); POTASSIUM SERUM 5.1 MEQ/L (3.5-5.1)
== END ==
LOC: M PLALAB 13:14 → M LABDRWAD 13:14
PROVIDERS: ATTEND Physician Assistant
DX: I50.32 Chronic diastolic (congestive) heart failure (principal); I11.0 Hypertensive heart disease with heart failure

== ENCOUNTER → 2021-06-16 | Outpatient (REF) | payer MEDICARE, OTHER | LOC: M LAB REF 13:09 | PROVIDERS: ATTEND Nurse Practitioner Family | DX: E83.42 Hypomagnesemia (principal) ==

== ENCOUNTER → 2021-10-18 | Outpatient (REF) | payer MEDICARE, OTHER | LOC: M LAB REF 12:48 | PROVIDERS: ATTEND Nurse Practitioner Family | DX: E83.42 Hypomagnesemia (principal) ==

== ENCOUNTER → 2022-01-13 | Outpatient (REF) | payer MEDICARE, OTHER ==
[~2022-01-13] MED LIST changes: -D31000TA2 PO; +VITA100093 PO
[2022-01-13 17:47] LABS: BASO # 0.1 10^3/uL (0.0-0.2); BASO % 0.8 % (0.0-1.0); EOS # 0.1 10^3/uL (0.0-0.5); EOS % 1.7 % (0.0-3.0); HEMATOCRIT 39.6 % (36.0-47.0); HEMOGLOBIN 12.6 g/dl (12.0-15.5); LYMPH # 1.6 10^3/uL (1.5-5.0); LYMPH % 21.7 % (24.0-44.0); MEAN CORPUSCULAR HEMOGLOBIN 29.9 pg (27.0-33.0); MEAN CORPUSCULAR HGB CONC 31.8 g/dl (32.0-36.5); MEAN CORPUSCULAR VOLUME 94.1 fl (80.0-96.0); MONO # 0.7 10^3/uL (0.0-0.8); MONO % 9.3 % (2.0-8.0); NEUTROPHILS # 4.8 10^3/uL (1.5-8.5); NEUTROPHILS % 66.2 % (36.0-66.0); PLATELET COUNT, AUTOMATED 350 10^3/uL (150-450); RED BLOOD COUNT 4.21 10^6/uL (4.00-5.40); WHITE BLOOD COUNT 7.2 10^3/uL (4.0-10.0)
[2022-01-13 18:12] LABS: ALBUMIN 3.8 GM/DL (3.2-5.2); BILIRUBIN,TOTAL 0.4 MG/DL (0.2-1.0); CALCIUM LEVEL 9.3 MG/DL (8.8-10.2); CHOLESTEROL RISK RATIO 3.412 (<5); CREATININE FOR GFR 1.27 MG/DL (0.55-1.30); GLOMERULAR FILTRATION RATE 43.8 (>39); POTASSIUM SERUM 5.1 MEQ/L (3.5-5.1); TOTAL PROTEIN 7.3 GM/DL (6.4-8.2)
== END ==
LOC: M SFHCADAM 17:06
PROVIDERS: ATTEND Family Medicine
DX: Z00.00 Encounter for general adult medical examination without abnormal findings (principal)

== ENCOUNTER → 2022-04-10 | Outpatient (REF) | payer MEDICARE, OTHER | LOC: M SFHCADAM 15:52 | PROVIDERS: ATTEND Family Medicine | DX: R09.81 Nasal congestion (principal) ==

== ENCOUNTER → 2022-04-21 | Outpatient (CLI) | payer MEDICARE, OTHER ==
[2022-04-21 13:56] LABS: C REACTIVE PROTEIN QUANTITATIV 0.32 MG/DL (0.00-0.30)
[2022-04-21 20:30] LABS: CALCIUM LEVEL 8.5 MG/DL (8.8-10.2); CREATININE FOR GFR 1.13 MG/DL (0.55-1.30)
== END ==
LOC: M ADAMS 08:32
PROVIDERS: ATTEND Registered Nurse
DX: R79.89 Other specified abnormal findings of blood chemistry (principal)

== ENCOUNTER → 2022-08-10 | Outpatient (REF) | payer MEDICARE, OTHER ==
[~2022-08-10] MED LIST changes: -CO Q400C2 PO; +CVS400CA10 PO
[2022-08-11 19:04] LABS: MAU/CREAT RATIO 203.7 MCG/MG (0.0-30.0)
== END ==
LOC: M LAB REF 17:17
PROVIDERS: ATTEND Nurse Practitioner Family
DX: E11.65 Type 2 diabetes mellitus with hyperglycemia (principal)

== ENCOUNTER → 2022-12-26 | Outpatient (REF) | payer MEDICARE, OTHER ==
[2022-12-26 14:20] LABS: CREATININE, URINE 62.4 MG/DL
[2022-12-26 14:21] LABS: MAU/CREAT RATIO 246.7 MCG/MG (0.0-30.0)
== END ==
LOC: M SFHCADAM 11:40
PROVIDERS: ATTEND Family Medicine
DX: I10 Essential (primary) hypertension (principal); E11.9 Type 2 diabetes mellitus without complications

== ENCOUNTER → 2023-01-18 | Outpatient (REF) | payer MEDICARE, OTHER ==
[2023-01-18 15:47] LABS: ALBUMIN 3.6 G/DL (3.2-5.2); ALKALINE PHOSPHATASE 101 U/L (46-116); ALT/SGPT < 9 U/L (7.0-40); AST/SGOT 13 U/L (<34); BILIRUBIN,DIRECT 0.1 MG/DL (<0.4); BILIRUBIN,TOTAL 0.4 MG/DL (0.3-1.2); CHOLESTEROL LEVEL 203 MG/DL (<200); CHOLESTEROL RISK RATIO 3.71 (<5); HDL CHOLESTEROL 54.6 MG/DL (>40); LDL CHOLESTEROL 108.2 MG/DL (<100); NON-HDL-C 148.4 MG/DL; TOTAL PROTEIN 6.6 G/DL (5.7-8.2); TRIGLYCERIDES LEVEL 201 MG/DL (<150)
== END ==
LOC: M LABDRWAD 12:35
PROVIDERS: ATTEND Internal Medicine Endocrinology, Diabetes & Metabolism
DX: E78.2 Mixed hyperlipidemia (principal)

== ENCOUNTER → 2023-05-28 | Outpatient (REF) | payer MEDICARE, OTHER ==
[~2023-05-28] MED LIST changes: -VITA500064 PO; +VITA500065 PO
[2023-05-28 13:09] LABS: CALCIUM LEVEL 9.1 MG/DL (8.3-10.6); GLOMERULAR FILTRATION RATE 57.4 (>39); POTASSIUM SERUM 5.4 MMOL/L (3.5-5.1)
== END ==
LOC: M LABDRWAD 12:36
PROVIDERS: ATTEND Ophthalmology Ophthalmic Plastic and Reconstructive Surgery
DX: H02.423 Myogenic ptosis of bilateral eyelids (principal)

== ENCOUNTER → 2023-07-27 | Outpatient (REF) | payer MEDICARE, OTHER | LOC: M SFHCADAM 16:27 | PROVIDERS: ATTEND Family Medicine | DX: A04.71 Enterocolitis due to Clostridium difficile, recurrent (principal) ==

== ENCOUNTER → 2023-11-22 | Outpatient (CLI) | payer MEDICARE, OTHER | LOC: M WHC 09:53 | PROVIDERS: ATTEND Family Medicine | DX: Z13.820 Encounter for screening for osteoporosis (principal); M85.851 Other specified disorders of bone density and structure, right thigh ==

== ENCOUNTER → 2023-12-14 | Outpatient (REF) | payer MEDICARE, OTHER | LOC: M SFHCADAM 12:17 | PROVIDERS: ATTEND Physician Assistant | DX: J00 Acute nasopharyngitis [common cold] (principal) ==

== ENCOUNTER → 2024-04-07 | Outpatient (CLI) | payer MEDICARE, OTHER | LOC: M CARPUL 11:08 | PROVIDERS: ATTEND Family Medicine | DX: Z87.09 Personal history of other diseases of the respiratory system (principal) ==

== ENCOUNTER → 2024-09-29 | Outpatient (CLI) | payer MEDICARE, OTHER | LOC: M PAIN 08:00 | PROVIDERS: ATTEND Nurse Practitioner Family | DX: M79.18 Myalgia, other site (principal); M48.00 Spinal stenosis, site unspecified; M51.16 Intervertebral disc disorders with radiculopathy, lumbar region; M47.816 Spondylosis without myelopathy or radiculopathy, lumbar region; G89.29 Other chronic pain; E78.5 Hyperlipidemia, unspecified; E11.22 Type 2 diabetes mellitus with diabetic chronic kidney disease; J44.9 Chronic obstructive pulmonary disease, unspecified; H40.9 Unspecified glaucoma; F32.A Depression, unspecified; F41.9 Anxiety disorder, unspecified; E55.9 Vitamin D deficiency, unspecified; M35.3 Polymyalgia rheumatica; N18.30 Chronic kidney disease, stage 3 unspecified; I13.0 Hypertensive heart and chronic kidney disease with heart failure and stage 1 through stage 4 chronic kidney disease, or unspecified chronic kidney disease; I50.32 Chronic diastolic (congestive) heart failure; I48.91 Unspecified atrial fibrillation; G47.33 Obstructive sleep apnea (adult) (pediatric); Z87.891 Personal history of nicotine dependence; Z79.01 Long term (current) use of anticoagulants; Z79.84 Long term (current) use of oral hypoglycemic drugs; Z79.899 Other long term (current) drug therapy; Z88.0 Allergy status to penicillin; Z88.8 Allergy status to other drugs, medicaments and biological substances ==

== ENCOUNTER → 2024-11-21 | Outpatient (CLI) | payer MEDICARE, OTHER ==
[~2024-11-21] MED LIST changes: +TRIAMCINOLONE ACETONIDE SUSP 40MG/ML 1ML VIAL As Ordered ONE
== END ==
LOC: M PAIN 10:00
PROVIDERS: ATTEND Anesthesiology
DX: M79.18 Myalgia, other site (principal); G89.29 Other chronic pain; E78.5 Hyperlipidemia, unspecified; E11.22 Type 2 diabetes mellitus with diabetic chronic kidney disease; J44.9 Chronic obstructive pulmonary disease, unspecified; I13.0 Hypertensive heart and chronic kidney disease with heart failure and stage 1 through stage 4 chronic kidney disease, or unspecified chronic kidney disease; N18.30 Chronic kidney disease, stage 3 unspecified; I50.32 Chronic diastolic (congestive) heart failure; I48.91 Unspecified atrial fibrillation; Z79.01 Long term (current) use of anticoagulants; Z79.4 Long term (current) use of insulin; Z79.899 Other long term (current) drug therapy; Z87.891 Personal history of nicotine dependence; Z88.0 Allergy status to penicillin; Z88.8 Allergy status to other drugs, medicaments and biological substances
CPT/HCPCS: 20552; J0665; J3301

== ENCOUNTER → 2024-12-08 | Outpatient (CLI) | payer MEDICARE, OTHER ==
[~2024-12-08] MED LIST changes: -TRIAMCINOLONE ACETONIDE SUSP 40MG/ML 1ML VIAL As Ordered ONE
== END ==
LOC: M PAIN 10:15
PROVIDERS: ATTEND Nurse Practitioner Family
DX: M79.18 Myalgia, other site (principal); G89.29 Other chronic pain; E78.5 Hyperlipidemia, unspecified; E11.22 Type 2 diabetes mellitus with diabetic chronic kidney disease; N18.30 Chronic kidney disease, stage 3 unspecified; I13.0 Hypertensive heart and chronic kidney disease with heart failure and stage 1 through stage 4 chronic kidney disease, or unspecified chronic kidney disease; I50.32 Chronic diastolic (congestive) heart failure; I48.91 Unspecified atrial fibrillation; Z87.891 Personal history of nicotine dependence; Z79.01 Long term (current) use of anticoagulants; Z79.84 Long term (current) use of oral hypoglycemic drugs; Z79.899 Other long term (current) drug therapy; Z88.0 Allergy status to penicillin; Z88.8 Allergy status to other drugs, medicaments and biological substances

== ENCOUNTER → 2024-12-09 | Outpatient (REF) | payer MEDICARE, OTHER ==
[2024-12-09 18:56] LABS: HEMOGLOBIN A1c 7.2 % (4.0-6.0)
== END ==
LOC: M LAB REF 17:40
PROVIDERS: ATTEND Nurse Practitioner Family
DX: E11.65 Type 2 diabetes mellitus with hyperglycemia (principal)

== ENCOUNTER → 2024-12-15 | Outpatient (REF) | payer MEDICARE, OTHER | LOC: M SFHCADAM 09:48 | PROVIDERS: ATTEND Family Medicine | DX: Z00.00 Encounter for general adult medical examination without abnormal findings (principal); E11.9 Type 2 diabetes mellitus without complications ==

== ENCOUNTER → 2024-12-16 | Outpatient (REF) | payer MEDICARE, OTHER ==
[2024-12-16 15:29] LABS: BASO # 0.1 10^3/uL (0.0-0.2); BASO % 0.8 % (0.0-1.0); EOS # 0.1 10^3/uL (0.0-0.5); EOS % 1.6 % (0.0-3.0); HEMATOCRIT 40.7 % (36.0-47.0); HEMOGLOBIN 12.7 g/dl (12.0-15.5); LYMPH # 1.3 10^3/uL (1.5-5.0); MEAN CORPUSCULAR HEMOGLOBIN 30.1 pg (27.0-33.0); MEAN CORPUSCULAR HGB CONC 31.2 g/dl (32.0-36.5); MEAN CORPUSCULAR VOLUME 96.4 fl (80.0-96.0); MONO # 0.7 10^3/uL (0.0-0.8); MONO % 7.8 % (2.0-8.0); NEUTROPHILS # 6.1 10^3/uL (1.5-8.5); NEUTROPHILS % 73.1 % (36.0-66.0); PLATELET COUNT, AUTOMATED 290 10^3/uL (150-450); RED BLOOD COUNT 4.22 10^6/uL (4.00-5.40); WHITE BLOOD COUNT 8.4 10^3/uL (4.0-10.0)
[2024-12-16 15:47] LABS: THYROID STIMULATING HORMONE 0.752 uIU/ML (0.55-4.78)
[2024-12-16 15:48] LABS: ALBUMIN 3.5 G/DL (3.2-5.2); BILIRUBIN,TOTAL 0.5 MG/DL (0.3-1.2); CALCIUM LEVEL 9.3 MG/DL (8.3-10.6); CHOLESTEROL RISK RATIO 3.25 (<5); CREATININE FOR GFR 1.26 MG/DL (0.55-1.30); GLOMERULAR FILTRATION RATE 43.8 (>39); HDL CHOLESTEROL 57.8 MG/DL (>40); LDL CHOLESTEROL 101.8 MG/DL (<100); NON-HDL-C 130.2 MG/DL; POTASSIUM SERUM 4.7 MMOL/L (3.5-5.1); TOTAL PROTEIN 6.7 G/DL (5.7-8.2)
[2024-12-16 17:47] LABS: HEMOGLOBIN A1c 7.1 % (4.0-6.0)
== END ==
LOC: M SFHCADAM 09:24
PROVIDERS: ATTEND Family Medicine
DX: Z00.00 Encounter for general adult medical examination without abnormal findings (principal); E11.9 Type 2 diabetes mellitus without complications; E78.2 Mixed hyperlipidemia

== ENCOUNTER → 2024-12-16 | Outpatient (REF) | payer MEDICARE, OTHER ==
[2024-12-16 15:46] LABS: ALBUMIN 3.5 G/DL (3.2-5.2); BILIRUBIN,DIRECT 0.1 MG/DL (<0.4); BILIRUBIN,TOTAL 0.5 MG/DL (0.3-1.2); CHOLESTEROL RISK RATIO 3.26 (<5); HDL CHOLESTEROL 58.2 MG/DL (>40); LDL CHOLESTEROL 103.4 MG/DL (<100); NON-HDL-C 131.8 MG/DL; TOTAL PROTEIN 6.8 G/DL (5.7-8.2)
== END ==
LOC: M LABDRWAD 15:18
PROVIDERS: ATTEND Physician Assistant
DX: E78.2 Mixed hyperlipidemia (principal)

== ENCOUNTER → 2025-06-11 | Outpatient (REF) | payer MEDICARE, OTHER ==
[~2025-06-11] MED LIST changes: +GLIP2.5T46 PO; -GLIP2.5T6 PO; -PRAV20TA2 PO; +PRAV20TA78 PO; -PREG25CA; +PREG25CA63
[2025-06-11 13:33] LABS: ALT/SGPT 21.0 U/L (7.0-40); AST/SGOT 16.0 U/L (<34); CALCIUM LEVEL 9.1 MG/DL (8.3-10.6); CARBON DIOXIDE LEVEL 31.0 MMOL/L (20-31); CHLORIDE LEVEL 96.0 MMOL/L (98-107); CREATININE FOR GFR 1.08 MG/DL (0.55-1.30); GLOMERULAR FILTRATION RATE 52.6 (>39); POTASSIUM SERUM 4.8 MMOL/L (3.5-5.1); SODIUM LEVEL 137.0 MMOL/L (136-145)
== END ==
LOC: M SFHCADAM 09:55
PROVIDERS: ATTEND Family Medicine
DX: I73.9 Peripheral vascular disease, unspecified (principal)

== ENCOUNTER → 2025-06-26 | Outpatient (CLI) | payer MEDICARE, OTHER ==
[~2025-06-26] MED LIST changes: -COLC0.6T47 PO; +COLC0.6T53 PO; +ISOVUE-370 76% 100 ML VIAL As Ordered ONE
== END ==
LOC: M RAD 08:14
PROVIDERS: ATTEND Family Medicine
DX: I73.9 Peripheral vascular disease, unspecified (principal)
CPT/HCPCS: 73706; Q9967

== ENCOUNTER → 2025-09-07 | Outpatient (CLI) | payer MEDICARE, OTHER ==
[~2025-09-07] MED LIST changes: -ISOVUE-370 76% 100 ML VIAL As Ordered ONE
== END ==
LOC: M WUC 15:26
PROVIDERS: ATTEND Student in an Organized Health Care Education/Training Program
DX: S20.212A Contusion of left front wall of thorax, initial encounter (principal); X58.XXXA Exposure to other specified factors, initial encounter; Y92.9 Unspecified place or not applicable; Y93.9 Activity, unspecified; Y99.9 Unspecified external cause status